=== PATIENT | female | born 1960 | race Caucasian/White ===

== ENCOUNTER 2024-05-22 11:54 | Inpatient (IN) ==
[2024-05-22] MEDS ORDERED: STAT IV Infusion **Titration per Protocol STA ×2 (12:31→14:34)
[2024-05-22] MEDS: NOREPINEPHRINE/D5W 4 MG/250 ML IV ONE (12:32)
[2024-05-22] MEDS: NOREPINEPHRINE/D5W 4 MG/250 ML PLCT IV SCH (12:33)
[2024-05-22] MEDS ORDERED: VANCOMYCIN CONSULT ACTIVE PRN (12:44)
[2024-05-22 12:52] LABS: iSTAT Creatinine 5.6 mg/dl (0.6-1.3); iSTAT Hemoglobin 13.3 g/dl (12.0-16.0); iSTAT Ionized Calcium 1.04 mmol/l (1.12-1.32); iSTAT Potassium 5.5 mmol/L (3.3-5.0)
[2024-05-22] MEDS: CEFEPIME 2000MG 2,000 MG/20 ML SYR IV STA (12:56)
[2024-05-22 13:05] LABS: Basophils # (auto) 0.06 K/uL (0.00-0.20); Basophils % (auto) 0.8 %; Eosinophils # (auto) 0.05 K/uL (0.00-0.50); Eosinophils % (auto) 0.7 %; Hematocrit (blood only) 36.3 % (37.0-47.0); Hemoglobin 12.5 g/dl (12.0-16.0); Immature Granulocytes # (auto) 0.04 K/uL (0.01-0.20); Immature Granulocytes % (auto) 0.5 %; Lymphocytes # (auto) 1.77 K/uL (1.20-3.40); Lymphocytes % (auto) 24.1 %; Mean Corpuscular Hemoglobin 31.9 pg (25.0-34.0); Mean Corpuscular Hgb Conc 34.4 g/dL (32.0-36.0); Mean Corpuscular Volume 92.6 fL (80.0-100.0); Mean Platelet Volume 9.1 fL (9.4-12.4); Monocytes # (auto) 0.48 K/uL (0.11-0.59); Monocytes % (auto) 6.5 %; Neutrophils # (auto) 4.94 K/uL (1.40-6.50); Neutrophils % (auto) 67.4 %; Platelet Count 472 K/uL (130-400); RDW Coefficient of Variation 14.5 % (11.5-14.5); RDW Standard Deviation 49.2 fL (36.4-46.3); Red Blood Count 3.92 M/uL (4.20-5.40); White Blood Count 7.34 K/ul (4.8-10.8)
[2024-05-22 13:28] LABS: Albumin Globulin Ratio 1.5 (0.9-2); Albumin Level 4.8 gm/dl (3.4-5.0); BUN Creatinine Ratio 15.6 (10-20); Bilirubin,Total 0.4 mg/dl (0.2-1.0); Calcium 9.5 mg/dl (8.6-10.3); Creatinine Clr Calc Pharmacy 10.1 ml/min; Globulin 3.2 gm/dl (2.5-4.0); Potassium 5.3 mmol/L (3.5-5.1)
[2024-05-22] MEDS: SODIUM CHLORIDE 0.9% 1,000 ML IV SCH (13:28)
[2024-05-22 13:32] LABS: Troponin I High Sensitivity 12.8 pg/ml (0-14)
[2024-05-22 13:42] LABS: Thyroid Stimulating Hormone 1.945 uIu/ml (0.300-4.500)
--- NOTE | 2024-05-22 13:59 | Emergency Department Note ---
Impression & Plan Hypotension, Acute renal failure, Lactic acidosis, Hyperkalemia, Alcohol intoxication, Shock, Ethyl alcohol poisoning, Altered mental status ED Provider Note NAME: WILLIAN VALADEZ AGE: 63 SEX: F : 1960 ARRIVES VIA: Walk-In INFORMANT: Patient, ED PROVIDER(S): Penny Arriaga MD CHIEF COMPLAINT: Confusion HPI: This is 63-year-old female presenting for confusion. Patient is with her daughter who states over the past 1.5 weeks patient has been sick at home from work. She initially had fever, neck pain, body aches. Since then daughter does mention that the neck pain has improved. Patient has been continue to drink alcohol, reportedly patient is barely eating and drinking and only drink alcohol. Patient has fallen multiple times as per daughter. ROS: See above HPI for pertinent positives & negatives. A total of 10 systems reviewed and were otherwise negative. PAST MEDICAL HISTORY: See Below PAST SURGICAL HISTORY: See Below FAMILY HISTORY: See Below SOCIAL HISTORY: See Below HOME MEDICATIONS: See Below ALLERGIES: See Below VITALS: See Below PHYSICAL EXAMINATION: General: resting comfortably in no acute distress Head: Normocephalic and atraumatic Eyes: Normal inspection, extraocular muscles intact Ear, nose, throat: Normal external exam Neck: Normal range of motion, no meningismus Respiratory: lungs clear to auscultation bilaterally Cardiovascular: Regular rate/rhythm, no murmur GI: soft, nontender, no guarding or rebound Extremities: nontender, moves all extremities Neuro: The patient awake and alert, no focal deficits, symmetric face, not oriented Skin: Warm, dry, and intact MEDICAL DECISION MAKING: This is a 63-year-old female with history of alcohol use disorder presenting for confusion. Patient is found to be hypotensive on arrival, placed in trauma resuscitation bay. Patient blood pressure initially 60/40. She has not presenting tachycardic only a rate of 102. Not febrile, tachypneic. She appears well clinically without any abdominal pain. Blood pressure is significantly low, fluids are started without much relief. Will start nor epi emergently. -Even after norepinephrine, patient is still hypotensive in addition to fluid resuscitation. A-line placed at this time, see below for procedure note. -[id number] BMP does reveal significant PRO, creatinine over 5 on BMP. -Patient given empiric vancomycin and cefepime for sepsis -CT head, chest, abdomen ordered for rule out of intracranial process or other infectious source in the chest or abdomen -CT head reviewed showing no acute cranial process. CT chest reveals no pneumonia. CT abdomen/pelvis reveals no acute process -Labs BMP shows creatinine of 4.81, otherwise hyponatremia, potassium of 5.3, CO2 of 18, anion gap of 17. Lactic acid 3.2. -Ethanol level is 340. -Despite 3 L of normal saline and uptitrating norepinephrine, patient still hypotensive. Will start epinephrine drip at this time. Discussed care with ED pharmacist for this. -Discussed care with Dr. Case, ICU physician, who requests conversation with nephrology for possible dialysis. -Discussed care with Dr. Mcconnell, nephrology, who states patient can get dialysis today and catheter should be placed -Dr. Case at bedside performing procedure -Discussed with Dr. Calloway, hospitalist, for admission PROCEDURE: Time-out was completed verifying correct patient, procedure, site, positioning, and special equipment if applicable. Allens test was performed to ensure adequate perfusion. The patients left wrist was prepped and draped in sterile fashion. A 20 Arrow arterial line was introduced into the radial artery. The catheter was threaded over the guide wire and the needle was removed with appropriate pulsatile blood return. The catheter was then sutured in place to the skin and a sterile dressing applied. Perfusion to the extremity distal to the point of catheter insertion was checked and found to be adequate. Differential diagnosis: Sepsis, intracranial hemorrhage, meningitis, dehydration, alcohol intoxication, stroke Independent History obtained from: Daughter Diagnostics interpreted by me: ECG: ECG independently interpreted by me with normal sinus rhythm, rate of 95, normal axis, normal [place], normal QRS, normal QTc, no ST segment elevations consistent with STEMI criteria Cardiac Monitoring: An order was placed for continuous cardiac monitoring. The monitor shows a rate of 98 with sinus rhythm. Critical Care Note: I have personally spent 80 minutes of critical care time in the direct management of this patient. This includes bedside care, interpretation of diagnostic studies, and testing, discussion with consultants, patient, and family members, and other required patient management activities. This 80 minutes is in excess of all separately billable procedures. 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: No Beliefs That Will Affect Care: None Current Living Situation: Alone Current Living Situation Comment: alone with daughter Feels Safe at Home: Yes Assistive Devices: None Allergies Allergies Allergy/AdvReac Type Severity Reaction Status Date / Time No Known Allergies Allergy Unverified 05/22/24 14:19 Home Meds Home Medications Medication Instructions Recorded Confirmed fluoxetine 40 mg capsule 40 mg PO DAILY 05/22/24 05/22/24 olanzapine 5 mg tablet 5 mg PO DAILY 05/22/24 05/22/24 Results & Data (ED) Vital Signs Vital Signs - 24 hr 05/22/24 12:11 05/22/24 12:19 05/22/24 12:21 Temperature 36.4 C L Temperature Source Oral Pulse Rate 102 H 96 H Pulse Rate [Apical] Pulse Rate from SpO2 Sensor Pulse Rhythm Regular Pulse Rhythm [Apical] Pulse Strength Normal Pulse Strength [Apical] Respiratory Rate 18 Respiratory Effort / Characteristics Non-Labored Spontaneous Respiratory Depth Normal Respiratory Pattern Regular Blood Pressure 64/40 L 81/56 L Blood Pressure [Left Radial Artery] Blood Pressure [Right Arm] Blood Pressure Mean 48 65 Blood Pressure Mean [Left Radial Artery] Blood Pressure Mean [Right Arm] Blood Pressure Position [Left Radial Artery] Blood Pressure Position [Right Arm] Pulse Oximetry 96 Oxygen Delivery Method Room Air Oxygen Flow Rate Sepsis Recent Fever Within 48 Hours No Sepsis New/Unexplained Change in Mental Status N/A Sepsis Action Taken by Nursing No Action Required Arterial BP Systolic Arterial BP Diastolic Arterial BP Mean Arterial Pulse Rate 05/22/24 12:22 05/22/24 12:24 05/22/24 12:27 Temperature Temperature Source Pulse Rate 96 H 94 H Pulse Rate [Apical] 92 H Pulse Rate from SpO2 Sensor Pulse Rhythm Pulse Rhythm [Apical] Regular Pulse Strength Pulse Strength [Apical] Normal Respiratory Rate 26 H Respiratory Effort / Characteristics Respiratory Depth Normal Respiratory Pattern Regular Blood Pressure Blood Pressure [Left Radial Artery] Blood Pressure [Right Arm] 65/43 L Blood Pressure Mean Blood Pressure Mean [Left Radial Artery] Blood Pressure Mean [Right Arm] 50 Blood Pressure Position [Left Radial Artery] Blood Pressure Position [Right Arm] Lying Pulse Oximetry 96 Oxygen Delivery Method Nasal Cannula Oxygen Flow Rate 2 Sepsis Recent Fever Within 48 Hours Sepsis New/Unexplained Change in Mental Status Sepsis Action Taken by Nursing Arterial BP Systolic Arterial BP Diastolic Arterial BP Mean Arterial Pulse Rate 05/22/24 12:28 05/22/24 12:31 05/22/24 12:31 Temperature Temperature Source Pulse Rate Pulse Rate [Apical] Pulse Rate from SpO2 Sensor Pulse Rhythm Pulse Rhythm [Apical] Pulse Strength Pulse Strength [Apical] Respiratory Rate Respiratory Effort / Characteristics Respiratory Depth Respiratory Pattern Blood Pressure 60/47 L 76/47 L 76/47 L Blood Pressure [Left Radial Artery] Blood Pressure [Right Arm] Blood Pressure Mean 51 58 58 Blood Pressure Mean [Left Radial Artery] Blood Pressure Mean [Right Arm] Blood Pressure Position [Left Radial Artery] Blood Pressure Position [Right Arm] Pulse Oximetry Oxygen Delivery Method Oxygen Flow Rate Sepsis Recent Fever Within 48 Hours Sepsis New/Unexplained Change in Mental Status Sepsis Action Taken by Nursing Arterial BP Systolic Arterial BP Diastolic Arterial BP Mean Arterial Pulse Rate 05/22/24 12:35 05/22/24 12:37 05/22/24 12:37 Temperature Temperature Source Pulse Rate Pulse Rate [Apical] 87 Pulse Rate from SpO2 Sensor Pulse Rhythm Pulse Rhythm [Apical] Regular Pulse Strength Pulse Strength [Apical] Normal Respiratory Rate 18 Respiratory Effort / Characteristics Non-Labored Spontaneous Respiratory Depth Normal Respiratory Pattern Regular Blood Pressure 102/68 Blood Pressure [Left Radial Artery] Blood Pressure [Right Arm] 102/68 Blood Pressure Mean 78 Blood Pressure Mean [Left Radial Artery] Blood Pressure Mean [Right Arm] 79 Blood Pressure Position [Left Radial Artery] Blood Pressure Position [Right Arm] Lying Pulse Oximetry 88 L 90 Oxygen Delivery Method Room Air Nasal Cannula Oxygen Flow Rate 2 Sepsis Recent Fever Within 48 Hours Sepsis New/Unexplained Change in Mental Status Sepsis Action Taken by Nursing Arterial BP Systolic Arterial BP Diastolic Arterial BP Mean Arterial Pulse Rate 05/22/24 12:41 05/22/24 12:41 05/22/24 12:42 Temperature Temperature Source Pulse Rate 86 Pulse Rate [Apical] 98 H Pulse Rate from SpO2 Sensor Pulse Rhythm Pulse Rhythm [Apical] Regular Pulse Strength Pulse Strength [Apical] Normal Respiratory Rate 26 H Respiratory Effort / Characteristics Respiratory Depth Respiratory Pattern Blood Pressure 57/42 L Blood Pressure [Left Radial Artery] Blood Pressure [Right Arm] 57/42 L Blood Pressure Mean 46 Blood Pressure Mean [Left Radial Artery] Blood Pressure Mean [Right Arm] 47 Blood Pressure Position [Left Radial Artery] Blood Pressure Position [Right Arm] Lying Pulse Oximetry 98 Oxygen Delivery Method Nasal Cannula Oxygen Flow Rate 2 Sepsis Recent Fever Within 48 Hours Sepsis New/Unexplained Change in Mental Status Sepsis Action Taken by Nursing Arterial BP Systolic Arterial BP Diastolic Arterial BP Mean Arterial Pulse Rate 05/22/24 12:44 05/22/24 12:45 05/22/24 12:45 Temperature Temperature Source Pulse Rate 86 Pulse Rate [Apical] Pulse Rate from SpO2 Sensor 87 Pulse Rhythm Pulse Rhythm [Apical] Pulse Strength Pulse Strength [Apical] Respiratory Rate Respiratory Effort / Characteristics Respiratory Depth Respiratory Pattern Blood Pressure 56/37 L 56/38 L Blood Pressure [Left Radial Artery] Blood Pressure [Right Arm] Blood Pressure Mean 43 46 Blood Pressure Mean [Left Radial Artery] Blood Pressure Mean [Right Arm] Blood Pressure Position [Left Radial Artery] Blood Pressure Position [Right Arm] Pulse Oximetry 96 Oxygen Delivery Method Oxygen Flow Rate Sepsis Recent Fever Within 48 Hours Sepsis New/Unexplained Change in Mental Status Sepsis Action Taken by Nursing Arterial BP Systolic Arterial BP Diastolic Arterial BP Mean Arterial Pulse Rate 05/22/24 12:45 05/22/24 12:48 05/22/24 12:48 Temperature Temperature Source Pulse Rate 84 Pulse Rate [Apical] Pulse Rate from SpO2 Sensor Pulse Rhythm Pulse Rhythm [Apical] Pulse Strength Pulse Strength [Apical] Respiratory Rate Respiratory Effort / Characteristics Respiratory Depth Respiratory Pattern Blood Pressure 56/38 L 69/50 L Blood Pressure [Left Radial Artery] Blood Pressure [Right Arm] Blood Pressure Mean 46 53 Blood Pressure Mean [Left Radial Artery] Blood Pressure Mean [Right Arm] Blood Pressure Position [Left Radial Artery] Blood Pressure Position [Right Arm] Pulse Oximetry Oxygen Delivery Method Oxygen Flow Rate Sepsis Recent Fever Within 48 Hours Sepsis New/Unexplained Change in Mental Status Sepsis Action Taken by Nursing Arterial BP Systolic Arterial BP Diastolic Arterial BP Mean Arterial Pulse Rate 05/22/24 12:50 05/22/24 12:54 05/22/24 12:55 Temperature Temperature Source Pulse Rate 90 Pulse Rate [Apical] 91 H Pulse Rate from SpO2 Sensor Pulse Rhythm Regular Pulse Rhythm [Apical] Regular Pulse Strength Pulse Strength [Apical] Respiratory Rate 17 25 H Respiratory Effort / Characteristics Respiratory Depth Respiratory Pattern Blood Pressure 80/55 L Blood Pressure [Left Radial Artery] Blood Pressure [Right Arm] 95/62 L Blood Pressure Mean 60 Blood Pressure Mean [Left Radial Artery] Blood Pressure Mean [Right Arm] 73 Blood Pressure Position [Left Radial Artery] Blood Pressure Position [Right Arm] Lying Pulse Oximetry 98 98 Oxygen Delivery Method Nasal Cannula Oxygen Flow Rate 2 Sepsis Recent Fever Within 48 Hours Sepsis New/Unexplained Change in Mental Status Sepsis Action Taken by Nursing Arterial BP Systolic Arterial BP Diastolic Arterial BP Mean Arterial Pulse Rate 05/22/24 13:05 05/22/24 13:05 05/22/24 13:09 Temperature Temperature Source Pulse Rate 96 H Pulse Rate [Apical] Pulse Rate from SpO2 Sensor Pulse Rhythm Pulse Rhythm [Apical] Pulse Strength Pulse Strength [Apical] Respiratory Rate Respiratory Effort / Characteristics Respiratory Depth Respiratory Pattern Blood Pressure 98/66 L 98/66 L Blood Pressure [Left Radial Artery] Blood Pressure [Right Arm] Blood Pressure Mean 71 71 Blood Pressure Mean [Left Radial Artery] Blood Pressure Mean [Right Arm] Blood Pressure Position [Left Radial Artery] Blood Pressure Position [Right Arm] Pulse Oximetry 93 Oxygen Delivery Method Nasal Cannula Oxygen Flow Rate 2 Sepsis Recent Fever Within 48 Hours Sepsis New/Unexplained Change in Mental Status Sepsis Action Taken by Nursing Arterial BP Systolic Arterial BP Diastolic Arterial BP Mean Arterial Pulse Rate 05/22/24 13:10 05/22/24 13:15 05/22/24 13:15 Temperature Temperature Source Pulse Rate 96 H Pulse Rate [Apical] Pulse Rate from SpO2 Sensor 94 H Pulse Rhythm Pulse Rhythm [Apical] Pulse Strength Pulse Strength [Apical] Respiratory Rate Respiratory Effort / Characteristics Respiratory Depth Respiratory Pattern Blood Pressure 97/67 L 87/56 L Blood Pressure [Left Radial Artery] Blood Pressure [Right Arm] Blood Pressure Mean 74 67 Blood Pressure Mean [Left Radial Artery] Blood Pressure Mean [Right Arm] Blood Pressure Position [Left Radial Artery] Blood Pressure Position [Right Arm] Pulse Oximetry 98 Oxygen Delivery Method Oxygen Flow Rate Sepsis Recent Fever Within 48 Hours Sepsis New/Unexplained Change in Mental Status Sepsis Action Taken by Nursing Arterial BP Systolic Arterial BP Diastolic Arterial BP Mean Arterial Pulse Rate 95 H 05/22/24 13:15 05/22/24 13:18 05/22/24 13:20 Temperature Temperature Source Pulse Rate 95 H Pulse Rate [Apical] Pulse Rate from SpO2 Sensor 95 H Pulse Rhythm Pulse Rhythm [Apical] Pulse Strength Pulse Strength [Apical] Respiratory Rate Respiratory Effort / Characteristics Respiratory Depth Respiratory Pattern Blood Pressure 87/56 L 85/59 L Blood Pressure [Left Radial Artery] Blood Pressure [Right Arm] Blood Pressure Mean 67 65 Blood Pressure Mean [Left Radial Artery] Blood Pressure Mean [Right Arm] Blood Pressure Position [Left Radial Artery] Blood Pressure Position [Right Arm] Pulse Oximetry 98 Oxygen Delivery Method Oxygen Flow Rate Sepsis Recent Fever Within 48 Hours Sepsis New/Unexplained Change in Mental Status Sepsis Action Taken by Nursing Arterial BP Systolic Arterial BP Diastolic Arterial BP Mean Arterial Pulse Rate 63 05/22/24 13:20 05/22/24 13:24 05/22/24 13:25 Temperature Temperature Source Pulse Rate 97 H Pulse Rate [Apical] 96 H Pulse Rate from SpO2 Sensor 96 H Pulse Rhythm Pulse Rhythm [Apical] Regular Pulse Strength Pulse Strength [Apical] Respiratory Rate 24 Respiratory Effort / Characteristics Respiratory Depth Normal Respiratory Pattern Blood Pressure 85/59 L Blood Pressure [Left Radial Artery] Blood Pressure [Right Arm] 94/56 L Blood Pressure Mean 65 Blood Pressure Mean [Left Radial Artery] Blood Pressure Mean [Right Arm] 68 Blood Pressure Position [Left Radial Artery] Blood Pressure Position [Right Arm] Pulse Oximetry 98 97 Oxygen Delivery Method Nasal Cannula Oxygen Flow Rate 2 Sepsis Recent Fever Within 48 Hours Sepsis New/Unexplained Change in Mental Status Sepsis Action Taken by Nursing Arterial BP Systolic 44 Arterial BP Diastolic Arterial BP Mean 1 Arterial Pulse Rate 96 H 05/22/24 13:33 05/22/24 14:00 05/22/24 14:01 Temperature Temperature Source Pulse Rate 95 H Pulse Rate [Apical] 94 H Pulse Rate from SpO2 Sensor Pulse Rhythm Pulse Rhythm [Apical] Regular Pulse Strength Pulse Strength [Apical] Normal Respiratory Rate 24 Respiratory Effort / Characteristics Respiratory Depth Shallow Respiratory Pattern Blood Pressure 86/59 L Blood Pressure [Left Radial Artery] 113/45 L Blood Pressure [Right Arm] 103/64 Blood Pressure Mean 64 Blood Pressure Mean [Left Radial Artery] 67 Blood Pressure Mean [Right Arm] 77 Blood Pressure Position [Left Radial Artery] Lying Blood Pressure Position [Right Arm] Lying Pulse Oximetry 100 98 Oxygen Delivery Method Nasal Cannula Oxygen Flow Rate 2 Sepsis Recent Fever Within 48 Hours Sepsis New/Unexplained Change in Mental Status Sepsis Action Taken by Nursing Arterial BP Systolic 110 Arterial BP Diastolic 39 Arterial BP Mean 57 Arterial Pulse Rate 05/22/24 14:01 05/22/24 14:05 05/22/24 14:05 Temperature Temperature Source Pulse Rate Pulse Rate [Apical] 94 H Pulse Rate from SpO2 Sensor Pulse Rhythm Pulse Rhythm [Apical] Pulse Strength Pulse Strength [Apical] Normal Respiratory Rate 25 H Respiratory Effort / Characteristics Respiratory Depth Normal Respiratory Pattern Regular Blood Pressure 86/59 L 103/64 Blood Pressure [Left Radial Artery] Blood Pressure [Right Arm] 103/64 Blood Pressure Mean 64 83 Blood Pressure Mean [Left Radial Artery] Blood Pressure Mean [Right Arm] 77 Blood Pressure Position [Left Radial Artery] Blood Pressure Position [Right Arm] Pulse Oximetry 99 Oxygen Delivery Method Nasal Cannula Oxygen Flow Rate 2 Sepsis Recent Fever Within 48 Hours Sepsis New/Unexplained Change in Mental Status Sepsis Action Taken by Nursing Arterial BP Systolic Arterial BP Diastolic Arterial BP Mean Arterial Pulse Rate 05/22/24 14:07 05/22/24 14:07 05/22/24 14:09 Temperature Temperature Source Pulse Rate 93 H Pulse Rate [Apical] Pulse Rate from SpO2 Sensor 93 H Pulse Rhythm Pulse Rhythm [Apical] Pulse Strength Pulse Strength [Apical] Respiratory Rate 25 H Respiratory Effort / Characteristics Respiratory Depth Respiratory Pattern Blood Pressure 106/68 106/68 Blood Pressure [Left Radial Artery] Blood Pressure [Right Arm] Blood Pressure Mean 73 73 Blood Pressure Mean [Left Radial Artery] Blood Pressure Mean [Right Arm] Blood Pressure Position [Left Radial Artery] Blood Pressure Position [Right Arm] Pulse Oximetry 99 Oxygen Delivery Method Oxygen Flow Rate Sepsis Recent Fever Within 48 Hours Sepsis New/Unexplained Change in Mental Status Sepsis Action Taken by Nursing Arterial BP Systolic 117 Arterial BP Diastolic 38 Arterial BP Mean 61 Arterial Pulse Rate 93 H 05/22/24 14:10 05/22/24 14:10 05/22/24 14:10 Temperature Temperature Source Pulse Rate Pulse Rate [Apical] Pulse Rate from SpO2 Sensor Pulse Rhythm Pulse Rhythm [Apical] Pulse Strength Pulse Strength [Apical] Respiratory Rate Respiratory Effort / Characteristics Respiratory Depth Respiratory Pattern Blood Pressure 97/62 L 97/62 L 97/62 L Blood Pressure [Left Radial Artery] Blood Pressure [Right Arm] Blood Pressure Mean 72 72 72 Blood Pressure Mean [Left Radial Artery] Blood Pressure Mean [Right Arm] Blood Pressure Position [Left Radial Artery] Blood Pressure Position [Right Arm] Pulse Oximetry Oxygen Delivery Method Oxygen Flow Rate Sepsis Recent Fever Within 48 Hours Sepsis New/Unexplained Change in Mental Status Sepsis Action Taken by Nursing Arterial BP Systolic Arterial BP Diastolic Arterial BP Mean Arterial Pulse Rate 05/22/24 14:12 05/22/24 14:20 05/22/24 14:20 Temperature Temperature Source Pulse Rate 94 H Pulse Rate [Apical] Pulse Rate from SpO2 Sensor 93 H Pulse Rhythm Pulse Rhythm [Apical] Pulse Strength Pulse Strength [Apical] Respiratory Rate 24 Respiratory Effort / Characteristics Respiratory Depth Respiratory Pattern Blood Pressure 95/65 L 95/65 L Blood Pressure [Left Radial Artery] Blood Pressure [Right Arm] Blood Pressure Mean 74 74 Blood Pressure Mean [Left Radial Artery] Blood Pressure Mean [Right Arm] Blood Pressure Position [Left Radial Artery] Blood Pressure Position [Right Arm] Pulse Oximetry 99 Oxygen Delivery Method Oxygen Flow Rate Sepsis Recent Fever Within 48 Hours Sepsis New/Unexplained Change in Mental Status Sepsis Action Taken by Nursing Arterial BP Systolic 96 Arterial BP Diastolic 37 Arterial BP Mean 53 Arterial Pulse Rate 93 H 05/22/24 14:25 05/22/24 14:25 05/22/24 14:25 Temperature Temperature Source Pulse Rate Pulse Rate [Apical] Pulse Rate from SpO2 Sensor Pulse Rhythm Pulse Rhythm [Apical] Pulse Strength Pulse Strength [Apical] Respiratory Rate Respiratory Effort / Characteristics Respiratory Depth Respiratory Pattern Blood Pressure 91/63 L 91/63 L 91/63 L Blood Pressure [Left Radial Artery] Blood Pressure [Right Arm] Blood Pressure Mean 68 68 68 Blood Pressure Mean [Left Radial Artery] Blood Pressure Mean [Right Arm] Blood Pressure Position [Left Radial Artery] Blood Pressure Position [Right Arm] Pulse Oximetry Oxygen Delivery Method Oxygen Flow Rate Sepsis Recent Fever Within 48 Hours Sepsis New/Unexplained Change in Mental Status Sepsis Action Taken by Nursing Arterial BP Systolic Arterial BP Diastolic Arterial BP Mean Arterial Pulse Rate 05/22/24 14:30 05/22/24 14:30 05/22/24 14:30 Temperature Temperature Source Pulse Rate Pulse Rate [Apical] Pulse Rate from SpO2 Sensor Pulse Rhythm Pulse Rhythm [Apical] Pulse Strength Pulse Strength [Apical] Respiratory Rate Respiratory Effort / Characteristics Respiratory Depth Respiratory Pattern Blood Pressure 83/52 L 83/52 L 83/52 L Blood Pressure [Left Radial Artery] Blood Pressure [Right Arm] Blood Pressure Mean 60 60 60 Blood Pressure Mean [Left Radial Artery] Blood Pressure Mean [Right Arm] Blood Pressure Position [Left Radial Artery] Blood Pressure Position [Right Arm] Pulse Oximetry Oxygen Delivery Method Oxygen Flow Rate Sepsis Recent Fever Within 48 Hours Sepsis New/Unexplained Change in Mental Status Sepsis Action Taken by Nursing Arterial BP Systolic Arterial BP Diastolic Arterial BP Mean Arterial Pulse Rate 05/22/24 14:30 Temperature Temperature Source Pulse Rate 96 H Pulse Rate [Apical] Pulse Rate from SpO2 Sensor 96 H Pulse Rhythm Pulse Rhythm [Apical] Pulse Strength Pulse Strength [Apical] Respiratory Rate 24 Respiratory Effort / Characteristics Respiratory Depth Respiratory Pattern Blood Pressure Blood Pressure [Left Radial Artery] Blood Pressure [Right Arm] Blood Pressure Mean Blood Pressure Mean [Left Radial Artery] Blood Pressure Mean [Right Arm] Blood Pressure Position [Left Radial Artery] Blood Pressure Position [Right Arm] Pulse Oximetry 99 Oxygen Delivery Method Oxygen Flow Rate Sepsis Recent Fever Within 48 Hours Sepsis New/Unexplained Change in Mental Status Sepsis Action Taken by Nursing Arterial BP Systolic 81 Arterial BP Diastolic 33 Arterial BP Mean 46 Arterial Pulse Rate 96 H Laboratory Data 05/22/24 12:29 05/22/24 12:29 Lab Results 05/22/24 05/22/24 05/22/24 Range/Units 12:29 12:38 12:39 WBC 7.34 (4.8-10.8) K/ul RBC 3.92 L (4.20-5.40) M/uL Hgb 12.5 (12.0-16.0) g/dl POC Hgb 13.3 (12.0-16.0) g/dl Hct 36.3 L (37.0-47.0) % POC Hct 39 (37-47) % MCV 92.6 (80.0-100.0) fL MCH 31.9 (25.0-34.0) pg MCHC 34.4 (32.0-36.0) g/dL RDW Std Deviation 49.2 H (36.4-46.3) fL RDW Coeff of [place] 14.5 (11.5-14.5) % Plt Count 472 H (130-400) K/uL MPV 9.1 L (9.4-12.4) fL Immature Gran % (Auto) 0.5 % Neut % (Auto) 67.4 % Lymph % (Auto) 24.1 % [place] % (Auto) 6.5 % Eos % (Auto) 0.7 % Baso % (Auto) 0.8 % Neut # (Auto) 4.94 (1.40-6.50) K/uL Lymph # (Auto) 1.77 (1.20-3.40) K/uL [place] # (Auto) 0.48 (0.11-0.59) K/uL Eos # (Auto) 0.05 (0.00-0.50) K/uL Baso # (Auto) 0.06 (0.00-0.20) K/uL Immature Gran # (Auto) 0.04 (0.01-0.20) K/uL POC pH (7.35-7.45) POC pCO2 (35-46) mmHg POC pO2 (80-95) mmHg POC HCO3 (19-24) pao/L POC Base Excess (-9-1.8) poa/L POC ABG O2 Sat (90-95) % VBG pH (7.36-7.41) VBG pCO2 (38-50) mmHg VBG pO2 mmHg VBG HCO3 mmol/L VBG O2 Saturation % VBG Base Excess mEq/L POC Sodium 130 L (135-144) mmol/L Sodium 130 L (136-145) mmol/L POC Potassium 5.5 H (3.3-5.0) mmol/L Potassium 5.3 H (3.5-5.1) mmol/L POC Chloride 103 (101-112) mmol/L Chloride 95 L (98-107) mmol/L Carbon Dioxide 18 L (21-32) mmol/L POC Total CO2 18 L (24-31) mmol/L Anion Gap 17 H (3-11) POC Anion Gap 16.0 (16-25) mmol/L POC BUN 65 H (7-18) mg/dl BUN 75 H (6-23) mg/dl Creatinine 4.81 H* (0.6-1.2) mg/dl POC Creatinine 5.6 H* (0.6-1.3) mg/dl Est Cr Clr Drug Dosing 10.1 ml/min eGFR 9.61 BUN/Creatinine Ratio 15.6 (10-20) Glucose 87 (70-99(Fasting)) mg/dl POC Glucose (other) 89 (70-99) mg/dl Osmolality (280-300) mOsm/kg Lactate (0.4-2.0) mmol/L Calcium 9.5 (8.6-10.3) mg/dl POC Ioniz Calcium Demetrio 1.04 L (1.12-1.32) mmol/l Phosphorus (2.5-4.9) mg/dl Magnesium (1.7-2.4) mg/dl Total Bilirubin 0.4 (0.2-1.0) mg/dl AST 29 (13-39) U/L ALT 17 (7-52) U/L Alkaline Phosphatase 65 (34-104) U/L Ammonia (18-72) umol/L Total Creatine Kinase (26-192) U/L Troponin I High Sens 12.8 (0-14) pg/ml Total Protein 8.0 (6.0-8.3) gm/dl Albumin 4.8 (3.4-5.0) gm/dl Globulin 3.2 (2.5-4.0) gm/dl Albumin/Globulin Ratio 1.5 (0.9-2) Lipase 38 (11-82) U/L Procalcitonin (0-0.5) ng/ml TSH 1.945 (0.300-4.500) uIu/ml Random Cortisol 21.03 mcg/dl Urine Color Urine Appearance (Clear) Urine pH (4.5-7.5) Ur Specific [place] (1.000-1.030) Urine Protein (Negative) Urine Glucose (UA) (Negative) Urine Ketones (Negative) Urine Blood (Negative) Urine Nitrite (Negative) Urine Bilirubin (Negative) Urine Urobilinogen (Negative) Ur Leukocyte Esterase (Negative) Urine WBC (Auto) (0-5) /hpf Urine RBC (Auto) (0-2) /hpf U Hyaline Cast (Auto) (0-2) /lpf U Epithel Cells (Auto) (0-2) /hpf Urine Bacteria (Auto) (None Seen) Salicylates (3.0-30) mg/dl Urine Opiates Screen (Neg) Ur Methadone, Qual (Neg) Urine Fentanyl Screen (Neg) Acetaminophen (10-30) ug/ml Urine Barbiturates (Neg) Ur Phencyclidine (PCP) (Neg) U Amphetamin/Meth Scrn (Neg) MDMA (Ecstasy) Screen (Neg) U Benzodiazepines Scrn (Neg) Ur Cocaine Metabolite (Neg) U Marijuana (THC) Screen (Neg) Ethyl Alcohol mg/dL (<10.0) mg/dl Adenovirus (PCR) Not Detected (NotDetected) B. pertussis DNA (PCR) Not Detected (NotDetected) B.parapertussis DNA PCR Not Detected (NotDetected) C. pneumoniae DNA (PCR) Not Detected (NotDetected) Coronavirus OC43 (PCR) Not Detected (NotDetected) Coronavirus HKU1 (PCR) Not Detected (NotDetected) Coronavirus 229E (PCR) Not Detected (NotDetected) SARS-CoV-2 (PCR) Not Detected (NotDetected) Coronavirus NL63 (PCR) Not Detected (NotDetected) Human Metapneumovir PCR Not Detected (NotDetected) Influenza Type A (PCR) Not Detected (NotDetected) Influenza Type B (PCR) Not Detected (NotDetected) M. pneumoniae (PCR) Not Detected (NotDetected) Parainfluenza 1 (PCR) Not Detected (NotDetected) Parainfluenza 2 (PCR) Not Detected (NotDetected) Parainfluenza 3 (PCR) Not Detected (NotDetected) Parainfluenza 4 (PCR) Not Detected (NotDetected) RSV (PCR) Not Detected (NotDetected) Entero/Rhino (PCR) Not Detected (NotDetected) 05/22/24 05/22/24 05/22/24 Range/Units 13:10 14:10 14:51 WBC (4.8-10.8) K/ul RBC (4.20-5.40) M/uL Hgb (12.0-16.0) g/dl POC Hgb 11.9 L (12.0-16.0) g/dl Hct (37.0-47.0) % POC Hct 35 L (37-47) % MCV (80.0-100.0) fL MCH (25.0-34.0) pg MCHC (32.0-36.0) g/dL RDW Std Deviation (36.4-46.3) fL RDW Coeff of Logan (11.5-14.5) % Plt Count (130-400) K/uL MPV (9.4-12.4) fL Immature Gran % (Auto) % Neut % (Auto) % Lymph % (Auto) % [place] % (Auto) % Eos % (Auto) % Baso % (Auto) % Neut # (Auto) (1.40-6.50) K/uL Lymph # (Auto) (1.20-3.40) K/uL [place] # (Auto) (0.11-0.59) K/uL Eos # (Auto) (0.00-0.50) K/uL Baso # (Auto) (0.00-0.20) K/uL Immature Gran # (Auto) (0.01-0.20) K/uL POC pH 7.18 L* (7.35-7.45) POC pCO2 31 L (35-46) mmHg POC pO2 113 H (80-95) mmHg POC HCO3 12 L (19-24) pao/L POC Base Excess -17.0 L (-9-1.8) pao/L POC ABG O2 Sat 97.0 H (90-95) % VBG pH (7.36-7.41) VBG pCO2 (38-50) mmHg VBG pO2 mmHg VBG HCO3 mmol/L VBG O2 Saturation % VBG Base Excess mEq/L POC Sodium 133 L (135-144) mmol/L Sodium (136-145) mmol/L POC Potassium 5.4 H (3.3-5.0) mmol/L Potassium (3.5-5.1) mmol/L POC Chloride (101-112) mmol/L Chloride (98-107) mmol/L Carbon Dioxide (21-32) mmol/L POC Total CO2 12 L (24-31) mmol/L Anion Gap (3-11) POC Anion Gap (16-25) mmol/L POC BUN (7-18) mg/dl BUN (6-23) mg/dl Creatinine (0.6-1.2) mg/dl POC Creatinine (0.6-1.3) mg/dl Est Cr Clr Drug Dosing ml/min eGFR BUN/Creatinine Ratio (10-20) Glucose (70-99(Fasting)) mg/dl POC Glucose (other) (70-99) mg/dl Osmolality (280-300) mOsm/kg Lactate 3.2 H* (0.4-2.0) mmol/L Calcium (8.6-10.3) mg/dl POC Ioniz Calcium Demetrio (1.12-1.32) mmol/l Phosphorus (2.5-4.9) mg/dl Magnesium (1.7-2.4) mg/dl Total Bilirubin (0.2-1.0) mg/dl AST (13-39) U/L ALT (7-52) U/L Alkaline Phosphatase (34-104) U/L Ammonia 23.0 (18-72) umol/L Total Creatine Kinase (26-192) U/L Troponin I High Sens (0-14) pg/ml Total Protein (6.0-8.3) gm/dl Albumin (3.4-5.0) gm/dl Globulin (2.5-4.0) gm/dl Albumin/Globulin Ratio (0.9-2) Lipase (11-82) U/L Procalcitonin (0-0.5) ng/ml TSH (0.300-4.500) uIu/ml Random Cortisol mcg/dl Urine Color Yellow Urine Appearance Clear (Clear) Urine pH 5.5 (4.5-7.5) Ur Specific [place] 1.007 (1.000-1.030) Urine Protein Trace H (Negative) Urine Glucose (UA) Negative (Negative) Urine Ketones Negative (Negative) Urine Blood Trace H (Negative) Urine Nitrite Negative (Negative) Urine Bilirubin Negative (Negative) Urine Urobilinogen Negative (Negative) Ur Leukocyte Esterase Negative (Negative) Urine WBC (Auto) 0-5 (0-5) /hpf Urine RBC (Auto) 0-2 (0-2) /hpf U Hyaline Cast (Auto) 3-5 H (0-2) /lpf U Epithel Cells (Auto) 0-2 (0-2) /hpf Urine Bacteria (Auto) None Seen (None Seen) Salicylates (3.0-30) mg/dl Urine Opiates Screen Neg (Neg) Ur Methadone, Qual Neg (Neg) Urine Fentanyl Screen Neg (Neg) Acetaminophen (10-30) ug/ml Urine Barbiturates Neg (Neg) Ur Phencyclidine (PCP) Neg (Neg) U Amphetamin/Meth Scrn Neg (Neg) MDMA (Ecstasy) Screen Neg (Neg) U Benzodiazepines Scrn Neg (Neg) Ur Cocaine Metabolite Neg (Neg) U Marijuana (THC) Screen Neg (Neg) Ethyl Alcohol mg/dL 340.1 H (<10.0) mg/dl Adenovirus (PCR) (NotDetected) B. pertussis DNA (PCR) (NotDetected) B.parapertussis DNA PCR (NotDetected) C. pneumoniae DNA (PCR) (NotDetected) Coronavirus OC43 (PCR) (NotDetected) Coronavirus HKU1 (PCR) (NotDetected) Coronavirus 229E (PCR) (NotDetected) SARS-CoV-2 (PCR) (NotDetected) Coronavirus NL63 (PCR) (NotDetected) Human Metapneumovir PCR (NotDetected) Influenza Type A (PCR) (NotDetected) Influenza Type B (PCR) (NotDetected) M. pneumoniae (PCR) (NotDetected) Parainfluenza 1 (PCR) (NotDetected) Parainfluenza 2 (PCR) (NotDetected) Parainfluenza 3 (PCR) (NotDetected) Parainfluenza 4 (PCR) (NotDetected) RSV (PCR) (NotDetected) Entero/Rhino (PCR) (NotDetected) 05/22/24 05/22/24 05/22/24 Range/Units 15:22 15:31 15:32 WBC (4.8-10.8) K/ul RBC (4.20-5.40) M/uL Hgb (12.0-16.0) g/dl POC Hgb (12.0-16.0) g/dl Hct (37.0-47.0) % POC Hct (37-47) % MCV (80.0-100.0) fL MCH (25.0-34.0) pg MCHC (32.0-36.0) g/dL RDW Std Deviation (36.4-46.3) fL RDW Coeff of Logan (11.5-14.5) % Plt Count (130-400) K/uL MPV (9.4-12.4) fL Immature Gran % (Auto) % Neut % (Auto) % Lymph % (Auto) % [place] % (Auto) % Eos % (Auto) % Baso % (Auto) % Neut # (Auto) (1.40-6.50) K/uL Lymph # (Auto) (1.20-3.40) K/uL [place] # (Auto) (0.11-0.59) K/uL Eos # (Auto) (0.00-0.50) K/uL Baso # (Auto) (0.00-0.20) K/uL Immature Gran # (Auto) (0.01-0.20) K/uL POC pH (7.35-7.45) POC pCO2 (35-46) mmHg POC pO2 (80-95) mmHg POC HCO3 (19-24) pao/L POC Base Excess (-9-1.8) pao/L POC ABG O2 Sat (90-95) % VBG pH 7.14 L (7.36-7.41) VBG pCO2 41 (38-50) mmHg VBG pO2 25 mmHg VBG HCO3 14 mmol/L VBG O2 Saturation < 60.0 % VBG Base Excess -14.5 mEq/L POC Sodium (135-144) mmol/L Sodium (136-145) mmol/L POC Potassium (3.3-5.0) mmol/L Potassium (3.5-5.1) mmol/L POC Chloride (101-112) mmol/L Chloride (98-107) mmol/L Carbon Dioxide (21-32) mmol/L POC Total CO2 (24-31) mmol/L Anion Gap (3-11) POC Anion Gap (16-25) mmol/L POC BUN (7-18) mg/dl BUN (6-23) mg/dl Creatinine (0.6-1.2) mg/dl POC Creatinine (0.6-1.3) mg/dl Est Cr Clr Drug Dosing ml/min eGFR BUN/Creatinine Ratio (10-20) Glucose (70-99(Fasting)) mg/dl POC Glucose (other) (70-99) mg/dl Osmolality 369 H* (280-300) mOsm/kg Lactate 3.8 H* (0.4-2.0) mmol/L Calcium (8.6-10.3) mg/dl POC Ioniz Calcium Demetrio (1.12-1.32) mmol/l Phosphorus 4.3 (2.5-4.9) mg/dl Magnesium 2.2 (1.7-2.4) mg/dl Total Bilirubin (0.2-1.0) mg/dl AST (13-39) U/L ALT (7-52) U/L Alkaline Phosphatase (34-104) U/L Ammonia (18-72) umol/L Total Creatine Kinase 109 (26-192) U/L Troponin I High Sens (0-14) pg/ml Total Protein (6.0-8.3) gm/dl Albumin (3.4-5.0) gm/dl Globulin (2.5-4.0) gm/dl Albumin/Globulin Ratio (0.9-2) Lipase (11-82) U/L Procalcitonin 0.10 (0-0.5) ng/ml TSH (0.300-4.500) uIu/ml Random Cortisol mcg/dl Urine Color Urine Appearance (Clear) Urine pH (4.5-7.5) Ur Specific [place] (1.000-1.030) Urine Protein (Negative) Urine Glucose (UA) (Negative) Urine Ketones (Negative) Urine Blood (Negative) Urine Nitrite (Negative) Urine Bilirubin (Negative) Urine Urobilinogen (Negative) Ur Leukocyte Esterase (Negative) Urine WBC (Auto) (0-5) /hpf Urine RBC (Auto) (0-2) /hpf U Hyaline Cast (Auto) (0-2) /lpf U Epithel Cells (Auto) (0-2) /hpf Urine Bacteria (Auto) (None Seen) Salicylates < 3.0 L (3.0-30) mg/dl Urine Opiates Screen (Neg) Ur Methadone, Qual (Neg) Urine Fentanyl Screen (Neg) Acetaminophen < 3 L (10-30) ug/ml Urine Barbiturates (Neg) Ur Phencyclidine (PCP) (Neg) U Amphetamin/Meth Scrn (Neg) MDMA (Ecstasy) Screen (Neg) U Benzodiazepines Scrn (Neg) Ur Cocaine Metabolite (Neg) U Marijuana (THC) Screen (Neg) Ethyl Alcohol mg/dL (<10.0) mg/dl Adenovirus (PCR) (NotDetected) B. pertussis DNA (PCR) (NotDetected) B.parapertussis DNA PCR (NotDetected) C. pneumoniae DNA (PCR) (NotDetected) Coronavirus OC43 (PCR) (NotDetected) Coronavirus HKU1 (PCR) (NotDetected) Coronavirus 229E (PCR) (NotDetected) SARS-CoV-2 (PCR) (NotDetected) Coronavirus NL63 (PCR) (NotDetected) Human Metapneumovir PCR (NotDetected) Influenza Type A (PCR) (NotDetected) Influenza Type B (PCR) (NotDetected) M. pneumoniae (PCR) (NotDetected) Parainfluenza 1 (PCR) (NotDetected) Parainfluenza 2 (PCR) (NotDetected) Parainfluenza 3 (PCR) (NotDetected) Parainfluenza 4 (PCR) (NotDetected) RSV (PCR) (NotDetected) Entero/Rhino (PCR) (NotDetected) Administered Medications Fludrocortisone Acetate (Fludrocortisone Acetate 0.1 Mg Tab) 0.1 mg PO QAM [facility] Stop: 06/21/24 16:44 Last Admin: 05/22/24 18:14 Dose: 0.1 mg Documented By: ES Norepinephrine Bitartrate (Levophed/D5w) 4 mg in 250 mls @ 12.038 mls/hr IV .[id number] [facility]; Protocol Stop: 06/21/24 12:44 Last Titration: 05/22/24 19:07 Dose: 0.06 mcg/kg/min, 12 mls/hr Documented By: ES Co-signed By: LAG Titration: 05/22/24 18:23 Dose: 0.06 mcg/kg/min, 12 mls/hr Documented By: ES Co-signed By: TJL Titration: 05/22/24 18:07 Dose: 0.1 mcg/kg/min, 20.1 mls/hr Documented By: ES Co-signed By: LAF Titration: 05/22/24 16:59 Dose: 0.15 mcg/kg/min, 30.1 mls/hr Documented By: ES Co-signed By: DAA Titration: 05/22/24 14:29 Dose: 0.19 mcg/kg/min, 38.1 mls/hr Documented By: SNS Co-signed By: AMS Titration: 05/22/24 14:20 Dose: 0.17 mcg/kg/min, 34.1 mls/hr Documented By: SNS Co-signed By: AMS(2) Titration: 05/22/24 14:11 Dose: 0.15 mcg/kg/min, 30.1 mls/hr Documented By: SNS Co-signed By: AMS(2) Titration: 05/22/24 14:04 Dose: 0.13 mcg/kg/min, 26.1 mls/hr Documented By: SNS Co-signed By: RINKU Titration: 05/22/24 13:37 Dose: 0.11 mcg/kg/min, 22.1 mls/hr Documented By: JOSH Co-signed By: MNE Titration: 05/22/24 12:46 Dose: 0.09 mcg/kg/min, 18.1 mls/hr Documented By: SNS Co-signed By: SHB Titration: 05/22/24 12:41 Dose: 0.07 mcg/kg/min, 14 mls/hr Documented By: SNS Co-signed By: SHB Admin: 05/22/24 12:33 Dose: 0.05 mcg/kg/min, 10 mls/hr Documented By: JOSH Co-signed By: ELENI Vasopressin 20 units/ Sodium (Chloride) 101 mls @ 12.12 mls/hr IV .Q8H20M GERTRUDIS Stop: 06/21/24 15:59 Last Infusion: 05/22/24 19:20 Dose: 0 unit/min, 0 mls/hr Documented By: MALATHI Co-signed By: BELGICAG Infusion: 05/22/24 19:07 Dose: 0.04 unit/min, 12.1 mls/hr Documented By: BELGICA Co-signed By: MALATHI Admin: 05/22/24 16:59 Dose: 0.04 unit/min, 12.1 mls/hr Documented By: BELGICA Co-signed By: RODRIGUEZ Bowen (Icu Protocol For Hyperglycemia) 1 each N/A ACHS [facility] Stop: 05/24/24 16:55 Last Admin: 05/22/24 16:59 Dose: Not Given Documented By: BELGICA Discontinued Medications Hydrocortisone Sodium Succinate (Hydrocortisone Sod Succinate 100 Mg/2 Ml Vial) Confirm Administered Dose 100 mg .ROUTE .STK-MED ONE Stop: 05/22/24 15:42 Last Admin: 05/22/24 15:46 Dose: 100 mg Documented By: JONATHAN Vancomycin HCl 1,250 mg/ (Sodium Chloride) 525 mls @ 200 mls/hr IV NOW ONE Stop: 05/22/24 15:21 Last Infusion: 05/22/24 17:09 Dose: Infused Documented By: Admin: 05/22/24 14:03 Dose: 200 mls/hr Documented By: JOSH Cefepime HCl (Maxipime 2000mg) 2,000 mg in 20 mls @ 5 mls/min IV NOW STA; Protocol Stop: 05/22/24 12:47 Last Admin: 05/22/24 12:56 Dose: 5 mls/min Documented By: JOSH Sodium Chloride (Nss) 1,000 mls @ 999 mls/hr IV .Q1H1M GERTRUDIS Stop: 05/22/24 15:30 Last Infusion: 05/22/24 17:09 Dose: Infused Documented By: Admin: 05/22/24 14:08 Dose: 999 mls/hr Documented By: Infusion: 05/22/24 14:08 Dose: Infused Documented By: Admin: 05/22/24 13:28 Dose: 999 mls/hr Documented By: SNS Epinephrine HCl () 4 mg in 254 mls @ 4.077 mls/hr IV .Q24H GERTRUDIS; Protocol Stop: 06/21/24 14:44 Last Titration: 05/22/24 19:07 Dose: Infused Documented By: BELGICA Co-signed By: LAG Titration: 05/22/24 16:59 Dose: 0 mcg/kg/min, 0 mls/hr Documented By: ES Co-signed By: DAA Titration: 05/22/24 15:09 Dose: 0.03 mcg/kg/min, 6.1 mls/hr Documented By: SNS Co-signed By: GGG Admin: 05/22/24 14:41 Dose: 0.02 mcg/kg/min, 4.1 mls/hr Documented By: SNS Co-signed By: AMS Sodium Bicarbonate 150 meq/ (Sterile Water) 1,150 mls @ 999 mls/hr IV .Q1H10M GERTRUDIS Stop: 05/22/24 16:24 Last Infusion: 05/22/24 17:29 Dose: Infused Documented By: Admin: 05/22/24 16:14 Dose: 999 mls/hr Documented By: JONATHAN Thiamine HCl 500 mg/ Sodium (Chloride) 55 mls @ 210 mls/hr IV NOW STA Stop: 05/22/24 15:55 Last Infusion: 05/22/24 17:29 Dose: Infused Documented By: Admin: 05/22/24 16:59 Dose: 210 mls/hr Documented By: BELGICA Miscellaneous (No Heparin In Dialysis) 1 each N/A ONE ONE Stop: 05/22/24 15:57 Last Admin: 05/22/24 18:13 Dose: Not Given Documented By: ES Norepinephrine Bitartrate (Norepinephrine/D5w 4 Mg/250 Ml) Confirm Administered Dose 4 mg IV .STK-MED ONE Stop: 05/22/24 12:29 Last Admin: 05/22/24 12:32 Dose: Not Given Documented By: SNS Sodium Bicarbonate (Sodium Bicarb 8.4% Inj 50 Meq/50 Ml Syr) Confirm Administered Dose 100 meq IV .STK-MED ONE Stop: 05/22/24 15:51 Last Admin: 05/22/24 15:56 Dose: 100 meq Documented By: GGG Imaging Data Radiologist's Impression: Abdomen/Pelvis CT 05/22/24 12:43 CT OF THE ABDOMEN AND PELVIS WITHOUT CONTRAST CLINICAL HISTORY: Sepsis. Nausea, vomiting and diarrhea COMPARISON STUDY: No previous studies for comparison. TECHNIQUE: Axial images of the abdomen and pelvis were obtained without IV contrast. Images were reviewed in the axial, sagittal, and coronal planes. Automated exposure control was utilized for the study. A dose lowering technique was utilized adhering to the principles of ALARA. FINDINGS: No renal, ureteral or bladder calculi are identified although images of the pelvis are degraded by streak artifact from a left hip arthroplasty. Evaluation of the remainder of the abdomen and pelvis is suboptimal on this unenhanced exam. Possible hepatic steatosis. Spleen, adrenal glands and pancreas are unremarkable. No biliary or pancreatic ductal dilatation is present. There is no peripancreatic or pericholecystic infiltration. There is no evidence for a bowel obstruction. The appendix is normal. Sigmoid diverticulosis without evidence for acute diverticulitis. There is no lymphadenopathy. There are no fluid collections. No acute fractures within the lumbar spine, pelvis or hips are identified. IMPRESSION: 1. No urinary calculi or hydronephrosis. 2. No bowel obstruction. 3. No acute process within the abdomen or pelvis on unenhanced exam. 4. Exam mildly compromised by motion artifact. ACT 112: Negative or not required by law. Electronically signed by: Karl Hagen M.D. 05/22/2024 2:[address] 05/22/24 12:43 CT head/brain wo con CLINICAL HISTORY: 63 years-old Female with confusion,. Acutely altered mental status TECHNIQUE: Multiple axial CT images of the head were obtained without contrast. A dose lowering technique was utilized adhering to the principles of ALARA. COMPARISON: None. FINDINGS: No acute intracranial hemorrhage, midline shift, intracranial mass, hydrocephalus, territorial ischemia or abnormal extra-axial collection. Mild involutional changes. The calvarium is intact. The paranasal sinuses, mastoid air cells, and middle ear cavities are clear. IMPRESSION: No acute intracranial abnormality. ACT 112: Negative or not required by law. The above report was generated using voice recognition software. It may contain grammatical, syntax or spelling errors. Electronically signed by: Carlos Cope M.D. 05/22/2024 2:[address] 05/22/24 12:46 CT OF THE CHEST WITHOUT IV CONTRAST CLINICAL HISTORY: Sepsis. Evaluate for pneumonia COMPARISON STUDY: No previous studies for comparison. TECHNIQUE: Axial images of the chest were obtained without IV contrast. Images were reviewed in the axial, sagittal, and coronal planes. IV contrast was not administered for this examination. Automated exposure control was utilized for the study. A dose lowering technique was utilized adhering to the principles of ALARA. FINDINGS: No enlarged axillary, mediastinal or hilar lymph nodes are present. Size of the heart is at the upper limits of normal. There is no pericardial effusion. No pneumothorax or pleural effusion is present. There is no consolidation to suggest pneumonia. Subpleural densities favor atelectasis. There are no fractures within the bony thorax. No suspicious osseous lesions are present. A few small nodular densities along the minor fissure are likely benign. No suspicious pulmonary nodules are present. Abdomen and pelvis CT will be reported separately. IMPRESSION: 1. No consolidation to suggest pneumonia. 2. Subpleural groundglass opacities and linear densities suggestive of atelectasis. 3. No acute intrathoracic findings. ACT 112: Negative or not required by law. Electronically signed by: Karl Hagen M.D. 05/22/2024 2:16 PM Discharge Plan Visit Data Chief Complaint: Confusion Stated Complaint: VOMITING, NAUSEA, DISORIENTED, DIZZY ED Provider: Penny Arriaga Discharge Problem: Hypotension, Acute renal failure, Lactic acidosis, Hyperkalemia, Alcohol intoxication, Shock, Ethyl alcohol poisoning, Altered mental status Patient Disposition: Admitted As Inpatient
[2024-05-22] MEDS: VANCOMYCIN HCL 1,250 MG in SODIUM CHLORIDE 0.9% 500 ML IV ONE (14:03)
[2024-05-22 14:07] LABS: Adenovirus PCR Not Detected (NotDetected); Bordetella parapertussis PCR Not Detected (NotDetected); Bordetella pertussis PCR Not Detected (NotDetected); Chlamydia pneumoniae PCR Not Detected (NotDetected); Coronavirus 229E PCR Not Detected (NotDetected); Coronavirus CoV-2 (COVID19)PCR Not Detected (NotDetected); Coronavirus HKU1 PCR Not Detected (NotDetected); Coronavirus NL63 PCR Not Detected (NotDetected); Coronavirus OC43PCR Not Detected (NotDetected); Human Metapneumovirus PCR Not Detected (NotDetected); Influenza A PCR Not Detected (NotDetected); Influenza B PCR Not Detected (NotDetected); Mycoplasma pneumoniae PCR Not Detected (NotDetected); Parainfluenza Virus 1 PCR Not Detected (NotDetected); Parainfluenza Virus 2 PCR Not Detected (NotDetected); Parainfluenza Virus 3 PCR Not Detected (NotDetected); Parainfluenza Virus 4 PCR Not Detected (NotDetected); Respiratory Syncytial VirusPCR Not Detected (NotDetected); Rhinovirus/Enterovirus PCR Not Detected (NotDetected)
--- NOTE | 2024-05-22 14:19 | CT Scan Report ---
CT OF THE CHEST WITHOUT IV CONTRAST CLINICAL HISTORY: Sepsis. Evaluate for pneumonia COMPARISON STUDY: No previous studies for comparison. TECHNIQUE: Axial images of the chest were obtained without IV contrast. Images were reviewed in the axial, sagittal, and coronal planes. IV contrast was not administered for this examination. Automat ed exposure control was utilized for the study. A dose lowering technique was utilized adhering to t he principles of ALARA. FINDINGS: No enlarged axillary, mediastinal or hilar lymph nodes are present. Size of the heart is a t the upper limits of normal. There is no pericardial effusion. No pneumothorax or pleural effusion i s present. There is no consolidation to suggest pneumonia. Subpleural densities favor atelectasis. Th ere are no fractures within the bony thorax. No suspicious osseous lesions are present. A few small n odular densities along the minor fissure are likely benign. No suspicious pulmonary nodules are prese nt. Abdomen and pelvis CT will be reported separately. IMPRESSION: 1. No consolidation to suggest pneumonia. 2. Subpleural groundglass opacities and linear densities suggestive of atelectasis. 3. No acute intrathoracic findings. ACT 112: Negative or not required by law. Electronically signed by: Karl Hagen M.D. 05/22/2024 2:16 PM
--- NOTE | 2024-05-22 14:22 | CT Scan Report ---
CT OF THE ABDOMEN AND PELVIS WITHOUT CONTRAST CLINICAL HISTORY: Sepsis. Nausea, vomiting and diarrhea COMPARISON STUDY: No previous studies for comparison. TECHNIQUE: Axial images of the abdomen and pelvis were obtained without IV contrast. Images were revi ewed in the axial, sagittal, and coronal planes. Automated exposure control was utilized for the dayanara dy. A dose lowering technique was utilized adhering to the principles of ALARA. FINDINGS: No renal, ureteral or bladder calculi are identified although images of the pelvis are degr aded by streak artifact from a left hip arthroplasty. Evaluation of the remainder of the abdomen and pelvis is suboptimal on this unenhanced exam. Possible hepatic steatosis. Spleen, adrenal glands and pancreas are unremarkable. No biliary or pancreatic ductal dilatation is present. There is no peripan creatic or pericholecystic infiltration. There is no evidence for a bowel obstruction. The appendix i s normal. Sigmoid diverticulosis without evidence for acute diverticulitis. There is no lymphadenopat hy. There are no fluid collections. No acute fractures within the lumbar spine, pelvis or hips are id entified. IMPRESSION: 1. No urinary calculi or hydronephrosis. 2. No bowel obstruction. 3. No acute process within the abdomen or pelvis on unenhanced exam. 4. Exam mildly compromised by motion artifact. ACT 112: Negative or not required by law. Electronically signed by: Karl Hagen M.D. 05/22/2024 2:21 PM
--- NOTE | 2024-05-22 14:22 | CT Scan Report ---
CT head/brain wo con CLINICAL HISTORY: 63 years-old Female with confusion,. Acutely altered mental status TECHNIQUE: Multiple axial CT images of the head were obtained without contrast. A dose lowering tech nique was utilized adhering to the principles of ALARA. COMPARISON: None. FINDINGS: No acute intracranial hemorrhage, midline shift, intracranial mass, hydrocephalus, territorial ischem ia or abnormal extra-axial collection. Mild involutional changes. The calvarium is intact. The paranasal sinuses, mastoid air cells, and middle ear cavities are clear . IMPRESSION: No acute intracranial abnormality. ACT 112: Negative or not required by law. The above report was generated using voice recognition software. It may contain grammatical, syntax o r spelling errors. Electronically signed by: Carlos Cope M.D. 05/22/2024 2:20 PM
[2024-05-22 14:24] LABS: iSTAT Arterial Blood Gas HCO3 12 meg/L (19-24); iSTAT Arterial Blood Gas pCO2 31 mmHg (35-46); iSTAT Arterial Blood Gas pH 7.18 (7.35-7.45); iSTAT Arterial Blood Gas pO2 113 mmHg (80-95); iSTAT Carbon Dioxide 12 mmol/L (24-31); iSTAT Hematocrit 35 % (37-47); iSTAT Hemoglobin 11.9 g/dl (12.0-16.0); iSTAT Potassium 5.4 mmol/L (3.3-5.0); iSTAT Sodium 133 mmol/L (135-144)
[2024-05-22] MEDS: EPINEPHrine/NSS 4 MG/254 ML BAG IV SCH (14:41)
[2024-05-22 15:12] LABS: Appearance Urine Clear (Clear); Bacteria Urine Automated None Seen (None Seen); Bilirubin Urine Negative (Negative); Blood Urine Trace (Negative); Color Urine Yellow; Epithelial Cell Urine Auto 0-2 /hpf (0-2); Glucose Urine UA Negative (Negative); Ketones Urine Negative (Negative); Leukocyte Esterase Urine Negative (Negative); Nitrite Urine Negative (Negative); Protein Urine Trace (Negative); RBC Urine Automated 0-2 /hpf (0-2); Specific Gravity Urine 1.007 (1.000-1.030); Urobilinogen Urine Negative (Negative); WBC Urine Automated 0-5 /hpf (0-5); pH Urine 5.5 (4.5-7.5)
[2024-05-22 15:32] LABS: Base Excess VBG -14.5 mEq/L; HCO3 VBG 14 mmol/L; Oxygen Saturation VBG < 60.0 %; PCO2 VBG 41 mmHg (38-50); PO2 VBG 25 mmHg; pH VBG 7.14 (7.36-7.41)
[2024-05-22] MEDS: HYDROCORTISONE SOD SUCCINATE 100 MG/2 ML VIAL ONE (15:46)
--- NOTE | 2024-05-22 15:46 | History & Physical Report ---
Date of Service May 22, 2024 Assessment & Plan (1) Acute renal failure: (2) Lactic acidosis: (3) Hypotension: (4) Alcohol intoxication: (5) Hyperkalemia: (6) Ethyl alcohol poisoning: Plan Samia is a 63 y/o female with PMH of alcohol abuse and HTN admitted due to acute metabolic acidosis, acute renal failure and hypovolemic shock Anion Guero metabolic Acidosis Acute renal failure Acute metabolic encephalopathy ABG on arrival: PH 7.13, CO2: 31 HCO3 12 Anion gap: 17. Lactate 3.2 Creatinine: 4.81, Potassium 5.3 Alcohol level: 340 Toxicology, acetaminophen and salicylate pending CK pending TSH 1.94 Ammonia: 23 -Admit to ICU - s/p 3L NSS in the ED - Brain CT: No acute intracranial abnormalities - Abdomen CT: No acute process on abdomen or pelvis, no kidney stones, no hydronephrosis - Chest CT: No pneumonia, no pulmonary edema or effusion. - Vanco and Cefepime started by ED provider started empirically - Blood and urine culture ordered - Procal pending - Dickinson placed for I/Os. Patient voided spontaneously on ED - Bicarb started in ED - Hydrocortisone added - ICU consulted, aprec recommendation - Nephrology consulted, patient for emergent dialysis today Hypovolemic shock - On arrival patient with hypotension MAP <60 - Patient with diarrhea as per family - Arterial line placed by Ed provider - currently on pressors: Epinephrine and Levophed started by ED - Random cortisol pending - Echocardiogram ordered rule out cardiogenic shock Alcohol abuse - Heavy drinker, 1 paint daily -Thiamine daily HTN: Possible lisinopril use - Will discontinue on admission FEN:NPO Code status: Full code DVT ppx: Heparin sq Held home meds: lisinopril Dispo: ICU History of Present Illness Primary Care Provider: NO PCP Samia is a 63 y/o female with PMH of alcohol abuse and HTN here due to acute confusion. She refers being brought here by a friend, she does not remember what happened. Family refers patient being sick for for 1 week and half. On evaluation patient was awake on oriented x3, in NAD on 2 L nasal cannula. Refers she is a heavy drinker, Last drink was yesterday 1 pain of liquor. Denied smoking. Denied any chest pain abdominal pain, vomiting, palpitations, SOB, headaches, lightheadedness or dizziness. No neuro deficit appreciated. On arrival in the ED patient found with acute anion guero metabolic acidosis, and hypotension. Alcohol level 340, lactate 3.8. As well as with acute renal failure with creatinine 4.81, potassium 5.4. patient voided spontaneously, Dickinson catheter was placed. Arterial line was placed by Ed provider. Epinephrine and Levophed was started as well. Urology was consulted for Hemodialysis and patient will be admitted to the ICU for further monitoring. Allergies Allergy/AdvReac Type Severity Reaction Status Date / Time No Known Allergies Allergy Unverified 05/22/24 14:19 Home Medications Medication Instructions Recorded Confirmed Type fluoxetine 40 mg capsule 40 mg PO DAILY 05/22/24 05/22/24 History olanzapine 5 mg tablet 5 mg PO HS 05/22/24 05/23/24 History folic acid 1 mg tablet 1 mg PO QAM #30 tabs 05/24/24 Rx lisinopril 10 mg tablet 10 mg PO DAILY 05/24/24 05/24/24 History multivitamin with folic acid 400 1 tab PO QAM #30 tabs 05/24/24 Rx mcg tablet (Daily-Nicolasa (with folic acid)) thiamine HCl (vitamin B1) 100 mg 100 mg PO QAM #30 tabs 05/24/24 Rx tablet Past Med/Surg History Problem List (Updated 05/22/24 @ 20:26 by Penny Arriaga MD) Altered mental status (Acute) Ethyl alcohol poisoning (Acute) Shock (Acute) Hypotension (Acute) Alcohol intoxication (Acute) Hyperkalemia (Acute) Acute renal failure (Acute) Lactic acidosis (Acute) Social History Smoking Status: Never smoker Hx Alcohol Use: Yes Alcohol type: hard liquor Hx Substance Use: No Preferred Language: Telugu Communication Ability: Effective Communication Ability Comment: normal Family Living Educator Required: No Beliefs That Will Affect Care: Cultural Current Living Situation: Alone Current Living Situation Comment: alone with daughter Feels Safe at Home: Yes Assistive Devices: None Review of Systems Review of Systems: as per HPI Physical Exam Constitutional: + ill appearing; no acute distress and n ot lethargic ENMT: external ear and nose normal, oropharynx normal Respiratory: normal respiratory effort, lungs clear to auscultation Cardiovascular: RRR, no murmur, no edema Gastrointestinal (Abdomen): normal bowel sounds, soft, nontender, no hepatosplenomegaly Skin: no rashes, warm and dry Neurologic: PERRL, EOMI, accommodation nl, no face palsy, no dysarthria normal touch/pain/proprioception, CN's II-XI intact bilaterally and moves all extremities Results & Data Results & Data Vital Signs (Past 12 Hours) Vital Signs Temp Pulse Pulse Resp BP BP BP 05/22/24 14:30 96 H 24 05/22/24 14:30 83/52 L 05/22/24 14:30 83/52 L 05/22/24 14:30 83/52 L 05/22/24 14:25 91/63 L 05/22/24 14:25 91/63 L 05/22/24 14:25 91/63 L 05/22/24 14:20 95/65 L 05/22/24 14:20 95/65 L 05/22/24 14:12 94 H 24 05/22/24 14:10 97/62 L 05/22/24 14:10 97/62 L 05/22/24 14:10 97/62 L 05/22/24 14:09 93 H 25 H 05/22/24 14:07 106/68 05/22/24 14:07 106/68 05/22/24 14:05 94 H 25 H 103/64 05/22/24 14:05 103/64 05/22/24 14:01 86/59 L 05/22/24 14:01 86/59 L 05/22/24 14:00 94 H 24 113/45 L 103/64 05/22/24 13:33 95 H 05/22/24 13:25 96 H 24 94/56 L 05/22/24 13:24 97 H 05/22/24 13:20 85/59 L 05/22/24 13:20 85/59 L 05/22/24 13:18 95 H 05/22/24 13:15 87/56 L 05/22/24 13:15 87/56 L 05/22/24 13:15 96 H 05/22/24 13:10 97/67 L 05/22/24 13:09 96 H 05/22/24 13:05 98/66 L 05/22/24 13:05 98/66 L 05/22/24 12:55 91 H 25 H 95/62 L 05/22/24 12:54 90 17 05/22/24 12:50 80/55 L 05/22/24 12:48 69/50 L 05/22/24 12:48 84 05/22/24 12:45 56/38 L 05/22/24 12:45 56/38 L 05/22/24 12:45 86 05/22/24 12:44 56/37 L 05/22/24 12:42 86 05/22/24 12:41 98 H 26 H 57/42 L 05/22/24 12:41 57/42 L 05/22/24 12:37 87 18 102/68 05/22/24 12:37 05/22/24 12:35 102/68 05/22/24 12:31 76/47 L 05/22/24 12:31 76/47 L 05/22/24 12:28 60/47 L 05/22/24 12:27 92 H 26 H 65/43 L 05/22/24 12:24 94 H 05/22/24 12:22 96 H 05/22/24 12:21 96 H 05/22/24 12:19 81/56 L 05/22/24 12:11 36.4 C L 102 H 18 64/40 L Pulse Ox O2 Del Method O2 Flow Rate 05/22/24 14:30 99 05/22/24 14:30 05/22/24 14:30 05/22/24 14:30 05/22/24 14:25 05/22/24 14:25 05/22/24 14:25 05/22/24 14:20 05/22/24 14:20 05/22/24 14:12 99 05/22/24 14:10 05/22/24 14:10 05/22/24 14:10 05/22/24 14:09 99 05/22/24 14:07 05/22/24 14:07 05/22/24 14:05 99 Nasal Cannula 2 05/22/24 14:05 05/22/24 14:01 05/22/24 14:01 05/22/24 14:00 98 Nasal Cannula 2 05/22/24 13:33 100 05/22/24 13:25 97 Nasal Cannula 2 05/22/24 13:24 98 05/22/24 13:20 05/22/24 13:20 05/22/24 13:18 98 05/22/24 13:15 05/22/24 13:15 05/22/24 13:15 98 05/22/24 13:10 05/22/24 13:09 93 Nasal Cannula 2 05/22/24 13:05 05/22/24 13:05 05/22/24 12:55 98 Nasal Cannula 2 05/22/24 12:54 98 05/22/24 12:50 05/22/24 12:48 05/22/24 12:48 05/22/24 12:45 05/22/24 12:45 05/22/24 12:45 96 05/22/24 12:44 05/22/24 12:42 05/22/24 12:41 98 Nasal Cannula 2 05/22/24 12:41 05/22/24 12:37 90 Nasal Cannula 2 05/22/24 12:37 88 L Room Air 05/22/24 12:35 05/22/24 12:31 05/22/24 12:31 05/22/24 12:28 05/22/24 12:27 96 Nasal Cannula 2 05/22/24 12:24 05/22/24 12:22 05/22/24 12:21 05/22/24 12:19 05/22/24 12:11 96 Room Air Supervising Physician Co-Signing Physician Notes I personally saw and examined the patient. I independently reviewed the labs, EKG, imaging, problem list, medication list, past medical history and family history. I verified all brown points and agree with Dr Sunita Tamez MD with the following exceptions and/or additions: 63 year old female presents to the ER with fever, vomiting and acute confusion. Patient is unclear why she is here. Currently requiring both Norepinephrine and Epinephrine in the ER after adequate fluid bolus to maintain BP. O/E Alert and orientated to person and place, Dishevelled, HS RRR, no murmurs, no pedal edema, decreased peripheral refill 5 seconds, Chest CTAB, Abdo SNT, no CVA tenderness A/P SIRS - without source of infection, will defer ongoing antibiotics, blood cultures notable taken after antibiotics given. Hypovolemic/distributive shock - cortisol level pending, consider hydrocortisone, adequately fluid resuscitated with NSS however likely to have made her more acidotic therefore repeat VBG ordered and will give 150 meq sodium bicarb 1L bolus, TTE to assess for cardiogenic competent, continue norepinephrine and ICU adding vasopressin aiming for MAP > 65 Alcohol use disorder - thiamine 500mg IV TID, monitor for withdrawal Anion gap metabolic acidosis - suspect related to alcohol intoxication, Sodium bicarb 150 meq IV bolus ordered, nephrology planning on dialysis PRO - Hold lisinopril. UA reassuringly with just hyaline casts. Suspect mostly pre-renal related to diarrhea. Dickinson catheter currently being placed but bladder reassuringly full on CT. Monitor UO closely. Nephrology consulted and planning for urgent dialysis due to ethanol poisoning. Resident Activity Tracking Resident Involvement: Resident Care Provided Care Provided: Adult Hospital Medicine
[2024-05-22 15:49] LABS: Amphetamines+Metham, Urine Neg (Neg); Barbiturates, Urine Neg (Neg); Benzodiazepine, Urine Neg (Neg); Cocaine, Urine Neg (Neg); Fentanyl, Urine Neg (Neg); MDMA (Ecstacy), Urine Neg (Neg); Marijuana, Urine Neg (Neg); Methadone, Urine Neg (Neg); Opiate, Urine Neg (Neg); Phencyclidine, Urine Neg (Neg)
[2024-05-22 15:56] LABS: Acetaminophen < 3 ug/ml (10-30); Salicylate < 3.0 mg/dl (3.0-30)
[2024-05-22] MEDS: SODIUM BICARB 8.4% INJ 50 MEQ/50 ML SYR IV ONE (15:56)
[2024-05-22 16:02] LABS: Magnesium 2.2 mg/dl (1.7-2.4); Phosphorus 4.3 mg/dl (2.5-4.9)
[2024-05-22] MEDS: SODIUM BICARBONATE 8.4% 150 MEQ in WATER, STERILE 1,000 ML IV SCH (16:14)
--- NOTE | 2024-05-22 16:22 | Nephrology Consultation ---
Date of Consultation May 22, 2024 Assessment & Plan (1) Ethyl alcohol poisoning: (2) Acute renal failure: (3) Shock: (4) Lactic acidosis: Plan Critically ill 63-year-old white female who presents with acute alcohol poisoning, shock requiring pressor support, life-threatening metabolic acidosis, and severe PRO. Patient is unable to provide any details of her history other than she has alcohol abuse disorder. She reports that she has continued to drink vodka up until admission. She denies any toxic alcohol ingestion or attempt to harm herself. Patient has a high anion gap metabolic acidosis. Serum ethanol 340 (<10). Calculated serum osmolality is 288. Measured serum osmolality 369. Osmolar gap is 81. When ethanol is taken into account calculated serum osmolality is 362 and osmolar gap is < 10. I have spoken with the critical care team. Patient has been admitted to the ICU and placed on pressor support. ICU team has placed a femoral dialysis catheter. Patient has received volume resuscitation with 5 L crystalloid. 2 amp sodium bicarbonate has been pushed while patient was in the EMD and critical care team is arranging for bicarbonate drip. I have spoken to the HD RN mining detail draftsperson. She will provide emergency HD this evening. No UF given patient's tenuous hemodynamic status. CMP, CBC and urinalysis have been ordered for a.m. History of Present Illness Reason for Consultation: PRO-D History of Present Illness Mrs. Gonzalez is a 63-year-old white female seen at the request of the [facility] ICU team for evaluation of PRO-D. Information for the HPI was obtained from direct patient interview in the EMD and discussion w/ EM physician and ICU team. HPI is summarized as follows: This is Mrs. Gonzalez's 1st [facility] hospitalization. She is unable to provide details of her medical history other than alcohol use disorder. EMD physician reports that patient has been ill for 2 weeks with N/V/D. She had poor oral intake but continued to drink vodka. Family reported that Mrs. Gonzalez had fallen several times and then brought her to the [facility] for evaluation. EMD evaluation revealed SBP 60's, WBC 7.34, Cr 4.81, K 5.3, HCO3 12, alcohol level 340 (<10), lactate 3.2, ABG pH 7.13. Respiratory biofire was negative. Toxicology, acetaminophen, salicylate levels are pending. Calculated serum osmolality is 288. Measured serum osmolality is 369. Osmotic gap 81. 5L crystalloid infused in EMD and levophed, vasopressin infusions started. Empiric vancomycin and cefepime administered. Patient is being admitted to ICU for ongoing medical management and emergency dialysis. Mrs. Gonzalez denies toxic alcohol ingestion. Allergies Allergy/AdvReac Type Severity Reaction Status Date / Time No Known Allergies Allergy Unverified 05/22/24 14:19 Home Medications Medication Instructions Recorded Confirmed Type fluoxetine 40 mg capsule 40 mg PO DAILY 05/22/24 05/22/24 History olanzapine 5 mg tablet 5 mg PO DAILY 05/22/24 05/22/24 History Patient History Social History Smoking Status: Never smoker Preferred Language: Austrian Beliefs That Will Affect Care: Faith Faith Beliefs: Declined visit from [facility] at this time. Will assess further. Feels Safe at Home: Yes Review of Systems Review of Systems: Unobtainable due to reduced consciousness Physical Exam Constitutional: + ill appearing (rigors) Eyes: PERRL, conjunctivae normal, anicteric sclerae ENMT: external ear and nose normal, oropharynx normal Neck: trachea midline, no thyromegaly Respiratory: normal respiratory effort, lungs clear to auscultation Cardiovascular: Rate/Rhythm: + tachycardic Heart Sounds: no murmur Gastrointestinal (Abdomen): normal bowel sounds, soft, nontender, no hepatosplenomegaly Skin: + turgor decreased Neurologic: awake Speech / Cognition: normal speech Results & Data Vital Signs (Past 12 Hours) Vital Signs Temp Pulse Pulse Resp BP BP BP 05/22/24 14:30 96 H 24 05/22/24 14:30 83/52 L 05/22/24 14:30 83/52 L 05/22/24 14:30 83/52 L 05/22/24 14:25 91/63 L 05/22/24 14:25 91/63 L 05/22/24 14:25 91/63 L 05/22/24 14:20 95/65 L 05/22/24 14:20 95/65 L 05/22/24 14:12 94 H 24 05/22/24 14:10 97/62 L 05/22/24 14:10 97/62 L 05/22/24 14:10 97/62 L 05/22/24 14:09 93 H 25 H 05/22/24 14:07 106/68 05/22/24 14:07 106/68 05/22/24 14:05 94 H 25 H 103/64 05/22/24 14:05 103/64 05/22/24 14:01 86/59 L 05/22/24 14:01 86/59 L 05/22/24 14:00 94 H 24 113/45 L 103/64 05/22/24 13:33 95 H 05/22/24 13:25 96 H 24 94/56 L 05/22/24 13:24 97 H 05/22/24 13:20 85/59 L 05/22/24 13:20 85/59 L 05/22/24 13:18 95 H 05/22/24 13:15 87/56 L 05/22/24 13:15 87/56 L 05/22/24 13:15 96 H 05/22/24 13:10 97/67 L 05/22/24 13:09 96 H 05/22/24 13:05 98/66 L 05/22/24 13:05 98/66 L 05/22/24 12:55 91 H 25 H 95/62 L 05/22/24 12:54 90 17 05/22/24 12:50 80/55 L 05/22/24 12:48 69/50 L 05/22/24 12:48 84 05/22/24 12:45 56/38 L 05/22/24 12:45 56/38 L 05/22/24 12:45 86 05/22/24 12:44 56/37 L 05/22/24 12:42 86 05/22/24 12:41 98 H 26 H 57/42 L 05/22/24 12:41 57/42 L 05/22/24 12:37 87 18 102/68 05/22/24 12:37 05/22/24 12:35 102/68 05/22/24 12:31 76/47 L 05/22/24 12:31 76/47 L 05/22/24 12:28 60/47 L 05/22/24 12:27 92 H 26 H 65/43 L 05/22/24 12:24 94 H 05/22/24 12:22 96 H 05/22/24 12:21 96 H 05/22/24 12:19 81/56 L 05/22/24 12:11 36.4 C L 102 H 18 64/40 L Pulse Ox O2 Del Method O2 Flow Rate 05/22/24 14:30 99 05/22/24 14:30 05/22/24 14:30 05/22/24 14:30 05/22/24 14:25 05/22/24 14:25 05/22/24 14:25 05/22/24 14:20 05/22/24 14:20 05/22/24 14:12 99 05/22/24 14:10 05/22/24 14:10 05/22/24 14:10 05/22/24 14:09 99 05/22/24 14:07 05/22/24 14:07 05/22/24 14:05 99 Nasal Cannula 2 05/22/24 14:05 05/22/24 14:01 05/22/24 14:01 05/22/24 14:00 98 Nasal Cannula 2 05/22/24 13:33 100 05/22/24 13:25 97 Nasal Cannula 2 05/22/24 13:24 98 05/22/24 13:20 05/22/24 13:20 05/22/24 13:18 98 05/22/24 13:15 05/22/24 13:15 05/22/24 13:15 98 05/22/24 13:10 05/22/24 13:09 93 Nasal Cannula 2 05/22/24 13:05 05/22/24 13:05 05/22/24 12:55 98 Nasal Cannula 2 05/22/24 12:54 98 05/22/24 12:50 05/22/24 12:48 05/22/24 12:48 05/22/24 12:45 05/22/24 12:45 05/22/24 12:45 96 05/22/24 12:44 05/22/24 12:42 05/22/24 12:41 98 Nasal Cannula 2 05/22/24 12:41 05/22/24 12:37 90 Nasal Cannula 2 05/22/24 12:37 88 L Room Air 05/22/24 12:35 05/22/24 12:31 05/22/24 12:31 05/22/24 12:28 05/22/24 12:27 96 Nasal Cannula 2 05/22/24 12:24 05/22/24 12:22 05/22/24 12:21 05/22/24 12:19 05/22/24 12:11 96 Room Air PG Care Time/CCT Total # of Minutes Spent Total Time Spent with Patient: Total time spent is greater than 50% in coordination of care (as documented) at patient's floor/unit and/or counseling patient: Coding Level of Care Code 50631 IN/OBS CONSULT LVL 5,80M Diagnoses Ethyl alcohol poisoning T51.0X1A Acute renal failure N17.9 Shock R57.9 Lactic acidosis E87.20
--- NOTE | 2024-05-22 16:24 | Procedure Note ---
Procedure Note Date of Service May 22, 2024 CENTRAL LINE/TEMPORARY HEMODIALYSIS LINE PROCEDURE NOTE: Procedure: Central Line Placement Provider: Jonas Case MD Indication: Administration of pressors, access for hemodialysis Anesthesia: 5 cc 1% lidocaine locally Site: Right femoral Procedure was emergent. Patient is critically ill. Verbal consent was obtained and the patient agreed to proceed. A time-out was completed verifying correct patient, procedure, site, positioning, and implants(s) or special equipment if applicable. Patient's right groin was cleaned and draped in normal sterile fashion. Sterile field was established. Ultrasound was performed revealing a compressible vein as well as a pulsatile artery and normal anatomic position. The superficial tissue was anesthetized using 5 mL of 1% lidocaine without epinephrine under direct visualization with the ultrasound. After adequate anesthetization was achieved, the right femoral vein was cannulated under direct ultrasound guidance using an introducer needle on a syringe. Good venous blood return was maintained prior to removal of syringe from introducer needle. Using Seldinger Technique, a guide wire was advanced through the introducer needle without resistance. The introducer needle was removed and ultrasound images were obtained of the guide wire within the femoral vein. A small incision was made in penetrating fashion at the guide wire insertion site utilizing an 11 blade scalpel. Serial dilators were then advanced to the vessel without resistance. The final dilator was exchanged for the 24 cm temporary HD catheter which was advanced into the vessel without resistance. The guide wire was removed intact from the catheter without issue. Claves were placed on the pigtail with confirmation of good blood flow from each lumen. Each port was easily flushed with sterile saline. The catheter was placed at the hub and sutured in place. BioPatch was applied to the catheter and a sterile Tegaderm dressing was applied over the catheter with careful attention to sterility. Patient tolerated procedure well. No immediate complications were met. Estimated blood loss: 5 mL [facility] Procedure Codes (Charges) Tubes, Drains, and Vasc Access Procedure 1: Tubes, Drains, and Vasc Access: [id number] Insertion of cannula for hemodialysis Coding CPT Codes Tubes, Drains, and Vasc Access - Tubes, Drains, and Vasc Access: [id number] Insertion of cannula for hemodialysis ([id number]) Additional Codes Date of Service (PG.[email or web address])
--- NOTE | 2024-05-22 16:38 | Critical Care Consultation ---
Date of Consultation May 22, 2024 Assessment & Plan (1) Lactic acidosis: (2) Acute renal failure: (3) Hyperkalemia: (4) Alcohol intoxication: (5) Shock: Plan Impression: 63-year-old female alcoholic without significant prior medical history other than depression presents with poor p.o. intake, hypotension, acute renal failure, metabolic acidosis, and hyperkalemia. Recommendations: 1. Neurologic: Despite the patient's significant imbalances, she appears to be mentating reasonably well. Will place on high-dose thiamine and folate to prevent Warnicke Korsakoff. She has received glucose. No indication for additional [employer] imaging at this point time. Observe for alcohol withdrawal syndrome 2. Cardiovascular: Profound shock of unclear etiology. Likely significant volume depletion. An additional 2 L of crystalloid as a bolus were administered through pressure bags in the emergency room during my resuscitation in addition to what she received with the ER. Focused ultrasound in the emergency room did demonstrate a mild depressed ejection fraction. The RV appeared to be adequately filled and adequately volume resuscitated at this point in time. IVC was poorly visualized. Will request formal echocardiogram. Alcoholic cardiomyopathy remains in the differential. She was treated empirically for relative adrenal insufficiency with the 100 mg of hydrocortisone in the emergency room. See comments below. Continue norepinephrine. Will start vasopressin and try and wean epinephrine to off. May consider albumin support. 3. Pulmonary: No current issues. Continue oxygen as needed. 4. Renal: Acute renal failure with severe electrolyte abnormalities. She received 100 meq of bicarb during my resuscitation in the ER and was started on a bicarb drip, bicarb drip will be discontinued given dialysis. Temporary hemodialysis line was placed in the emergency room. Renal replacement per nephrology. If the patient cannot tolerate due to blood pressure issues, she may require transfer to a higher level of care. Unclear if this represents a pr erenal state. The patient does not endorse a history of ingestions. Will check osmolar gap although given the fact that she is receiving dialysis, volatile alcohols may be a moot point. Will recheck blood gas as well as chemistry panel 1 to 2 hours postdialysis. Cannot rule out starvation ketosis or alcohol induced ketosis contributing to her profound acidosis 5. ID: Patient was initiated on broad-spectrum antibiotics in the emergency room but I see no source of infection so these will be discontinued. 6. GI: NPO. Check [facility] GI panel. GI prophylaxis with Protonix 7. Heme-onc: No current issues. DVT prophylaxis with heparin 8. Endocrine: Relative adrenal insufficiency. On stress dose steroids and hydrocortisone. Patient is critically ill at this point time with multiple organ system dysfunction. Significant possibility exists for clinical decline and/or . A total of 76 minutes of critical care time was spent in evaluation management coordination of care for this patient excluding procedures. Family was updated by the ER staff History of Present Illness History of Present Illness Asked by hospitalist to assist in evaluation management this patient with acute renal failure, hyperkalemia, and severe metabolic acidosis as well as acute alcohol intoxication. History is obtained from review the electronic medical record and discussion with ER staff. The patient is a 63-year-old female with a history of alcohol abuse. She was brought to the emergency room by family due to confusion today. According to the patient's daughter, the patient has been ill at home for the last 1 to 2 weeks. She initially had arthralgias and neck pain. She has had poor p.o. intake but has continued to drink alcohol in the form of vodka. She has had multiple falls. In the emergency room she is found to be hypotensive and poorly responsive to 3 L of IV crystalloid. An arterial line was placed and she was initiated on norepinephrine and then epinephrine was added. I was initially contacted to accept the patient in the ICU but recommended we discussed with nephrology. I discussed the case with Dr. Mcconnell. Given the fact the patient is on 2 pressors, it is unclear whether she will tolerate hemodialysis at our institution or not or whether she would be best served by [facility] given her hemodynamic instability. Dr. Mcconnell believes that it is reasonable to attempt dialysis here and see how she responds. The patient denies chest pain or palpitations. She is not coughing or wheezing. No significant sputum production. No abdominal pain. No skin rashes or lesions. Allergies Allergy/AdvReac Type Severity Reaction Status Date / Time No Known Allergies Allergy Unverified 05/22/24 14:19 Home Medications Medication Instructions Recorded Confirmed Type fluoxetine 40 mg capsule 40 mg PO DAILY 05/22/24 05/22/24 History olanzapine 5 mg tablet 5 mg PO DAILY 05/22/24 05/22/24 History Patient History Social History Smoking Status: Never smoker Preferred Language: Slovak Beliefs That Will Affect Care: Sikh Sikh Beliefs: Declined visit from at this time. Will assess further. Feels Safe at Home: Yes Review of Systems Review of Systems: Please refer to admission H&P. No additions or deletions Physical Exam Constitutional: + ill appearing and cooperative Neck: trachea midline, no thyromegaly Respiratory: normal respiratory effort, lungs clear to auscultation Cardiovascular: RRR, no murmur, no edema Gastrointestinal (Abdomen): normal bowel sounds, soft, nontender, no hepatosplenomegaly Musculoskeletal: Extremities: extremities normal to inspection Skin: no rashes, warm and dry Neurologic: Nonfocal exam Lymphatic: no cervical lymphadenopathy Results & Data Results & Data Vital Signs (Past 12 Hours) Vital Signs Temp Pulse Pulse Resp BP BP BP 05/22/24 14:30 96 H 24 05/22/24 14:30 83/52 L 05/22/24 14:30 83/52 L 05/22/24 14:30 83/52 L 05/22/24 14:25 91/63 L 05/22/24 14:25 91/63 L 05/22/24 14:25 91/63 L 05/22/24 14:20 95/65 L 05/22/24 14:20 95/65 L 05/22/24 14:12 94 H 24 05/22/24 14:10 97/62 L 05/22/24 14:10 97/62 L 05/22/24 14:10 97/62 L 05/22/24 14:09 93 H 25 H 05/22/24 14:07 106/68 05/22/24 14:07 106/68 05/22/24 14:05 94 H 25 H 103/64 05/22/24 14:05 103/64 05/22/24 14:01 86/59 L 05/22/24 14:01 86/59 L 05/22/24 14:00 94 H 24 113/45 L 103/64 05/22/24 13:33 95 H 05/22/24 13:25 96 H 24 94/56 L 05/22/24 13:24 97 H 05/22/24 13:20 85/59 L 05/22/24 13:20 85/59 L 05/22/24 13:18 95 H 05/22/24 13:15 87/56 L 05/22/24 13:15 87/56 L 05/22/24 13:15 96 H 05/22/24 13:10 97/67 L 05/22/24 13:09 96 H 05/22/24 13:05 98/66 L 05/22/24 13:05 98/66 L 05/22/24 12:55 91 H 25 H 95/62 L 05/22/24 12:54 90 17 05/22/24 12:50 80/55 L 05/22/24 12:48 69/50 L 05/22/24 12:48 84 05/22/24 12:45 56/38 L 05/22/24 12:45 56/38 L 05/22/24 12:45 86 05/22/24 12:44 56/37 L 05/22/24 12:42 86 05/22/24 12:41 98 H 26 H 57/42 L 05/22/24 12:41 57/42 L 05/22/24 12:37 87 18 102/68 05/22/24 12:37 05/22/24 12:35 102/68 05/22/24 12:31 76/47 L 05/22/24 12:31 76/47 L 05/22/24 12:28 60/47 L 05/22/24 12:27 92 H 26 H 65/43 L 05/22/24 12:24 94 H 05/22/24 12:22 96 H 05/22/24 12:21 96 H 05/22/24 12:19 81/56 L 05/22/24 12:11 36.4 C L 102 H 18 64/40 L Pulse Ox O2 Del Method O2 Flow Rate 05/22/24 14:30 99 05/22/24 14:30 05/22/24 14:30 05/22/24 14:30 05/22/24 14:25 05/22/24 14:25 05/22/24 14:25 05/22/24 14:20 05/22/24 14:20 05/22/24 14:12 99 05/22/24 14:10 05/22/24 14:10 05/22/24 14:10 05/22/24 14:09 99 05/22/24 14:07 05/22/24 14:07 05/22/24 14:05 99 Nasal Cannula 2 05/22/24 14:05 05/22/24 14:01 05/22/24 14:01 05/22/24 14:00 98 Nasal Cannula 2 05/22/24 13:33 100 05/22/24 13:25 97 Nasal Cannula 2 05/22/24 13:24 98 05/22/24 13:20 05/22/24 13:20 05/22/24 13:18 98 05/22/24 13:15 05/22/24 13:15 05/22/24 13:15 98 05/22/24 13:10 05/22/24 13:09 93 Nasal Cannula 2 05/22/24 13:05 05/22/24 13:05 05/22/24 12:55 98 Nasal Cannula 2 05/22/24 12:54 98 05/22/24 12:50 05/22/24 12:48 05/22/24 12:48 05/22/24 12:45 05/22/24 12:45 05/22/24 12:45 96 05/22/24 12:44 05/22/24 12:42 05/22/24 12:41 98 Nasal Cannula 2 05/22/24 12:41 05/22/24 12:37 90 Nasal Cannula 2 05/22/24 12:37 88 L Room Air 05/22/24 12:35 05/22/24 12:31 05/22/24 12:31 05/22/24 12:28 05/22/24 12:27 96 Nasal Cannula 2 05/22/24 12:24 05/22/24 12:22 05/22/24 12:21 05/22/24 12:19 05/22/24 12:11 96 Room Air Critical Care Results & Data Vital Signs (Past 12 Hours) Vital Signs Temp Pulse Pulse Resp BP BP BP 05/22/24 14:30 96 H 24 05/22/24 14:30 83/52 L 05/22/24 14:30 83/52 L 05/22/24 14:30 83/52 L 05/22/24 14:25 91/63 L 05/22/24 14:25 91/63 L 05/22/24 14:25 91/63 L 05/22/24 14:20 95/65 L 05/22/24 14:20 95/65 L 05/22/24 14:12 94 H 24 05/22/24 14:10 97/62 L 05/22/24 14:10 97/62 L 05/22/24 14:10 97/62 L 05/22/24 14:09 93 H 25 H 05/22/24 14:07 106/68 05/22/24 14:07 106/68 05/22/24 14:05 94 H 25 H 103/64 05/22/24 14:05 103/64 05/22/24 14:01 86/59 L 05/22/24 14:01 86/59 L 05/22/24 14:00 94 H 24 113/45 L 103/64 05/22/24 13:33 95 H 05/22/24 13:25 96 H 24 94/56 L 05/22/24 13:24 97 H 05/22/24 13:20 85/59 L 05/22/24 13:20 85/59 L 05/22/24 13:18 95 H 05/22/24 13:15 87/56 L 05/22/24 13:15 87/56 L 05/22/24 13:15 96 H 05/22/24 13:10 97/67 L 05/22/24 13:09 96 H 05/22/24 13:05 98/66 L 05/22/24 13:05 98/66 L 05/22/24 12:55 91 H 25 H 95/62 L 05/22/24 12:54 90 17 05/22/24 12:50 80/55 L 05/22/24 12:48 69/50 L 05/22/24 12:48 84 05/22/24 12:45 56/38 L 05/22/24 12:45 56/38 L 05/22/24 12:45 86 05/22/24 12:44 56/37 L 05/22/24 12:42 86 05/22/24 12:41 98 H 26 H 57/42 L 05/22/24 12:41 57/42 L 05/22/24 12:37 87 18 102/68 05/22/24 12:37 05/22/24 12:35 102/68 05/22/24 12:31 76/47 L 05/22/24 12:31 76/47 L 05/22/24 12:28 60/47 L 05/22/24 12:27 92 H 26 H 65/43 L 05/22/24 12:24 94 H 05/22/24 12:22 96 H 05/22/24 12:21 96 H 05/22/24 12:19 81/56 L 05/22/24 12:11 36.4 C L 102 H 18 64/40 L Pulse Ox O2 Del Method O2 Flow Rate 05/22/24 14:30 99 05/22/24 14:30 05/22/24 14:30 05/22/24 14:30 05/22/24 14:25 05/22/24 14:25 05/22/24 14:25 05/22/24 14:20 05/22/24 14:20 05/22/24 14:12 99 05/22/24 14:10 05/22/24 14:10 05/22/24 14:10 05/22/24 14:09 99 05/22/24 14:07 05/22/24 14:07 05/22/24 14:05 99 Nasal Cannula 2 05/22/24 14:05 05/22/24 14:01 05/22/24 14:01 05/22/24 14:00 98 Nasal Cannula 2 05/22/24 13:33 100 05/22/24 13:25 97 Nasal Cannula 2 05/22/24 13:24 98 05/22/24 13:20 05/22/24 13:20 05/22/24 13:18 98 05/22/24 13:15 05/22/24 13:15 05/22/24 13:15 98 05/22/24 13:10 05/22/24 13:09 93 Nasal Cannula 2 05/22/24 13:05 05/22/24 13:05 05/22/24 12:55 98 Nasal Cannula 2 05/22/24 12:54 98 05/22/24 12:50 05/22/24 12:48 05/22/24 12:48 05/22/24 12:45 05/22/24 12:45 05/22/24 12:45 96 05/22/24 12:44 05/22/24 12:42 05/22/24 12:41 98 Nasal Cannula 2 05/22/24 12:41 05/22/24 12:37 90 Nasal Cannula 2 05/22/24 12:37 88 L Room Air 05/22/24 12:35 05/22/24 12:31 05/22/24 12:31 05/22/24 12:28 05/22/24 12:27 96 Nasal Cannula 2 05/22/24 12:24 05/22/24 12:22 05/22/24 12:21 05/22/24 12:19 05/22/24 12:11 96 Room Air Lab & Micro Results (Past 24 Hours) RBC 3.92 M/uL (4.20-5.40) L 05/22/24 WBC 7.34 K/ul (4.8-10.8) 05/22/24 Hgb 12.5 g/dl (12.0-16.0) 05/22/24 Hct 36.3 % (37.0-47.0) L 05/22/24 MCV 92.6 fL (80.0-100.0) 05/22/24 MCH 31.9 pg (25.0-34.0) 05/22/24 MCHC 34.4 g/dL (32.0-36.0) 05/22/24 RDW Standard Deviation 49.2 fL (36.4-46.3) H 05/22/24 RDW Coefficient of Variation 14.5 % (11.5-14.5) 05/22/24 Plt Count 472 K/uL (130-400) H 05/22/24 MPV 9.1 fL (9.4-12.4) L 05/22/24 Neutrophils (%) (Auto) 67.4 % 05/22/24 Lymphocytes (%) (Auto) 24.1 % 05/22/24 Monocytes # (Auto) 0.48 K/uL (0.11-0.59) 05/22/24 Eosinophils # (Auto) 0.05 K/uL (0.00-0.50) 05/22/24 Immature Granulocyte % (Auto) 0.5 % 05/22/24 Neutrophils # (Auto) 4.94 K/uL (1.40-6.50) 05/22/24 Lymphocytes # (Auto) 1.77 K/uL (1.20-3.40) 05/22/24 Monocytes # (Auto) 0.48 K/uL (0.11-0.59) 05/22/24 Eosinophils # (Auto) 0.05 K/uL (0.00-0.50) 05/22/24 Basophils # (Auto) 0.06 K/uL (0.00-0.20) 05/22/24 Immature Granulocyte # (Auto) 0.04 K/uL (0.01-0.20) 5 Na 130 mmol/L (136-145) L 05/22/24 K 5.3 mmol/L (3.5-5.1) H 05/22/24 Cl 95 mmol/L (98-107) L 05/22/24 CO2 18 mmol/L (21-32) L 05/22/24 Anion Gap 17 (3-11) H 05/22/24 BUN 75 mg/dl (6-23) H 05/22/24 Creatinine 4.81 mg/dl (0.6-1.2) H* 05/22/24 BUN/Creatinine Ratio 15.6 (10-20) 05/22/24 Glu 87 mg/dl (70-99(Fasting)) 05/22/24 Ca 9.5 mg/dl (8.6-10.3) 05/22/24 Phosphorus Level 4.3 mg/dl (2.5-4.9) 05/22/24 Total Bilirubin 0.4 mg/dl (0.2-1.0) 05/22/24 AST 29 U/L (13-39) 05/22/24 ALT 17 U/L (7-52) 05/22/24 Alkaline Phosphatase 65 U/L (34-104) 05/22/24 TP 8.0 gm/dl (6.0-8.3) 05/22/24 Albumin 4.8 gm/dl (3.4-5.0) 05/22/24 Globulin 3.2 gm/dl (2.5-4.0) 05/22/24 Albumin/Globulin Ratio 1.5 (0.9-2) 05/22/24 Mg 2.2 mg/dl (1.7-2.4) 05/22/24 15:31 Calcium Level 9.5 mg/dl (8.6-10.3) 05/22/24 12:29 Venous Blood pH 7.14 (7.36-7.41) L 05/22/24 15:22 Venous Blood Partial Pressure CO2 41 mmHg (38-50) 05/22/24 15:2 2 Venous Blood Partial Pressure O2 25 mmHg 05/22/24 15:22 Venous Blood HCO3 14 mmol/L 05/22/24 15:22 Venous Blood Base Excess -14.5 mEq/L 05/22/24 15:22 Venous Blood Oxygen Saturation < 60.0 % 05/22/24 15:22 Diagnostic Findings (Past 24 Hours) Abdomen/Pelvis CT 05/22/24 12:43 CT OF THE ABDOMEN AND PELVIS WITHOUT CONTRAST CLINICAL HISTORY: Sepsis. Nausea, vomiting and diarrhea COMPARISON STUDY: No previous studies for comparison. TECHNIQUE: Axial images of the abdomen and pelvis were obtained without IV contrast. Images were reviewed in the axial, sagittal, and coronal planes. Automated exposure control was utilized for the study. A dose lowering technique was utilized adhering to the principles of ALARA. FINDINGS: No renal, ureteral or bladder calculi are identified although images of the pelvis are degraded by streak artifact from a left hip arthroplasty. Evaluation of the remainder of the abdomen and pelvis is suboptimal on this unenhanced exam. Possible hepatic steatosis. Spleen, adrenal glands and pancreas are unremarkable. No biliary or pancreatic ductal dilatation is present. There is no peripancreatic or pericholecystic infiltration. There is no evidence for a bowel obstruction. The appendix is normal. Sigmoid diverticulosis without evidence for acute diverticulitis. There is no lymphadenopathy. There are no fluid collections. No acute fractures within the lumbar spine, pelvis or hips are identified. IMPRESSION: 1. No urinary calculi or hydronephrosis. 2. No bowel obstruction. 3. No acute process within the abdomen or pelvis on unenhanced exam. 4. Exam mildly compromised by motion artifact. ACT 112: Negative or not required by law. Electronically signed by: Karl Hagen M.D. 05/22/2024 2:[address] 05/22/24 12:43 CT head/brain wo con CLINICAL HISTORY: 63 years-old Female with confusion,. Acutely altered mental status TECHNIQUE: Multiple axial CT images of the head were obtained without contrast. A dose lowering technique was utilized adhering to the principles of ALARA. COMPARISON: None. FINDINGS: No acute intracranial hemorrhage, midline shift, intracranial mass, hydrocephalus, territorial ischemia or abnormal extra-axial collection. Mild involutional changes. The calvarium is intact. The paranasal sinuses, mastoid air cells, and middle ear cavities are clear. IMPRESSION: No acute intracranial abnormality. ACT 112: Negative or not required by law. The above report was generated using voice recognition software. It may contain grammatical, syntax or spelling errors. Electronically signed by: Carlos Cope M.D. 05/22/2024 2:[address] 05/22/24 12:46 CT OF THE CHEST WITHOUT IV CONTRAST CLINICAL HISTORY: Sepsis. Evaluate for pneumonia COMPARISON STUDY: No previous studies for comparison. TECHNIQUE: Axial images of the chest were obtained without IV contrast. Images were reviewed in the axial, sagittal, and coronal planes. IV contrast was not administered for this examination. Automated exposure control was utilized for the study. A dose lowering technique was utilized adhering to the principles of ALARA. FINDINGS: No enlarged axillary, mediastinal or hilar lymph nodes are present. Size of the heart is at the upper limits of normal. There is no pericardial effusion. No pneumothorax or pleural effusion is present. There is no consolidation to suggest pneumonia. Subpleural densities favor atelectasis. There are no fractures within the bony thorax. No suspicious osseous lesions are present. A few small nodular densities along the minor fissure are likely benign. No suspicious pulmonary nodules are present. Abdomen and pelvis CT will be reported separately. IMPRESSION: 1. No consolidation to suggest pneumonia. 2. Subpleural groundglass opacities and linear densities suggestive of atelectasis. 3. No acute intrathoracic findings. ACT 112: Negative or not required by law. Electronically signed by: Karl Hagen M.D. 05/22/2024 2:16 PM I & O Totals 24 Hours 05/21/24 05/22/24 05/23/24 06:59 06:59 06:59 Intake Total 708.418 / 708.418 Balance 708.418 / 708.418 Cumulative 05/22/24 11:54 thru 05/22/24 15:09 Intake Total 708.418 Balance 708.418 RT Ventilator Mngmt (Last Documented) Ventilator Ordered Settings Respiratory Rate 24 05/22/24 14:30 Ventilator - PT Measurements Respiratory Rate 24 Coding Level of Care Code 20349 CRITICAL CARE EA ADD 30M Diagnoses Lactic acidosis E87.20 Acute renal failure N17.9 Hyperkalemia E87.5 Alcohol intoxication F10.929 Shock R57.9
[2024-05-22] MEDS ORDERED: HYDROCORTISONE SOD SUCCINATE 100 MG/2 ML VIAL IV SCH (16:45)
[2024-05-22] MEDS: THIAMINE HCL 500 MG in SODIUM CHLORIDE 0.9% 50 ML IV STA (16:59)
[2024-05-22] MEDS: ICU Protocol for HYPERglycemia SCH ×2 (16:59→23:34)
[2024-05-22] MEDS: VASOPRESSION #-# Do NOT Titrate #-# Option IV SCH (16:59)
--- NOTE | 2024-05-22 17:53 | Dialysis Progress Note ---
Date of Service May 22, 2024 Assessment & Plan (1) Ethyl alcohol poisoning: (2) Acute renal failure: (3) Shock: (4) Lactic acidosis: Plan Dialysis has been initiated via temporary femoral dialysis catheter. Catheter is being run A-->A at QB 200 cc/minute. Bicarbonate drip will be continued through the first hour of HD and then stopped. I have spoken with the critical care team. He will obtain follow-up laboratory studies 1-2 hours following completion of dialysis and restart bicarbonate drip if needed. Admission and Anticipated Discharge Date Admission Date: May 22, 2024 Subjective Patient evaluated at the initiation of hemodialysis this evening. She remains on Levophed and vasopressin drips. SBP 124 mmHg. Patient is more alert. She informs me that she moved to [place] November 2023 when her twin daughters started college at [employer]. She is originally from [place]. She acknowledges alcohol abuse disorder. She states that she was drinking up to 1 pint of vodka per day. She denied toxic alcohol ingestion or intent to harm herself. Physical Exam Constitutional: + ill appearing (rigors) Eyes: PERRL, conjunctivae normal, anicteric sclerae ENMT: external ear and nose normal, oropharynx normal Neck: trachea midline, no thyromegaly Respiratory: normal respiratory effort, lungs clear to auscultation Cardiovascular: Rate/Rhythm: + tachycardic Heart Sounds: no murmur Gastrointestinal (Abdomen): normal bowel sounds, soft, nontender, no hepatosplenomegaly Skin: + turgor decreased Neurologic: awake Speech / Cognition: normal speech Results & Data Vital Signs (Past 12 Hours) Vital Signs Temp Pulse Pulse Resp BP BP BP 05/22/24 17:14 05/22/24 17:07 36.9 C 96 H 05/22/24 17:03 36.9 C 96 H 28 H 05/22/24 17:00 124/83 05/22/24 16:48 116/72 05/22/24 16:42 115 H 23 05/22/24 16:41 159/92 H 05/22/24 14:30 96 H 24 05/22/24 14:30 83/52 L 05/22/24 14:30 83/52 L 05/22/24 14:30 83/52 L 05/22/24 14:25 91/63 L 05/22/24 14:25 91/63 L 05/22/24 14:25 91/63 L 05/22/24 14:20 95/65 L 05/22/24 14:20 95/65 L 05/22/24 14:12 94 H 24 05/22/24 14:10 97/62 L 05/22/24 14:10 97/62 L 05/22/24 14:10 97/62 L 05/22/24 14:09 93 H 25 H 05/22/24 14:07 106/68 05/22/24 14:07 106/68 05/22/24 14:05 94 H 25 H 103/64 05/22/24 14:05 103/64 05/22/24 14:01 86/59 L 05/22/24 14:01 86/59 L 05/22/24 14:00 94 H 24 113/45 L 103/64 05/22/24 13:33 95 H 05/22/24 13:25 96 H 24 94/56 L 05/22/24 13:24 97 H 05/22/24 13:20 85/59 L 05/22/24 13:20 85/59 L 05/22/24 13:18 95 H 05/22/24 13:15 87/56 L 05/22/24 13:15 87/56 L 05/22/24 13:15 96 H 05/22/24 13:10 97/67 L 05/22/24 13:09 96 H 05/22/24 13:05 98/66 L 05/22/24 13:05 98/66 L 05/22/24 12:55 91 H 25 H 95/62 L 05/22/24 12:54 90 17 05/22/24 12:50 80/55 L 05/22/24 12:48 69/50 L 05/22/24 12:48 84 05/22/24 12:45 56/38 L 05/22/24 12:45 56/38 L 05/22/24 12:45 86 05/22/24 12:44 56/37 L 05/22/24 12:42 86 05/22/24 12:41 98 H 26 H 57/42 L 05/22/24 12:41 57/42 L 05/22/24 12:37 87 18 102/68 05/22/24 12:37 02/11/25 12:35 102/68 05/22/24 12:31 76/47 L 05/22/24 12:31 76/47 L 05/22/24 12:28 60/47 L 05/22/24 12:27 92 H 26 H 65/43 L 05/22/24 12:24 94 H 05/22/24 12:22 96 H 05/22/24 12:21 96 H 05/22/24 12:19 81/56 L 05/22/24 12:11 36.4 C L 102 H 18 64/40 L Pulse Ox O2 Del Method O2 Flow Rate 05/22/24 17:14 Nasal Cannula 2 05/22/24 17:07 Nasal Cannula 05/22/24 17:03 97 05/22/24 17:00 05/22/24 16:48 05/22/24 16:42 92 05/22/24 16:41 05/22/24 14:30 99 05/22/24 14:30 05/22/24 14:30 05/22/24 14:30 05/22/24 14:25 05/22/24 14:25 05/22/24 14:25 05/22/24 14:20 05/22/24 14:20 05/22/24 14:12 99 05/22/24 14:10 05/22/24 14:10 05/22/24 14:10 05/22/24 14:09 99 05/22/24 14:07 05/22/24 14:07 05/22/24 14:05 99 Nasal Cannula 2 05/22/24 14:05 05/22/24 14:01 05/22/24 14:01 05/22/24 14:00 98 Nasal Cannula 2 05/22/24 13:33 100 05/22/24 13:25 97 Nasal Cannula 2 05/22/24 13:24 98 05/22/24 13:20 05/22/24 13:20 05/22/24 13:18 98 05/22/24 13:15 05/22/24 13:15 05/22/24 13:15 98 05/22/24 13:10 05/22/24 13:09 93 Nasal Cannula 2 05/22/24 13:05 05/22/24 13:05 05/22/24 12:55 98 Nasal Cannula 2 05/22/24 12:54 98 05/22/24 12:50 05/22/24 12:48 05/22/24 12:48 05/22/24 12:45 05/22/24 12:45 05/22/24 12:45 96 05/22/24 12:44 05/22/24 12:42 05/22/24 12:41 98 Nasal Cannula 2 05/22/24 12:41 05/22/24 12:37 90 Nasal Cannula 2 05/22/24 12:37 88 L Room Air 05/22/24 12:35 05/22/24 12:31 05/22/24 12:31 05/22/24 12:28 05/22/24 12:27 96 Nasal Cannula 2 05/22/24 12:24 05/22/24 12:22 05/22/24 12:21 05/22/24 12:19 05/22/24 12:11 96 Room Air [facility] Procedure Codes (Charges) Renal/Urologic Renal/Urologic: 59146 Hemodialysis, One Evaluation Coding Level of Care Code None Diagnoses Ethyl alcohol poisoning T51.0X1A Acute renal failure N17.9 Shock R57.9 Lactic acidosis E87.20 CPT Codes Renal/Urologic - Renal/Urologic: 60078 Hemodialysis, One Evaluation ([id number])
[2024-05-22] MEDS: FLUDROCORTISONE ACETATE 0.1 MG TAB PO SCH (18:14)
--- NOTE | 2024-05-22 21:20 | Electrocardiogram Report ---
Test Reason : Blood Pressure : */* mmHG Vent. Rate : 95 BPM Atrial Rate : 95 BPM P-R Int : 166 ms QRS Dur : 78 ms QT Int : 354 ms P-R-T Axes : 53 41 47 degrees QTcB Int : 444 ms Normal sinus rhythm Low voltage QRS Borderline ECG No previous ECGs available Confirmed by Hieu Quick ([id number]) on 05/22/2024 9:20:07 PM Referred By: Confirmed By: Hieu Quick
[2024-05-22 21:35] LABS: Hep B Surface Ag with confirm Prelim Positive (Negative)
[2024-05-22 21:54] LABS: Hepatitis B Surface Ab Quant 4.94 mIU/mL (>or=10mIU/mL Immune); Hepatitis B Surface Antibody Non-Immune
[2024-05-22] MEDS: HEPARIN SOD 5,000 UNIT/0.5 ML VIAL SQ SCH (22:00)
[2024-05-22] MEDS: THIAMINE HCL 500 MG in SODIUM CHLORIDE 0.9% 50 ML IV SCH (22:00)
[2024-05-22] MEDS: HYDROCORTISONE SOD 50 MG in SYRINGE 0 ML IV SCH (22:01)
[2024-05-22] MEDS: PANTOprazole 40 MG/10 ML SYR IV SCH (22:01)
[2024-05-22] MEDS: HEPARIN SOD (PORCINE) 1000 UNIT/ML IV ONE (22:50)
[2024-05-22] MEDS: MELATONIN 3 MG TAB PO PRN (23:11)
[2024-05-22 23:46] LABS: Albumin Globulin Ratio 1.6 (0.9-2); Albumin Level 2.8 gm/dl (3.4-5.0); BUN Creatinine Ratio 15.5 (10-20); Bilirubin,Total 0.5 mg/dl (0.2-1.0); Calcium 6.5 mg/dl (8.6-10.3); Creatinine Clr Calc Pharmacy 59.2 ml/min; Globulin 1.8 gm/dl (2.5-4.0); Magnesium 1.4 mg/dl (1.7-2.4); Phosphorus 2.5 mg/dl (2.5-4.9); Potassium 3.5 mmol/L (3.5-5.1); Total Protein 4.6 gm/dl (6.0-8.3)
[2024-05-23] MEDS: CALCIUM GLUCONATE 1,000 MG/60 ML BAG IV STA (00:29)
[2024-05-23] MEDS: POTASSIUM CHLORIDE CRTAB 20 MEQ TABCR PO STA (00:29)
[2024-05-23] MEDS: MAGNESIUM SULFATE / D5W 1 GM/100 ML BAG IV SCH (00:29)
[2024-05-23 05:09] LABS: Albumin Globulin Ratio 1.8 (0.9-2); Albumin Level 2.5 gm/dl (3.4-5.0); BUN Creatinine Ratio 15.9 (10-20); Bilirubin,Total 0.4 mg/dl (0.2-1.0); Calcium 5.8 mg/dl (8.6-10.3); Creatinine Clr Calc Pharmacy 60.6 ml/min; Globulin 1.4 gm/dl (2.5-4.0); Magnesium 1.9 mg/dl (1.7-2.4); Phosphorus 2.5 mg/dl (2.5-4.9); Potassium 3.4 mmol/L (3.5-5.1); Total Protein 3.9 gm/dl (6.0-8.3)
[2024-05-23] MEDS ORDERED: POTASSIUM PHOS 3 MMOL/1 ML INFUSION IV STA (05:30)
[2024-05-23 05:34] LABS: Hemoglobin 8.5 g/dl (12.0-16.0); Mean Corpuscular Hgb Conc 35.4 g/dL (32.0-36.0); Mean Corpuscular Volume 90.2 fL (80.0-100.0); Mean Platelet Volume 9.1 fL (9.4-12.4); Platelet Count 254 K/uL (130-400); RDW Coefficient of Variation 13.8 % (11.5-14.5); RDW Standard Deviation 45.7 fL (36.4-46.3); Red Blood Count 2.66 M/uL (4.20-5.40); White Blood Count 5.58 K/ul (4.8-10.8)
[2024-05-23] MEDS: CALCIUM GLUCONATE 1,000 MG/60 ML BAG IV SCH (06:26)
[2024-05-23] MEDS: POT PHOSPHATE MONOBASIC W/ SOD TAB PO SCH (06:43)
--- NOTE | 2024-05-23 08:32 | Nephrology Progress Note ---
Date of Service May 23, 2024 Assessment & Plan (1) Ethyl alcohol poisoning: (2) Acute renal failure: (3) Shock: (4) Lactic acidosis: Plan BP has stabilized following HD and correction of pH. Patient is now off pressor support. Kidney function appears to have recovered and patient is non-oliguric. Volume status and electrolyte balance are acceptable this am. No acute indication for HD today. Clinical course discussed w/ ICU team this am. Advised remove femoral dialysis catheter. OK from nephrology perspective to transfer to medical floor. Will need ongoing monitoring for alcohol withdrawal. Will need to be established w/ alcohol counseling prior to discharge from hospital. Admission and Anticipated Discharge Date Admission Date: May 22, 2024 Subjective Mrs. Gonzalez was evaluated in the ICU this morning. She was A&O x3 and asking to go home. She denied angina or dyspnea. Dickinson bag contained 3 L clear yellow urine Review of Systems Constitutional: no fever Eyes: no problem reported Ear, Nose, Mouth, Throat: no problem reported Respiratory: no cough and no dyspnea Cardiovascular: no chest pain Gastrointestinal: no abdominal pain, no nausea, no vomiting and no diarrhea/loose stools Physical Exam Constitutional: not in distress Eyes: PERRL, conjunctivae normal, anicteric sclerae ENMT: external ear and nose normal, oropharynx normal Neck: trachea midline, no thyromegaly Respiratory: normal respiratory effort, lungs clear to auscultation Cardiovascular: Rate/Rhythm: regular rate and regular rhythm Heart Sounds: no murmur Gastrointestinal (Abdomen): normal bowel sounds, soft, nontender, no hepatosplenomegaly Skin: + turgor decreased Neurologic: awake Speech / Cognition: normal speech Results & Data Vital Signs (Past 12 Hours) Vital Signs Temp Pulse Pulse Resp BP BP Pulse Ox 05/23/24 07:30 05/23/24 07:00 36.8 C 90 20 120/77 94 05/23/24 06:00 36.9 C 75 16 94 05/23/24 06:00 119/71 05/23/24 05:15 36.9 C 80 15 95 05/23/24 05:00 114/73 05/23/24 04:00 37.2 C 78 16 94 05/23/24 04:00 101/64 05/23/24 03:09 37.3 C 83 15 95 05/23/24 02:00 124/70 05/23/24 02:00 124/70 05/23/24 02:00 124/70 05/23/24 02:00 37.5 C 98 H 18 124/70 93 05/23/24 01:03 37.5 C 91 H 19 94 05/23/24 01:00 114/67 05/23/24 00:03 37.6 C H 91 H 18 95 05/23/24 00:00 108/71 05/23/24 00:00 108/71 05/23/24 00:00 91 H 05/22/24 23:48 37.6 C H 92 H 19 94 05/22/24 23:03 37.6 C H 103 H 19 93 05/22/24 23:00 119/76 05/22/24 23:00 119/76 05/22/24 23:00 119/76 05/22/24 22:57 37.6 C H 106 H 18 93 05/22/24 22:10 37.4 C 108 H 140/72 05/22/24 22:03 37.4 C 108 H 20 94 05/22/24 22:00 140/72 05/22/24 21:45 37.4 C 106 H 19 93 05/22/24 21:30 37.4 C 112 H 21 93 05/22/24 21:30 111 H 124/59 L 05/22/24 21:06 37.4 C 106 H 19 95 05/22/24 21:00 105 H 141/75 H 05/22/24 20:48 37.4 C 105 H 22 95 O2 Del Method O2 Flow Rate 05/23/24 07:30 Nasal Cannula 05/23/24 07:00 Nasal Cannula 2 05/23/24 06:00 Nasal Cannula 2 05/23/24 06:00 05/23/24 05:15 Nasal Cannula 2 05/23/24 05:00 05/23/24 04:00 Nasal Cannula 2 05/23/24 04:00 05/23/24 03:09 Nasal Cannula 2 05/23/24 02:00 05/23/24 02:00 05/23/24 02:00 05/23/24 02:00 Nasal Cannula 2 05/23/24 01:03 Nasal Cannula 2 05/23/24 01:00 05/23/24 00:03 05/23/24 00:00 05/23/24 00:00 05/23/24 00:00 05/22/24 23:48 05/22/24 23:03 05/22/24 23:00 05/22/24 23:00 05/22/24 23:00 05/22/24 22:57 Nasal Cannula 2 05/22/24 22:10 05/22/24 22:03 Nasal Cannula 2 05/22/24 22:00 05/22/24 21:45 05/22/24 21:30 05/22/24 21:30 05/22/24 21:06 05/22/24 21:00 05/22/24 20:48 Laboratory Results Laboratory Results - last 24 hr 05/22/24 05/22/24 05/22/24 12:29 12:29 12:38 WBC 7.34 RBC 3.92 L Hgb 12.5 POC Hgb Hct 36.3 L POC Hct MCV 92.6 MCH 31.9 MCHC 34.4 RDW Std Deviation 49.2 H RDW Coeff of [place] 14.5 Plt Count 472 H MPV 9.1 L Immature Gran % (Auto) 0.5 Neut % (Auto) 67.4 Lymph % (Auto) 24.1 [place] % (Auto) 6.5 Eos % (Auto) 0.7 Baso % (Auto) 0.8 Neut # (Auto) 4.94 Lymph # (Auto) 1.77 [place] # (Auto) 0.48 Eos # (Auto) 0.05 Baso # (Auto) 0.06 Immature Gran # (Auto) 0.04 POC pH POC pCO2 POC pO2 POC HCO3 POC Base Excess POC ABG O2 Sat VBG pH VBG pCO2 VBG pO2 VBG HCO3 VBG O2 Saturation VBG Base Excess POC Sodium Sodium 130 L POC Potassium Potassium 5.3 H POC Chloride Chloride 95 L Carbon Dioxide 18 L POC Total CO2 Anion Gap 17 H POC Anion Gap POC BUN BUN 75 H Creatinine 4.81 H* POC Creatinine Est Cr Clr Drug Dosing 10.1 eGFR 9.61 BUN/Creatinine Ratio 15.6 Glucose 87 POC Glucose POC Glucose (other) Osmolality Lactate Calcium 9.5 POC Ioniz Calcium Demetrio Phosphorus Magnesium Total Bilirubin 0.4 AST 29 ALT 17 Alkaline Phosphatase 65 Ammonia Total Creatine Kinase Troponin I High Sens 12.8 Total Protein 8.0 Albumin 4.8 Globulin 3.2 Albumin/Globulin Ratio 1.5 Lipase 38 Procalcitonin TSH 1.945 Random Cortisol 21.03 Urine Color Urine Appearance Urine pH Ur Specific [place] Urine Protein Urine Glucose (UA) Urine Ketones Urine Blood Urine Nitrite Urine Bilirubin Urine Urobilinogen Ur Leukocyte Esterase Urine WBC (Auto) Urine RBC (Auto) U Hyaline Cast (Auto) U Epithel Cells (Auto) Urine Bacteria (Auto) Nasal Screen MRSA (PCR) Salicylates Urine Opiates Screen Ur Methadone, Qual Urine Fentanyl Screen Acetaminophen Urine Barbiturates Ur Phencyclidine (PCP) U Amphetamin/Meth Scrn MDMA (Ecstasy) Screen U Benzodiazepines Scrn Ur Cocaine Metabolite U Marijuana (THC) Screen Ethyl Alcohol mg/dL Adenovirus (PCR) Not Detected B. pertussis DNA (PCR) Not Detected B.parapertussis DNA PCR Not Detected C. pneumoniae DNA (PCR) Not Detected Coronavirus OC43 (PCR) Not Detected Coronavirus HKU1 (PCR) Not Detected Coronavirus 229E (PCR) Not Detected SARS-CoV-2 (PCR) Not Detected Coronavirus NL63 (PCR) Not Detected Hep Bs Antigen Prelim Positive A Pending Hep Bs Antibody Non-Immune Hep Bs Antibody, Quant 4.94 Hep B Core IgM Ab Pending Human Metapneumovir PCR Not Detected Influenza Type A (PCR) Not Detected Influenza Type B (PCR) Not Detected M. pneumoniae (PCR) Not Detected Parainfluenza 1 (PCR) Not Detected Parainfluenza 2 (PCR) Not Detected Parainfluenza 3 (PCR) Not Detected Parainfluenza 4 (PCR) Not Detected RSV (PCR) Not Detected Entero/Rhino (PCR) Not Detected 05/22/24 05/22/24 05/22/24 12:39 13:10 14:10 WBC RBC Hgb POC Hgb 13.3 11.9 L Hct POC Hct 39 35 L MCV MCH MCHC RDW Std Deviation RDW Coeff of [place] Plt Count MPV Immature Gran % (Auto) Neut % (Auto) Lymph % (Auto) [place] % (Auto) Eos % (Auto) Baso % (Auto) Neut # (Auto) Lymph # (Auto) [place] # (Auto) Eos # (Auto) Baso # (Auto) Immature Gran # (Auto) POC pH 7.18 L* POC pCO2 31 L POC pO2 113 H POC HCO3 12 L POC Base Excess -17.0 L POC ABG O2 Sat 97.0 H VBG pH VBG pCO2 VBG pO2 VBG HCO3 VBG O2 Saturation VBG Base Excess POC Sodium 130 L 133 L Sodium POC Potassium 5.5 H 5.4 H Potassium POC Chloride 103 Chloride Carbon Dioxide POC Total CO2 18 L 12 L Anion Gap POC Anion Gap 16.0 POC BUN 65 H BUN Creatinine POC Creatinine 5.6 H* Est Cr Clr Drug Dosing eGFR BUN/Creatinine Ratio Glucose POC Glucose POC Glucose (other) 89 Osmolality Lactate 3.2 H* Calcium POC Ioniz Calcium Demetrio 1.04 L Phosphorus Magnesium Total Bilirubin AST ALT Alkaline Phosphatase Ammonia 23.0 Total Creatine Kinase Troponin I High Sens Total Protein Albumin Globulin Albumin/Globulin Ratio Lipase Procalcitonin TSH Random Cortisol Urine Color Urine Appearance Urine pH Ur Specific [place] Urine Protein Urine Glucose (UA) Urine Ketones Urine Blood Urine Nitrite Urine Bilirubin Urine Urobilinogen Ur Leukocyte Esterase Urine WBC (Auto) Urine RBC (Auto) U Hyaline Cast (Auto) U Epithel Cells (Auto) Urine Bacteria (Auto) Nasal Screen MRSA (PCR) Salicylates Urine Opiates Screen Ur Methadone, Qual Urine Fentanyl Screen Acetaminophen Urine Barbiturates Ur Phencyclidine (PCP) U Amphetamin/Meth Scrn MDMA (Ecstasy) Screen U Benzodiazepines Scrn Ur Cocaine Metabolite U Marijuana (THC) Screen Ethyl Alcohol mg/dL 340.1 H Adenovirus (PCR) B. pertussis DNA (PCR) B.parapertussis DNA PCR C. pneumoniae DNA (PCR) Coronavirus OC43 (PCR) Coronavirus HKU1 (PCR) Coronavirus 229E (PCR) SARS-CoV-2 (PCR) Coronavirus NL63 (PCR) Hep Bs Antigen Hep Bs Antibody Hep Bs Antibody, Quant Hep B Core IgM Ab Human Metapneumovir PCR Influenza Type A (PCR) Influenza Type B (PCR) M. pneumoniae (PCR) Parainfluenza 1 (PCR) Parainfluenza 2 (PCR) Parainfluenza 3 (PCR) Parainfluenza 4 (PCR) RSV (PCR) Entero/Rhino (PCR) 05/22/24 05/22/24 05/22/24 14:51 15:22 15:31 WBC RBC Hgb POC Hgb Hct POC Hct MCV MCH MCHC RDW Std Deviation RDW Coeff of [place] Plt Count MPV Immature Gran % (Auto) Neut % (Auto) Lymph % (Auto) [place] % (Auto) Eos % (Auto) Baso % (Auto) Neut # (Auto) Lymph # (Auto) [place] # (Auto) Eos # (Auto) Baso # (Auto) Immature Gran # (Auto) POC pH POC pCO2 POC pO2 POC HCO3 POC Base Excess POC ABG O2 Sat VBG pH 7.14 L VBG pCO2 41 VBG pO2 25 VBG HCO3 14 VBG O2 Saturation < 60.0 VBG Base Excess -14.5 POC Sodium Sodium POC Potassium Potassium POC Chloride Chloride Carbon Dioxide POC Total CO2 Anion Gap POC Anion Gap POC BUN BUN Creatinine POC Creatinine Est Cr Clr Drug Dosing eGFR BUN/Creatinine Ratio Glucose POC Glucose POC Glucose (other) Osmolality Lactate 3.8 H* Calcium POC Ioniz Calcium Demetrio Phosphorus 4.3 Magnesium 2.2 Total Bilirubin AST ALT Alkaline Phosphatase Ammonia Total Creatine Kinase 109 Troponin I High Sens Total Protein Albumin Globulin Albumin/Globulin Ratio Lipase Procalcitonin TSH Random Cortisol Urine Color Yellow Urine Appearance Clear Urine pH 5.5 Ur Specific [place] 1.007 Urine Protein Trace H Urine Glucose (UA) Negative Urine Ketones Negative Urine Blood Trace H Urine Nitrite Negative Urine Bilirubin Negative Urine Urobilinogen Negative Ur Leukocyte Esterase Negative Urine WBC (Auto) 0-5 Urine RBC (Auto) 0-2 U Hyaline Cast (Auto) 3-5 H U Epithel Cells (Auto) 0-2 Urine Bacteria (Auto) None Seen Nasal Screen MRSA (PCR) Salicylates < 3.0 L Urine Opiates Screen Neg Ur Methadone, Qual Neg Urine Fentanyl Screen Neg Acetaminophen < 3 L Urine Barbiturates Neg Ur Phencyclidine (PCP) Neg U Amphetamin/Meth Scrn Neg MDMA (Ecstasy) Screen Neg U Benzodiazepines Scrn Neg Ur Cocaine Metabolite Neg U Marijuana (THC) Screen Neg Ethyl Alcohol mg/dL Adenovirus (PCR) B. pertussis DNA (PCR) B.parapertussis DNA PCR C. pneumoniae DNA (PCR) Coronavirus OC43 (PCR) Coronavirus HKU1 (PCR) Coronavirus 229E (PCR) SARS-CoV-2 (PCR) Coronavirus NL63 (PCR) Hep Bs Antigen Hep Bs Antibody Hep Bs Antibody, Quant Hep B Core IgM Ab Human Metapneumovir PCR Influenza Type A (PCR) Influenza Type B (PCR) M. pneumoniae (PCR) Parainfluenza 1 (PCR) Parainfluenza 2 (PCR) Parainfluenza 3 (PCR) Parainfluenza 4 (PCR) RSV (PCR) Entero/Rhino (PCR) 05/22/24 05/22/24 05/22/24 15:32 22:57 23:07 WBC RBC Hgb POC Hgb Hct POC Hct MCV MCH MCHC RDW Std Deviation RDW Coeff of [place] Plt Count MPV Immature Gran % (Auto) Neut % (Auto) Lymph % (Auto) [place] % (Auto) Eos % (Auto) Baso % (Auto) Neut # (Auto) Lymph # (Auto) [place] # (Auto) Eos # (Auto) Baso # (Auto) Immature Gran # (Auto) POC pH POC pCO2 POC pO2 POC HCO3 POC Base Excess POC ABG O2 Sat VBG pH VBG pCO2 VBG pO2 VBG HCO3 VBG O2 Saturation VBG Base Excess POC Sodium Sodium 139 D POC Potassium Potassium 3.5 D POC Chloride Chloride 104 Carbon Dioxide 22 POC Total CO2 Anion Gap 13 H POC Anion Gap POC BUN BUN 13 D Creatinine 0.84 D POC Creatinine Est Cr Clr Drug Dosing 59.2 eGFR 78.03 BUN/Creatinine Ratio 15.5 Glucose 77 POC Glucose 79 POC Glucose (other) Osmolality 369 H* Lactate 0.7 Calcium 6.5 L D POC Ioniz Calcium Demetrio Phosphorus 2.5 D Magnesium 1.4 L Total Bilirubin 0.5 AST 26 ALT 17 Alkaline Phosphatase 37 Ammonia Total Creatine Kinase Troponin I High Sens Total Protein 4.6 L D Albumin 2.8 L Globulin 1.8 L Albumin/Globulin Ratio 1.6 Lipase Procalcitonin 0.10 TSH Random Cortisol Urine Color Urine Appearance Urine pH Ur Specific [place] Urine Protein Urine Glucose (UA) Urine Ketones Urine Blood Urine Nitrite Urine Bilirubin Urine Urobilinogen Ur Leukocyte Esterase Urine WBC (Auto) Urine RBC (Auto) U Hyaline Cast (Auto) U Epithel Cells (Auto) Urine Bacteria (Auto) Nasal Screen MRSA (PCR) Salicylates Urine Opiates Screen Ur Methadone, Qual Urine Fentanyl Screen Acetaminophen Urine Barbiturates Ur Phencyclidine (PCP) U Amphetamin/Meth Scrn MDMA (Ecstasy) Screen U Benzodiazepines Scrn Ur Cocaine Metabolite U Marijuana (THC) Screen Ethyl Alcohol mg/dL Adenovirus (PCR) B. pertussis DNA (PCR) B.parapertussis DNA PCR C. pneumoniae DNA (PCR) Coronavirus OC43 (PCR) Coronavirus HKU1 (PCR) Coronavirus 229E (PCR) SARS-CoV-2 (PCR) Coronavirus NL63 (PCR) Hep Bs Antigen Hep Bs Antibody Hep Bs Antibody, Quant Hep B Core IgM Ab Human Metapneumovir PCR Influenza Type A (PCR) Influenza Type B (PCR) M. pneumoniae (PCR) Parainfluenza 1 (PCR) Parainfluenza 2 (PCR) Parainfluenza 3 (PCR) Parainfluenza 4 (PCR) RSV (PCR) Entero/Rhino (PCR) 05/22/24 05/23/24 Unknown 04:20 WBC 5.58 RBC 2.66 L Hgb 8.5 L D POC Hgb Hct 24.0 L POC Hct MCV 90.2 MCH 32.0 MCHC 35.4 RDW Std Deviation 45.7 RDW Coeff of [place] 13.8 Plt Count 254 MPV 9.1 L Immature Gran % (Auto) Neut % (Auto) Lymph % (Auto) [place] % (Auto) Eos % (Auto) Baso % (Auto) Neut # (Auto) Lymph # (Auto) [place] # (Auto) Eos # (Auto) Baso # (Auto) Immature Gran # (Auto) POC pH POC pCO2 POC pO2 POC HCO3 POC Base Excess POC ABG O2 Sat VBG pH VBG pCO2 VBG pO2 VBG HCO3 VBG O2 Saturation VBG Base Excess POC Sodium Sodium 140 POC Potassium Potassium 3.4 L POC Chloride Chloride 110 H Carbon Dioxide 20 L POC Total CO2 Anion Gap 10 POC Anion Gap POC BUN BUN 13 Creatinine 0.82 POC Creatinine Est Cr Clr Drug Dosing 60.6 eGFR 80.32 BUN/Creatinine Ratio 15.9 Glucose 101 H POC Glucose POC Glucose (other) Osmolality Lactate Calcium 5.8 L* POC Ioniz Calcium Demetrio Phosphorus 2.5 Magnesium 1.9 Total Bilirubin 0.4 AST 20 ALT 13 Alkaline Phosphatase 33 L Ammonia Total Creatine Kinase Troponin I High Sens Total Protein 3.9 L Albumin 2.5 L Globulin 1.4 L Albumin/Globulin Ratio 1.8 Lipase Procalcitonin TSH Random Cortisol Urine Color Urine Appearance Urine pH Ur Specific [place] Urine Protein Urine Glucose (UA) Urine Ketones Urine Blood Urine Nitrite Urine Bilirubin Urine Urobilinogen Ur Leukocyte Esterase Urine WBC (Auto) Urine RBC (Auto) U Hyaline Cast (Auto) U Epithel Cells (Auto) Urine Bacteria (Auto) Nasal Screen MRSA (PCR) Negative Salicylates Urine Opiates Screen Ur Methadone, Qual Urine Fentanyl Screen Acetaminophen Urine Barbiturates Ur Phencyclidine (PCP) U Amphetamin/Meth Scrn MDMA (Ecstasy) Screen U Benzodiazepines Scrn Ur Cocaine Metabolite U Marijuana (THC) Screen Ethyl Alcohol mg/dL Adenovirus (PCR) B. pertussis DNA (PCR) B.parapertussis DNA PCR C. pneumoniae DNA (PCR) Coronavirus OC43 (PCR) Coronavirus HKU1 (PCR) Coronavirus 229E (PCR) SARS-CoV-2 (PCR) Coronavirus NL63 (PCR) Hep Bs Antigen Hep Bs Antibody Hep Bs Antibody, Quant Hep B Core IgM Ab Human Metapneumovir PCR Influenza Type A (PCR) Influenza Type B (PCR) M. pneumoniae (PCR) Parainfluenza 1 (PCR) Parainfluenza 2 (PCR) Parainfluenza 3 (PCR) Parainfluenza 4 (PCR) RSV (PCR) Entero/Rhino (PCR) PG Care Time/CCT Total # of Minutes Spent Total Time Spent with Patient: Total time spent is greater than 50% in coordination of care (as documented) at patient's floor/unit and/or counseling patient: Coding Level of Care Code 92925 SUB INP/OBS CARE 3/50MIN Diagnoses Ethyl alcohol poisoning T51.0X1A Acute renal failure N17.9 Shock R57.9 Lactic acidosis E87.20
--- NOTE | 2024-05-23 09:59 | Critical Care Progress Note ---
Date of Service May 23, 2024 Assessment & Plan (1) Lactic acidosis: (2) Acute renal failure: (3) Hyperkalemia: (4) Alcohol intoxication: (5) Shock: Plan Impression: 63-year-old female alcoholic without significant prior medical history other than depression presents with poor p.o. intake, hypotension, acute renal failure, metabolic acidosis, and hyperkalemia. 24-hour events: Patient was admitted through the emergency room. Urgent dialysis was obtained. Once dialysis was completed and her acidosis corrected, she was rapidly weaned off of vasopressor agents. She is been hemodynamically stable. She did have a decrease in her hemoglobin and hematocrit this morning. No obvious signs of bleeding. Her dialysis line was discontinued as well as her arterial line. Recommendations: 1. Neurologic: No current issues. Continue thiamine and folate to prevent Warn icke Korsakoff. She has received glucose. No obvious signs of alcohol withdrawal. 2. Cardiovascular: Hemodynamics resolved with correction of patient's acid-base abnormalities and electrolyte abnormalities. 3. Pulmonary: No current issues. Continue oxygen as needed. Out of bed to chair and ambulatory as tolerated 4. Renal: Acute renal failure with severe electrolyte abnormalities. Suspect related to acute alcohol intoxication. Her numbers are much better this morning and no need for additional renal replacement therapy. After discussion with nephrology, dialysis catheter was removed. She is making urine. Will orally replete calcium. 5. ID: No source of infection 6. GI: Advance diet 7. Heme-onc: Anemia of unclear etiology. No signs of bleeding. Continue to follow DVT prophylaxis with heparin 8. Endocrine: Relative adrenal insufficiency. On stress dose steroids and hydrocortisone. Wean over the next 3 days Patient's ICU issues have resolved. She stable to transfer to the floor. Critical care services will sign off. Disposition per primary admitting team. Admission and Anticipated Discharge Date Admission Date: May 22, 2024 Subjective Patient seen and examined. EMR reviewed. Discussed with bedside critical care nurse as well as with overnight critical care MY and nephrology. The patient is doing well this morning. She is awake alert conversant and tolerating a diet. She is off vasopressor medications and is making adequate urine. She is anxious to potentially go home. She reports that she has gone as long as a month in the past without drinking. She has never had alcohol withdrawal seizures or tremors that she is aware of. Her last prolonged period of alcohol abstinence was about 20 years ago Review of Systems Review of Systems: All systems reviewed & are unremarkable except as noted in Subjective Physical Exam Constitutional: cooperative Neck: trachea midline, no thyromegaly Respiratory: normal respiratory effort, lungs clear to auscultation Cardiovascular: RRR, no murmur, no edema Gastrointestinal (Abdomen): normal bowel sounds, soft, nontender, no hepatosplenomegaly Musculoskeletal: Extremities: extremities normal to inspection Skin: no rashes, warm and dry Lymphatic: no cervical lymphadenopathy Results & Data Results & Data Vital Signs (Past 12 Hours) Vital Signs Temp Pulse Pulse Resp BP BP Pulse Ox 05/23/24 07:30 05/23/24 07:00 36.8 C 90 20 120/77 94 05/23/24 06:00 36.9 C 75 16 94 05/23/24 06:00 119/71 05/23/24 05:15 36.9 C 80 15 95 05/23/24 05:00 114/73 05/23/24 04:00 37.2 C 78 16 94 05/23/24 04:00 101/64 05/23/24 03:09 37.3 C 83 15 95 05/23/24 02:00 124/70 05/23/24 02:00 124/70 05/23/24 02:00 124/70 05/23/24 02:00 37.5 C 98 H 18 124/70 93 05/23/24 01:03 37.5 C 91 H 19 94 05/23/24 01:00 114/67 05/23/24 00:03 37.6 C H 91 H 18 95 05/23/24 00:00 108/71 05/23/24 00:00 108/71 05/23/24 00:00 91 H 05/22/24 23:48 37.6 C H 92 H 19 94 05/22/24 23:03 37.6 C H 103 H 19 93 05/22/24 23:00 119/76 05/22/24 23:00 119/76 05/22/24 23:00 119/76 05/22/24 22:57 37.6 C H 106 H 18 93 05/22/24 22:10 37.4 C 108 H 140/72 05/22/24 22:03 37.4 C 108 H 20 94 05/22/24 22:00 140/72 O2 Del Method O2 Flow Rate 05/23/24 07:30 Nasal Cannula 05/23/24 07:00 Nasal Cannula 2 05/23/24 06:00 Nasal Cannula 2 05/23/24 06:00 05/23/24 05:15 Nasal Cannula 2 05/23/24 05:00 05/23/24 04:00 Nasal Cannula 2 05/23/24 04:00 05/23/24 03:09 Nasal Cannula 2 05/23/24 02:00 05/23/24 02:00 05/23/24 02:00 05/23/24 02:00 Nasal Cannula 2 05/23/24 01:03 Nasal Cannula 2 05/23/24 01:00 05/23/24 00:03 05/23/24 00:00 05/23/24 00:00 05/23/24 00:00 05/22/24 23:48 05/22/24 23:03 05/22/24 23:00 05/22/24 23:00 05/22/24 23:00 05/22/24 22:57 Nasal Cannula 2 05/22/24 22:10 05/22/24 22:03 Nasal Cannula 2 05/22/24 22:00 Critical Care Results & Data Vital Signs (Past 12 Hours) Vital Signs Temp Pulse Pulse Resp BP BP Pulse Ox 05/23/24 07:30 05/23/24 07:00 36.8 C 90 20 120/77 94 05/23/24 06:00 36.9 C 75 16 94 05/23/24 06:00 119/71 05/23/24 05:15 36.9 C 80 15 95 05/23/24 05:00 114/73 05/23/24 04:00 37.2 C 78 16 94 05/23/24 04:00 101/64 05/23/24 03:09 37.3 C 83 15 95 05/23/24 02:00 124/70 05/23/24 02:00 124/70 05/23/24 02:00 124/70 05/23/24 02:00 37.5 C 98 H 18 124/70 93 05/23/24 01:03 37.5 C 91 H 19 94 05/23/24 01:00 114/67 05/23/24 00:03 37.6 C H 91 H 18 95 05/23/24 00:00 108/71 05/23/24 00:00 108/71 05/23/24 00:00 91 H 05/22/24 23:48 37.6 C H 92 H 19 94 05/22/24 23:03 37.6 C H 103 H 19 93 05/22/24 23:00 119/76 05/22/24 23:00 119/76 05/22/24 23:00 119/76 05/22/24 22:57 37.6 C H 106 H 18 93 05/22/24 22:10 37.4 C 108 H 140/72 05/22/24 22:03 37.4 C 108 H 20 94 05/22/24 22:00 140/72 O2 Del Method O2 Flow Rate 05/23/24 07:30 Nasal Cannula 05/23/24 07:00 Nasal Cannula 2 05/23/24 06:00 Nasal Cannula 2 05/23/24 06:00 05/23/24 05:15 Nasal Cannula 2 05/23/24 05:00 05/23/24 04:00 Nasal Cannula 2 05/23/24 04:00 05/23/24 03:09 Nasal Cannula 2 05/23/24 02:00 05/23/24 02:00 05/23/24 02:00 05/23/24 02:00 Nasal Cannula 2 05/23/24 01:03 Nasal Cannula 2 05/23/24 01:00 05/23/24 00:03 05/23/24 00:00 05/23/24 00:00 05/23/24 00:00 05/22/24 23:48 05/22/24 23:03 05/22/24 23:00 05/22/24 23:00 05/22/24 23:00 05/22/24 22:57 Nasal Cannula 2 05/22/24 22:10 05/22/24 22:03 Nasal Cannula 2 05/22/24 22:00 Lab & Micro Results (Past 24 Hours) RBC 2.66 M/uL (4.20-5.40) L 05/23/24 WBC 5.58 K/ul (4.8-10.8) 05/23/24 Hgb 8.5 g/dl (12.0-16.0) L 05/23/24 Hct 24.0 % (37.0-47.0) L 05/23/24 MCV 90.2 fL (80.0-100.0) 05/23/24 MCH 32.0 pg (25.0-34.0) 05/23/24 MCHC 35.4 g/dL (32.0-36.0) 05/23/24 RDW Standard Deviation 45.7 fL (36.4-46.3) 05/23/24 RDW Coefficient of Variation 13.8 % (11.5-14.5) 05/23/24 Plt Count 254 K/uL (130-400) 05/23/24 MPV 9.1 fL (9.4-12.4) L 05/23/24 Neutrophils (%) (Auto) 67.4 % 05/22/24 Lymphocytes (%) (Auto) 24.1 % 05/22/24 Monocytes # (Auto) 0.48 K/uL (0.11-0.59) 05/22/24 Eosinophils # (Auto) 0.05 K/uL (0.00-0.50) 05/22/24 Immature Granulocyte % (Auto) 0.5 % 05/22/24 Neutrophils # (Auto) 4.94 K/uL (1.40-6.50) 05/22/24 Lymphocytes # (Auto) 1.77 K/uL (1.20-3.40) 05/22/24 Monocytes # (Auto) 0.48 K/uL (0.11-0.59) 05/22/24 Eosinophils # (Auto) 0.05 K/uL (0.00-0.50) 05/22/24 Basophils # (Auto) 0.06 K/uL (0.00-0.20) 05/22/24 Immature Granulocyte # (Auto) 0.04 K/uL (0.01-0.20) 5 Na 140 mmol/L (136-145) 05/23/24 K 3.4 mmol/L (3.5-5.1) L 05/23/24 Cl 110 mmol/L (98-107) H 05/23/24 CO2 20 mmol/L (21-32) L 05/23/24 Anion Gap 10 (3-11) 05/23/24 BUN 13 mg/dl (6-23) 05/23/24 Creatinine 0.82 mg/dl (0.6-1.2) 05/23/24 BUN/Creatinine Ratio 15.9 (10-20) 05/23/24 Glu 101 mg/dl (70-99(Fasting)) H 05/23/24 Ca 5.8 mg/dl (8.6-10.3) L* 05/23/24 Phosphorus Level 2.5 mg/dl (2.5-4.9) 05/23/24 Total Bilirubin 0.4 mg/dl (0.2-1.0) 05/23/24 AST 20 U/L (13-39) 05/23/24 ALT 13 U/L (7-52) 05/23/24 Alkaline Phosphatase 33 U/L (34-104) L 05/23/24 TP 3.9 gm/dl (6.0-8.3) L 05/23/24 Albumin 2.5 gm/dl (3.4-5.0) L 05/23/24 Globulin 1.4 gm/dl (2.5-4.0) L 05/23/24 Albumin/Globulin Ratio 1.8 (0.9-2) 05/23/24 Mg 1.9 mg/dl (1.7-2.4) 05/23/24 04:20 Calcium Level 5.8 mg/dl (8.6-10.3) L* 05/23/24 04:20 Venous Blood pH 7.14 (7.36-7.41) L 05/22/24 15:22 Venous Blood Partial Pressure CO2 41 mmHg (38-50) 05/22/24 15:2 2 Venous Blood Partial Pressure O2 25 mmHg 05/22/24 15:22 Venous Blood HCO3 14 mmol/L 05/22/24 15:22 Venous Blood Base Excess -14.5 mEq/L 05/22/24 15:22 Venous Blood Oxygen Saturation < 60.0 % 05/22/24 15:22 Diagnostic Findings (Past 24 Hours) Abdomen/Pelvis CT 05/22/24 12:43 CT OF THE ABDOMEN AND PELVIS WITHOUT CONTRAST CLINICAL HISTORY: Sepsis. Nausea, vomiting and diarrhea COMPARISON STUDY: No previous studies for comparison. TECHNIQUE: Axial images of the abdomen and pelvis were obtained without IV contrast. Images were reviewed in the axial, sagittal, and coronal planes. Automated exposure control was utilized for the study. A dose lowering technique was utilized adhering to the principles of ALARA. FINDINGS: No renal, ureteral or bladder calculi are identified although images of the pelvis are degraded by streak artifact from a left hip arthroplasty. Evaluation of the remainder of the abdomen and pelvis is suboptimal on this unenhanced exam. Possible hepatic steatosis. Spleen, adrenal glands and pancreas are unremarkable. No biliary or pancreatic ductal dilatation is present. There is no peripancreatic or pericholecystic infiltration. There is no evidence for a bowel obstruction. The appendix is normal. Sigmoid diverticulosis without evidence for acute diverticulitis. There is no lymphadenopathy. There are no fluid collections. No acute fractures within the lumbar spine, pelvis or hips are identified. IMPRESSION: 1. No urinary calculi or hydronephrosis. 2. No bowel obstruction. 3. No acute process within the abdomen or pelvis on unenhanced exam. 4. Exam mildly compromised by motion artifact. ACT 112: Negative or not required by law. Electronically signed by: Karl Hagne M.D. 05/22/2024 2:[address] 05/22/24 12:43 CT head/brain wo con CLINICAL HISTORY: 63 years-old Female with confusion,. Acutely altered mental status TECHNIQUE: Multiple axial CT images of the head were obtained without contrast. A dose lowering technique was utilized adhering to the principles of ALARA. COMPARISON: None. FINDINGS: No acute intracranial hemorrhage, midline shift, intracranial mass, hydrocephalus, territorial ischemia or abnormal extra-axial collection. Mild involutional changes. The calvarium is intact. The paranasal sinuses, mastoid air cells, and middle ear cavities are clear. IMPRESSION: No acute intracranial abnormality. ACT 112: Negative or not required by law. The above report was generated using voice recognition software. It may contain grammatical, syntax or spelling errors. Electronically signed by: Carlos Cope M.D. 05/22/2024 2:[address] 05/22/24 12:46 CT OF THE CHEST WITHOUT IV CONTRAST CLINICAL HISTORY: Sepsis. Evaluate for pneumonia COMPARISON STUDY: No previous studies for comparison. TECHNIQUE: Axial images of the chest were obtained without IV contrast. Images were reviewed in the axial, sagittal, and coronal planes. IV contrast was not administered for this examination. Automated exposure control was utilized for the study. A dose lowering technique was utilized adhering to the principles of ALARA. FINDINGS: No enlarged axillary, mediastinal or hilar lymph nodes are present. Size of the heart is at the upper limits of normal. There is no pericardial effusion. No pneumothorax or pleural effusion is present. There is no consolidation to suggest pneumonia. Subpleural densities favor atelectasis. There are no fractures within the bony thorax. No suspicious osseous lesions are present. A few small nodular densities along the minor fissure are likely benign. No suspicious pulmonary nodules are present. Abdomen and pelvis CT will be reported separately. IMPRESSION: 1. No consolidation to suggest pneumonia. 2. Subpleural groundglass opacities and linear densities suggestive of atelectasis. 3. No acute intrathoracic findings. ACT 112: Negative or not required by law. Electronically signed by: Karl Hagen M.D. 05/22/2024 2:16 PM I & O Totals 24 Hours 05/22/24 05/23/24 05/24/24 06:59 06:59 06:59 Intake Total 4601.396 / 4601.396 155 / 155 Output Total 3030 / 3030 Balance 1571.396 / 1571.396 155 / 155 Cumulative 05/22/24 11:54 thru 05/23/24 09:24 Intake Total 4756.396 Output Total 3030 Balance 1726.396 RT Ventilator Mngmt (Last Documented) Ventilator Ordered Settings Respiratory Rate 20 05/23/24 07:00 Ventilator - PT Measurements Respiratory Rate 20 Coding Level of Care Code 03174 SUB INP/OBS CARE 3/50MIN Diagnoses Lactic acidosis E87.20 Acute renal failure N17.9 Hyperkalemia E87.5 Alcohol intoxication F10.929 Shock R57.9
[2024-05-23] MEDS ORDERED: LORazepam 2 MG/1 ML VIAL IV PRN (10:20)
[2024-05-23 11:22] LABS: iSTAT Art Bld Gas pCO2 Correct 32 mmHg (35-46); iSTAT Arterial Blood Gas HCO3 24 meg/L (19-24); iSTAT Arterial Blood Gas pCO2 31 mmHg (35-46); iSTAT Arterial Blood Gas pO2 77 mmHg (80-95); iSTAT Arterial Blood Gas pO2 C 79; iSTAT Carbon Dioxide 25 mmol/L (24-31); iSTAT Hematocrit 26 % (37-47); iSTAT Hemoglobin 8.8 g/dl (12.0-16.0); iSTAT Potassium 3.9 mmol/L (3.3-5.0); iSTAT Sample Type Arterial; iSTAT Site Art Line; iSTAT Sodium 136 mmol/L (135-144); iSTAT SpO2 94
[2024-05-23] MEDS: CALCIUM CARBONATE 1,250 MG/5 ML UDC PO SCH (11:40)
[2024-05-23] MEDS: MULTIVITAMIN TAB PO SCH (11:40)
[2024-05-23] MEDS: FLUoxetine HCL 20 MG CAP PO SCH (11:40)
[2024-05-23] MEDS: HYDROCORTISONE 10 MG TAB PO SCH (11:41)
[2024-05-23] MEDS: FOLIC ACID 1 MG TAB PO SCH (11:41)
[2024-05-23 12:15] LABS: Adenovirus F 40/41 PCR Not Detected (NotDetected); Astrovirus PCR Not Detected (NotDetected); Campylobacter PCR Not Detected (NotDetected); Cryptosporidium PCR Not Detected (NotDetected); Cyclospora cayetanensis PCR Not Detected (NotDetected); Entamoeba histolytica PCR Not Detected (NotDetected); Enteroaggregative E.coli(EAEC) Not Detected (NotDetected); Enteropathogenic E.coli (EPEC) Not Detected (NotDetected); Enterotoxigenic E.coli (ETEC) Not Detected (NotDetected); Giardia lamblia PCR Not Detected (NotDetected); Norovirus GI/GII PCR Not Detected (NotDetected); Plesiomonas shigelloides PCR Not Detected (NotDetected); Rotavirus A PCR Not Detected (NotDetected); Salmonella PCR Not Detected (NotDetected); Sapovirus PCR Not Detected (NotDetected); Shiga-like Toxin E.coli (STEC) Not Detected (NotDetected); Shigella/Enteroinvasive E.coli Not Detected (NotDetected); Vibrio cholerae PCR Not Detected (NotDetected); Vibrio species PCR Not Detected (NotDetected); Yersinia enterocolitica PCR Not Detected (NotDetected)
--- NOTE | 2024-05-23 12:20 | XCELERA ---
[id number]
[2024-05-23 15:24] LABS: Basophils # (auto) 0.01 K/uL (0.00-0.20); Basophils % (auto) 0.2 %; Eosinophils # (auto) 0.01 K/uL (0.00-0.50); Eosinophils % (auto) 0.2 %; Hematocrit (blood only) 27.2 % (37.0-47.0); Immature Granulocytes # (auto) 0.04 K/uL (0.01-0.20); Immature Granulocytes % (auto) 0.6 %; Lymphocytes # (auto) 0.47 K/uL (1.20-3.40); Lymphocytes % (auto) 7.4 %; Mean Corpuscular Hemoglobin 32.4 pg (25.0-34.0); Mean Corpuscular Hgb Conc 36.8 g/dL (32.0-36.0); Mean Platelet Volume 9.5 fL (9.4-12.4); Monocytes # (auto) 0.53 K/uL (0.11-0.59); Monocytes % (auto) 8.3 %; Neutrophils # (auto) 5.31 K/uL (1.40-6.50); Neutrophils % (auto) 83.3 %; Platelet Count 285 K/uL (130-400); RDW Coefficient of Variation 13.9 % (11.5-14.5); RDW Standard Deviation 44.7 fL (36.4-46.3); Red Blood Count 3.09 M/uL (4.20-5.40); White Blood Count 6.37 K/ul (4.8-10.8)
[2024-05-23 15:35] LABS: BUN Creatinine Ratio 12.7 (10-20); Calcium 8.8 mg/dl (8.6-10.3); Potassium 3.8 mmol/L (3.5-5.1)
--- NOTE | 2024-05-23 19:01 | Hospitalist Progress Note ---
Date of Service May 23, 2024 Assessment & Plan (1) Acute renal failure: (2) Lactic acidosis: (3) Hypotension: (4) Alcohol intoxication: (5) Hyperkalemia: Plan Samia is a 63 y/o female with PMH of alcohol use disorder, anxiety/depression, and HTN admitted due to acute metabolic acidosis, acute renal failure and hypovolemic shock secondary to excessive EtOH intake and poor po intake otherwise after recent presumed viral illness. #Anion Gap metabolic Acidosis/PRO/Hyperkalemia/Hypocalcemia-ABG on arrival: PH 7.13, CO2: 31 HCO3 12, Anion gap: 17. Lactate 3.2, Creatinine: 4.81, Potassium 5.3, Alcohol level: 340. Toxicology, acetaminophen and salicylate negative. She was given copious IVF resuscitation and remained hypotensive with acidosis--> admitted to ICU and had urgent dialysis through a right femoral dialysis catheter. Initially on a bicarb gtt which was then stopped. She is on lisinopril at home and continued to take this daily while feeling ill and with poor po intake. CT A/P- No acute process on abdomen or pelvis, no kidney stones, no hydronephrosis; Chest CT: No pneumonia, no pulmonary edema or effusion. 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 Dickinson in place and making urine, taking po. Acidosis and hyperklaemia resolved Appreciate Wheel [employer] and Nephrology management -no need for further HD and HD catheter removed -follow BMP -encourage po fluids and food -remove Dickinson in AM -encouraged EtOH cessation -replacing calcium and phos po, changed low K+ diet back to regular #Hypovolemic shock - On arrival patient with hypotension MAP <60- Patient with diarrhea as per family which is now resolved and Stool PCR neg. No other source of infection found on workup and is afebrile. Now off pressors except started on po florinef and po hydrocortisone for short course for relative adrenal insufficiency as per Wheel [employer]. Random cortisol level 20 ECHO normal. -continue to hold home lisinopril -downgrade out of ICU -continue 2 days of po steroids and then stop #Alcohol use disorder- drinks 1/2-1 pint vodka daily x 19 years but more like 1 pint daily last 1-2 months since starting a new job. Last quit drinking for a few weeks in 03/2024 without any signs of withdrawal. LFTs normal, with fatty liver on CT A/P. -continue AWSS checks, prn ativan -received IV thiamine on admission--> change to po thiamine 100mg po daily -add folic acid 1 mg po daily, add MVI 1 tab po daily -she is committed to cessation but declines inpatient rehab due to not wanting to miss her new job -needs outpt resources for local EtOH counseling -case management consulted -has tried naltrexone and disulfiram in past and did not help much #Hepatitis B preliminary positive - Hep B testing ordered for urgent dialysis- could be false positive. Awaiting confirmation testing. With fatty liver seen on CT which could be from EtOH use as well. LFTs normal -f/u on confirmatory Hep B testing #Anemia, normocytic-hgb dropped to 8 from 12 but likely hemodilutional. No bleeding noted here or prior to admission. Repeat hgb up to 10 -follow CBC #HTN-BPs- now normalized after being too low. -hold lisinopril from home #Depression/Anxiety-long standing, follows with Psychiatry -resume home fluoxetine and olanzapine DVT proph-SQ heparin Dispo-downgraded from ICU to PCU this AM, now downgrade from PCU to med/surg. Likely dc to home tomorrow if renal function stable Admission and Anticipated Discharge Date Admission Date: May 22, 2024 Subjective Pt seen in the evening and feels well. Is eating and drinking. No diarrhea today but had some yesterday. Reports she had some flu like symptoms last week but no fevers/chills, no CP or SOB, no abd pain. No black tarry or bloody stools, no vomiting. Reports she just has been drinking way too much vodka. She is now committed to stopping her drinking. Tele with NSR, normal rates Physical Exam Constitutional: WD/WN, vitals as above Neck: trachea midline, no thyromegaly Respiratory: normal respiratory effort, lungs clear to auscultation Cardiovascular: RRR, no murmur, no edema Chest (Breasts): Chest: normal inspection of chest Gastrointestinal (Abdomen): normal bowel sounds, soft, nontender, no hepatosplenomegaly Musculoskeletal: Extremities: extremities normal to inspection; no cyanosis and no clubbing Skin: no rashes, warm and dry Neurologic: moves all extremities and awake; no focal motor deficits Psychiatric: A+Ox3, euthymic affect Lymphatic: no lymphedema Results & Data Results & Data Vital Signs (Past 12 Hours) Vital Signs Temp Pulse Resp BP Pulse Ox O2 Del Method O2 Flow Rate 05/23/24 16:03 37.4 C 88 17 128/77 93 Room Air 05/23/24 15:03 37.4 C 90 22 93 05/23/24 14:00 37.4 C 85 18 91 05/23/24 13:12 37.4 C 99 H 25 H 98 05/23/24 12:00 37.3 C 94 H 23 97 05/23/24 12:00 141/83 H 05/23/24 11:09 37.3 C 88 21 92 Nasal Cannula 2 05/23/24 11:00 123/76 05/23/24 10:09 37.3 C 90 17 93 05/23/24 10:00 120/77 05/23/24 09:54 37.3 C 89 22 93 05/23/24 09:33 126/85 05/23/24 09:33 126/85 05/23/24 09:30 37.1 C 99 H 21 94 05/23/24 09:00 37.1 C 99 H 16 05/23/24 09:00 101/64 05/23/24 08:12 37.0 C 102 H 17 93 05/23/24 08:00 126/67 05/23/24 07:48 36.9 C 105 H 20 94 05/23/24 07:30 Nasal Cannula Laboratory Results CBC x 2, BMP x 2, LFTs, Hep B serology, lactate, magnesium, stool PCR reviewed PG Care Time/CCT Total # of Minutes Spent Total Time Spent with Patient: Total time spent is greater than 50% in coordination of care (as documented) at patient's floor/unit and/or counseling patient: Coding Level of Care Code 43212 SUB INP/OBS CARE 3/50MIN Diagnoses Acute renal failure N17.9 Lactic acidosis E87.20 Hypotension I95.9 Alcohol intoxication F10.929 Hyperkalemia E87.5
[2024-05-23] MEDS: OLANZapine 5 MG TABLET PO SCH (21:22)
[2024-05-24 02:08] VITALS: RESP 16
[2024-05-24 08:03] LABS: Basophils # (auto) 0.02 K/uL (0.00-0.20); Basophils % (auto) 0.2 %; Eosinophils # (auto) 0.02 K/uL (0.00-0.50); Eosinophils % (auto) 0.2 %; Hematocrit (blood only) 28.6 % (37.0-47.0); Hemoglobin 10.2 g/dl (12.0-16.0); Immature Granulocytes # (auto) 0.03 K/uL (0.01-0.20); Immature Granulocytes % (auto) 0.3 %; Lymphocytes # (auto) 3.35 K/uL (1.20-3.40); Mean Corpuscular Hemoglobin 32.5 pg (25.0-34.0); Mean Corpuscular Hgb Conc 35.7 g/dL (32.0-36.0); Mean Corpuscular Volume 91.1 fL (80.0-100.0); Mean Platelet Volume 9.7 fL (9.4-12.4); Monocytes # (auto) 0.54 K/uL (0.11-0.59); Monocytes % (auto) 6.3 %; Neutrophils # (auto) 4.64 K/uL (1.40-6.50); Platelet Count 291 K/uL (130-400); RDW Coefficient of Variation 14.2 % (11.5-14.5); RDW Standard Deviation 47.6 fL (36.4-46.3); Red Blood Count 3.14 M/uL (4.20-5.40)
[2024-05-24 08:26] LABS: Albumin Globulin Ratio 1.4 (0.9-2); Albumin Level 3.3 gm/dl (3.4-5.0); BUN Creatinine Ratio 12.9 (10-20); Bilirubin,Total 0.5 mg/dl (0.2-1.0); Calcium 8.4 mg/dl (8.6-10.3); Creatinine Clr Calc Pharmacy 37.7 ml/min; Globulin 2.3 gm/dl (2.5-4.0); Magnesium 2.1 mg/dl (1.7-2.4); Potassium 3.2 mmol/L (3.5-5.1); Total Protein 5.6 gm/dl (6.0-8.3)
[2024-05-24] MEDS: THIAMINE HCL 100 MG TAB PO SCH (08:32)
--- NOTE | 2024-05-24 08:36 | Nephrology Progress Note ---
Date of Service May 24, 2024 Assessment & Plan (1) Ethyl alcohol poisoning: Plan: * Resolved following HD * Requires alcohol counseling/rehab (2) Acute renal failure: Plan: * PRO-D. Required emergency HD 05/22/24 * Cr 1.3 this am. Electrolytes are acceptable. Patient is nonoliguric * I have sent task to my operational intelligence officer to contact patient and schedule nephrology follow up in 1 week. Order placed in EMR for BMP, urinalysis one day prior to OV Admission and Anticipated Discharge Date Admission Date: May 22, 2024 Subjective Mrs. Gonzalez was evaluated in her hospital room this morning. She was A&O x3 and asking to go home. She denied angina or dyspnea Review of Systems Constitutional: no fever Eyes: no problem reported Ear, Nose, Mouth, Throat: no problem reported Respiratory: no cough and no dyspnea Cardiovascular: no chest pain Gastrointestinal: no abdominal pain, no nausea, no vomiting and no diarrhea/loose stools Physical Exam Constitutional: not in distress Eyes: PERRL, conjunctivae normal, anicteric sclerae ENMT: external ear and nose normal, oropharynx normal Neck: trachea midline, no thyromegaly Respiratory: normal respiratory effort, lungs clear to auscultation Cardiovascular: Rate/Rhythm: regular rate and regular rhythm Heart Sounds: no murmur Gastrointestinal (Abdomen): normal bowel sounds, soft, nontender, no hepatosplenomegaly Skin: + turgor decreased Neurologic: awake Speech / Cognition: normal speech Results & Data Vital Signs (Past 12 Hours) Vital Signs Temp Pulse Pulse Resp BP BP Pulse Ox 05/24/24 06:58 36.6 C 71 16 127/77 94 05/24/24 06:02 36.7 C 73 16 131/65 95 05/24/24 02:07 36.8 C 70 16 128/80 95 05/23/24 22:02 36.8 C 84 18 131/74 96 05/23/24 20:50 36.9 C 79 18 128/77 128/77 95 O2 Del Method 05/24/24 06:58 Room Air 05/24/24 06:02 Room Air 05/24/24 02:07 Room Air 05/23/24 22:02 Room Air 05/23/24 20:50 Room Air Laboratory Results Laboratory Results - last 24 hr 05/22/24 05/23/24 05/23/24 23:39 09:15 15:03 WBC 6.37 RBC 3.09 L Hgb 10.0 L POC Hgb 8.8 L Hct 27.2 L POC Hct 26 L MCV 88.0 MCH 32.4 MCHC 36.8 H RDW Std Deviation 44.7 RDW Coeff of [place] 13.9 Plt Count 285 MPV 9.5 Immature Gran % (Auto) 0.6 Neut % (Auto) 83.3 Lymph % (Auto) 7.4 [place] % (Auto) 8.3 Eos % (Auto) 0.2 Baso % (Auto) 0.2 Neut # (Auto) 5.31 Lymph # (Auto) 0.47 L [place] # (Auto) 0.53 Eos # (Auto) 0.01 Baso # (Auto) 0.01 Immature Gran # (Auto) 0.04 Specimen Type Arterial Sample Site Art Line POC pH 7.50 H POC pCO2 31 L POC pO2 77 L POC HCO3 24 POC Total CO2 25 POC Base Excess 1.0 O2 Sat Pulse Oximetry 94 ABG pH (Temp Correct) 7.490 H ABG pCO2 (Temp Corrct 32 L POC ABG pO2 at Pt Temp 79 POC ABG O2 Sat 97.0 H Chan Test NA O2 Delivery Device Room Air POC Sodium 136 Sodium 134 L POC Potassium 3.9 Potassium 3.8 Chloride 95 L Carbon Dioxide 25 Anion Gap 14 H BUN 18 Creatinine 1.42 H D Est Cr Clr Drug Dosing 35.0 eGFR 41.56 BUN/Creatinine Ratio 12.7 Glucose 223 H Calcium 8.8 D Magnesium Total Bilirubin AST ALT Alkaline Phosphatase Total Protein Albumin Globulin Albumin/Globulin Ratio Stl C. cayetanensis PCR Not Detected Stool Rotavirus A PCR Not Detected Stl Adenov F 40/41 PCR Not Detected Stool Astrovirus (PCR) Not Detected Stool Campylobacter PCR Not Detected Stool Cryptosporidium PCR Not Detected Stl E.coli Shiga Tox PCR Not Detected Stl Enterotoxigenic E PCR Not Detected Stool EPEC (PCR) Not Detected Stool EAEC (PCR) Not Detected Stl E. histolytica PCR Not Detected Stool Giardia Lamblia PCR Not Detected Stool Salmonella PCR Not Detected Stool Sapovirus (PCR) Not Detected Stl P. shigelloides PCR Not Detected Stl Shigella/EIEC PCR Not Detected St Y.enterocolitica PCR Not Detected Stool Vibrio (PCR) Not Detected Stl Vibrio cholerae PCR Not Detected Stl Norovirus GI/GII PCR Not Detected 05/24/24 07:22 WBC 8.60 RBC 3.14 L Hgb 10.2 L POC Hgb Hct 28.6 L POC Hct MCV 91.1 MCH 32.5 MCHC 35.7 RDW Std Deviation 47.6 H RDW Coeff of [place] 14.2 Plt Count 291 MPV 9.7 Immature Gran % (Auto) 0.3 Neut % (Auto) 54.0 Lymph % (Auto) 39.0 [place] % (Auto) 6.3 Eos % (Auto) 0.2 Baso % (Auto) 0.2 Neut # (Auto) 4.64 Lymph # (Auto) 3.35 [place] # (Auto) 0.54 Eos # (Auto) 0.02 Baso # (Auto) 0.02 Immature Gran # (Auto) 0.03 Specimen Type Sample Site POC pH POC pCO2 POC pO2 POC HCO3 POC Total CO2 POC Base Excess O2 Sat Pulse Oximetry ABG pH (Temp Correct) ABG pCO2 (Temp Corrct POC ABG pO2 at Pt Temp POC ABG O2 Sat Chan Test O2 Delivery Device POC Sodium Sodium 134 L POC Potassium Potassium 3.2 L Chloride 94 L Carbon Dioxide 34 H Anion Gap 6 BUN 17 Creatinine 1.32 H Est Cr Clr Drug Dosing 37.7 eGFR 45.37 BUN/Creatinine Ratio 12.9 Glucose 101 H Calcium 8.4 L Magnesium 2.1 Total Bilirubin 0.5 AST 25 ALT 17 Alkaline Phosphatase 51 Total Protein 5.6 L D Albumin 3.3 L Globulin 2.3 L Albumin/Globulin Ratio 1.4 Stl C. cayetanensis PCR Stool Rotavirus A PCR Stl Adenov F 40/41 PCR Stool Astrovirus (PCR) Stool Campylobacter PCR Stool Cryptosporidium PCR Stl E.coli Shiga Tox PCR Stl Enterotoxigenic E PCR Stool EPEC (PCR) Stool EAEC (PCR) Stl E. histolytica PCR Stool Giardia Lamblia PCR Stool Salmonella PCR Stool Sapovirus (PCR) Stl P. shigelloides PCR Stl Shigella/EIEC PCR St Y.enterocolitica PCR Stool Vibrio (PCR) Stl Vibrio cholerae PCR Stl Norovirus GI/GII PCR PG Care Time/CCT Total # of Minutes Spent Total Time Spent with Patient: Total time spent is greater than 50% in coordination of care (as documented) at patient's floor/unit and/or counseling patient: Coding Level of Care Code 74942 SUB INP/OBS CARE 50MIN Diagnoses Ethyl alcohol poisoning T51.0X1A Acute renal failure N17.9
[2024-05-24] MEDS: POTASSIUM CHLORIDE CRTAB 20 MEQ TABCR PO STA (09:23)
[2024-05-24 10:12] VITALS: BP 125/77; PULSE 78; TEMP 98.1; O2SAT 93
--- NOTE | 2024-05-24 11:30 | Discharge Summary ---
Discharge Summary Date of Service May 24, 2024 Principal Dx & Hospital Course #1 = Principal Diagnosis (1) Acute renal failure: (2) Lactic acidosis: (3) Hypotension: (4) Alcohol intoxication: (5) Hyperkalemia: Plan Samia is a 63 y/o female with PMH of alcohol use disorder, anxiety/depression, and HTN admitted due to acute metabolic acidosis, acute renal failure and hypovolemic shock secondary to excessive EtOH intake and poor po intake otherwise after recent presumed viral illness. #Anion Gap metabolic Acidosis/PRO/Hyperkalemia/Hypocalcemia-ABG on arrival: PH 7.13, CO2: 31 HCO3 12, Anion gap: 17. Lactate 3.2, Creatinine: 4.81, Potassium 5.3, Alcohol level: 340. Toxicology, acetaminophen and salicylate negative. She was given copious IVF resuscitation and remained hypotensive with acidosis--> admitted to ICU on vasopressors and had urgent dialysis through a right femoral dialysis catheter. Initially on a bicarb gtt which was then stopped. She is on lisinopril at home and continued to take this daily while feeling ill and with poor po intake. CT A/P- No acute process on abdomen or pelvis, no kidney stones, no hydronephrosis; Chest CT: No pneumonia, no pulmonary edema or effusion. 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 On 05/24, creatinine was improved to 1.3, and she had mild hypokalemia which was replaced Dickinson catheter was removed and she continues to be making urine, taking po well and no further diarrhea. Acidosis and hyperkalemia resolved Appreciate Grid Inspector and Nephrology management -no need for further HD and HD catheter removed-right groin site appears normal -follow BMP as an outpatient with nephrology in 1 week along with urinalysis -encouraged EtOH cessation -replaced calcium and phos as well as potassium po #Hypovolemic shock - On arrival patient with hypotension MAP <60- Patient with diarrhea as per family which is now resolved and Stool PCR neg. No other source of infection found on workup and is afebrile. Now off pressors and started on po florinef and po hydrocortisone for 2 days for relative adrenal insufficiency as per Grid Inspector. Random cortisol level 20 ECHO normal. -continue to hold home lisinopril after discharge. F/u with Nephro in 1 week to see if can be resumed -BPs normal on day of discharge #Alcohol use disorder- drinks 1/2-1 pint vodka daily x 19 years but more like 1 pint daily last 1-2 months since starting a new job. Last quit drinking for a few weeks in 03/2024 without any signs of withdrawal. LFTs normal, with fatty liver on CT A/P. She had no evidence of withdrawal while admitted and did not require any lorazepam prn -received IV thiamine on admission--> continue po thiamine 100mg po daily and folic acid 1 mg po daily, add MVI 1 tab po daily -she is committed to cessation but declines inpatient rehab due to not wanting to miss her new job -needs outpt resources for local EtOH counseling -case management consulted -has tried naltrexone and disulfiram in past and did not help much -f/u with PCP #Hepatitis B Surface Ag preliminary positive - Hep B testing ordered for urgent dialysis- could be false positive. Awaiting confirmation testing. With fatty liver seen on CT which could be from EtOH use as well. LFTs normal -f/u on confirmatory Hep B testing after discharge #Anemia, normocytic-hgb dropped to 8 from 12 but likely hemodilutional. No bleeding noted here or prior to admission. Repeat hgb up to 10 and stable on day of discharge, normocytic -follow CBC as outpt and if remains anemic, needs further evaluation #HTN-BPs- now normalized after being too low. -hold lisinopril from home #Depression/Anxiety-long standing, follows with Psychiatry -continue home fluoxetine and olanzapine DVT proph-SQ heparin Dispo-dc to home today Notes For Next Care Provider Needs f/u CBC, BMP as outpt Medication Changes From Visit HOLD lisinopril Added thiamine, folic acid, MVI Admission HPI Per Admitting Provider Samia is a 63 y/o female with PMH of alcohol abuse and HTN here due to acute confusion. She refers being brought here by a friend, she does not remember what happened. Family refers patient being sick for for 1 week and half. On evaluation patient was awake on oriented x3, in NAD on 2 L nasal cannula. Refers she is a heavy drinker, Last drink was yesterday 1 pain of liquor. Denied smoking. Denied any chest pain abdominal pain, vomiting, palpitations, SOB, headaches, lightheadedness or dizziness. No neuro deficit appreciated. On arrival in the ED patient found with acute anion ilia metabolic acidosis, and hypotension. Alcohol level 340, lactate 3.8. As well as with acute renal failure with creatinine 4.81, potassium 5.4. patient voided spontaneously, Dickinson catheter was placed. Arterial line was placed by Ed provider. Epinephrine and Levophed was started as well. Urology was consulted for Hemodialysis and patient will be admitted to the ICU for further monitoring. Discharge Exam Constitutional WD/WN, vitals as above Neck trachea midline, no thyromegaly Respiratory normal respiratory effort, lungs clear to auscultation Cardiovascular RRR, no murmur, no edema Chest (Breasts) Chest: normal inspection of chest Gastrointestinal (Abdomen) normal bowel sounds, soft, nontender, no hepatosplenomegaly Musculoskeletal Extremities: extremities normal to inspection; no cyanosis and no clubbing Skin no rashes, warm and dry Neurologic moves all extremities and awake; no focal motor deficits Psychiatric A+Ox3, euthymic affect Lymphatic no lymphedema Discharge Plan Discharge Items Patient Disposition: Home - Self-Care Reason For Visit: ACUTE RENAL FAILURE, HYPOVOLEMIC SHOCK, ANION GAP Discharge Diagnosis: Acute kidney injury with hyperkalemia and metabolic acidosis requiring urgent temporary hemodialysis Hypovolemic shock from dehydration Alcohol use disorder Condition on Discharge: Good Activity: Resume your previous activity Non-emergency contact: Primary Care Provider and Compliance And Control Analyst Call non-emergency contact if: you have any medication questions and your symptoms worsen Follow-up/Referrals: Neil Mcconnell MD [Physician] - (Dr. Mcconnell's office will contact you with your follow-up appointment for in approximately 1 week-please have blood work and urine work done at the lab on the day prior to your visit) Madeline Poe CRNP [Nurse Practitioner] - 06/01/24 10:00 am (This appointment is at the [facility] office Address is: [address] [place] [address] Phone number is [phone] if you need to change or cancel appointment) Diet: Regular Addtl Attending Provider Instructions: You were admitted with very low blood pressures and kidney failure requiring urgent dialysis. Fortunately, your kidney function improved. You did not have sepsis or any evidence of infection. Your low blood pressure was likely due to dehydration from excessive alcohol use and poor oral intake otherwise in the setting of taking blood pressure lowering medications. You will need to follow-up with the industrial hire sales assistant within 1 week with repeat blood and urine work prior to the appointment. Please remain off of your lisinopril at home until Dr. Mcconnell tells you it is okay to resume this. Please continue to abstain from alcohol use and seek out counseling as we discussed for alcohol use disorder. You should continue to take thiamine, folic acid, and a multivitamin daily to replenish your vitamins that can be depleted with excessive alcohol use. You were mildly anemic while you are here but this may just be dilutional from all of the IV fluids that you received. Please follow-up with your primary care provider regarding this issue. One of your blood tests was a preliminary positive for hepatitis B virus. A confirmatory test was still pending at the time of discharge and will need to be followed up on by your primary care provider. It is important for you to get established with a primary care provider-an appointment has been scheduled for you. Pending Studies at Discharge: Yes (Blood cultures-no growth to date; hepatitis B surface antigen and core anti) Stand-Alone Forms: [facility], Work/School Release, Smoking C essation Medications and DC Order Prescriptions: New folic acid 1 mg Tablet 1 mg PO QAM Qty: 30 0RF Rx Instructions: Bihu-uzp-nmlgido multivitamin with folic acid [Daily-Nicolasa (with folic acid)] 400 mcg Tablet 1 tab PO QAM Qty: 30 0RF Rx Instructions: Ywqz-bky-ikojfol thiamine HCl (vitamin B1) 100 mg Tablet 100 mg PO QAM Qty: 30 0RF Rx Instructions: Ltnu-lah-oybqecd Continued fluoxetine 40 mg capsule 40 mg PO DAILY olanzapine 5 mg tablet 5 mg PO HS Rx Instructions: Last filled 04/16/23 x30 day supply Held lisinopril 10 mg tablet 10 mg PO DAILY Hold Instructions: Resume on 06/01/24. Hold until Dr. Mcconnell says it is okay to resume Discharge Orders: Discharge Order (Routine); Ordered 05/24/24 Ordered By: Lisa Gordon Admission Data Admit Date/Time: 05/22/24 15:56 Attending Provider: Lisa Gordon Admit Provider: Sunita Nielsen Primary Care Provider: PCP,NO Other Providers: Mao Calloway; Neil Mcconnell; Jonas Case Other Interventions: Discharge Summary Assessment (RN) Last Done: 05/24/24 12:03 Hospital Stay Data Consultations 05/22/24 15:42 ED Decision to Admit Stat 05/22/24 16:13 Consult Nephrology Stat 05/22/24 16:56 Consult Grid Inspector Routine Diagnostic Imagining Performed 05/22/24 12:43 CT abd pelvis wo con Stat CT head/brain wo con Stat 05/22/24 12:46 CT chest diagnostic wo con Stat Pending Results Patient Have Any Pending Studies at Discharge: Yes (Blood cultures-no growth to date) Discharge Instructions Given to Patient (Per Discharging Provider) You were admitted with very low blood pressures and kidney failure requiring urgent dialysis. Fortunately, your kidney function improved. You did not have sepsis or any evidence of infection. Your low blood pressure was likely due to dehydration from excessive alcohol use and poor oral intake otherwise in the setting of taking blood pressure lowering medications. You will need to follow- up with the industrial hire sales assistant within 1 week with repeat blood and urine work prior to the appointment. Please remain off of your lisinopril at home until Dr. Mcconnell tells you it is okay to resume this. Please continue to abstain from alcohol use and seek out counseling as we discussed for alcohol use disorder. You should continue to take thiamine, folic acid, and a multivitamin daily to replenish your vitamins that can be depleted with excessive alcohol use. You were mildly anemic while you are here but this may just be dilutional from all of the IV fluids that you received. Please follow-up with your primary care provider regarding this issue. One of your blood tests was a preliminary positive for hepatitis B virus. A confirmatory test was still pending at the time of discharge and will need to be followed up on by your primary care provider. It is important for you to get established with a primary care provider-an appointment has been scheduled for you. Total Time Total Time Spent Total Time Spent (In Minutes): 35 min Total Time Includes: Examination of the Patient, Discharge Planning and Medication Reconciliation Coding Level of Care Code 12365 INP/OBS DISCH >30 MIN Diagnoses Acute renal failure N17.9 Lactic acidosis E87.20 Hypotension I95.9 Alcohol intoxication F10.929 Hyperkalemia E87.5
--- NOTE | 2024-05-25 19:02 | Billing Data ---
Date of Service May 22, 2024 Coding Level of Care Code 51715 INT INP/OBS CARE
== END 2024-05-24 13:18 | disposition home or self-care (01) | DRG 682 ==
LOC: ED 11:54 → SUATTDRO 15:56 → 1E 15:56 → 3N 05-23 21:59

== ENCOUNTER 2024-07-03 04:42 | Inpatient (IN) ==
--- NOTE | 2024-07-03 05:36 | Emergency Department Note ---
Impression & Plan Alcohol withdrawal syndrome, Alcohol withdrawal seizure, Acute hyponatremia ED Provider Note CHIEF COMPLAINT: Alcohol withdrawal HISTORY OF PRESENTING ILLNESS: The patient is a 63-year-old female who arrives to the emergency department via private vehicle with family for evaluation of alcohol withdrawal symptoms. Family states the patient drinks approximately 1 pint of vodka daily, usually every 2 weeks. They state over the last few days that she has been drinking a pint daily every day for the last 3 days. They state last night she began to act very strange, was unable to put her shirt on over her head, and was having difficulty talking. Family states that the patient did fall, and they witnessed what they thought was seizure-like activity approximately 30 minutes prior to arrival. They report the patient has gone through multiple episodes of alcohol withdrawal, with hospitalizations in the past. They report they are not from the area, and are from [place] however here visiting their daughter who is a student at [employer]. Family states previous episodes of withdrawal did not appear to be as severe as this episode, which is why they brought her to the emergency department. REVIEW OF SYSTEMS: See HPI for pertinent positives and pertinent negatives. ALLERGIES: See below MEDICATIONS: See below PAST MEDICAL HISTORY: See below PHYSICAL EXAM: VITALS: Vitals are noted on the nurse's note and reviewed by myself. Tachycardia present. GENERAL: 63-year-old female, in Dr. Villatoro distress, nondiaphoretic, well- developed well-nourished. SKIN: The skin was without rashes, erythema, edema, or bruising. HEAD: Normocephalic atraumatic. EARS: External auditory canals clear, tympanic membranes pearly romano without erythema or effusion bilaterally. EYES: Pupils equal round and reactive to light and accommodation. Conjunctivae without injection, sclerae without icterus. Extraocular movements intact. MOUTH: Mucous membranes dry. No tonsillar hypertrophy. Pharynx without erythema or exudate. Uvula midline. Airway patent. Tongue does not deviate. NECK: Supple without nuchal rigidity. No lymphadenopathy. Cervical spine is nontender. No JVD. HEART: Tachycardia with regular rhythm without murmurs gallops or rubs. LUNGS: Clear to auscultation bilaterally without wheezes, rales or rhonchi. No retractions or accessory muscle use. ABDOMEN: Positive bowel sounds x 4. Soft, nontender, without masses or organomegaly. Morton sign negative. No guarding or rebound tenderness. MUSCULOSKELETAL: No muscle atrophy, erythema, or edema noted. Full range of motion without joint tenderness in all extremities. No tenderness to palpation. Normal gait. Strength 5/5 throughout. NEURO: Patient was alert and oriented to person and place. DIFFERENTIAL DIAGNOSIS: Infection, hypoglycemia, electrolyte abnormalities, overdose, toxicologic, cardiac sources, intracerebral event, neurologic, trauma, as well as other pathologies. ED COURSE AND MEDICAL DECISION MAKING: HISTORY FROM INDEPENDENT HISTORIAN: Family at bedside as primary historians MEDICATIONS GIVEN: 1LNSS bolus, 2mg IV ativan, Thiamine, Folic acid. MONITOR: Continuous design assistant: Order was placed for continuous design assistant. Patient was placed on the design assistant and continuous pulse ox. Patient was noted to be in normal sinus rhythm at an initial rate of 96 bpm per my interpretation. EKG: EKG was interpreted by myself as NSR at a rate of 89bpm with no ST elevation, depression, or ectopy. Previous for comparison from 05/2024 shows no significant change. INTERPRETATION OF LABS: I interpreted the labs with full lab results as below in the lab section of this note. Pertinent lab results discussed in the MDM section below. INTERPRETATION OF IMAGING: Imaging studies were interpreted by myself and read by radiology as per the imaging section of this note. CHRONIC MEDICAL/SOCIAL CONDITIONS AFFECTING CARE: Alcohol dependence MDM SUMMARY: The patient is a 63-year-old female who arrives to the emergency department for evaluation of the above-stated complaint. Seizure protocol implemented. A saline lock was established, CBC, CMP, PT/INR, PTT, hepatic function, urinalysis, and drug profile were obtained. CBC shows leukocytosis 11.66, with a stable anemia. PT/INR, PTT within normal limits. CMP shows hyponatremia, 113, chloride 79, anion gap 13. Glucose 197, total bili 1.6. Urinalysis 2+ glucose, 2+ ketones, UDS negative. CT imaging of the head was obtained which per my interpretation shows no acute process. EKG was obtained and interpreted as above. AWSS scale performed by nursing staff, with 2 mg of IV Ativan administered. Patient was administered 1 L bolus normal saline for hyponatremia. Magnesium, phosphorus were added, and currently pending. Patient will require admission to the ICU, for alcohol withdrawal as well as hyponatremia. I spoke with case management who facilitated contact with the [facility] hospitalist group. Dr. Morris will accept the patient under his care. Please refer to their documentation for further patient workup and care. DIAGNOSIS: Alcohol withdrawal, hyponatremia The chart was completed utilizing [employer] Speech voice recognition software. Grammatical errors, random word insertions, pronoun errors, and incomplete sentences are an occasional consequence of this system due to software limitations, ambient noise, and hardware issues. Any formal questions or concerns about the content, text, or information contained within the body of this dictation should be directly addressed to the provider for clarification. Past Med/Surg History Problem List (Updated 07/03/24 @ 07:32 by DOMINIQUE Vital) Acute hyponatremia (Acute) Alcohol withdrawal seizure (Acute) Alcohol withdrawal syndrome (Acute) Medical History Ethyl alcohol poisoning Social History Smoking Status: Never smoker Hx Alcohol Use: Yes Alcohol type: hard liquor Hx Substance Use: No Preferred Language: [place] Communication Ability: Effective Communication Ability Comment: normal Chainstitch Hemmer Required: No Beliefs That Will Affect Care: Cultural Current Living Situation: Alone Current Living Situation Comment: alone with daughter Feels Safe at Home: Yes Assistive Devices: None Allergies Allergies Allergy/AdvReac Type Severity Reaction Status Date / Time No Known Allergies Allergy Unverified 05/31/24 15:33 Home Meds Home Medications Medication Instructions Recorded Confirmed fluoxetine 40 mg capsule 40 mg PO DAILY 05/22/24 05/31/24 olanzapine 5 mg tablet 5 mg PO HS 05/22/24 05/31/24 lisinopril 10 mg tablet 10 mg PO DAILY 05/24/24 05/31/24 Previous Rx's Medication Instructions Recorded folic acid 1 mg tablet 1 mg PO QAM #30 tabs 05/24/24 multivitamin with folic acid 400 1 tab PO QAM #30 tabs 05/24/24 mcg tablet (Daily-Nicolasa (with folic acid)) thiamine HCl (vitamin B1) 100 mg 100 mg PO QAM #30 tabs 05/24/24 tablet Results & Data (ED) Vital Signs Vital Signs - 24 hr 07/03/24 04:52 07/03/24 05:19 07/03/24 06:00 Temperature 36.7 C 36.7 C Temperature Source Temporal Artery Scan Pulse Rate 96 H 87 101 H Pulse Rate [Right Finger] Pulse Rhythm Regular Pulse Rhythm [Right Finger] Pulse Strength Normal Pulse Strength [Right Finger] Respiratory Rate 18 18 Respiratory Effort / Characteristics Non-Labored Spontaneous Respiratory Depth Normal Respiratory Pattern Regular Blood Pressure 135/87 143/85 H Blood Pressure [Right Arm] Blood Pressure Mean 103 109 Blood Pressure Mean [Right Arm] Blood Pressure Position Sitting Blood Pressure Position [Right Arm] Pulse Oximetry 95 97 Oxygen Delivery Method Room Air Sepsis Recent Fever Within 48 Hours No Sepsis New/Unexplained Change in Mental Status N/A Sepsis Action Taken by Nursing No Action Required 07/03/24 06:30 07/03/24 07:18 Temperature 36.4 C L Temperature Source Oral Pulse Rate 86 Pulse Rate [Right Finger] 93 H Pulse Rhythm Pulse Rhythm [Right Finger] Regular Pulse Strength Pulse Strength [Right Finger] Normal Respiratory Rate 20 22 Respiratory Effort / Characteristics Non-Labored Respiratory Depth Normal Respiratory Pattern Regular Blood Pressure 124/88 Blood Pressure [Right Arm] 141/90 H Blood Pressure Mean 98 Blood Pressure Mean [Right Arm] 107 Blood Pressure Position Blood Pressure Position [Right Arm] Lying Pulse Oximetry 96 98 Oxygen Delivery Method Room Air Sepsis Recent Fever Within 48 Hours Sepsis New/Unexplained Change in Mental Status Sepsis Action Taken by Penitentiary Medications Current Medication List: was personally reviewed by me Laboratory Data Attestation: I reviewed the patient's lab results. 07/03/24 05:10 07/03/24 05:10 Lab Results 07/03/24 07/03/24 Range/Units 05:10 06:10 WBC 11.66 H (4.8-10.8) K/ul RBC 3.36 L (4.20-5.40) M/uL Hgb 10.9 L (12.0-16.0) g/dl Hct 29.3 L (37.0-47.0) % MCV 87.2 (80.0-100.0) fL MCH 32.4 (25.0-34.0) pg MCHC 37.2 H (32.0-36.0) g/dL RDW Std Deviation 43.2 (36.4-46.3) fL RDW Coeff of Logan 13.6 (11.5-14.5) % Plt Count 450 H (130-400) K/uL MPV 9.3 L (9.4-12.4) fL Immature Gran % (Auto) 0.5 % Neut % (Auto) 80.5 % Lymph % (Auto) 10.5 % [place] % (Auto) 8.2 % Eos % (Auto) 0.1 % Baso % (Auto) 0.2 % Neut # (Auto) 9.39 H (1.40-6.50) K/uL Lymph # (Auto) 1.22 (1.20-3.40) K/uL [place] # (Auto) 0.96 H (0.11-0.59) K/uL Eos # (Auto) 0.01 (0.00-0.50) K/uL Baso # (Auto) 0.02 (0.00-0.20) K/uL Immature Gran # (Auto) 0.06 (0.01-0.20) K/uL PT 10.8 (9.0-12.0) Seconds INR 1.0 (0.9-1.1) APTT 25 (21-31) Seconds PTT Ratio 0.9 Sodium 113 L* (136-145) mmol/L Potassium 3.9 (3.5-5.1) mmol/L Chloride 79 L (98-107) mmol/L Carbon Dioxide 21 (21-32) mmol/L Anion Gap 13 H (3-11) BUN 14 (6-23) mg/dl Creatinine 0.99 (0.6-1.2) mg/dl Est Cr Clr Drug Dosing 50.2 ml/min eGFR 64.07 BUN/Creatinine Ratio 14.1 (10-20) Glucose 197 H (70-99(Fasting)) mg/dl Calcium 8.9 (8.6-10.3) mg/dl Phosphorus 2.0 L (2.5-4.9) mg/dl Magnesium 1.7 (1.7-2.4) mg/dl Total Bilirubin 1.6 H (0.2-1.0) mg/dl Direct Bilirubin 0.3 H (0-0.2) mg/dl AST 34 (13-39) U/L ALT 18 (7-52) U/L Alkaline Phosphatase 87 (34-104) U/L Total Protein 6.8 (6.0-8.3) gm/dl Albumin 4.3 (3.4-5.0) gm/dl Globulin 2.5 (2.5-4.0) gm/dl Albumin/Globulin Ratio 1.7 (0.9-2) Urine Color Yellow Urine Appearance Clear (Clear) Urine pH 6.5 (4.5-7.5) Ur Specific [place] 1.019 (1.000-1.030) Urine Protein Trace H (Negative) Urine Glucose (UA) 2+ H (Negative) Urine Ketones 2+ H (Negative) Urine Blood Negative (Negative) Urine Nitrite Negative (Negative) Urine Bilirubin Negative (Negative) Urine Urobilinogen Negative (Negative) Ur Leukocyte Esterase Negative (Negative) Urine WBC (Auto) 0-5 (0-5) /hpf Urine RBC (Auto) 0-2 (0-2) /hpf U Hyaline Cast (Auto) 0-2 (0-2) /lpf U Epithel Cells (Auto) 0-2 (0-2) /hpf Urine Bacteria (Auto) None Seen (None Seen) Urine Opiates Screen Neg (Neg) Ur Methadone, Qual Neg (Neg) Urine Fentanyl Screen Neg (Neg) Urine Barbiturates Neg (Neg) Ur Phencyclidine (PCP) Neg (Neg) U Amphetamin/Meth Scrn Neg (Neg) MDMA (Ecstasy) Screen Neg (Neg) U Benzodiazepines Scrn Neg (Neg) Ur Cocaine Metabolite Neg (Neg) U Marijuana (THC) Screen Neg (Neg) Administered Medications Sodium Chloride (Nss) 1,000 mls @ 999 mls/hr IV .Q1H1M ONE Stop: 07/03/24 07:38 Last Admin: 07/03/24 06:50 Dose: 999 mls/hr Documented By: JOHN Lorazepam (Lorazepam 2 Mg/1 Ml Vial) 2 mg IV UD PRN; Protocol PRN Reason: EtOH Withdrawal AWSS Score 8,9 Stop: 08/02/24 05:41 Last Admin: 07/03/24 06:20 Dose: 2 mg Documented By: JOHN Discontinued Medications Thiamine HCl 100 mg/ Syringe 10 mls @ 2 mls/min IV NOW STA Stop: 07/03/24 05:42 Last Admin: 07/03/24 06:53 Dose: 2 mls/min Documented By: JOHN Folic Acid 1 mg/ Syringe 10 mls @ 5 mls/min IV NOW STA Stop: 07/03/24 05:39 Last Admin: 07/03/24 06:51 Dose: 5 mls/min Documented By: JOHN Imaging Data Attestation: I personally reviewed and interpreted this imaging study as follows: Radiologist's Impression: Head CT 07/03/24 05:38 EXAM: CT head/brain wo con CLINICAL HISTORY: confusion TECHNIQUE: Multiple axial images are obtained from the skull base to the vertex without contrast. CT scan was performed according to ALARA (as low as reasonably achievable). COMPARISON: 05/22/2024 12:47:52 FILLER SHREDDER MACHINE FINDINGS: The brain shows normal morphology, attenuation, and volume for age. No evidence of space occupying lesion, hemorrhage, edema, mass effect, midline shift, extra axial collection, or hydrocephalus is noted. Ventricles, sulci, and basal cisterns are symmetric and normal in size and configuration. The romano-white matter differentiation is preserved. Visualized paranasal sinuses and mastoid air cells are well aerated. Orbital contents are within normal limits. Bony structures are intact. IMPRESSION: 1. No evidence of acute intracranial abnormality is demonstrated. 2. No significant interval changes seen since prior study. Electronically signed by Waylon Dillon 07-03-2024 06:37 AM Discharge Plan Visit Data Chief Complaint: Alcohol Withdrawal Stated Complaint: ALCOHOL WITHDRAWAL ED Provider: Sugar Mcdaniels ED Midlevel Provider: Ligia Dennis Discharge Problem: Alcohol withdrawal syndrome, Alcohol withdrawal seizure, Acute hyponatremia Forms Stand Alone Forms: My [facility], Suicide Prevention Resources Prescriptions Prescriptions: No Action fluoxetine 40 mg capsule 40 mg PO DAILY olanzapine 5 mg tablet 5 mg PO HS Rx Instructions: Last filled 04/16/23 x30 day supply lisinopril 10 mg tablet 10 mg PO DAILY Hold Instructions: Resume on 06/01/24. Hold until Dr. Mcconnell says it is okay to resume folic acid 1 mg Tablet 1 mg PO QAM Qty: 30 0RF Rx Instructions: [id number] multivitamin with folic acid [Daily-Nicolasa (with folic acid)] 400 mcg Tablet 1 tab PO QAM Qty: 30 0RF Rx Instructions: [id number] thiamine HCl (vitamin B1) 100 mg Tablet 100 mg PO QAM Qty: 30 0RF Rx Instructions: [id number] Referrals Referrals: PCP,NO [Primary Care Provider] -
[2024-07-03] MEDS ORDERED: LORazepam 1 MG TAB PO PRN ×3 (05:38)
[2024-07-03] MEDS ORDERED: Ativan PO Alcohol Withdrawal--Active Protocol PO PRN (05:38)
[2024-07-03] MEDS ORDERED: Ativan IV Alcohol Withdrawal--Active Protocol IV PRN (05:42)
[2024-07-03] MEDS ORDERED: LORazepam 2 MG/1 ML VIAL IV PRN ×2 (05:42)
[2024-07-03 06:14] LABS: Albumin Globulin Ratio 1.7 (0.9-2); Albumin Level 4.3 gm/dl (3.4-5.0); BUN Creatinine Ratio 14.1 (10-20); Bilirubin Direct 0.3 mg/dl (0-0.2); Bilirubin,Total 1.6 mg/dl (0.2-1.0); Calcium 8.9 mg/dl (8.6-10.3); Creatinine Clr Calc Pharmacy 50.2 ml/min; Globulin 2.5 gm/dl (2.5-4.0); Potassium 3.9 mmol/L (3.5-5.1); Total Protein 6.8 gm/dl (6.0-8.3)
[2024-07-03 06:18] LABS: Basophils # (auto) 0.02 K/uL (0.00-0.20); Basophils % (auto) 0.2 %; Eosinophils # (auto) 0.01 K/uL (0.00-0.50); Eosinophils % (auto) 0.1 %; Hematocrit (blood only) 29.3 % (37.0-47.0); Hemoglobin 10.9 g/dl (12.0-16.0); Immature Granulocytes # (auto) 0.06 K/uL (0.01-0.20); Immature Granulocytes % (auto) 0.5 %; Lymphocytes # (auto) 1.22 K/uL (1.20-3.40); Lymphocytes % (auto) 10.5 %; Mean Corpuscular Hemoglobin 32.4 pg (25.0-34.0); Mean Corpuscular Hgb Conc 37.2 g/dL (32.0-36.0); Mean Corpuscular Volume 87.2 fL (80.0-100.0); Mean Platelet Volume 9.3 fL (9.4-12.4); Monocytes # (auto) 0.96 K/uL (0.11-0.59); Monocytes % (auto) 8.2 %; Neutrophils # (auto) 9.39 K/uL (1.40-6.50); Neutrophils % (auto) 80.5 %; Platelet Count 450 K/uL (130-400); RDW Coefficient of Variation 13.6 % (11.5-14.5); RDW Standard Deviation 43.2 fL (36.4-46.3); Red Blood Count 3.36 M/uL (4.20-5.40); White Blood Count 11.66 K/ul (4.8-10.8)
[2024-07-03] MEDS: LORazepam 2 MG/1 ML VIAL IV PRN (06:20)
[2024-07-03 06:26] LABS: Partial Thromboplastin Ratio 0.9; Partial Thromboplastin Time 25 Seconds (21-31); Prothrombin Time 10.8 Seconds (9.0-12.0)
[2024-07-03 06:28] LABS: Appearance Urine Clear (Clear); Bacteria Urine Automated None Seen (None Seen); Bilirubin Urine Negative (Negative); Blood Urine Negative (Negative); Cast Urine Automated 0-2 /lpf (0-2); Color Urine Yellow; Epithelial Cell Urine Auto 0-2 /hpf (0-2); Glucose Urine UA 2+ (Negative); Ketones Urine 2+ (Negative); Leukocyte Esterase Urine Negative (Negative); Nitrite Urine Negative (Negative); Protein Urine Trace (Negative); RBC Urine Automated 0-2 /hpf (0-2); Specific Gravity Urine 1.019 (1.000-1.030); Urobilinogen Urine Negative (Negative); WBC Urine Automated 0-5 /hpf (0-5); pH Urine 6.5 (4.5-7.5)
--- NOTE | 2024-07-03 06:37 | CT Scan Report ---
EXAM: CT head/brain wo con CLINICAL HISTORY: confusion TECHNIQUE: Multiple axial images are obtained from the skull base to the vertex without contrast. CT scan was performed according to ALARA (as low as reasonably achievable). COMPARISON: 05/22/2024 12:47:52 HAND STRIPPER FINDINGS: The brain shows normal morphology, attenuation, and volume for age. No evidence of space occupying lesion, hemorrhage, edema, mass effect, midline shift, extra axial collection, or hydrocephalus is noted. Ventricles, sulci, and basal cisterns are symmetric and normal in size and configuration. The romano-white matter differentiation is preserved. Visualized paranasal sinuses and mastoid air cells are well aerated. Orbital contents are within normal limits. Bony structures are intact. IMPRESSION: 1. No evidence of acute intracranial abnormality is demonstrated. 2. No significant interval changes seen since prior study. Electronically signed by Waylon Dillon 07-03-2024 06:37 AM
[2024-07-03] MEDS: SODIUM CHLORIDE 0.9% 1,000 ML IV ONE (06:50)
[2024-07-03] MEDS: FOLIC ACID 1 MG in SYRINGE 9.8 ML IV STA (06:51)
[2024-07-03 06:52] LABS: Amphetamines+Metham, Urine Neg (Neg); Barbiturates, Urine Neg (Neg); Benzodiazepine, Urine Neg (Neg); Cocaine, Urine Neg (Neg); Fentanyl, Urine Neg (Neg); MDMA (Ecstacy), Urine Neg (Neg); Marijuana, Urine Neg (Neg); Methadone, Urine Neg (Neg); Opiate, Urine Neg (Neg); Phencyclidine, Urine Neg (Neg)
[2024-07-03] MEDS: THIAMINE HCL 100 MG in SYRINGE 9 ML IV STA (06:53)
[2024-07-03 07:15] LABS: Magnesium 1.7 mg/dl (1.7-2.4)
[2024-07-03] MEDS ORDERED: POTASSIUM PHOS 3 MMOL/1 ML INFUSION IV STA (07:46)
[2024-07-03] MEDS: POTASSIUM PHOSPHATE 15 MMOL in SODIUM CHLORIDE 0.9% 250 ML IV ONE (08:13)
[2024-07-03] MEDS ORDERED: ONDANSETRON INJ 2 MG/ML 2 ML VIAL IV PRN (08:28)
[2024-07-03] MEDS ORDERED: POLYETHYLENE (MIRALAX) 17 GM PACK PO PRN (08:28)
[2024-07-03 09:07] LABS: Base Excess VBG -1.3 mEq/L; HCO3 VBG 23 mmol/L; Oxygen Saturation VBG < 60.0 %; PCO2 VBG 35 mmHg (38-50); PO2 VBG 24 mmHg; pH VBG 7.42 (7.36-7.41)
[2024-07-03 09:26] LABS: Calcium 7.7 mg/dl (8.6-10.3); Creatinine Clr Calc Pharmacy 61.4 ml/min; Potassium 3.8 mmol/L (3.5-5.1)
[2024-07-03] MEDS: THIAMINE HCL 400 MG in SODIUM CHLORIDE 0.9% 50 ML IV STA (09:26)
--- NOTE | 2024-07-03 09:34 | History & Physical Report ---
Date of Service July 03, 2024 Assessment & Plan (1) Acute hyponatremia: (2) Alcohol withdrawal syndrome: (3) Metabolic encephalopathy: Plan #Metabolic encephalopathy - Likely a combination of alcohol withdrawal and hyponatremia - pH on VBG 7.42, likely in setting of tachypnea - WBC, neutrophils, monocytes, platelets elevated - Mag, phos, venous blood gas tomorrow AM #Acute hyponatremia, symptomatic - 113 on admission, improved to 119 with administration of normal saline - Consider hypertonic saline if worsening - Unclear etiology, possibly a result of potomania/malnutrition or olanzapine - Favor potomania/malnutrition given improvement with NSS - Previous labs do not demonstrate hyponatremia - NSS 125 mL/hr - BMP q4h #Alcohol withdrawal syndrome - Per protocol - 500mg thiamine TID, folic acid 1mg qAM - Zofran 4mg prn for nausea - AWSS, one administration of Ativan 2mg at 6:20a 07/03 History of Present Illness Chief Complaint: Metabolic encephalopathy Primary Care Provider: NO PCP The patient is a 63-year-old female who arrived to the emergency department via private vehicle with her family for evaluation of alcohol withdrawal symptoms. Per patient, she consumes about 1/2 a pint of vodka irregularly; family states the patient drinks approximately 1 pint of vodka daily, usually every 2 weeks. She has been drinking more recently, consuming about a pint a day for the last three days. Per patient, her suggested that she come to the hospital because she was "acting erratic." She was unable to dress herself and was having difficulty talking. Family states that the patient did fall, and they witnessed what they thought was seizure-like activity approximately 30 minutes prior to arrival. They report the patient has gone through multiple episodes of alcohol withdrawal, with hospitalizations in the past. Family states previous episodes of withdrawal did not appear to be as severe as this episode, which is why they brought her to the emergency department. Patient was seen at bedside. She appeared confused, and could not articulate what exactly brought her to the hospital beyond her 's suggestion. She stated that she drinks alcohol when she feels anxious. She takes Prozac 40mg, has a therapist and psychiatrist, and reports being concerned about her alcohol use. Allergies Allergy/AdvReac Type Severity Reaction Status Date / Time No Known Allergies Allergy Unverified 07/03/24 09:14 Home Medications Medication Instructions Recorded Confirmed Type fluoxetine 40 mg capsule 40 mg PO DAILY 05/22/24 07/03/24 History olanzapine 5 mg tablet 5 mg PO HS 05/22/24 07/03/24 History folic acid 1 mg tablet 1 mg PO QAM #30 tabs 05/24/24 07/03/24 Rx lisinopril 10 mg tablet 10 mg PO DAILY 05/24/24 07/03/24 History multivitamin with folic acid 400 1 tab PO QAM #30 tabs 05/24/24 07/03/24 Rx mcg tablet (Daily-Nicolasa (with folic acid)) thiamine HCl (vitamin B1) 100 mg 100 mg PO QAM #30 tabs 05/24/24 07/03/24 Rx tablet Past Med/Surg History Problem List (Updated 07/03/24 @ 17:14 by Nelly Santiago MD) Metabolic encephalopathy Acute hyponatremia (Acute) Alcohol withdrawal seizure (Acute) Alcohol withdrawal syndrome (Acute) Medical History Ethyl alcohol poisoning Social History Smoking Status: Never smoker Hx Alcohol Use: Yes Alcohol type: hard liquor Hx Substance Use: No Preferred Language: Greenlandic Communication Ability: Effective Communication Ability Comment: normal Knuckle Strap Sewer Required: No Beliefs That Will Affect Care: None Current Living Situation: Spouse Current Living Situation Comment: Jason Feels Safe at Home: Yes Safety Concerns: Feels Safe At This Time Assistive Devices: None Review of Systems 2 Review of Systems: Cardio: No chest pain or pressure Pulm: No shortness of breath. Neuro: No headaches or vision changes. GI: No abdominal discomfort or bloating. : No difficulties voiding. Psych: No feelings of anxiety. Physical Exam 2 Physical Exam: Const: Disoriented, malnourished, anxious appearing Cardio: Regular rate, tachycardic Resp: CTAB, tachypneic Derm: slight skin flushing GI: No abdominal tenderness or bloating; abdomen firm Neuro: Slight tremors in upper extremities bilaterally, unsteady, sways on attempt to sit Results & Data Results & Data Vital Signs (Past 12 Hours) Vital Signs Temp Pulse Pulse Resp BP BP Pulse Ox 07/03/24 07:18 36.4 C L 93 H 22 141/90 H 98 07/03/24 06:30 86 20 124/88 96 07/03/24 06:00 36.7 C 101 H 18 143/85 H 97 07/03/24 05:19 87 07/03/24 04:52 36.7 C 96 H 18 135/87 95 O2 Del Method 07/03/24 07:18 Room Air 07/03/24 06:30 07/03/24 06:00 07/03/24 05:19 07/03/24 04:52 Room Air Laboratory Results 07/03/24 05:10 07/03/24 15:[address] 07/03/24 05:38 FINDINGS: The brain shows normal morphology, attenuation, and volume for age. No evidence of space occupying lesion, hemorrhage, edema, mass effect, midline shift, extra axial collection, or hydrocephalus is noted. Ventricles, sulci, and basal cisterns are symmetric and normal in size and configuration. The romano-white matter differentiation is preserved. Visualized paranasal sinuses and mastoid air cells are well aerated. Orbital contents are within normal limits. Bony structures are intact. IMPRESSION: 1. No evidence of acute intracranial abnormality is demonstrated. 2. No significant interval changes seen since prior study. Supervising Physician Co-Signing Physician Notes I personally examined the patient and verified all brown points of history and exam, discussed case, and agree with decision making with Dr Santiago and Carlota Leahy MS4 weak but able to get too and from toilet with nursing assist. more coherent - knows she's in the hospital and brought her because of falling vitals noted nad heent nc at mmm breathing unlabored no accessory muscles good effort skin without rashes no pallor or icterus symptomatic hyponatremia -likely dilution from EtOH as well as poor PO intake reducing solute consumption -improving - continue NSS and vigilance otherwise as above Resident Activity Tracking Resident Involvement: Resident Care Provided Care Provided: Adult Hospital Medicine Resident Supervision Co-Signing Physician Notes Gen: anxious appearing patient, NAD, weak HEENT: AT NC, dry mucous membranes Resp: CTAB no wheezing no increased work of breathing CV: RRR no m/r/g clinically well perfused Abd: soft, non-distended MSK: no obvious deformities Skin: no rashes or bruising MSE: alert and oriented, anxious appearing, unclear on why she's here, able to answer most questions appropriately #Hyponatremia - likely hypovolemic hyponatremia Patient with frequent binge alcohol episodes likely potomania. Unclear if drinking every day. There may be a component of malnutrition as well. Patient also on olanzapine which does raise the question of SIADH, but she's improving with NSS, which lessens concern for SIADH. If improvement stalls or hyponatremia worsens would move SIADH higher up on the differential - could consider fluid restriction and discontinuation of olanzapine. s/p 1 L bolus, NSS @ 125 mL/hr Q4H BMP - aim delta of max 12 mEq in 24 hours if overcorrecting stop fluids vs 1/2NSS vs 1/4NSS vs D5W if severely overcorrecting or worsening clinically - consider escalation of care +/- DDAVP seizure precautions ordered #Metabolic Encephalopathy Likely multifactorial - hyponatremia, malnutrition, significant alcohol use. Improving with normalization of sodium. 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 Patient current on fluoxetine and olanzapine. Patient follows with psychiatry. Would benefit from better control of anxiety to avoid maladaptive coping mechanisms. She did not require PRN Ativan during last hospital stay. AWSS on board. Active AWSS - minimal requirements at present If needing multiple 3 mg doses would consider phenobarb load +/- Valium swig to catch up (10 mg IV) hold olanzapine scheduled melatonin #HTN Holding lisinopril for now as BP acceptable Code status: full DVT ppx: SCDs, encourage ambulation, if not OOB frequently would add Lovenox FENGI: regular, NSS IVF @ 125 mL/hr Dispo: PCU with ICU level nursing care
[2024-07-03] MEDS: SODIUM CHLORIDE 0.9% 1,000 ML IV SCH (09:59)
[2024-07-03 13:16] LABS: BUN Creatinine Ratio 11.6 (10-20); Calcium 7.8 mg/dl (8.6-10.3); Creatinine Clr Calc Pharmacy 52.3 ml/min; Potassium 3.8 mmol/L (3.5-5.1)
[2024-07-03] MEDS: FOLIC ACID 1 MG in SYRINGE 9.8 ML IV SCH (13:24)
--- NOTE | 2024-07-03 14:20 | Electrocardiogram Report ---
Test Reason : Blood Pressure : */* mmHG Vent. Rate : 89 BPM Atrial Rate : 89 BPM P-R Int : 168 ms QRS Dur : 84 ms QT Int : 398 ms P-R-T Axes : 62 28 39 degrees QTcB Int : 484 ms Normal sinus rhythm Normal ECG When compared with ECG of 22-May-2024 12:22, No significant change was found Confirmed by Brent Myers ([id number]) on 07/03/2024 2:20:03 PM Referred By: REFERRED SELF Confirmed By: Brent Myers
[2024-07-03] MEDS: THIAMINE HCL 500 MG in SODIUM CHLORIDE 0.9% 50 ML IV SCH (14:43)
[2024-07-03 16:27] LABS: Calcium 7.9 mg/dl (8.6-10.3); Creatinine Clr Calc Pharmacy 54.6 ml/min; Potassium 3.4 mmol/L (3.5-5.1)
[2024-07-03] MEDS ORDERED: MELATONIN 3 MG TAB PO PRN (18:10)
--- NOTE | 2024-07-03 18:12 | Billing Data ---
Date of Service July 03, 2024 Coding Level of Care Code 11610 INT INP/OBS CARE
[2024-07-03 19:41] LABS: Calcium 8.3 mg/dl (8.6-10.3); Creatinine Clr Calc Pharmacy 49.7 ml/min; Potassium 3.5 mmol/L (3.5-5.1)
[2024-07-03 19:48] LABS: Acetaminophen < 3 ug/ml (10-30); Salicylate < 3.0 mg/dl (3.0-30)
[2024-07-03] MEDS: MELATONIN 3 MG TAB PO SCH (20:04)
[2024-07-03 23:48] LABS: BUN Creatinine Ratio 9.5 (10-20); Calcium 7.8 mg/dl (8.6-10.3); Creatinine Clr Calc Pharmacy 52.3 ml/min; Potassium 3.4 mmol/L (3.5-5.1)
[2024-07-04] MEDS: POTASSIUM CHLORIDE CRTAB 20 MEQ TABCR PO STA (00:53)
[2024-07-04 04:04] LABS: Base Excess VBG -2.7 mEq/L; HCO3 VBG 23 mmol/L; Oxygen Saturation VBG < 60.0 %; PCO2 VBG 40 mmHg (38-50); PO2 VBG 24 mmHg; pH VBG 7.36 (7.36-7.41)
[2024-07-04 04:28] LABS: BUN Creatinine Ratio 8.7 (10-20); Calcium 8.1 mg/dl (8.6-10.3); Potassium 4.2 mmol/L (3.5-5.1)
[2024-07-04 04:29] LABS: Basophils # (auto) 0.03 K/uL (0.00-0.20); Basophils % (auto) 0.5 %; Eosinophils # (auto) 0.09 K/uL (0.00-0.50); Eosinophils % (auto) 1.4 %; Hematocrit (blood only) 27.5 % (37.0-47.0); Hemoglobin 9.8 g/dl (12.0-16.0); Immature Granulocytes # (auto) 0.02 K/uL (0.01-0.20); Immature Granulocytes % (auto) 0.3 %; Lymphocytes % (auto) 25.8 %; Mean Corpuscular Hemoglobin 32.9 pg (25.0-34.0); Mean Corpuscular Hgb Conc 35.6 g/dL (32.0-36.0); Mean Corpuscular Volume 92.3 fL (80.0-100.0); Monocytes # (auto) 0.57 K/uL (0.11-0.59); Monocytes % (auto) 8.6 %; Neutrophils # (auto) 4.19 K/uL (1.40-6.50); Neutrophils % (auto) 63.4 %; Platelet Count 332 K/uL (130-400); RDW Coefficient of Variation 14.5 % (11.5-14.5); RDW Standard Deviation 48.9 fL (36.4-46.3); Red Blood Count 2.98 M/uL (4.20-5.40)
[2024-07-04] MEDS: LACTATED RINGER'S 1,000 ML IV SCH (05:25)
[2024-07-04 05:57] VITALS: O2SAT 95
--- NOTE | 2024-07-04 06:49 | Hospitalist Progress Note ---
Date of Service July 04, 2024 Assessment & Plan (1) Acute hyponatremia: (2) Alcohol withdrawal syndrome: (3) Metabolic encephalopathy: Plan #Metabolic encephalopathy - Likely a combination of alcohol withdrawal and hyponatremia - pH on VBG 7.42, likely in setting of tachypnea - WBC, neutrophils, monocytes, platelets elevated - Mag, phos, venous blood gas tomorrow AM #Acute hyponatremia, symptomatic - 113 on admission, improved to 119 with administration of normal saline - Consider hypertonic saline if worsening - Unclear etiology, possibly a result of potomania/malnutrition or olanzapine - Favor potomania/malnutrition given improvement with NSS - Previous labs do not demonstrate hyponatremia - NSS 125 mL/hr - BMP q4h #Alcohol withdrawal syndrome - Per protocol - 500mg thiamine TID, folic acid 1mg qAM - Zofran 4mg prn for nausea - AWSS, one administration of Ativan 2mg at 6:20a 07/03 Admission and Anticipated Discharge Date Admission Date: July 03, 2024 Review of Systems Review of Systems: As per HPI. Results & Data Results & Data Vital Signs (Past 12 Hours) Vital Signs Temp Pulse Pulse Resp BP BP Pulse Ox 07/04/24 04:00 71 19 93/63 L 95 07/04/24 03:03 36.8 C 07/04/24 00:30 68 16 07/04/24 00:28 87/63 L 07/04/24 00:28 87/63 L 07/04/24 00:28 87/63 L 07/04/24 00:28 87/63 L 07/04/24 00:27 65 18 94 07/04/24 00:25 102/66 07/03/24 23:59 36.7 C 07/03/24 19:56 36.9 C 80 20 133/89 96 O2 Del Method 07/04/24 04:00 Room Air 07/04/24 03:03 07/04/24 00:30 07/04/24 00:28 07/04/24 00:28 07/04/24 00:28 07/04/24 00:28 07/04/24 00:27 07/04/24 00:25 07/03/24 23:59 07/03/24 19:56 Room Air
[2024-07-04 07:32] VITALS: TEMP 97.9
[2024-07-04 07:54] LABS: BUN Creatinine Ratio 9.8 (10-20); Calcium 8.4 mg/dl (8.6-10.3); Creatinine Clr Calc Pharmacy 60.6 ml/min; Potassium 4.1 mmol/L (3.5-5.1)
[2024-07-04 07:55] LABS: Albumin Globulin Ratio 1.7 (0.9-2); Albumin Level 3.5 gm/dl (3.4-5.0); Bilirubin,Total 0.9 mg/dl (0.2-1.0); Calcium 8.3 mg/dl (8.6-10.3); Creatinine Clr Calc Pharmacy 55.9 ml/min; Globulin 2.1 gm/dl (2.5-4.0); Magnesium 1.9 mg/dl (1.7-2.4); Phosphorus 2.8 mg/dl (2.5-4.9); Potassium 4.1 mmol/L (3.5-5.1); Total Protein 5.6 gm/dl (6.0-8.3)
[2024-07-04 08:17] VITALS: RESP 16
[2024-07-04] MEDS: FLUoxetine HCL 20 MG CAP PO SCH (08:36)
[2024-07-04] MEDS: MULTIVITAMIN TAB PO SCH (08:37)
[2024-07-04 11:54] LABS: Calcium 8.7 mg/dl (8.6-10.3); Creatinine Clr Calc Pharmacy 56.5 ml/min
[2024-07-04 12:26] VITALS: BP 138/88; PULSE 92
--- NOTE | 2024-07-04 16:42 | Discharge Summary ---
Date of Service July 04, 2024 Admission HPI Per Admitting Provider The patient is a 63-year-old female who arrived to the emergency department via private vehicle with her family for evaluation of alcohol withdrawal symptoms. Per patient, she consumes about 1/2 a pint of vodka irregularly; family states the patient drinks approximately 1 pint of vodka daily, usually every 2 weeks. She has been drinking more recently, consuming about a pint a day for the last three days. Per patient, her suggested that she come to the hospital because she was "acting erratic." She was unable to dress herself and was having difficulty talking. Family states that the patient did fall, and they witnessed what they thought was seizure-like activity approximately 30 minutes prior to arrival. They report the patient has gone through multiple episodes of alcohol withdrawal, with hospitalizations in the past. Family states previous episodes of withdrawal did not appear to be as severe as this episode, which is why they brought her to the emergency department. Patient was seen at bedside. She appeared confused, and could not articulate what exactly brought her to the hospital beyond her 's suggestion. She stated that she drinks alcohol when she feels anxious. She takes Prozac 40mg, has a therapist and psychiatrist, and reports being concerned about her alcohol use. Admission Exam Per Admitting Provider Const: Disoriented, malnourished, anxious appearing Cardio: Regular rate, tachycardic Resp: CTAB, tachypneic Derm: slight skin flushing GI: No abdominal tenderness or bloating; abdomen firm Neuro: Slight tremors in upper extremities bilaterally, unsteady, sways on attempt to sit Principal Diagnosis hyponatremia Discharge Exam Gen: NAD, WD/WN HEENT: NCAT, PERRL, MMM CV: RRR, no m/r/g, S1/S2 normal Resp: CTAB, symmetrical chest rise, breathing non-labored Abd: Soft, NT/ND, +BS MSK: Full ROM, normal str, no gross deformities Skin: Warm, dry, well-perfused, no rashes bruises or lesions Neuro: AOx3, CN II-XII intact, SILT in face and ext x4 Psych: Mood-affect congruent. Speech pace and content normal. Good insight. Discharge Data Allergies Allergy/AdvReac Type Severity Reaction Status Date / Time No Known Allergies Allergy Unverified 07/03/24 09:14 Consultations 07/03/24 07:26 ED Decision to Admit Stat Ordered Studies 07/04/24 03:50 07/04/24 11:23 07/03/24 05:38 CT head/brain wo con Stat Hospital Course (1) Acute hyponatremia: (2) Alcohol withdrawal syndrome: (3) Metabolic encephalopathy: Plan #Acute hyponatremia, symptomatic - 113 on admission. Previous labs do not demonstrate hyponatremia. Given 1L nss and 1L of LR. Improved to 133 by discharge. - Unclear etiology, possibly a result of potomania/malnutrition given improvement with NSS #Metabolic encephalopathy - Likely a combination of alcohol withdrawal and hyponatremia - Initial VBG w/ pH of 7.42 & pCO2 of 35, likely in setting of tachypnea. WBC elevated at 11.66 w/ 9.39 ANC, 0.96 mono. Platelets elevated at 450. Phos 2.0, w/ mag 1.7. LFTs were wnl. UA with 2+ gluc & ket. UDS neg. BAL < 10. - After IV hydration and correction of hyponatremia, labs normalized #Alcohol withdrawal syndrome - Brought to hospital by family d/t abnormal behaviors, lack of coordination, concern for seizure. Pt acknowledges self-medicating to manage anxiety. Regular provider back in [place]. Advised alternative coping strategies & establishing w local doc - BAL < 10. Pt managed per [facility] protocol. Given 1x 2mg Ativan 325 AM - On 500mg IV thiamine TID and 1mg folic acid qAM Total Time Total Time Spent Total Time Spent (In Minutes): See attending documentation Discharge Plan Discharge Items Patient Disposition: Home - Self-Care Reason For Visit: HYPONATREMIA Discharge Diagnosis: hyponatremia, alcohol withdrawal Activity: Per Instructions section Non-emergency contact: Primary Care Provider and Psychiatrist Call non-emergency contact if: you have any medication questions and your symptoms worsen Follow-up/Referrals: PCP,NO [Primary Care Provider] - Diet: Regular Ambulatory Orders: Basic Metabolic Panel (Routine) Timeframe: [id number] Location: Determined by Patient Ordered By: Piotr Cole Attending Provider Instructions: You were brought to the hospital due to abnormal behavior and concern for alcohol withdrawal symptoms/seizures. Your initial lab work showed extremely low serum sodium. You were admitted for management of your electrolytes and monitoring for alcohol withdrawal. You were deemed safe for discharge when your lab values normalized and your symptoms improved. Follow-up appointments: We recommend you establish with a primary care physician locally and have a close hospital follow-up appointment. You may call [phone] and ask to schedule an appointment with Dr. Eller, who worked with you during your hospitalization. Because your established psych team is remote, we also recommend establishing with a local mental health care provider. It is imperative that you have a variety of coping mechanisms for your anxiety that will prevent self-medication with alcohol, which risks another hospital visit. Thank you for allowing us to participate in your care. Pending Studies at Discharge: No Stand-Alone Forms: My [facility], Smoking Cessation Medications and DC Order Prescriptions: Continued fluoxetine 40 mg capsule 40 mg PO DAILY olanzapine 5 mg tablet 5 mg PO HS Rx Instructions: Per pharmacy written on 05/15/24 but was never picked up. Last filled 04/16/24 x30 day supply lisinopril 10 mg tablet 10 mg PO DAILY Hold Instructions: Resume on 06/01/24. Hold until Dr. Mcconnell says it is okay to resume folic acid 1 mg Tablet 1 mg PO QAM Qty: 30 0RF Rx Instructions: Unable to verify at this date/time. multivitamin with folic acid [Daily-Nicolasa (with folic acid)] 400 mcg Tablet 1 tab PO QAM Qty: 30 0RF Rx Instructions: Unable to verify at this date/time. thiamine HCl (vitamin B1) 100 mg Tablet 100 mg PO QAM Qty: 30 0RF Rx Instructions: Unable to verify at this date/time. Discharge Orders: Discharge Order (Routine); Ordered 07/04/24 Ordered By: Todd Morris Admission Data Admit Date/Time: 07/03/24 07:55 Attending Provider: Todd Morris Admit Provider: Nelly Santiago Primary Care Provider: PCP,NO Other Providers: Todd Morris Other Interventions: Discharge Summary Assessment (RN) Last Done: 07/04/24 13:45 Supervising Physician Co-Signing Physician Notes I personally examined the patient and verified all brown points of history and exam, discussed case, and agree with decision making with Dr Eller and Carlota Leahy MS4 feels better quite insistent on going home able to walk around fine able to eat fine. extensive discussion on EtOH as a maladaptive coping method for anxiety vitals noted nad heent nc at mmm breathing unlabored no accessory muscles good effort skin without rashes no pallor or icterus mental status intact good recent and remote recall symptomatic hyponatremia -likely dilution from EtOH as well as poor PO intake reducing solute consumption -corrected more quickly than desired overnight; now neurologically intact and quite anxious for hospital discharge. suspect duration of low Na was fairly short given prior labs showing normal Na. will be living in the area - will set up with local care. close f/u. ideally would stay inpatient longer but she has capacity and expresses strong desire for discharge. EtOH abuse -currently no s/s withdrawal, concerning that her anxious desire to leave may relate to not quite being ready to quit drinking but again, she has capacity to make her own decisions. did discuss alternative coping strategies (active stress management, quiet/meditative stress management strategies) in addition to her ongoing med management/counselling/psychiatry to assist in anxiety management and hopefully then help w concomitant EtOH abuse otherwise as above Resident Activity Tracking Resident Involvement: Resident Care Provided Care Provided: Adult Hospital Medicine
--- NOTE | 2024-07-04 17:59 | Billing Data ---
Date of Service July 04, 2024 Coding Level of Care Code 59301 IN/OBS DISCH 30 MIN/LESS
--- NOTE | 2024-07-05 17:12 | Communication Note ---
Date of Service: July 05, 2024 called - doing ok - struggling with anxiety but just did an online AA meeting. did take a walk today. planning on getting to the pool soon and working out how she can do so more. answered emails. feels down but notes no real needs i can meet or help with. offered appreciation for check-in call.
[2024-07-07] MEDS ORDERED: THIAMINE HCL 250 MG in SODIUM CHLORIDE 0.9% 50 ML IV SCH (09:00)
== END 2024-07-04 14:01 | disposition home or self-care (01) | DRG 896 ==
LOC: ED 04:42 → SUATTDRO 07:55 → EDINP 07:55 → 1E 08:28
DX: F41.9 Anxiety disorder, unspecified; Z79.899 Other long term (current) drug therapy; W19.XXXA Unspecified fall, initial encounter; G93.41 Metabolic encephalopathy; F10.239 Alcohol dependence with withdrawal, unspecified; I10 Essential (primary) hypertension; E87.4 Mixed disorder of acid-base balance; E87.1 Hypo-osmolality and hyponatremia

== ENCOUNTER 2024-11-04 08:00 | Inpatient (IN) ==
--- NOTE | 2024-11-04 08:29 | Emergency Department Note ---
Impression & Plan Shock circulatory, Acute renal failure (ARF), Suicidal ideation, Alcohol intoxication ED Provider Note Name: WILLIAN VALADEZ Age: 64 Sex: Female Arrives Via: Ambulance Informant: Patient (poor historian), case management, nursing, EMS ED Provider: Isaac Raman MD Chief Complaint: Suicidal ideation Impression: As per impressions above Medical Decision Makin-year-old female with a history of severe alcohol addiction arrives for evaluation of reported suicidal ideation. On arrival patient states she wishes to kill herself and has been drinking large amounts of vodka because of this. She denies other attempts at harming herself or any other ingestions. Patient however is significantly hypotensive on arrival moderately tachycardic. She otherwise appears well relatively well in no distress she is laying in bed answering most questions. She is not a great historian given her intoxication but otherwise exam is benign. EKG does not show any significant MT, qrs, or QTc prolongation. IV and labs were established and she was initiated 2 L normal saline bolus IV. Despite this blood pressure remains low. At this point opted to start some Levophed peripherally while also increasing IV fluids with third L bolus. Blood pressure continued to remain low and thus Levophed titrated up while starting 250 mL IV fluids. During this patient was receiving some IV thiamine. Recheck of blood sugar continues to be a bit on the low side and thus now the thiamine on board she was given some D50. I discussed the case with critical care medicine given the difficulties in improving the patient's blood pressure. Plan will be to add on bicarb and steroids. Multiple repeat evaluations the patient throughout his stay. She continues to maintain her airway and appear in no distress. Blood pressure however continues to main low. This is a significant deviation from previous blood pressures in the chart. Laboratory workup did end up showing a significant renal injury with renal failure. She also is noted to have a significant elevation in her osmolality however there is no significant Once factoring in the elevated BUN and alcohol level. She is of course quite intoxicated by lab but she is awake alert answering most questions while intoxicated. Throughout her course I did keep critical care team and hospitalist in the loop. Patient does not have any fever her white blood cell count is not significantly elevated and she has no clear findings of infection at this time. Will hold off on antibiotics until clear evidence and I do not feel she has severe sepsis. She does have circulatory shock but this may be more hypovolemic, alcohol related and renal failure. No clear evidence of cardiac issue but that will clearly need to be further worked up and evaluated. Triage/Nursing Notes reviewed by Me External Chart Review by me: I reviewed the patient's discharge summary from 07/04/2024 when she was previously hospitalized for alcohol intoxication. Differential:Infection, dehydration, metabolic abnormality, hypo/hyperglycemia, electrolyte disturbance, anemia, hypoxia, cardiac sources, intracerebral event, toxicologic, neurologic, as well as other pathologies. Vital Signs: reviewed and remarkable for hypotension, tachy Interventions: Normal saline bolus 2 L IV, Levophed IV, thiamine 200 IV, dextrose IV Labs:ED labs Reviewed by me and remarkable for significantly elevated osmolality, alcohol, BUN, creatinine EKG: #1 as per my interpretation. Indication weakness. Sinus tachycardia 104 bpm QTc of 481. There is no ectopy no overt ischemia. When compared EKG of July 20, 2024 inferior T waves are more apparent. #2 as per my interpretation. Indication persistent hypotension. Sinus tachycardia 103 beats minute no ectopy no ischemia. QTc of 492. No significant change from EKG earlier in the day. Cardiac/Tele Monitoring: Cardiac Monitoring: An Order was placed for continuous cardiac monitoring. The monitor shows a rate of 103 with a sinus tach rhythm. Consults:Discussed with Dr. Salazar of critical care medicine as well as Dr. Bertha Nunez of the hospital service and plan will be to admit to ICU Plan: Disposition:Hospitalization. Condition: Critical History of Present Illness: 64-year-old female arrives for evaluation of suicidal ideation. Patient notes she wants to . She tried killing herself last night by drinking large amounts of vodka. Patient states she drinks daily but this was more than typical. Patient denies any other toxic ingestions or taking any other medications. She denies any other attempt at harming herself. Patient states she just does not want to live anymore. She arrives via EMS. EMS noted patient was hypotensive. Difficulty getting IV. Patient denies any chest pain, difficulty breathing, headache or other concerning signs or symptoms. Notes a history of severe alcohol addiction with previous withdrawal seizures. Past Medical History: Alcohol addiction, GERD, hypertension, anxiety/depression Home Medications:See Below Allergies: No known drug allergy Vitals:Blood Pressure: 70/40, Pulse 96, RR 17, T 36.8C, O2 94% on RA Physical Exam: GENERAL: Patient is said/depressed and intoxicated appearing and in minimal distress. Smells of alcohol. Dry mucous membranes RESPIRATORY: No dyspnea. Clear to auscultation and equal bilaterally. CARDIOVASCULAR: Regular rate and rhythm.No murmur appreciated. GASTROINTESTINAL: Abdomen soft, non-tender, no peritonitis. EXTREMITIES: Normal motion all extremities, no cyanosis, no edema. NEUROLOGIC: Awake, intoxicated. No focal neurologic deficits appreciated SKIN: No rash, no jaundice, no diaphoresis. PSYCH: Depressed and suicidal GCS: 15 ED Course: Times/Reassessments many repeat evaluations throughout the patient's stay. Persistent hypotension but patient without any acute concern mental status changes and her respiratory status remains intact. Critical Care: I have personally spent 90 minutes of critical care time in the direct management of this patient. Acute circulatory shock secondary to alcohol intoxication, acute renal failure, other requiring resuscitation, pressors and coordination with multiple consultants.. This was a life/limb threatening event. This 90 minutes is in excess of all separately billable procedures. Isaac Raman MD Past Med/Surg History Problem List (Updated 11/04/24 @ 14:35 by Isaac Raman MD) Normocytic anemia Alcohol intoxication (Acute) Suicidal ideation (Acute) Shock circulatory (Acute) Acute renal failure (ARF) (Acute) High anion gap metabolic acidosis Anemia Medical History Ethyl alcohol poisoning Social History Smoking Status: Never smoker Hx Alcohol Use: Yes Alcohol type: hard liquor Hx Substance Use: No Preferred Language: Spanish Communication Ability: Effective Communication Ability Comment: normal Babysitter Required: No Beliefs That Will Affect Care: None Current Living Situation: Spouse Current Living Situation Comment: Jason Feels Safe at Home: No Is there a partner from a previous relationship who is making you feel unsafe now?: No Assistive Devices: None Allergies Allergies Allergy/AdvReac Type Severity Reaction Status Date / Time No Known Allergies Allergy Verified 11/04/24 10:12 Home Meds Home Medications Medication Instructions Recorded Confirmed fluoxetine 40 mg capsule 40 mg PO DAILY 05/22/24 11/04/24 olanzapine 5 mg tablet 5 mg PO HS 05/22/24 11/04/24 lisinopril 10 mg tablet 10 mg PO DAILY 05/24/24 11/04/24 Previous Rx's Medication Instructions Recorded folic acid 1 mg tablet 1 mg PO QAM #30 tabs 05/24/24 multivitamin with folic acid 400 1 tab PO QAM #30 tabs 05/24/24 mcg tablet (Daily-Nicolasa (with folic acid)) thiamine HCl (vitamin B1) 100 mg 100 mg PO QAM #30 tabs 05/24/24 tablet hydroxyzine HCl 25 mg tablet 25 mg PO Q6H PRN anxiety #30 tabs 07/17/24 pantoprazole 40 mg tablet,delayed 40 mg PO DAILY #30 tabs 07/20/24 release (Protonix) Results & Data (ED) Vital Signs Vital Signs - 24 hr 11/04/24 08:19 11/04/24 08:19 11/04/24 08:21 Temperature 36.4 C L Temperature Source Oral Pulse Rate 106 H 96 H Pulse Rate [Apical] Pulse Rate from SpO2 Sensor 96 H Respiratory Rate 17 23 Respiratory Effort / Characteristics Non-Labored Spontaneous Respiratory Depth Normal Blood Pressure 74/49 L Blood Pressure [Right Arm] Blood Pressure Mean 57 Blood Pressure Mean [Right Arm] Blood Pressure Position Semi-fowlers Blood Pressure Position [Right Arm] Pulse Oximetry 95 95 94 Oxygen Delivery Method Room Air Room Air Sepsis Recent Fever Within 48 Hours No Sepsis New/Unexplained Change in Mental Status N/A Sepsis Action Taken by Nursing Physician Notified 11/04/24 08:27 11/04/24 08:30 11/04/24 08:45 Temperature Temperature Source Pulse Rate 101 H Pulse Rate [Apical] Pulse Rate from SpO2 Sensor Respiratory Rate Respiratory Effort / Characteristics Respiratory Depth Blood Pressure 70/41 L 68/44 L Blood Pressure [Right Arm] Blood Pressure Mean 52 56 Blood Pressure Mean [Right Arm] Blood Pressure Position Blood Pressure Position [Right Arm] Pulse Oximetry Oxygen Delivery Method Sepsis Recent Fever Within 48 Hours Sepsis New/Unexplained Change in Mental Status Sepsis Action Taken by Nursing 11/04/24 08:45 11/04/24 08:51 11/04/24 09:00 Temperature Temperature Source Pulse Rate 94 H 98 H Pulse Rate [Apical] 96 H Pulse Rate from SpO2 Sensor 94 H 98 H Respiratory Rate 20 20 26 H Respiratory Effort / Characteristics Non-Labored Spontaneous Respiratory Depth Normal Blood Pressure Blood Pressure [Right Arm] 73/53 L Blood Pressure Mean Blood Pressure Mean [Right Arm] 59 Blood Pressure Position Blood Pressure Position [Right Arm] Semi-fowlers Pulse Oximetry 96 98 98 Oxygen Delivery Method Room Air Sepsis Recent Fever Within 48 Hours Sepsis New/Unexplained Change in Mental Status Sepsis Action Taken by Nursing 11/04/24 09:03 11/04/24 09:06 11/04/24 09:15 Temperature Temperature Source Pulse Rate 96 H 96 H Pulse Rate [Apical] Pulse Rate from SpO2 Sensor 96 H 96 H Respiratory Rate 8 L 16 Respiratory Effort / Characteristics Respiratory Depth Blood Pressure 73/53 L 68/48 L Blood Pressure [Right Arm] Blood Pressure Mean 59 54 Blood Pressure Mean [Right Arm] Blood Pressure Position Blood Pressure Position [Right Arm] Pulse Oximetry 97 97 Oxygen Delivery Method Sepsis Recent Fever Within 48 Hours Sepsis New/Unexplained Change in Mental Status Sepsis Action Taken by Nursing 11/04/24 09:21 11/04/24 09:30 11/04/24 09:39 Temperature Temperature Source Pulse Rate 102 H 99 H 96 H Pulse Rate [Apical] Pulse Rate from SpO2 Sensor 101 H 99 H 97 H Respiratory Rate 22 19 19 Respiratory Effort / Characteristics Respiratory Depth Blood Pressure 66/47 L Blood Pressure [Right Arm] Blood Pressure Mean 53 Blood Pressure Mean [Right Arm] Blood Pressure Position Blood Pressure Position [Right Arm] Pulse Oximetry 97 98 97 Oxygen Delivery Method Sepsis Recent Fever Within 48 Hours Sepsis New/Unexplained Change in Mental Status Sepsis Action Taken by Nursing 11/04/24 09:48 11/04/24 09:54 11/04/24 09:57 Temperature Temperature Source Pulse Rate 97 H 97 H Pulse Rate [Apical] Pulse Rate from SpO2 Sensor 97 H 97 H Respiratory Rate 21 23 Respiratory Effort / Characteristics Respiratory Depth Blood Pressure 70/40 L Blood Pressure [Right Arm] Blood Pressure Mean 47 Blood Pressure Mean [Right Arm] Blood Pressure Position Blood Pressure Position [Right Arm] Pulse Oximetry 100 96 Oxygen Delivery Method Sepsis Recent Fever Within 48 Hours Sepsis New/Unexplained Change in Mental Status Sepsis Action Taken by Nursing 11/04/24 10:00 11/04/24 10:00 11/04/24 10:00 Temperature Temperature Source Pulse Rate Pulse Rate [Apical] 96 H Pulse Rate from SpO2 Sensor Respiratory Rate 22 Respiratory Effort / Characteristics Non-Labored Spontaneous Respiratory Depth Normal Blood Pressure 73/51 L Blood Pressure [Right Arm] Blood Pressure Mean 56 Blood Pressure Mean [Right Arm] Blood Pressure Position Blood Pressure Position [Right Arm] Pulse Oximetry 94 94 Oxygen Delivery Method Room Air Room Air Sepsis Recent Fever Within 48 Hours Sepsis New/Unexplained Change in Mental Status Sepsis Action Taken by Nursing 11/04/24 10:06 11/04/24 10:12 11/04/24 10:16 Temperature Temperature Source Pulse Rate 99 H 100 H Pulse Rate [Apical] Pulse Rate from SpO2 Sensor 99 H 99 H Respiratory Rate 17 22 Respiratory Effort / Characteristics Respiratory Depth Blood Pressure 63/41 L Blood Pressure [Right Arm] Blood Pressure Mean 46 Blood Pressure Mean [Right Arm] Blood Pressure Position Blood Pressure Position [Right Arm] Pulse Oximetry 95 93 Oxygen Delivery Method Sepsis Recent Fever Within 48 Hours Sepsis New/Unexplained Change in Mental Status Sepsis Action Taken by Nursing 11/04/24 10:27 11/04/24 10:30 11/04/24 10:33 Temperature Temperature Source Pulse Rate 100 H Pulse Rate [Apical] Pulse Rate from SpO2 Sensor 100 H Respiratory Rate 25 H Respiratory Effort / Characteristics Respiratory Depth Blood Pressure 68/48 L 70/49 L Blood Pressure [Right Arm] Blood Pressure Mean 53 55 Blood Pressure Mean [Right Arm] Blood Pressure Position Blood Pressure Position [Right Arm] Pulse Oximetry 92 Oxygen Delivery Method Sepsis Recent Fever Within 48 Hours Sepsis New/Unexplained Change in Mental Status Sepsis Action Taken by Nursing 11/04/24 10:35 11/04/24 10:40 11/04/24 10:42 Temperature Temperature Source Pulse Rate 99 H Pulse Rate [Apical] Pulse Rate from SpO2 Sensor 99 H Respiratory Rate 24 Respiratory Effort / Characteristics Respiratory Depth Blood Pressure 64/47 L 67/47 L Blood Pressure [Right Arm] Blood Pressure Mean 53 56 Blood Pressure Mean [Right Arm] Blood Pressure Position Blood Pressure Position [Right Arm] Pulse Oximetry 97 Oxygen Delivery Method Sepsis Recent Fever Within 48 Hours Sepsis New/Unexplained Change in Mental Status Sepsis Action Taken by Nursing 11/04/24 10:45 11/04/24 11:03 Temperature Temperature Source Pulse Rate 102 H Pulse Rate [Apical] 103 H Pulse Rate from SpO2 Sensor Respiratory Rate 27 H 23 Respiratory Effort / Characteristics Non-Labored Spontaneous Respiratory Depth Normal Blood Pressure 65/40 L Blood Pressure [Right Arm] 64/47 L Blood Pressure Mean 48 Blood Pressure Mean [Right Arm] 52 Blood Pressure Position Blood Pressure Position [Right Arm] Semi-fowlers Pulse Oximetry 98 Oxygen Delivery Method Room Air Sepsis Recent Fever Within 48 Hours Sepsis New/Unexplained Change in Mental Status Sepsis Action Taken by Nursing Laboratory Data 11/04/24 08:30 11/04/24 08:30 Lab Results 11/04/24 11/04/24 11/04/24 Range/Units 08:30 08:56 10:36 WBC 11.50 H (4.8-10.8) K/ul RBC 3.71 L (4.20-5.40) M/uL Hgb 12.0 (12.0-16.0) g/dl Hct 34.2 L (37.0-47.0) % MCV 92.2 (80.0-100.0) fL MCH 32.3 (25.0-34.0) pg MCHC 35.1 (32.0-36.0) g/dL RDW Std Deviation 45.8 (36.4-46.3) fL RDW Coeff of [place] 13.2 (11.5-14.5) % Plt Count 459 H (130-400) K/uL MPV 9.4 (9.4-12.4) fL Immature Gran % (Auto) 0.5 % Neut % (Auto) 80.8 % Lymph % (Auto) 15.8 % [place] % (Auto) 2.5 % Eos % (Auto) 0.0 % Baso % (Auto) 0.4 % Neut # (Auto) 9.28 H (1.40-6.50) K/uL Lymph # (Auto) 1.82 (1.20-3.40) K/uL [place] # (Auto) 0.29 (0.11-0.59) K/uL Eos # (Auto) 0.00 (0.00-0.50) K/uL Baso # (Auto) 0.05 (0.00-0.20) K/uL Immature Gran # (Auto) 0.06 (0.01-0.20) K/uL PT 10.8 (9.0-12.0) Seconds INR 1.0 (0.9-1.1) VBG pH 7.17 L (7.36-7.41) VBG pCO2 36 L (38-50) mmHg VBG pO2 32 mmHg VBG HCO3 13 mmol/L VBG O2 Saturation < 60.0 % VBG Base Excess -14.5 mEq/L Sodium 132 L (136-145) mmol/L Potassium 4.4 (3.5-5.1) mmol/L Chloride 91 L (98-107) mmol/L Carbon Dioxide 14 L (21-32) mmol/L Anion Gap 27 H (3-11) BUN 69 H (6-23) mg/dl Creatinine 5.59 H* (0.6-1.2) mg/dl Est Cr Clr Drug Dosing 8.8 ml/min eGFR 7.98 BUN/Creatinine Ratio 12.3 (10-20) Glucose 68 L (70-99(Fasting)) mg/dl POC Glucose 61 L* (70-99) mg/dl Osmolality 385 H* (280-300) mOsm/kg Lactate 3.8 H* (0.4-2.0) mmol/L Calcium 8.9 (8.6-10.3) mg/dl Total Bilirubin 0.6 (0.2-1.0) mg/dl AST 58 H (13-39) U/L ALT 33 (7-52) U/L Alkaline Phosphatase 80 (34-104) U/L Total Protein 7.3 (6.0-8.3) gm/dl Albumin 4.6 (3.4-5.0) gm/dl Globulin 2.7 (2.5-4.0) gm/dl Albumin/Globulin Ratio 1.7 (0.9-2) TSH 1.851 (0.300-4.500) uIu/ml Random Cortisol 36.89 mcg/dl Nasal Screen MRSA (PCR) (Negative) Salicylates < 3.0 L (3.0-30) mg/dl Acetaminophen < 3 L (10-30) ug/ml Ethyl Alcohol mg/dL 347.8 H (<10.0) mg/dl 11/04/24 11/04/24 Range/Units 11:09 11:13 WBC (4.8-10.8) K/ul RBC (4.20-5.40) M/uL Hgb (12.0-16.0) g/dl Hct (37.0-47.0) % MCV (80.0-100.0) fL MCH (25.0-34.0) pg MCHC (32.0-36.0) g/dL RDW Std Deviation (36.4-46.3) fL RDW Coeff of [place] (11.5-14.5) % Plt Count (130-400) K/uL MPV (9.4-12.4) fL Immature Gran % (Auto) % Neut % (Auto) % Lymph % (Auto) % [place] % (Auto) % Eos % (Auto) % Baso % (Auto) % Neut # (Auto) (1.40-6.50) K/uL Lymph # (Auto) (1.20-3.40) K/uL [place] # (Auto) (0.11-0.59) K/uL Eos # (Auto) (0.00-0.50) K/uL Baso # (Auto) (0.00-0.20) K/uL Immature Gran # (Auto) (0.01-0.20) K/uL PT (9.0-12.0) Seconds INR (0.9-1.1) VBG pH (7.36-7.41) VBG pCO2 (38-50) mmHg VBG pO2 mmHg VBG HCO3 mmol/L VBG O2 Saturation % VBG Base Excess mEq/L Sodium (136-145) mmol/L Potassium (3.5-5.1) mmol/L Chloride (98-107) mmol/L Carbon Dioxide (21-32) mmol/L Anion Gap (3-11) BUN (6-23) mg/dl Creatinine (0.6-1.2) mg/dl Est Cr Clr Drug Dosing ml/min eGFR BUN/Creatinine Ratio (10-20) Glucose (70-99(Fasting)) mg/dl POC Glucose 94 (70-99) mg/dl Osmolality (280-300) mOsm/kg Lactate (0.4-2.0) mmol/L Calcium (8.6-10.3) mg/dl Total Bilirubin (0.2-1.0) mg/dl AST (13-39) U/L ALT (7-52) U/L Alkaline Phosphatase (34-104) U/L Total Protein (6.0-8.3) gm/dl Albumin (3.4-5.0) gm/dl Globulin (2.5-4.0) gm/dl Albumin/Globulin Ratio (0.9-2) TSH (0.300-4.500) uIu/ml Random Cortisol mcg/dl Nasal Screen MRSA (PCR) Negative (Negative) Salicylates (3.0-30) mg/dl Acetaminophen (10-30) ug/ml Ethyl Alcohol mg/dL (<10.0) mg/dl Administered Medications Norepinephrine Bitartrate (Levophed/D5w) 4 mg in 250 mls @ 9.66 mls/hr IV .Q24H GERTRUDIS; Protocol Stop: 12/04/24 09:29 Last Titration: 11/04/24 14:20 Dose: 0.02 mcg/kg/min, 4.8 mls/hr Documented By: MTP Co-signed By: JR Titration: 11/04/24 13:50 Dose: 0.04 mcg/kg/min, 9.7 mls/hr Documented By: MTP Co-signed By: LAF Titration: 11/04/24 13:17 Dose: 0.06 mcg/kg/min, 14.5 mls/hr Documented By: MTP Co-signed By: WRS Titration: 11/04/24 12:48 Dose: 0.12 mcg/kg/min, 29 mls/hr Documented By: MTP Co-signed By: JR Titration: 11/04/24 12:19 Dose: 0.15 mcg/kg/min, 36.2 mls/hr Documented By: MTP Co-signed By: LAF Titration: 11/04/24 12:12 Dose: 0.2 mcg/kg/min, 48.3 mls/hr Documented By: MTP Co-signed By: WRS Titration: 11/04/24 11:16 Dose: 0.27 mcg/kg/min, 65.2 mls/hr Documented By: BLD Co-signed By: MMF Titration: 11/04/24 11:11 Dose: 0.25 mcg/kg/min, 60.4 mls/hr Documented By: MMF Co-signed By: BLD Titration: 11/04/24 10:59 Dose: 0.23 mcg/kg/min, 55.5 mls/hr Documented By: MMF Co-signed By: BLD Titration: 11/04/24 10:57 Dose: 0.21 mcg/kg/min, 50.7 mls/hr Documented By: MMF Co-signed By: BLD Titration: 11/04/24 10:51 Dose: 0.19 mcg/kg/min, 45.9 mls/hr Documented By: MMF Co-signed By: MR Titration: 11/04/24 10:45 Dose: 0.17 mcg/kg/min, 41.1 mls/hr Documented By: MMF Co-signed By: MR Titration: 11/04/24 10:36 Dose: 0.15 mcg/kg/min, 36.2 mls/hr Documented By: MMF Co-signed By: MMN Titration: 11/04/24 10:28 Dose: 0.13 mcg/kg/min, 31.4 mls/hr Documented By: KMO Co-signed By: MMF Titration: 11/04/24 10:17 Dose: 0.11 mcg/kg/min, 26.6 mls/hr Documented By: KMO Co-signed By: MMF Titration: 11/04/24 10:00 Dose: 0.09 mcg/kg/min, 21.7 mls/hr Documented By: MMF Co-signed By: HARINDER Titration: 11/04/24 09:48 Dose: 0.07 mcg/kg/min, 16.9 mls/hr Documented By: MMF Co-signed By: HARINDER Admin: 11/04/24 09:32 Dose: 0.05 mcg/kg/min, 12.1 mls/hr Documented By: MMF Co-signed By: CEF Vasopressin 20 units/ Sodium (Chloride) 101 mls @ 12.12 mls/hr IV .Q8H20M GERTRUDIS Stop: 12/04/24 11:29 Last Admin: 11/04/24 12:14 Dose: 0.04 unit/min, 12.1 mls/hr Documented By: MTP Co-signed By: LAF Thiamine HCl 500 mg/ Sodium (Chloride) 55 mls @ 210 mls/hr IV Q8H GERTRUDIS Stop: 12/04/24 11:59 Last Admin: 11/04/24 12:16 Dose: 210 mls/hr Documented By: MTP Dextrose/Sodium Chloride (D5w And 1/2nss) 1,000 mls @ 125 mls/hr IV .Q8H GERTRUDIS Stop: 11/07/24 12:14 Last Admin: 11/04/24 12:16 Dose: 125 mls/hr Documented By: MTP Miscellaneous (Icu Protocol For Hyperglycemia) 1 each N/A ACHS GERTRUDIS Stop: 11/06/24 11:29 Last Admin: 11/04/24 12:14 Dose: Not Given Documented By: MTP Discontinued Medications Dextrose (Dextrose 50% 50 Ml Syringe) 50 ml IV NOW ONE Stop: 11/04/24 10:45 Last Admin: 11/04/24 10:56 Dose: 50 ml Documented By: MMF Hydrocortisone Sodium Succinate (Hydrocortisone Sod Succinate 100 Mg/2 Ml Vial) 100 mg IV NOW STA Stop: 11/04/24 10:27 Last Admin: 11/04/24 10:36 Dose: 100 mg Documented By: MMF Sodium Chloride (Nss) 1,000 mls @ 999 mls/hr IV .Q1H1M ONE Stop: 11/04/24 09:15 Last Infusion: 11/04/24 09:37 Dose: Infused Documented By: Admin: 11/04/24 08:33 Dose: 999 mls/hr Documented By: MMF Thiamine HCl 200 mg/ Sodium (Chloride) 52 mls @ 210 mls/hr IV NOW STA Stop: 11/04/24 08:50 Last Infusion: 11/04/24 09:26 Dose: Infused Documented By: Admin: 11/04/24 09:07 Dose: 210 mls/hr Documented By: MMF Sodium Chloride (Nss) 1,000 mls @ 999 mls/hr IV .Q1H1M ONE Stop: 11/04/24 09:36 Last Infusion: 11/04/24 10:55 Dose: Infused Documented By: Admin: 11/04/24 08:49 Dose: 999 mls/hr Documented By: MMF Sodium Chloride (Nss) 1,000 mls @ 999 mls/hr IV .Q1H1M ONE Stop: 11/04/24 10:20 Last Infusion: 11/04/24 10:55 Dose: Infused Documented By: Admin: 11/04/24 09:33 Dose: 999 mls/hr Documented By: MMF Sodium Chloride (Nss) 1,000 mls @ 250 mls/hr IV .Q4H STA Stop: 11/04/24 14:18 Last Admin: 11/04/24 10:29 Dose: 250 mls/hr Documented By: KMO Albumin Human (Albumin 5%) 250 mls @ 500 mls/hr IV ONE ONE Stop: 11/04/24 12:14 Last Admin: 11/04/24 12:15 Dose: 500 mls/hr Documented By: MTP Miscellaneous (Stat Iv Infusion Titration Per Protocol) 1 each N/A NOW STA Stop: 11/04/24 09:21 Last Admin: 11/04/24 09:37 Dose: Not Given Documented By: MMF Miscellaneous (Stat Iv Infusion Titration Per Protocol) 1 each N/A NOW STA Stop: 11/04/24 11:15 Last Admin: 11/04/24 12:16 Dose: 1 each Documented By: MTP Sodium Bicarbonate (Sodium Bicarb 8.4% Inj 50 Meq/50 Ml Syr) 100 meq IV NOW STA Stop: 11/04/24 10:27 Last Admin: 11/04/24 10:35 Dose: 100 meq Documented By: MMF Discharge Plan Visit Data Chief Complaint: Mental Health Evaluation ED Provider: Isaac Raman Discharge Problem: Shock circulatory, Acute renal failure (ARF), Suicidal ideation, Alcohol intoxication Patient Disposition: Admitted As Inpatient Condition: Critical Discharge Instructions Interventions: ED Discharge Assessment Last Done: 11/04/24 11:12 Discharge Problem: Acute renal failure (ARF) Qualifiers: Acute renal failure type: unspecified Qualified Code(s): N17.9 - Acute kidney failure, unspecified Alcohol intoxication Qualifiers: Complication of substance-induced condition: uncomplicated Qualified Code(s): F 10.920 - Alcohol use, unspecified with intoxication, uncomplicated
[2024-11-04] MEDS: SODIUM CHLORIDE 0.9% 1,000 ML IV ONE ×3 (08:33→09:33)
[2024-11-04 08:45] LABS: Hematocrit (blood only) 34.2 % (37.0-47.0); Hemoglobin 12.0 g/dl (12.0-16.0); Immature Granulocytes # (auto) 0.06 K/uL (0.01-0.20); Immature Granulocytes % (auto) 0.5 %; Mean Corpuscular Hemoglobin 32.3 pg (25.0-34.0); Mean Corpuscular Volume 92.2 fL (80.0-100.0); Platelet Count 459 K/uL (130-400); RDW Standard Deviation 45.8 fL (36.4-46.3); Red Blood Count 3.71 M/uL (4.20-5.40); White Blood Count 11.50 K/ul (4.8-10.8)
[2024-11-04] MEDS: THIAMINE HCL 200 MG in SODIUM CHLORIDE 0.9% 50 ML IV STA (09:07)
[2024-11-04 09:20] LABS: Base Excess VBG -14.5 mEq/L; HCO3 VBG 13 mmol/L; Oxygen Saturation VBG < 60.0 %; PCO2 VBG 36 mmHg (38-50); PO2 VBG 32 mmHg; pH VBG 7.17 (7.36-7.41)
[2024-11-04 09:23] LABS: Acetaminophen < 3 ug/ml (10-30); Salicylate < 3.0 mg/dl (3.0-30)
[2024-11-04 09:26] LABS: Alanine Aminotransferase 33.0 U/L (7-52); Albumin Globulin Ratio 1.7 (0.9-2); Alkaline Phosphatase 80.0 U/L (34-104); Anion Gap 27.0 (3-11); Bilirubin,Total 0.6 mg/dl (0.2-1.0); Blood Urea Nitrogen 69.0 mg/dl (6-23); Calcium 8.9 mg/dl (8.6-10.3); Carbon Dioxide 14.0 mmol/L (21-32); Chloride 91.0 mmol/L (98-107); Creatinine Clr Calc Pharmacy 8.8 ml/min; Globulin 2.7 gm/dl (2.5-4.0); Glucose 68.0 mg/dl (70-99(Fasting)); Potassium 4.4 mmol/L (3.5-5.1); Sodium 132.0 mmol/L (136-145); Thyroid Stimulating Hormone 1.851 uIu/ml (0.300-4.500); Total Protein 7.3 gm/dl (6.0-8.3)
[2024-11-04] MEDS: NOREPINEPHRINE/D5W 4 MG/250 ML PLCT IV SCH (09:32)
[2024-11-04] MEDS: STAT IV Infusion **Titration per Protocol STA ×2 (09:37→12:16)
[2024-11-04] MEDS: SODIUM CHLORIDE 0.9% 1,000 ML IV STA (10:29)
--- NOTE | 2024-11-04 10:32 | History & Physical Report ---
Date of Service November 04, 2024 Assessment & Plan (1) Alcohol intoxication: (2) Suicidal ideation: (3) Shock circulatory: (4) Acute renal failure (ARF): (5) High anion gap metabolic acidosis: (6) Metabolic encephalopathy: Plan 63-year-old female presented to the hospital with suicidal ideation. Was found to be hypotensive in the ED requiring vasopressors. Sent to ICU for further management Suicidal ideation - Patient to remain 1:1 in ICU setting - Psych evaluation pending Acute alcohol intoxication/History of alcohol abuse - Current alcohol level 348 - High risk of going into withdrawal - Initiate AWSS protocol with phenobarbital IV protocol, 130mg IV loading dose and 65mg prn Q6H dose for AWSS >8 - Continue IV thiamine/folate supplementation Acute renal failure - Continue to monitor BUN/creatinine levels, most current: BUN: 69 Creatinine: 5.59 - Avoid nephrotoxic medications - Strict I/Os - CMP/CBC QAM HAGMA - Etiology likely secondary to lactic acidosis plus acute renal failure. Lactic acid: 4.1 with reflux to 2.7 - Serum osmolality 385 - VBG pH 7.17 and VBG pCo2: 36, metabolic acidosis with mild respiratory compensation - Continue to monitor with Hypotension/shock - Continue Vasopressin 20 units 0.04 mg/kg/min drip - BPs stabilizing around noon 11/04 - Infectious etiology unlikely but still possible, urinalysis unremarkable other than trace blood/protein and hyaline casts - Urine cx and blood cx x2 pending History of Present Illness Chief Complaint: HAGMA, Acute alcohol intoxication, Acute renal failure Primary Care Provider: NO PCP Samia Gonzalez is a 64 y/o F with a past medical history of alcohol abuse, HTN admitted due to high anion gap metabolic acidosis, acute renal failure and severe hypotension/shock. Patient has been seen on previous admissions for with similar signs and symptoms of acute alcohol intoxication with hypotension and shock. Patient was seen in the ED and is unable to give much history due to acute intoxication. Patient reports that she drank approximately a pint of vodka leading to her acute intoxication. When patient is asked if she wanted to harm herself by drinking alcohol she denies this, but this is unclear as previous ED staff relayed that she had mentioned that she was trying to harm herself through alcohol consumption. Patient denies chest pain, palpitations, SOB, cough, wheeze, abdominal pain, nausea, and vomiting. Patient is afebrile and does not endorse any pain other than a slight headache. Patient is moving all extremities and is neurologically intact. Patient without any respiratory distress or airway compromise. Warp Preparer was consulted due to hypotension and need for pressor support. ED course: Vitals in ED showed BP: 74/49, RR: 30, HR: 106, O2 saturation: 95% on room air CBC: significant for leukocytosis (11.50) borderline Hgb: 12.0, neutrophils: 9.28, Pltl: 459 CMP: Sodium: 132, Potassium: 4.3 Anion gap: 27, BUN: 69 Creatinine: 5.59 VBG pH: 7.17, VBG pCO2: 36 EKG: sinus tachycardia with possible inferior infarct 3x NSS 1 L boluses given NSS 1L 250ml/hr continuous fluids started Vasopressin 20 units 0.04 mg/kg/min drip started Allergies Allergy/AdvReac Type Severity Reaction Status Date / Time No Known Allergies Allergy Verified 11/04/24 10:12 Home Medications Medication Instructions Recorded Confirmed Type fluoxetine 40 mg capsule 40 mg PO DAILY 05/22/24 11/04/24 History olanzapine 5 mg tablet 5 mg PO HS 05/22/24 11/04/24 History folic acid 1 mg tablet 1 mg PO QAM #30 tabs 05/24/24 11/04/24 Rx lisinopril 10 mg tablet 10 mg PO DAILY 05/24/24 11/04/24 History multivitamin with folic acid 400 1 tab PO QAM #30 tabs 05/24/24 11/04/24 Rx mcg tablet (Daily-Nicolasa (with folic acid)) thiamine HCl (vitamin B1) 100 mg 100 mg PO QAM #30 tabs 05/24/24 11/04/24 Rx tablet hydroxyzine HCl 25 mg tablet 25 mg PO Q6H PRN anxiety #30 tabs 07/17/24 11/04/24 Rx pantoprazole 40 mg tablet,delayed 40 mg PO DAILY #30 tabs 07/20/24 11/04/24 Rx release (Protonix) Past Med/Surg History Problem List (Updated 11/04/24 @ 14:35 by Isaac Raman MD) Normocytic anemia Alcohol intoxication (Acute) Suicidal ideation (Acute) Shock circulatory (Acute) Acute renal failure (ARF) (Acute) High anion gap metabolic acidosis Anemia Medical History Ethyl alcohol poisoning Social History Smoking Status: Never smoker Second Hand Exposure: No; Do You Dip or Chew Tobacco: No; Tobacco Cessation Education Requested by Patient: No Hx Alcohol Use: Yes Alcohol type: hard liquor Hx Substance Use: No Preferred Language: Romanian Communication Ability: Effective Communication Ability Comment: normal Pattern Molder Required: No Beliefs That Will Affect Care: None Current Living Situation: Alone Current Living Situation Comment: Jason Other Information That Helps Us Care for You: No Feels Safe at Home: Yes Safety Concerns: Feels Safe At This Time Assistive Devices: None Review of Systems Constitutional: no fever and no body aches Eyes: no blind spots Ear, Nose, Mouth, Throat: no ear pain Respiratory: no cough Cardiovascular: no chest pain Gastrointestinal: no abdominal pain Genitourinary: no dysuria Musculoskeletal: no back pain Integumentary: no lesions Neurologic: no gait abnormality Psychiatric: + hopelessness and + suicidal ideation Endocrine: no fatigue Hematologic / Lymphatic: no easy bleeding Allergy / Immunological: no GI upset with certain foods Physical Exam Physical Exam: General: patient resting, non-toxic in appearance, answers questions appropriately. Skin: warm, dry, intact HEENT: NC/AT, anicteric sclera, conjunctiva without injection, moist mucus membranes. Heart: +S1/S2, regular, no m/r/g Lungs: equal air entry bilaterally, no rales/rhonchi/wheezes Abd: +BS, soft, NT/ND Ext: warm, no clubbing/cyanosis or edema Neuro: nonfocal, speech intact, no facial droop, moving all extremities. Results & Data Results & Data Vital Signs (Past 12 Hours) Vital Signs Temp Pulse Pulse Resp BP BP Pulse Ox 11/04/24 10:27 68/48 L 11/04/24 10:16 63/41 L 11/04/24 10:12 100 H 22 93 11/04/24 10:06 99 H 17 95 11/04/24 10:00 73/51 L 11/04/24 10:00 94 11/04/24 09:57 97 H 23 96 11/04/24 09:54 97 H 21 100 11/04/24 09:48 70/40 L 11/04/24 09:39 96 H 19 97 11/04/24 09:30 99 H 19 66/47 L 98 11/04/24 09:21 102 H 22 97 11/04/24 09:15 68/48 L 11/04/24 09:06 96 H 16 97 11/04/24 09:03 96 H 8 L 73/53 L 97 11/04/24 09:00 96 H 26 H 73/53 L 98 11/04/24 08:51 98 H 20 98 11/04/24 08:45 94 H 20 96 11/04/24 08:45 68/44 L 11/04/24 08:30 70/41 L 11/04/24 08:27 101 H 11/04/24 08:21 96 H 23 94 11/04/24 08:19 95 11/04/24 08:19 36.4 C L 106 H 17 74/49 L 95 O2 Del Method 11/04/24 10:27 11/04/24 10:16 11/04/24 10:12 11/04/24 10:06 11/04/24 10:00 11/04/24 10:00 Room Air 11/04/24 09:57 11/04/24 09:54 11/04/24 09:48 11/04/24 09:39 11/04/24 09:30 11/04/24 09:21 11/04/24 09:15 11/04/24 09:06 11/04/24 09:03 11/04/24 09:00 Room Air 11/04/24 08:51 11/04/24 08:45 11/04/24 08:45 11/04/24 08:30 11/04/24 08:27 11/04/24 08:21 11/04/24 08:19 Room Air 11/04/24 08:19 Room Air Supervising Physician Co-Signing Physician Notes Patient seen and examined, chart reviewed, case discussed with Dr. Sahu and I agree with the assessment and plan as above. Patient admitted to the ICU for concern with acute metabolic acidosis due to PRO, severe alcoholism. No osmloar gap so this appears to be just regualr alcohol. Supportive care: IVF. Patient also hypotensive and requires vasopressors. Discussed with boat designer. Patient does not appear to be septic In regards to her alcoholism and suicidal ideation will consult psych. Will also start phenobarbital once Blood pressure improves and patient exhibits signs of withdrawal. Resident Activity Tracking Resident Involvement: Resident Care Provided Care Provided: Adult Hospital Medicine (1) Alcohol intoxication Complication of substance-induced condition: uncomplicated Qualified Code(s): F10.920 - Alcohol use, unspecified with intoxication, uncomplicated (4) Acute renal failure (ARF) Acute renal failure type: unspecified Qualified Code(s): N17.9 - Acute kidney failure, unspecified
[2024-11-04] MEDS: SODIUM BICARB 8.4% INJ 50 MEQ/50 ML SYR IV STA (10:35)
[2024-11-04] MEDS: HYDROCORTISONE SOD SUCCINATE 100 MG/2 ML VIAL IV STA (10:36)
[2024-11-04] MEDS: DEXTROSE 50% 50 ML SYRINGE IV ONE (10:56)
--- NOTE | 2024-11-04 11:31 | Critical Care Consultation ---
Date of Consultation November 04, 2024 Assessment & Plan (1) High anion gap metabolic acidosis: (2) Acute renal failure (ARF): (3) Shock circulatory: (4) Suicidal ideation: (5) Alcohol intoxication: (6) Normocytic anemia: Plan Reason Critically Ill: 63-year-old female presented to the hospital with suicidal ideation. Was found to be hypotensive in the ED requiring vasopressors. Sent to ICU for further management Past medical history: Alcohol abuse, anxiety/depression, GERD, hypertension Neuro - [facility] ICU: Negative --Suicidal ideation Keep the patient one-to-one Psych evaluation -- History of alcohol abuse Current alcohol level 348 High risk of going into withdrawal Cardiac - -- Shock Etiology is not clear There is a component of dehydration for sure Infection cannot be ruled out yet TSH within normal limit Random cortisol 36.89 EKG 11/04/2024, 11:04 AM: Sinus tachycardia, T wave inversions appreciated on lead III, flattening on lead II, no ST changes Respiratory - -- No acute issues Saturating well on room air GI - -- Mild elevation of AST Could be alcohol toxicity Continue to trend RENAL/LYTES - --Acute renal failure Monitor BUN/creatinine Avoid nephrotoxic medications Strict ins and outs -- HAGMA Delta-delta: 1.5 Likely sec to lactic acidosis plus acute renal failure Serum osmolality 385, calculated osmolality 385 VBG 7.17 Monitor Given that there is no osmolar gap, possibility of other alcohol being ingested is low Talk screen negative for salicylates Tylenol Alcohol level 348 ENDO - --Episodes of hypoglycemia Could be starvation ketosis --ICU hypoglycemia protocol HEME - -- Normocytic anemia Monitor H&H ID - -- No clear source of infection Chest x-ray clean Follow-up UA and blood culture Empiric antibiotics for the time being --Prophylaxis VTE: Heparin GI: None Lines: Peripheral Diet: N.p.o. Plan: Patient got 3 L of IV fluids, she was on Levophed. Given that she was hypoglycemic, she also got dextrose I gave the patient 2 A of bicarb. 100 mg of hydrocortisone was given to the patient Will consider putting a central line and given that I am going to add vasopressin to her regiment. Repeat BMP as well as lactate Follow-up UA and urine culture Give high-dose thiamine along with D5 and the fluids Put the patient one-to-one Psych eval I have personally spent 64 minutes of critical care time in the direct management of this patient. This is a life/limb threatening event. This includes time spent evaluating patient, direct bedside care, chart review, placing orders, interpretation of diagnostic studies, discussion with consultants, patient, and family members, as well as other required patient management activities. This time is exclusive of all separately billable procedures, and teaching time and separate from and in addition to any other critical care service time. History of Present Illness History of Present Illness 63-year-old female presented to the hospital with suicidal ideation. Was found to be hypotensive in the ED requiring vasopressors. Sent to ICU for further management Past medical history: Alcohol abuse, anxiety/depression, GERD Case was discussed on multiple occasions with Dr. Raman in the ED At the time of examination in the ICU. Patient was on 0.27 of Levophed. I added vasopressin to their regimen Systolic blood pressure was in the 70s. I also ordered 25% albumin to be given stat. She was still mentating well. Awake alert oriented x 3 Denied any chest pain, no shortness of breath, no blurry vision, mild headache. Denied any dysuria or diarrhea prior to coming to the hospital I did ask question multiple times whether she had overdosed on any of her pills especially lisinopril. She denied As per her last drink of alcohol was yesterday morning which does not make sense especially given the alcohol level was high when she came in. Denies drinking rubbing alcohol. She does have a history of drinking rubbing alcohol in the past. Social history: Lifetime non-smoker, drinks half a pint of vodka on a daily basis Allergies Allergy/AdvReac Type Severity Reaction Status Date / Time No Known Allergies Allergy Verified 11/04/24 10:12 Home Medications Medication Instructions Recorded Confirmed Type fluoxetine 40 mg capsule 40 mg PO DAILY 05/22/24 11/04/24 History olanzapine 5 mg tablet 5 mg PO HS 05/22/24 11/04/24 History folic acid 1 mg tablet 1 mg PO QAM #30 tabs 05/24/24 11/04/24 Rx lisinopril 10 mg tablet 10 mg PO DAILY 05/24/24 11/04/24 History multivitamin with folic acid 400 1 tab PO QAM #30 tabs 05/24/24 11/04/24 Rx mcg tablet (Daily-Nicolasa (with folic acid)) thiamine HCl (vitamin B1) 100 mg 100 mg PO QAM #30 tabs 05/24/24 11/04/24 Rx tablet hydroxyzine HCl 25 mg tablet 25 mg PO Q6H PRN anxiety #30 tabs 07/17/24 11/04/24 Rx pantoprazole 40 mg tablet,delayed 40 mg PO DAILY #30 tabs 07/20/24 11/04/24 Rx release (Protonix) Patient History Medical History Ethyl alcohol poisoning Social History Smoking Status: Never smoker Hx Alcohol Use: Yes Alcohol type: hard liquor Hx Substance Use: No Preferred Language: Taiwanese Communication Ability: Effective Communication Ability Comment: normal Retail Account Executive Required: No Beliefs That Will Affect Care: None Current Living Situation: Spouse Current Living Situation Comment: Jason Feels Safe at Home: No Is there a partner from a previous relationship who is making you feel unsafe now?: No Assistive Devices: None Review of Systems 2 Review of Systems: All systems reviewed & are unremarkable except as noted in HPI & below Physical Exam 2 Physical Exam: Constitutional: No acute distress HEENT: EOMI, PERRLA Respiratory system: Good air entry bilaterally, no wheeze, no rhonchi, no crackles CVS: S1-S2 positive, no murmurs or gallops Abdomen: Soft, nontender, nondistended, positive bowel sounds x4 Extremities: + 1 pulses bilaterally radialis/ dorsalis pedis, no cyanosis, no edema Neuro: Awake alert oriented x3 Psych: Normal mood and affect G/U: No Dickinson Skin: no rashes, warm and dry Lymphatic: no cervical or axillary lymphadenopathy Results & Data Results & Data Vital Signs (Past 12 Hours) Vital Signs Temp Pulse Pulse Resp BP BP Pulse Ox 11/04/24 11:03 103 H 23 64/47 L 98 11/04/24 10:45 102 H 27 H 65/40 L 11/04/24 10:42 99 H 24 97 11/04/24 10:40 67/47 L 11/04/24 10:35 64/47 L 11/04/24 10:33 100 H 25 H 92 11/04/24 10:30 70/49 L 11/04/24 10:27 68/48 L 11/04/24 10:16 63/41 L 11/04/24 10:12 100 H 22 93 11/04/24 10:06 99 H 17 95 11/04/24 10:00 73/51 L 11/04/24 10:00 96 H 22 94 11/04/24 10:00 94 11/04/24 09:57 97 H 23 96 11/04/24 09:54 97 H 21 100 11/04/24 09:48 70/40 L 11/04/24 09:39 96 H 19 97 11/04/24 09:30 99 H 19 66/47 L 98 11/04/24 09:21 102 H 22 97 11/04/24 09:15 68/48 L 11/04/24 09:06 96 H 16 97 11/04/24 09:03 96 H 8 L 73/53 L 97 11/04/24 09:00 96 H 26 H 73/53 L 98 11/04/24 08:51 98 H 20 98 11/04/24 08:45 94 H 20 96 11/04/24 08:45 68/44 L 11/04/24 08:30 70/41 L 11/04/24 08:27 101 H 11/04/24 08:21 96 H 23 94 11/04/24 08:19 95 11/04/24 08:19 36.4 C L 106 H 17 74/49 L 95 O2 Del Method 11/04/24 11:03 Room Air 11/04/24 10:45 11/04/24 10:42 11/04/24 10:40 11/04/24 10:35 11/04/24 10:33 11/04/24 10:30 11/04/24 10:27 11/04/24 10:16 11/04/24 10:12 11/04/24 10:06 11/04/24 10:00 11/04/24 10:00 Room Air 11/04/24 10:00 Room Air 11/04/24 09:57 11/04/24 09:54 11/04/24 09:48 11/04/24 09:39 11/04/24 09:30 11/04/24 09:21 11/04/24 09:15 11/04/24 09:06 11/04/24 09:03 11/04/24 09:00 Room Air 11/04/24 08:51 11/04/24 08:45 11/04/24 08:45 11/04/24 08:30 11/04/24 08:27 11/04/24 08:21 11/04/24 08:19 Room Air 11/04/24 08:19 Room Air Laboratory Results 11/04/24 08:30 11/04/24 08:30 Coding Level of Care Code 15585 CRITICAL CARE 1ST 30-74M Diagnoses High anion gap metabolic acidosis E87.29 Acute renal failure (ARF) N17.9 Shock circulatory R57.9 Suicidal ideation R45.851 Alcohol intoxication F10.929 Normocytic anemia D64.9
[2024-11-04] MEDS: VASOPRESSIN 20 UNITS in SODIUM CHLORIDE 0.9% 100 ML IV SCH (12:14)
[2024-11-04] MEDS: ALBUMIN 5% 250 ML IV ONE (12:15)
[2024-11-04] MEDS: THIAMINE HCL 500 MG in SODIUM CHLORIDE 0.9% 50 ML IV SCH (12:16)
[2024-11-04] MEDS: D5W AND 1/2NSS 1,000 ML IV SCH (12:16)
[2024-11-04 13:52] LABS: INR 1.0 (0.9-1.1); Prothrombin Time 10.8 Seconds (9.0-12.0)
[2024-11-04 14:50] LABS: Alanine Aminotransferase 30.0 U/L (7-52); Albumin Globulin Ratio 1.9 (0.9-2); Alkaline Phosphatase 64.0 U/L (34-104); Anion Gap 22.0 (3-11); Bilirubin,Total 0.5 mg/dl (0.2-1.0); Blood Urea Nitrogen 63.0 mg/dl (6-23); Calcium 7.3 mg/dl (8.6-10.3); Carbon Dioxide 13.0 mmol/L (21-32); Chloride 100.0 mmol/L (98-107); Creatinine Clr Calc Pharmacy 12.2 ml/min; Globulin 2.2 gm/dl (2.5-4.0); Glucose 167.0 mg/dl (70-99(Fasting)); Potassium 4.3 mmol/L (3.5-5.1); Sodium 135.0 mmol/L (136-145); Total Protein 6.3 gm/dl (6.0-8.3)
[2024-11-04] MEDS ORDERED: ONDANSETRON INJ 2 MG/ML 2 ML VIAL IV PRN (15:54)
[2024-11-04 16:00] LABS: Appearance Urine Clear (Clear); Bacteria Urine Automated None Seen (None Seen); Epithelial Cell Urine Auto 0-2 /hpf (0-2); Glucose Urine UA Trace (Negative); RBC Urine Automated 0-2 /hpf (0-2); WBC Urine Automated 0-5 /hpf (0-5)
[2024-11-04 16:25] LABS: Amphetamines+Metham, Urine Neg (Neg); MDMA (Ecstacy), Urine Neg (Neg); Marijuana, Urine Neg (Neg)
[2024-11-04] MEDS: HEPARIN SOD 5,000 UNIT/0.5 ML VIAL SQ SCH (21:12)
[2024-11-05 04:51] LABS: Hematocrit (blood only) 25.6 % (37.0-47.0); Hemoglobin 9.3 g/dl (12.0-16.0); Immature Granulocytes # (auto) 0.04 K/uL (0.01-0.20); Immature Granulocytes % (auto) 0.4 %; Mean Corpuscular Hemoglobin 32.5 pg (25.0-34.0); Mean Corpuscular Volume 89.5 fL (80.0-100.0); Platelet Count 321 K/uL (130-400); RDW Standard Deviation 42.7 fL (36.4-46.3); Red Blood Count 2.86 M/uL (4.20-5.40); White Blood Count 11.26 K/ul (4.8-10.8)
[2024-11-05 05:08] LABS: Anion Gap 11.0 (3-11); Blood Urea Nitrogen 44.0 mg/dl (6-23); Calcium 7.4 mg/dl (8.6-10.3); Carbon Dioxide 22.0 mmol/L (21-32); Chloride 102.0 mmol/L (98-107); Creatinine Clr Calc Pharmacy 23.1 ml/min; Glucose 93.0 mg/dl (70-99(Fasting)); Magnesium 1.7 mg/dl (1.7-2.4); Potassium 3.5 mmol/L (3.5-5.1); Sodium 135.0 mmol/L (136-145)
--- NOTE | 2024-11-05 08:30 | Hospitalist Progress Note ---
Date of Service November 05, 2024 Assessment & Plan (1) Depression with suicidal ideation: (2) Alcohol use disorder: (3) High anion gap metabolic acidosis: (4) Anemia: Plan 63-year-old female presented to the hospital with suicidal ideation. Was found to be hypotensive in the ED requiring vasopressors. In the ICU for further management. Transferred to [facility] surg floor with tele as patient is afebrile, hemodynamically stable with labs rapidly normalizing. Suicidal ideation - Patient to remain 1:1 in ICU setting - Psych evaluation pending - 10 years of on and off symptoms of depression. Establish psychiatrist outpatient. - No current signs of suicidal thoughts - Psych evaluation completed - recommend 302 due to poor safety net when back home and danger of relapse Acute alcohol intoxication/History of alcohol abuse - Alcohol level 348 in the ED - Initiated AWSS protocol with phenobarbital IV protocol, 130mg IV loading dose and 65mg prn Q6H dose for AWSS >8 on admission - EKG 11/04 showed sinus tachycardia with possible inferior infarct - Currently stable with ASAD of 0 - Continue IV thiamine/folate supplementation - Patient awake, alert, and oriented Acute renal failure - Continue to monitor BUN/creatinine levels, BUN: 69->44 Creatinine: 5.59 - >2.12, BUN/Cr: 20.8 - AST: 7.4 - Avoid nephrotoxic medications - Strict I/Os, on IV D5W and 1/2Nss, change to 80mL RL - CMP/CBC QAM HAGMA - Etiology likely secondary to lactic acidosis plus acute renal failure. Lactic acid: 4.1 with reflux to 2.7 - Serum osmolality 385 on admission, resolved anion gap of 11 - Na: 135, Ca 7.4 - VBG pH 7.17 and VBG pCo2: 36, metabolic acidosis with mild respiratory compensation on admission Hypotension/shock - d/c Vasopressin 20 units 0.04 mg/kg/min drip - Vitals stable this morning - Infectious etiology unlikely but still possible, urinalysis unremarkable other than trace blood/protein and hyaline casts - CBC: WBC 11.26, Neut. 7.3 - Order urine and blood cultures if indicated Anemia - RBC 2.86, Hgb 9.3, Hct 25.6%, MCHC 36.3 - Trend CBC Dispo: ICU VTE prophylaxis: Heparin Diet: Regular Code: Full Admission and Anticipated Discharge Date Admission Date: November 04, 2024 Supervising Physician Co-Signing Physician Notes I personally examined the patient and verified all brown points of history and exam, discussed case, and agree with decision making with Dr Sahu Feeling better and wants to go home. Psychiatry input greatly appreciated. Vitals noted, in general she is awake and alert no physical distress. Breathing unlabored no accessory muscle use good effort. Skin without rashes pallor or icterus. Neuro without focal deficits. Depression, suicidality, alcohol abuse and intoxication, isopropanol ingestion with acidosisclinically improving. Appears medically stable for inpatient psychiatry. Appreciate psychiatry assistance. Transfer to medical awaiting inpatient psych bed. Subjective Pt is a 64 y/o F with a past medical history of alcohol abuse, HTN, and anemia admitted due to high anion gap metabolic acidosis, acute renal failure and severe hypotension/shock on 11/05. Patient has been seen on previous admissions for with similar signs and symptoms of acute alcohol intoxication with hypotension and shock. Notes that she has done online counseling for depressive symptoms which she's had for ~10 years. She follows a psychiatrist who has prescribed naltrexone in the past but she did not find it helpful. Has not tried any antidepressants. Last psych eval. was 4 years ago. Pt normally drinks 1 pint of vodka every other day and takes a Tylenol every night to help her sleep. This morning, pt reports feeling embarrassed about the situation and does not remember having suicidal thoughts. Little appetite today. Patient denies seizures, headache, hallucinations, psychomotor slowing or agitation, sweating, chest pain, palpitations, SOB, cough, wheeze, abdominal pain, N/V, problems with urinating or stooling. Patient is moving all extremities and is neurologically intact. Physical Exam Physical Exam: General: Calm, in NAD, yawning, SpO2 98% on 2L nasal canula HEENT: Pupils dilated but reactive to light, EOM intact, moist mucous membrane CV: Normal r/r, S1, S2, no r/m/g, no LE edema Lungs: normal rr, cta in upper and mid lung combs, possibly rales/rhonchi in the lower lobes b/l Abd. Soft, nondistended, normal bs, nontender to palpation, no hepatosplenomegaly Neuro: No tremors, 3+ hyperreflexia of LE. Psych: no thoughts of hurting self or other, no hallucinations, no psychomotor slowing or agitation, PHQ-9 score of 7-mild depression Results & Data Results & Data Vital Signs (Past 12 Hours) Vital Signs Temp Pulse Pulse Resp BP BP Pulse Ox 11/05/24 08:00 126/73 11/05/24 08:00 98 11/05/24 06:51 98 H 16 98 11/05/24 06:30 93 H 18 97 11/05/24 06:18 92 H 20 98 11/05/24 06:00 91 H 27 H 150/70 H 98 11/05/24 05:51 90 20 98 11/05/24 05:03 92 H 20 98 11/05/24 05:00 121/74 11/05/24 05:00 88 18 121/74 97 11/05/24 04:57 91 H 19 98 11/05/24 04:54 94 H 18 98 11/05/24 04:30 101 H 19 97 11/05/24 04:27 100 H 17 97 11/05/24 04:01 122/69 11/05/24 04:00 36.6 C 103 H 19 122/69 96 11/05/24 03:57 105 H 19 90 11/05/24 03:48 108 H 12 90 11/05/24 03:36 107 H 14 97 11/05/24 03:21 95 H 18 98 11/05/24 03:00 125/85 11/05/24 03:00 93 H 18 99 11/05/24 03:00 96 H 18 125/85 98 11/05/24 02:48 94 H 18 98 11/05/24 02:15 95 H 19 97 11/05/24 02:00 96 H 20 97 11/05/24 02:00 99/64 L 11/05/24 02:00 92 H 18 99/64 L 97 11/05/24 01:45 96 H 17 99 11/05/24 01:30 98 H 31 H 98 11/05/24 01:15 92 H 23 99 11/05/24 01:03 95 H 19 97 11/05/24 01:02 123/74 11/05/24 01:00 36.8 C 95 H 19 123/74 96 11/05/24 00:33 90 19 98 11/05/24 00:30 91 H 19 97 11/05/24 00:03 94 H 18 98 11/05/24 00:00 113/72 11/05/24 00:00 99 H 24 113/72 100 11/04/24 23:45 92 H 18 99 11/04/24 23:36 94 H 20 97 11/04/24 23:17 97 H 11/04/24 23:00 118/72 11/04/24 23:00 101 H 17 98 11/04/24 23:00 98 H 24 118/72 99 11/04/24 22:39 98 H 18 99 11/04/24 22:18 97 H 21 100 11/04/24 22:00 118/66 11/04/24 22:00 101 H 19 118/68 98 11/04/24 21:54 103 H 20 98 11/04/24 21:51 103 H 21 97 11/04/24 21:30 114 H 16 98 11/04/24 21:00 11/04/24 21:00 107 H 23 108/64 97 O2 Del Method O2 Flow Rate FiO2 11/05/24 08:00 11/05/24 08:00 11/05/24 06:51 11/05/24 06:30 11/05/24 06:18 11/05/24 06:00 Nasal Cannula 1 11/05/24 05:51 11/05/24 05:03 11/05/24 05:00 11/05/24 05:00 Nasal Cannula 1 11/05/24 04:57 11/05/24 04:54 11/05/24 04:30 11/05/24 04:27 11/05/24 04:01 11/05/24 04:00 Nasal Cannula 1 11/05/24 03:57 11/05/24 03:48 11/05/24 03:36 11/05/24 03:21 11/05/24 03:00 11/05/24 03:00 11/05/24 03:00 Nasal Cannula 1 11/05/24 02:48 11/05/24 02:15 11/05/24 02:00 11/05/24 02:00 11/05/24 02:00 Nasal Cannula 1 11/05/24 01:45 11/05/24 01:30 11/05/24 01:15 11/05/24 01:03 11/05/24 01:02 11/05/24 01:00 Nasal Cannula 1 11/05/24 00:33 11/05/24 00:30 11/05/24 00:03 11/05/24 00:00 11/05/24 00:00 Nasal Cannula 2 11/04/24 23:45 11/04/24 23:36 11/04/24 23:17 11/04/24 23:00 11/04/24 23:00 11/04/24 23:00 Nasal Cannula 2 11/04/24 22:39 11/04/24 22:18 11/04/24 22:00 11/04/24 22:00 Nasal Cannula 2 11/04/24 21:54 11/04/24 21:51 11/04/24 21:30 11/04/24 21:00 Nasal Cannula 2 11/04/24 21:00 Nasal Cannula 2 Resident Activity Tracking Resident Involvement: Resident Care Provided Care Provided: Adult [facility] Medicine
--- NOTE | 2024-11-05 09:07 | Billing Data ---
Date of Service November 04, 2024 Coding Level of Care Code 78772 CRITICAL CARE
[2024-11-05] MEDS: CALCIUM GLUCONATE 1,000 MG/60 ML BAG IV STA (10:10)
[2024-11-05] MEDS: MAGNESIUM SULFATE / D5W 1 GM/100 ML BAG IV SCH (10:10)
[2024-11-05] MEDS: FOLIC ACID 1 MG TAB PO SCH (10:11)
[2024-11-05] MEDS: POTASSIUM CHLORIDE CRTAB 20 MEQ TABCR PO STA (10:35)
[2024-11-05] MEDS: LACTATED RINGER'S 1,000 ML IV SCH (10:35)
--- NOTE | 2024-11-05 11:13 | Critical Care Progress Note ---
Date of Service November 05, 2024 Assessment & Plan (1) High anion gap metabolic acidosis: (2) Acute renal failure (ARF): (3) Shock circulatory: (4) Suicidal ideation: (5) Alcohol intoxication: (6) Normocytic anemia: Plan Reason Critically Ill: 63-year-old female presented to the hospital with suicidal ideation. Was found to be hypotensive in the ED requiring vasopressors. Sent to ICU for further management Past medical history: Alcohol abuse, anxiety/depression, GERD, hypertension Neuro - Patient no longer suicidal. Restart fluoxetine. Await psych recommendations. Received a dose of phenobarb yesterday. No signs of alcohol withdrawal currently. Consider naltrexone therapy as an outpatient. Thiamine 100 mg daily. Cardiac - Shock resolved. Likely due to hypovolemia and acidosis from alcohol. Respiratory - No issues. Lung exam clear. GI - -- Mild elevation of AST Can be followed up as an outpatient. Recommend outpatient EGD and colonoscopy given anemia and alcohol use. Start pantoprazole while. RENAL/LYTES - --Acute renal failure Resolving with IV fluids. Can be monitored as an outpatient as well with repeat labs in 2 to 3 days. Replace magnesium and potassium. ENDO - No issues today. HEME - -- Normocytic anemia Monitor H&H ID - No concerns. Antibiotics discontinued. --Prophylaxis VTE: Heparin GI: P.o. pantoprazole. Patient chronically on pantoprazole. Lines: Peripheral Diet: Advance as tolerated. Patient can be downgraded from ICU. Discussed with hospitalist service via encrypted text. ICU services to sign off. Thank you for the consult. Admission and Anticipated Discharge Date Admission Date: November 04, 2024 Subjective Patient denies any suicidal ideation at present. She does endorse drinking a pint of vodka every other day. She denies any shakiness, headache, chest pain or shortness of breath. She states that she would like to go home. She works at [employer] and notes that she has a work scheduled for tomorrow. She notes significant stressors at home and feels lonely. Her daughters go to [facility] [employer] and one of her daughters has high functioning autism. She is not requiring vasopressors. She is taking p.o. She was able to sit on a bedside commode today. Review of Systems Review of Systems: All systems reviewed & are unremarkable except as noted in HPI & below Physical Exam Physical Exam: Constitutional: No acute distress HEENT: EOMI, PERRLA Respiratory system: Good air entry bilaterally, no wheeze, no rhonchi, no crackles CVS: S1-S2 positive, no murmurs or gallops Abdomen: Soft, nontender, nondistended, positive bowel sounds x4 Extremities: + 1 pulses bilaterally radialis/ dorsalis pedis, no cyanosis, no edema Neuro: Awake alert oriented x3, minimal tremulousness. Psych: Normal mood and affect G/U: No Dickinson Skin: no rashes, warm and dry Lymphatic: no cervical or axillary lymphadenopathy Results & Data Results & Data Vital Signs (Past 12 Hours) Vital Signs Temp Pulse Pulse Resp BP BP Pulse Ox 11/05/24 08:00 126/73 11/05/24 08:00 98 11/05/24 08:00 11/05/24 08:00 93 H 11/05/24 06:51 98 H 16 98 11/05/24 06:30 93 H 18 97 11/05/24 06:18 92 H 20 98 11/05/24 06:00 91 H 27 H 150/70 H 98 11/05/24 05:51 90 20 98 11/05/24 05:03 92 H 20 98 11/05/24 05:00 121/74 11/05/24 05:00 88 18 121/74 97 11/05/24 04:57 91 H 19 98 11/05/24 04:54 94 H 18 98 11/05/24 04:30 101 H 19 97 11/05/24 04:27 100 H 17 97 11/05/24 04:01 122/69 11/05/24 04:00 36.6 C 103 H 19 122/69 96 11/05/24 03:57 105 H 19 90 11/05/24 03:48 108 H 12 90 11/05/24 03:36 107 H 14 97 11/05/24 03:21 95 H 18 98 11/05/24 03:00 125/85 11/05/24 03:00 93 H 18 99 11/05/24 03:00 96 H 18 125/85 98 11/05/24 02:48 94 H 18 98 11/05/24 02:15 95 H 19 97 11/05/24 02:00 96 H 20 97 11/05/24 02:00 99/64 L 11/05/24 02:00 92 H 18 99/64 L 97 11/05/24 01:45 96 H 17 99 11/05/24 01:30 98 H 31 H 98 11/05/24 01:15 92 H 23 99 11/05/24 01:03 95 H 19 97 11/05/24 01:02 123/74 11/05/24 01:00 36.8 C 95 H 19 123/74 96 11/05/24 00:33 90 19 98 11/05/24 00:30 91 H 19 97 11/05/24 00:03 94 H 18 98 11/05/24 00:00 113/72 11/05/24 00:00 99 H 24 113/72 100 11/04/24 23:45 92 H 18 99 11/04/24 23:36 94 H 20 97 11/04/24 23:17 97 H O2 Del Method O2 Flow Rate 11/05/24 08:00 11/05/24 08:00 11/05/24 08:00 Room Air 11/05/24 08:00 11/05/24 06:51 11/05/24 06:30 11/05/24 06:18 11/05/24 06:00 Nasal Cannula 1 11/05/24 05:51 11/05/24 05:03 11/05/24 05:00 11/05/24 05:00 Nasal Cannula 1 11/05/24 04:57 11/05/24 04:54 11/05/24 04:30 11/05/24 04:27 11/05/24 04:01 11/05/24 04:00 Nasal Cannula 1 11/05/24 03:57 11/05/24 03:48 11/05/24 03:36 11/05/24 03:21 11/05/24 03:00 11/05/24 03:00 11/05/24 03:00 Nasal Cannula 1 11/05/24 02:48 11/05/24 02:15 11/05/24 02:00 11/05/24 02:00 11/05/24 02:00 Nasal Cannula 1 11/05/24 01:45 11/05/24 01:30 11/05/24 01:15 11/05/24 01:03 11/05/24 01:02 11/05/24 01:00 Nasal Cannula 1 11/05/24 00:33 11/05/24 00:30 11/05/24 00:03 11/05/24 00:00 11/05/24 00:00 Nasal Cannula 2 11/04/24 23:45 11/04/24 23:36 11/04/24 23:17 Coding Level of Care Code 47720 SUB INP/OBS CARE 2/35MIN Diagnoses High anion gap metabolic acidosis E87.29 Acute renal failure (ARF) N17.9 Acute renal failure type: unspecified Shock circulatory R57.9 Suicidal ideation R45.851 Alcohol intoxication F10.920 Complication of substance-induced condition: uncomplicated Normocytic anemia D64.9 (2) Acute renal failure (ARF) Acute renal failure type: unspecified Qualified Code(s): N17.9 - Acute kidney failure, unspecified (5) Alcohol intoxication Complication of substance-induced condition: uncomplicated Qualified Code(s): F10.920 - Alcohol use, unspecified with intoxication, uncomplicated
--- NOTE | 2024-11-05 12:06 | Psychiatric Consultation ---
Date of Consultation November 05, 2024 Impression / Recommendations Impression 64 y/o F h/o depression, anxiety, alcohol dependence presents to the hospital with suicidal ideation in the context of alcohol intoxication (BAL 350, drinking vodka, isopropanol). Was found to be hypotensive in the ED requiring vasopressors. Sent to ICU for further management. Psychiatry consulted for evaluation and safety assessment. Patient presents with suicidal ideation and escalating alcohol use to cope with worsening depression. She ingested isopropyl alcohol after she ran out of vodka. Concern for current major depressive episode and appears her current treatment regimen has been ineffective. She presents a history of repeat hospitalizations with similar presentation (past isopropyl alcohol abuse, suicidal ideations, shock with renal failure). Currently she lives alone, is isolated, with no r eported supports locally and does not want to involve family in her care. She presents limited insight and judgement into her condition and is a poor historian. There is concern for rebound suicidality and on-going alcohol abuse including isopropanol to compensate for severe depression. Currently the patient does not present a safe discharge plan. We recommend inpatient psychiatry admission after medical stabilization. The patient should remain on safety precautions with 1-on-1 pending medical clearance. The patient is not psychiatrically cleared to leave the hospital without additional safety or aftercare planning; theyshould not be allowed to leave [facility] without notification to our service as a 302 warrant may be appropriate. Overall, I spent a total of 80 minutes with this case including review of chart records, nursing report, review of lab work, direct evaluation of the patient at bedside, counseling the patient, discussion of the patient with the hospitalist provider, discussion with the psychiatric liaison during clinical rounds, and documentation in the electronic health record. (1) Alcohol use disorder: (2) Depression with suicidal ideation: (3) Shock circulatory: (4) Acute renal failure (ARF): Acute renal failure type: unspecified Qualified Code(s): N17.9 - Acute kidney failure, unspecified (5) Isopropanol causing toxic effect: Plan 11/05/24: Resume home Fluoxetine 40mg daily, Olanzapine 5mg HS Hydroxyzine 50mg Q6H PRN for anxiety, insomnia Continue bedside sitter Alcohol withdrawal protocol Psychiatry consults will follow Psych History Identifying Data 64 y/o F h/o depression, anxiety, alcohol dependence presents to the hospital with suicidal ideation in the context of alcohol intoxication (BAL 350, drinking vodka, isopropanol). Was found to be hypotensive in the ED requiring vasopressors. Sent to ICU for further management. Psychiatry consulted for evaluation and safety assessment. Chief Complaint "Drinking 4 days in a row" History of Present Illness Pt reports drinking 4 days in a row. Called 911 herself because of vomiting and incoherent speech. Drivers for alcohol use is to cope with anxiety. Drinks 1 pint of vodka daily on average and recent isopropyl alcohol ingestion because "there was no alcohol available." Denies co-ingestion of other substances. Longest period of sobriety was 9 mo during . Past AA and inpatient rehab and reports somewhat effective. Trauma of past AA sponsor committing suicide. Reports lifelong depression and first received treatment after of her twins in her 40s. Depression and anxiety has worsened over the past months and escalating alcohol use. C/o of sleep maintenance difficulties, appetite changes, low mood, apathy, anhedonia. Has a telepsychiatrist from [place] and denies recent changes to medications. Feels current psychiatric regimen is ineffective. Denies trials of other antidepressants and has been on fluoxetine for some years. Denies current SI. Does not want family involved because feels they will weight tester her. Goal directed towards leaving despite active medical concerns and alcohol withdrawal risk. Sx: Lives alone. Spouse and 2 daughters living in [place]. Moved to [place] for her daughter who a [employer] student and is special needs. Daughter is back in [place] for the summer and patient is isolated here with no reported supports. Works at [employer]. Denies having access to firearms. Has apartment in [place]. Chart review shows repeat hospital visits for alcohol intoxication and withdrawal, last on 07/20/24 (isopropyl), 07/17/24 (vodka), 07/03/24 (vodka). Presented 05/22/24 with similar presentation and concern for shock and renal failure. 11/04/24 15:00 - Psychiatric Liason Note by Jaguar Tran RN Patient seen urgently for psychiatric consult for suicidal ideation, patient alert and oriented x 3 - but not completely to situation and will not be medically sober until 0100 which added to difficulty of assessment - tearful intermittently, denies SI/HI, denies hallucinations/delusions, patient denies any recollection of this morning - per chart patient called EMS because she was not feeling well after "drinking too much" and told them she was self harming with alcohol - she also told ER TITA Reina she was using alcohol to "self-harm" - in reaction to this patient states "oh I don't remember saying any of that", patient denies any formal psychiatric history but has been to rehab multiple times with last being 10 years ago - she states she had a 6month period of sobriety after that but then relapsed, she drinks vodka 1 pint "every few days" - she states her father was an alcoholic but could not explain what motivates her to drink - while crying she states "I'm just embarrassed. I don't know why I keep doing this to myself", patient adamantly denies any of the events today were the result of a suicide attempt, when reviewing medical chart patient has had multiple admission with significantly compromised medical states due to her drinking and has refused inpatient or outpatient support in the past, patient denies drug use, she denies access to guns, she currently lives in [place] alone after moving here a year ago to be close to her special needs daughter who attends [employer] - daughter is currently back at home in [place] for the summer, patient currently works at [employer] and denies any outpatient support, she currently is agreeable to staying in the hospital until medically clear and seen by psychiatrist tomorrow, Allergies Allergy/AdvReac Type Severity Reaction Status Date / Time No Known Allergies Allergy Verified 11/04/24 10:12 Home Medications Medication Instructions Recorded Confirmed Type fluoxetine 40 mg capsule 40 mg PO DAILY 05/22/24 11/04/24 History olanzapine 5 mg tablet 5 mg PO HS 05/22/24 11/04/24 History folic acid 1 mg tablet 1 mg PO QAM #30 tabs 05/24/24 11/04/24 Rx lisinopril 10 mg tablet 10 mg PO DAILY 05/24/24 11/04/24 History multivitamin with folic acid 400 1 tab PO QAM #30 tabs 05/24/24 11/04/24 Rx mcg tablet (Daily-Nicolasa (with folic acid)) thiamine HCl (vitamin B1) 100 mg 100 mg PO QAM #30 tabs 05/24/24 11/04/24 Rx tablet hydroxyzine HCl 25 mg tablet 25 mg PO Q6H PRN anxiety #30 tabs 04/08/25 07/27/25 Rx pantoprazole 40 mg tablet,delayed 40 mg PO DAILY #30 tabs 07/20/24 11/04/24 Rx release (Protonix) Patient History Medical History Ethyl alcohol poisoning Social History Smoking Status: Never smoker Second Hand Exposure: No; Do You Dip or Chew Tobacco: No; Tobacco Cessation Education Requested by Patient: No Hx Alcohol Use: Yes Alcohol type: hard liquor Hx Substance Use: No Preferred Language: Faroese Communication Ability: Effective Communication Ability Comment: normal Beauty Counselor Required: No Beliefs That Will Affect Care: None Current Living Situation: Alone Current Living Situation Comment: [place] Other Information That Helps Us Care for You: No Feels Safe at Home: Yes Safety Concerns: Feels Safe At This Time Assistive Devices: None Physical Exam Mental Examination: Appearance: Disheveled Eye Contact: Fleeting Contact Motor Behavior: Slowed Speech: Normal Mood: Sad Affect: Congruent and Constricted Thought Process: Intact and Linear Thought Content: Racing Hallucinations: None Insight: Poor Judgement: Poor Vital Signs (Past 24 Hours): Last Vital Signs Temp 36.6 C 11/05/24 04:00 Pulse 93 H 11/05/24 08:00 Resp 16 11/05/24 06:51 BP 126/73 11/05/24 08:00 Pulse Ox 98 11/05/24 08:00 O2 Del Method Room Air 11/05/24 08:00 O2 Flow Rate 1 11/05/24 06:00 FiO2 2 11/04/24 21:00 Results & Data (PSY) Medications Administered Folic Acid (Folic Acid 1 Mg Tab) 1 mg PO QAM GERTRUDIS Stop: 12/05/24 08:59 Last Admin: 11/05/24 10:11 Dose: 1 mg Documented By: MTP Heparin Sodium (Porcine) (Heparin Sod 5,000 Unit/0.5 Ml Vial) 5,000 units SQ Q12 GERTRUDIS Stop: 12/04/24 20:59 Last Admin: 11/04/24 21:12 Dose: 5,000 units Documented By: [id number] Magnesium Sulfate/Dextrose (Magnesium Sulfate / D5w) 1 gm in 100 mls @ 50 mls/hr IV Q2H GERTRUDIS Stop: 11/05/24 13:44 Last Admin: 11/05/24 10:10 Dose: 50 mls/hr Documented By: MTP Lactated Ringer's (Lr) 1,000 mls @ 80 mls/hr IV .[id number] [facility] Stop: 11/08/24 10:29 Last Admin: 11/05/24 10:35 Dose: 80 mls/hr Documented By: MTP Miscellaneous (Icu Protocol For Hyperglycemia) 1 each N/A ACHS [facility] Stop: 11/06/24 11:29 Last Admin: 11/05/24 10:12 Dose: Not Given Documented By: Admin: 11/04/24 21:35 Dose: 1 each Documented By: [id number] Admin: 11/04/24 17:48 Dose: Not Given Documented By: Admin: 11/04/24 12:14 Dose: Not Given Documented By: [facility] [place] [address] IN/OBS CONSULT LVL 5,80M Patient Type New Medical Decision Making High Complexity Diagnoses Alcohol use disorder F10.90 Depression with suicidal ideation F32.A; R45.851 Shock circulatory R57.9 Acute renal failure (ARF) N17.9 Acute renal failure type: unspecified Isopropanol causing toxic effect T51.2X1A
--- NOTE | 2024-11-05 16:06 | Billing Data ---
Date of Service November 05, 2024 Coding Level of Care Code 53872 SUB INP/OBS CARE MIN
[2024-11-05] MEDS ORDERED: Ativan IV Alcohol Withdrawal--Active Protocol IV PRN (19:03)
[2024-11-06] MEDS ORDERED: MELATONIN 3 MG TAB PO PRN (00:40)
[2024-11-06 04:30] VITALS: TEMP 97.9
--- NOTE | 2024-11-06 05:26 | Electrocardiogram Report ---
Test Reason : Blood Pressure : */* mmHG Vent. Rate : 104 BPM Atrial Rate : 104 BPM P-R Int : 168 ms QRS Dur : 84 ms QT Int : 366 ms P-R-T Axes : -29 -5 -12 degrees QTcB Int : 481 ms Sinus tachycardia Low voltage QRS Inferior-posterior infarct , age undetermined Prolonged QT Abnormal ECG When compared with ECG of 20-Jul-2024 10:33, Questionable change in QRS axis Inverted T waves have replaced nonspecific T wave abnormality in Inferior leads T wave amplitude has increased in Lateral leads Inferior-posterior infarct is now Present Confirmed by Hieu Quick ([id number]) on 11/06/2024 5:26:32 AM Referred By: Confirmed By: Hieu Quick
--- NOTE | 2024-11-06 05:27 | Electrocardiogram Report ---
Test Reason : Blood Pressure : */* mmHG Vent. Rate : 103 BPM Atrial Rate : 103 BPM P-R Int : 172 ms QRS Dur : 86 ms QT Int : 376 ms P-R-T Axes : -29 -5 -12 degrees QTcB Int : 492 ms Sinus tachycardia Possible Inferior infarct (cited on or before 04-Nov-2024) Prolonged QT Abnormal ECG When compared with ECG of 04-Nov-2024 08:14, No significant change was found Confirmed by Hieu Quick ([id number] on 11/06/2024 5:27:06 AM Referred By: REFERRED SELF Confirmed By: Hieu Quick
[2024-11-06 07:35] LABS: Hematocrit (blood only) 27.7 % (37.0-47.0); Hemoglobin 9.8 g/dl (12.0-16.0); Immature Granulocytes # (auto) 0.02 K/uL (0.01-0.20); Immature Granulocytes % (auto) 0.3 %; Mean Corpuscular Hemoglobin 32.3 pg (25.0-34.0); Mean Corpuscular Volume 91.4 fL (80.0-100.0); Platelet Count 280 K/uL (130-400); RDW Standard Deviation 43.8 fL (36.4-46.3); Red Blood Count 3.03 M/uL (4.20-5.40); White Blood Count 6.46 K/ul (4.8-10.8)
[2024-11-06] MEDS: MULTIVITAMIN TAB PO SCH (08:33)
[2024-11-06] MEDS: THIAMINE HCL 100 MG TAB PO SCH (08:33)
[2024-11-06 09:42] LABS: Alanine Aminotransferase 18.0 U/L (7-52); Albumin Globulin Ratio 1.6 (0.9-2); Alkaline Phosphatase 59.0 U/L (34-104); Anion Gap 4.0 (3-11); Bilirubin,Total 0.9 mg/dl (0.2-1.0); Blood Urea Nitrogen 20.0 mg/dl (6-23); Calcium 8.5 mg/dl (8.6-10.3); Carbon Dioxide 27.0 mmol/L (21-32); Chloride 104.0 mmol/L (98-107); Creatinine Clr Calc Pharmacy 52.8 ml/min; Globulin 2.1 gm/dl (2.5-4.0); Glucose 99.0 mg/dl (70-99(Fasting)); Potassium 4.4 mmol/L (3.5-5.1); Sodium 135.0 mmol/L (136-145); Total Protein 5.5 gm/dl (6.0-8.3)
--- NOTE | 2024-11-06 10:08 | Hospitalist Progress Note ---
Date of Service November 06, 2024 Assessment & Plan (1) Depression with suicidal ideation: (2) Alcohol use disorder: (3) High anion gap metabolic acidosis: (4) Anemia: Plan 63-year-old female presented to the hospital with suicidal ideation. Was found to be hypotensive in the ED requiring vasopressors. In the ICU for further management. Transferred to med surg floor with tele as patient is afebrile, hemodynamically stable with labs rapidly normalizing. Suicidal ideation - Awaiting Psych clearance for discharge - 10 years of on and off symptoms of depression. Establish psychiatrist outpatient. - No current signs of suicidal thoughts, no imminent risk of self harm - Restarted on fluoxetine 40mg po qd and Olanzapine 5mg PO HS - Followup outpatient weekly - Consul on better coping mechanisms and finding a social support group Acute alcohol intoxication/History of alcohol abuse - Alcohol level 348 in the ED - Initiated AWSS protocol with phenobarbital IV protocol, 130mg IV loading dose and 65mg prn Q6H dose for AWSS >8 on admission - EKG 11/04 showed sinus tachycardia with possible inferior infarct - Currently stable with ASAD of 0 - Continue IV thiamine/folate supplementation - Patient awake, alert, and oriented Acute renal failure - resolved - BUN/creatinine levels resolved, BUN: 69->20 Creatinine: 5.59 -> 0.93, BUN/Cr: 20.8 -> 21.5 - Avoid nephrotoxic medications - Strict I/Os, on 80mL/hr RL - CMP/CBC QAM HAGMA - resolved - Etiology likely secondary to ingestion of isopropyl alcohol causing acute renal failure. Lactic acid: 4.1 with reflux to 2.7 - Serum osmolality 385 on admission, resolved anion gap of 4 - Na: 135, Ca 7.4 -> 8.5 - VBG pH 7.17 and VBG pCo2: 36, metabolic acidosis with mild respiratory compensation on admission Hypotension/shock - resolved - d/c Vasopressin 20 units 0.04 mg/kg/min drip - Vitals stable this morning - Infectious etiology unlikely but still possible, urinalysis unremarkable other than trace blood/protein and hyaline casts - CBC normalized: WBC 6.46, Neut. 3.56 - Urine and blood cultures not indicated Anemia - resolved - improving, now RBC 3.03, Hgb 9.8, Hct 27.7% Dispo: Med surg VTE prophylaxis: Heparin Diet: Regular Code: Full Admission and Anticipated Discharge Date Admission Date: November 04, 2024 Subjective Pt is a 64 y/o F with a past medical history of alcohol abuse, HTN, and anemia admitted due to high anion gap metabolic acidosis, acute renal failure and severe hypotension/shock on 11/05. Patient has been seen on previous admissions for with similar signs and symptoms of acute alcohol intoxication with hypotension and shock. This morning, pt reports feeling fine and just wanted to go home. Still has little appetite today but is tolerating fluoxetine and olanzepine fine. Patient denies seizures, headache, hallucinations, psychomotor slowing or agitation, sweating, chest pain, palpitations, SOB, cough, abdominal pain, N/V, problems with urinating or stooling. Patient is moving all extremiti es and is neurologically intact. Physical Exam Physical Exam: General: Calm, in NAD, SpO2 97% on RA HEENT: Pupils dilated but reactive to light, moist mucous membrane CV: Normal r/r, S1, S2, no r/m/g, no LE edema Lungs: normal rr, cta in upper and mid lung combs, rales/rhonchi in the lower lobes b/l Abd. Soft, nondistended, normal bs, nontender to palpation Psych: No tremors, no thoughts of hurting self or other, no hallucinations, no psychomotor slowing or agitation Results & Data Results & Data Vital Signs (Past 12 Hours) Vital Signs Temp Pulse Pulse Pulse Resp BP Pulse Ox 11/06/24 07:40 36.6 C 79 20 136/83 97 11/06/24 04:30 36.6 C 82 16 141/70 H 95 11/06/24 00:57 81 11/06/24 00:15 36.7 C 81 18 144/86 H 94 11/05/24 21:00 36.5 C 82 23 138/82 96 O2 Del Method 11/06/24 07:40 Room Air 11/06/24 04:30 Room Air 11/06/24 00:57 11/06/24 00:15 Room Air 11/05/24 21:00 Room Air
--- NOTE | 2024-11-06 10:48 | Psychiatric Progress Note ---
Date of Service November 06, 2024 Impression / Recommendations Impression 64 y/o F h/o depression, anxiety, alcohol dependence presents to the hospital with suicidal ideation in the context of alcohol intoxication (BAL 350, drinking vodka, isopropanol). Was found to be hypotensive in the ED requiring vasopressors. Sent to ICU for further management. Psychiatry consulted for evaluation and safety assessment. Patient presents with suicidal ideation and escalating alcohol use to cope with worsening depression. She ingested isopropyl alcohol after she ran out of vodka. Concern for current major depressive episode and appears her current treatment regimen has been ineffective. She presents a history of repeat hospitalizations with similar presentation (past isopropyl alcohol abuse, suicidal ideations, shock with renal failure). A: Renal function improved; pt is not in active withdrawal. Patient was offered inpatient psychiatry admission and refused. She denies SI and is future oriented. Does not appear to be an imminent risk of harm to herself or others and does not meet involuntary criteria at this time. She was counseled about the risks of alcohol abuse and dependence and toxic effects of ingesting isopropyl alcohol. She completed a DIONNE to send records to her outpatient psychiatrist. Provided general recommendations for optimizing her outpatient care. Overall, I spent a total of 45 minutes with this case including review of chart records, nursing report, review of lab work, direct evaluation of the patient at bedside, counseling the patient, discussion of the patient with the hospitalist provider, discussion with the psychiatric liaison during clinical rounds, and documentation in the electronic health record. (1) Alcohol use disorder: (2) Major depressive episode: (3) Shock circulatory: (4) Acute renal failure (ARF): (5) Isopropanol causing toxic effect: Plan 11/06/24: D/c bedside sitter Does not meet involuntary criteria for further mental health hospitalization Continue home medications 11/05/24: Resume home Fluoxetine 40mg daily, Olanzapine 5mg HS Hydroxyzine 50mg Q6H PRN for anxiety, insomnia Continue bedside sitter Alcohol withdrawal protocol Psychiatry consults will follow Interval History Chief Complaint Depression, anxiety Subjective Subjective Pt reports feeling better today. Denies alcohol withdrawal shakes, sweating, NIEVES, AVH. Vitals stable. Denies SI. Does not want inpatient psychiatry admission. Goal directed towards taking care of her pet, pay bills, return to work. Concerned she will be fired. Goes to online AA meetings regularly. Has outpatient telepsychiatrist from [place]. Signs DIONNE for hospital records be sent to outpatient psychiatrist. Voices understanding of our concerns and recommendations. Prefers outpatient treatment. Physical Exam Mental Examination Appearance: Disheveled Eye Contact: Maintains Eye Contact Motor Behavior: Unremarkable Speech: Normal Mood: Depressed Affect: Congruent and Constricted Thought Process: Intact and Linear Thought Content: Racing Hallucinations: None Insight: Poor Judgement: Poor Vital Signs (Past 24 Hours) Last Vital Signs Temp 36.6 C 11/06/24 07:40 Pulse 79 11/06/24 07:40 Resp 20 11/06/24 07:40 BP 136/83 11/06/24 07:40 Pulse Ox 97 11/06/24 07:40 O2 Del Method Room Air 11/06/24 07:40 O2 Flow Rate 1 11/05/24 06:00 FiO2 2 11/04/24 21:00 Results & Data ([facility]) Laboratory Results Laboratory Results - last 24 hr 11/05/24 11/05/24 11/06/24 10:57 16:07 07:20 WBC 6.46 RBC 3.03 L Hgb 9.8 L Hct 27.7 L MCV 91.4 MCH 32.3 MCHC 35.4 RDW Std Deviation 43.8 RDW Coeff of Logan 13.2 Plt Count 280 MPV 9.4 Immature Gran % (Auto) 0.3 Neut % (Auto) 55.2 Lymph % (Auto) 36.5 Luna % (Auto) 6.3 Eos % (Auto) 1.2 Baso % (Auto) 0.5 Neut # (Auto) 3.56 Lymph # (Auto) 2.36 Luna # (Auto) 0.41 Eos # (Auto) 0.08 Baso # (Auto) 0.03 Immature Gran # (Auto) 0.02 Sodium 135 L Potassium 4.4 D Chloride 104 Carbon Dioxide 27 Anion Gap 4 BUN 20 D Creatinine 0.93 D Est Cr Clr Drug Dosing 52.8 eGFR 68.63 BUN/Creatinine Ratio 21.5 H Glucose 99 POC Glucose 117 H 109 H Calcium 8.5 L Total Bilirubin 0.9 AST 27 ALT 18 Alkaline Phosphatase 59 Total Protein 5.5 L Albumin 3.4 Globulin 2.1 L Albumin/Globulin Ratio 1.6 Current Inpatient Medications Current Inpatient Medications: Current Inpatient Medications Fluoxetine HCl (Fluoxetine Hcl 20 Mg Cap) 40 mg PO DAILY GERTRUDIS Stop: 12/06/24 10:29 Last Admin: 11/06/24 08:34 Dose: 40 mg Folic Acid (Folic Acid 1 Mg Tab) 1 mg PO QAM [facility] Stop: 12/05/24 08:59 Last Admin: 11/06/24 08:32 Dose: 1 mg Heparin Sodium (Porcine) (Heparin Sod 5,000 Unit/0.5 Ml Vial) 5,000 units SQ Q12 [facility] Stop: 12/04/24 20:59 Last Admin: 11/06/24 08:33 Dose: Not Given Lactated Ringer's (Lr) 1,000 mls @ 80 mls/hr IV .[id number] [facility] Stop: 11/08/24 10:29 Last Admin: 11/06/24 00:31 Dose: 80 mls/hr Lorazepam (Lorazepam 2 Mg/1 Ml Vial) 1 mg IV UD PRN; Protocol PRN Reason: EtOH Withdrawal AWSS Score 6,7 Stop: 12/05/24 19:02 Last Admin: 11/05/24 19:35 Dose: 1 mg Lorazepam (Lorazepam 2 Mg/1 Ml Vial) 2 mg IV UD PRN; Protocol PRN Reason: EtOH Withdrawal AWSS Score 8,9 Stop: 12/05/24 19:02 Lorazepam (Lorazepam 2 Mg/1 Ml Vial) 3 mg IV ONCE PRN; Protocol PRN Reason: EtOH Withdrawal AWSS Score 10+ Melatonin (Melatonin 3 Mg Tab) 6 mg PO HS PRN PRN Reason: Sleep Stop: 12/06/24 00:39 Multivitamins (Multivitamin Tab) 1 tab PO QAM [facility] Stop: 12/06/24 08:59 Last Admin: 11/06/24 08:33 Dose: 1 tab Ondansetron HCl (Ondansetron Inj 2 Mg/Ml 2 Ml Vial) 4 mg IV Q4H PRN PRN Reason: Nausea Stop: 12/04/24 15:53 Pantoprazole Sodium (Pantoprazole 40 Mg Tab) 40 mg PO DAILY [facility] Stop: 12/06/24 10:29 Last Admin: 11/06/24 08:34 Dose: 40 mg Thiamine HCl (Thiamine Hcl 100 Mg Tab) 100 mg PO DAILY [facility] Stop: 12/06/24 08:59 Last Admin: 11/06/24 08:33 Dose: 100 mg (4) Acute renal failure (ARF) Acute renal failure type: unspecified Qualified Code(s): N17.9 - Acute kidney failure, unspecified
[2024-11-06 11:04] VITALS: BP 150/84; RESP 22; O2SAT 96
--- NOTE | 2024-11-06 12:01 | Discharge Summary ---
Date of Service November 06, 2024 Admission HPI Per Admitting Provider Samia Gonzalez is a 64 y/o F with a past medical history of alcohol abuse, HTN admitted due to high anion gap metabolic acidosis, acute renal failure and severe hypotension/shock. Patient has been seen on previous admissions for with similar signs and symptoms of acute alcohol intoxication with hypotension and shock. Patient was seen in the ED and is unable to give much history due to acute intoxication. Patient reports that she drank approximately a pint of vodka leading to her acute intoxication. When patient is asked if she wanted to harm herself by drinking alcohol she denies this, but this is unclear as previous ED staff relayed that she had mentioned that she was trying to harm herself through alcohol consumption. Patient denies chest pain, palpitations, SOB, cough, wheeze, abdominal pain, nausea, and vomiting. Patient is afebrile and does not endorse any pain other than a slight headache. Patient is moving all extremities and is neurologically intact. Patient without any respiratory distress or airway compromise. Concrete Analyst was consulted due to hypotension and need for pressor support. ED course: Vitals in ED showed BP: 74/49, RR: 30, HR: 106, O2 saturation: 95% on room air CBC: significant for leukocytosis (11.50) borderline Hgb: 12.0, neutrophils: 9.28, Pltl: 459 CMP: Sodium: 132, Potassium: 4.3 Anion gap: 27, BUN: 69 Creatinine: 5.59 VBG pH: 7.17, VBG pCO2: 36 EKG: sinus tachycardia with possible inferior infarct 3x NSS 1 L boluses given NSS 1L 250ml/hr continuous fluids started Vasopressin 20 units 0.04 mg/kg/min drip started Admission Exam Per Admitting Provider General: patient resting, non-toxic in appearance, answers questions appropriately. Skin: warm, dry, intact HEENT: NC/AT, anicteric sclera, conjunctiva without injection, moist mucus membranes. Heart: +S1/S2, regular, no m/r/g Lungs: equal air entry bilaterally, no rales/rhonchi/wheezes Abd: +BS, soft, NT/ND Ext: warm, no clubbing/cyanosis or edema Neuro: nonfocal, speech intact, no facial droop, moving all extremities. Principal Diagnosis Acute alcohol intoxication/hypovolemic shock/acute renal failure Discharge Exam General: patient resting comfortably, NAD, non-toxic in appearance, answers questions appropriately. Skin: warm, dry, intact HEENT: NC/AT, anicteric sclera, conjunctiva without injection, moist mucus membranes. Heart: +S1/S2, regular, no m/r/g Lungs: equal air entry bilaterally, no rales/rhonchi/wheezes Abd: +BS, soft, NT/ND Ext: warm, no clubbing/cyanosis or edema Neuro: nonfocal, speech intact, no facial droop, moving all extremities. Discharge Data Allergies Allergy/AdvReac Type Severity Reaction Status Date / Time No Known Allergies Allergy Verified 11/04/24 10:12 Consultations 11/04/24 09:40 ED Decision to Admit Stat 11/04/24 10:00 Consult Concrete Analyst Routine 11/04/24 14:04 Consult Psychiatry Routine Ordered Studies 11/04/24 11:20 US point of care ultrasound Urgent Hospital Course (1) Depression with suicidal ideation: (2) Alcohol use disorder: (3) High anion gap metabolic acidosis: (4) Anemia: Plan 63-year-old female presented to the hospital with suicidal ideation. Was found to be hypotensive in the ED requiring vasopressors. In the ICU for further management. Transferred to [facility] heart surg floor with tele as patient is afebrile, hemodynamically stable with labs rapidly normalizing. Suicidal ideation - Patient to remain 1:1 in ICU setting - Psych evaluation pending - 10 years of on and off symptoms of depression. Establish psychiatrist outpatient. - No current signs of suicidal thoughts - Psych evaluation completed, 302 discussed but patient without SI/HI since admission and feels stable to return home Acute alcohol intoxication/History of alcohol abuse - Alcohol level 348 in the ED - Initiated AWSS protocol with phenobarbital IV protocol, 130mg IV loading dose and 65mg prn Q6H dose for AWSS >8 on admission - EKG 11/04 showed sinus tachycardia with possible inferior infarct - Currently stable with ASAD of 0 - Continue IV thiamine/folate supplementation - Patient awake, alert, and oriented, resolved Acute renal failure - Continue to monitor BUN/creatinine levels, BUN: 69->44 Creatinine: 5.59 - >2.12, BUN/Cr: 20.8 - AST: 7.4 - Avoid nephrotoxic medications - Strict I/Os, on IV D5W and 1/2NSS, change to 80mL RL - Cr rapidly normalizing, etiology likely due to isopropyl alcohol consumption HAGMA - Etiology likely secondary to lactic acidosis plus acute renal failure. Lactic acid: 4.1 with reflux to 2.7 - Serum osmolality 385 on admission, resolved anion gap of 11 - Na: 135, Ca 7.4 - VBG pH 7.17 and VBG pCo2: 36, metabolic acidosis with mild respiratory compensation on admission Hypotension/shock - d/c Vasopressin 20 units 0.04 mg/kg/min drip - Vitals stable this morning - Infectious etiology unlikely but still possible, urinalysis unremarkable other than trace blood/protein and hyaline casts - CBC: WBC 11.26, Neut. 7.3 - Order urine and blood cultures if indicated Anemia - RBC 2.86, Hgb 9.3, Hct 25.6%, MCHC 36.3 - Trend CBC Total Time Total Time Spent Total Time Spent (In Minutes): <30 Discharge Plan Discharge Items Patient Disposition: Home - Self-Care Reason For Visit: SHOCK, ALCOHOLIC KETOACIDOSIS Discharge Diagnosis: Hypovolemic shock, alcoholic ketoacidosis Condition on Discharge: Serious Activity: Per Instructions section Non-emergency contact: Primary Care Provider Call non-emergency contact if: your symptoms worsen and your pain is not controlled Follow-up/Referrals: PCP,NO [Primary Care Provider] - Diet: Regular Addtl Attending Provider Instructions: You were admitted to the hospital for acute alcohol intoxication, acute renal failure, anemia, metabolic acidosis with respiratory compensation, and hypovolemic shock. This was caused by ingesting large amount of alcohol and the acute renal failure and metabolic dysfunction was likely a combination effect from consuming isopropyl alcohol in addition to vodka. While in the hospital you were started on a norepinephrine IV drip to help raise your blood pressure as it was initially extremely low. While in the ICU your blood pressure quickly improved and your elevated labs normalized as you were given fluids. After this you were transferred to the medical floors and you continued to improve. While admitted you were evaluated by psychiatry and it was deemed that you did not have any intent to harm yourself or others and moving forward it will be very important to medically manage and physically manage your depression symptoms in order to not feel that you need to continue drinking. At this time we recommend that you completely quit drinking and we can give you more information about medical or other means of management to help you with this process. I really do think that when meeting with your PCP on Tuesday you will be able to create a plan to prevent a relapse and subsequent hospital admission due to acute intoxication. Please realize that you will have to put in quite a bit of work in order to get your depression and alcohol consumption under control, but if successful you will feel so much healthier and each day will feel better. Please use means of exercise, or expanding your social [place] and constant communication with family members to help enhance your mood. In addition a new type of exercise, sport, or hobby is always recommended and I think that a means of exercise that also allows for social contact and friendly competition will be beneficial for your mood. A frequent psych provider or family provider can also help you manage your medications however I warn you that the medication management portion will only partially mediate your feelings and symptoms. You will need try an find something that you enjoy to do and make it a habit, and frequent discussions with your loved ones and friends will help keep you motivated to stay healthy A discharge summary will be sent to your primary care physician to ensure continuity of care. Please bring this discharge summary with you to your next office appointment so that your provider can review it at that time. Follow-up appointments: Make a follow-up appointment with your PCP within the next week. It is very important that you follow up with them shortly after discharge from the hospital. You have an appointment with Dr. Eller set up on 11/09/24 at 2:20PM. Please plan to arrive by 2:05PM Medications: Your medication list has been reviewed and reconciled upon discharge to ensure accuracy and continuity of care. An updated list of all your medications is included with your hospital discharge paperwork. Please review this list closely, and make note of any changes. We increased a medication that you normally take called Hydroxyzine from 25mg to 50mg. You may safely take this medication for acute anxiety as needed every 6 hours. Do not exceed this dosage. Take your medications as instructed; do not skip a dose of your medicines. Make sure all of your doctors know every medicine you are taking (including iawn-dtt-skzjuik medicines, vitamins, and supplements). Call your primary care provider before taking any new medicines (including fypm-dks-papcncz medicines, vitamins, and supplements), because some of these may interact with your current medications, or may make your symptoms worse. Tell your primary care provider if you cannot afford your medications. CONTACT YOUR PRIMARY CARE PROVIDER if you experience any of the following: Difficulty following your treatment plan, or difficulty taking medications CALL 911 OR GO TO THE EMERGENCY DEPARTMENT if you experience any of the following: Sudden, severe abdominal pain or nausea/vomiting Severe chest pain, or chest pain that radiates (moves) to your jaw or arm Sudden, severe shortness of breath or difficulty breathing Thank you for allowing us to participate in your care. Pending Studies at Discharge: No Stand-Alone Forms: My [facility], Smoking Cessation Medications and DC Order Prescriptions: New hydroxyzine HCl 50 mg tablet 50 mg PO Q6H PRN (Reason: nausea and vomiting) Qty: 30 0RF Rx Instructions: Please take Hydroxyzine 50 mg every 6 hours as needed for increased anxiety. Continued fluoxetine 40 mg capsule 40 mg PO DAILY olanzapine 5 mg tablet 5 mg PO HS lisinopril 10 mg tablet 10 mg PO DAILY Hold Instructions: Resume on 06/01/24. Hold until Dr. Mcconnell says it is okay to resume folic acid 1 mg Tablet 1 mg PO QAM Qty: 30 0RF multivitamin with folic acid [Daily-Nicolasa (with folic acid)] 400 mcg Tablet 1 tab PO QAM Qty: 30 0RF Patient Comments: Unable to verify OTC meds at this date/time. thiamine HCl (vitamin B1) 100 mg Tablet 100 mg PO QAM Qty: 30 0RF Rx Instructions: Unable to verify OTC meds at this date/time. pantoprazole [Protonix] 40 mg tablet,delayed release (DR/EC) 40 mg PO DAILY Qty: 30 0RF Discontinued hydroxyzine HCl 25 mg tablet 25 mg PO Q6H PRN (Reason: anxiety) Qty: 30 0RF Discharge Orders: Discharge Order (Routine); Ordered 11/06/24 Ordered By: Benji Sahu Admission Data Admit Date/Time: 11/04/24 11:28 Attending Provider: Todd Morris Admit Provider: Manuel Mart Primary Care Provider: PCP,NO Other Providers: Anup Mckeon; Osmin Salazar; Ligia Brown; Og You ; Codie Subramanian; Noelle Newby; Antonio Godoy; Josh Eaton; Fatoumata Burks Other Interventions: Discharge Summary Assessment (RN) Last Done: 11/06/24 12:48 Supervising Physician Co-Signing Physician Notes I personally examined the patient and verified all brown points of history and exam, discussed case, and agree with decision making with Dr Sahu physically feels well. not suicidal. wants to go home. pt seen at the same time as psychiatry and d/w psych in depth as well - assistance greatly appreciated. vitals noted nad heent nc at mmm breathing unlabored no accessory muscles good effort skin no rashes no pallor or icterus neuro no focal deficits normal gait. Depression, suicidality, alcohol abuse and intoxication, isopropanol ingestion with acidosisclinically improved. no longer suicidal. ongoing depression and lack of social support but does not appear to have criteria for involuntary commitment - psych team discussed safety measures, i personally also discussed that EtOH rarely kills acutely but isopropyl can. set up for close (and hopefully if she follows up ongoing) PCP f/u. psych working on assisting for local psych resources. encouraged psychosocial measures as brown to her well being. cautiously safe for home. Resident Activity Tracking Resident Involvement: Resident Care Provided Care Provided: Adult Hospital Medicine
[2024-11-06 12:49] VITALS: PULSE 82
--- NOTE | 2024-11-06 13:16 | Billing Data ---
Date of Service November 06, 2024 Coding Level of Care Code 99545 IN/OBS DISCH 30 MIN/LESS
== END 2024-11-06 13:15 | disposition home or self-care (01) | DRG 896 ==
LOC: ED 08:00 → 1E 11:12 → SUATTDRO 11:28 → 1E 11:28 → 2W 11-06 00:03

== ENCOUNTER 2024-11-13 09:47 | Inpatient (IN) ==
[2024-11-13] MEDS: SODIUM CHLORIDE 0.9% 1,000 ML IV ONE (10:10)
--- NOTE | 2024-11-13 10:20 | Emergency Department Note ---
Impression & Plan Alcohol withdrawal delirium, acute, hyperactive, Alcohol intoxication, Alcohol use disorder, Major depressive episode, Hypomagnesemia, Hypophosphatemia ED Provider Note NAME: WILLIAN VALADEZ AGE: 64 SEX: F : 1960 ARRIVES VIA: Ambulance INFORMANT: Patient, EMS ED PROVIDER(S): Gabo Jaime DO CHIEF COMPLAINT: Weakness HPI: This is a 64-year-old female with the PMHx of depression, alcohol use disorder with recent admission presenting to [facility] for further evaluation of feeling of uneasiness at home. Patient also reports generalized weakness. Patient is accompanied by EMS who provide additional history. . Patient states that she does not feel good. Patient reports that she feels uneasy. Patient states that she is unsure what is wrong. She reports mild nausea but no abdominal pain or vomiting. Patient states that she was recently discharged from the hospital. She states that she drink 1 entire bottle of vodka on Tuesday. Patient states that she has not had any alcohol since. Patient denies prior history of alcohol withdrawal. They deny fever or chills. No cough or congestion. Denies chest pain or palpitations. No shortness of breath. They deny abdominal pain, nausea and vomiting. No urinary complaints. No recent changes in bowel movements. Patient denies recent changes in medications or OTC supplements. Patient offers no other complaints, today. ADDITIONAL HISTORY OBTAINED: Per HPI Chronic Medical/Social Conditions Affecting Care: Per HPI PAST MEDICAL HISTORY: See Below PAST SURGICAL HISTORY: See Below FAMILY HISTORY: See Below SOCIAL HISTORY: See Below HOME MEDICATIONS: See Below ALLERGIES: See Below VITALS: See Below PHYSICAL EXAMINATION: GENERAL: Sitting up in bed, alert, well appearing, well nourished, Tremulous EYE EXAM: normal conjunctiva. [PERRL and EOM's grossly intact.] OROPHARYNX: no exudate, no erythema, lips, buccal mucosa, and tongue normal and mucous membranes are dry, tongue fasciculations NECK: supple, no nuchal rigidity, no adenopathy, non-tender LUNGS: Clear to auscultation. Normal chest wall mechanics HEART: no murmurs, tachycardic rate, regular rhythm ABDOMEN: abdomen soft, non-tender, no masses, no rebound or guarding. BACK: Back is symmetrical on inspection and there is no deformity, no midline tenderness, no CVA tenderness. SKIN: no rashes and no bruising UPPER EXTREMITIES: upper extremities are grossly normal. LOWER EXTREMITIES: No pitting edema. NEURO EXAM: Normal sensorium, GCS 15, normal speech, no gross weakness of arms, no gross weakness of legs. patient has significant tremors of the extremities. she is anxious. MEDICAL DECISION MAKING: Differential diagnoses includes but not limited to acute alcohol withdrawal, electrolyte derangements, dehydration, pneumonia, UTI In summary, this is a 64 year old female who presented with weakness. Differential as above. Nursing notes and pertinent past medical records reviewed. Vital signs reviewed and the patient is Tachycardic but otherwise afebrile hemodynamically stable. History and presentation revealed recent admission for depression and alcohol use disorder. Did have alcoholic ketoacidosis. Patient was recently discharged and started drinking again on Tuesday. Patient reports she has not drink since Tuesday but appears to be in alcohol withdrawal on physical examination. We will begin lab workup as well as phenobarbital load. Diagnostics interpreted by me include EKG and cardiac monitoring as listed below: -Cardiac Monitoring: An order was placed for continuous cardiac monitoring. The monitor shows a rate of 90-120s with regular rhythm. -ECG: EKG independently interpreted by me reveals sinus tachycardia at a rate of [address] segment changes to suggest STEMI. Intervals are within normal limits otherwise. Patient completed laboratory studies and imaging. On reevaluation, the patient is still mildly tachycardic and tremulous. She is reporting no improvement. Will give an additional dose of IV push phenobarbital. Laboratory analysis shows mild leukopenia and anemia is stable as compared to prior. Does have electrolyte derangements including hyponatremia, hypophosphatemia and hypomagnesemia. IV replenishment ordered. Patient does have mild elevation in AST. Patient does have an anion gap present with low carbon dioxide at 14. For a hypoventilation at rest. Ethanol is positive despite saying that she has not drank since Tuesday. Lipase is within normal limits. Troponin unremarkable. CXR independently interpreted by me reveals no evidence of focal consolidation to suggest pna. No large pneumothorax or pleural effusion. Ultimately, the decision was made to admit the patient for acute alcohol withdrawal with significant electrolyte derangements. It was recommended to admit this patient at 1127. I discussed the case with the hospitalist service via telephone/Tiger[employer] and they are agreeable to admit the patient to their services at [address] Blair. Based on the above, including the patient's age, coexisting illnesses, labs, imaging, and exam findings the decision to treat as an inpatient. I discussed the patient with the hospitalist team who recommended admission to their services. They received the medications, treatments, interventions indicated above and their condition remained guarded. I discussed my findings with the patient and their family and they understand and agree with the treatment plan. All patient / family questions were answered to their satisfaction. Consults/Care Managements Discussions: Per MDM ER treatment provided: See above Procedures:none Critical Care: None The chart was completed utilizing [employer] Speech voice recognition software. Grammatical errors, random word insertions, pronoun errors, and incomplete sentences are an occasional consequence of this system due to software limitations, ambient noise, and hardware issues. Any formal questions or concerns about the content, text, or information contained within the body of this dictation should be directly addressed to the physician for clarification. Past Med/Surg History Problem List (Updated 11/13/24 @ 11:38 by Gabo Jaime DO) Hypophosphatemia (Acute) Hypomagnesemia (Acute) Alcohol withdrawal delirium, acute, hyperactive (Acute) Major depressive episode (Acute) Isopropanol causing toxic effect Alcohol use disorder (Acute) Normocytic anemia Alcohol intoxication (Acute) Suicidal ideation (Acute) Shock circulatory (Acute) Acute renal failure (ARF) (Acute) High anion gap metabolic acidosis Anemia Medical History Depression with suicidal ideation Metabolic encephalopathy Acute hyponatremia Alcohol withdrawal seizure Alcohol withdrawal syndrome Ethyl alcohol poisoning Social History Smoking Status: Never smoker Second Hand Exposure: No; Do You Dip or Chew Tobacco: No; Hx Alcohol Use: Yes Alcohol type: hard liquor Hx Substance Use: No Preferred Language: Moldovan Communication Ability: Effective Communication Ability Comment: normal Direct Support Staff Member Required: No Beliefs That Will Affect Care: Spiritual Current Living Situation: Alone Current Living Situation Comment: Jason Feels Safe at Home: Yes Assistive Devices: None Allergies Allergies Allergy/AdvReac Type Severity Reaction Status Date / Time No Known Allergies Allergy Verified 11/04/24 10:12 Home Meds Home Medications Medication Instructions Recorded Confirmed fluoxetine 40 mg capsule 40 mg PO DAILY 05/22/24 11/13/24 olanzapine 5 mg tablet 5 mg PO HS 05/22/24 11/13/24 lisinopril 10 mg tablet 10 mg PO DAILY 05/24/24 11/13/24 Previous Rx's Medication Instructions Recorded folic acid 1 mg tablet 1 mg PO QAM #30 tabs 05/24/24 multivitamin with folic acid 400 1 tab PO QAM #30 tabs 05/24/24 mcg tablet (Daily-Nicolasa (with folic acid)) thiamine HCl (vitamin B1) 100 mg 100 mg PO QAM #30 tabs 05/24/24 tablet pantoprazole 40 mg tablet,delayed 40 mg PO DAILY #30 tabs 07/20/24 release (Protonix) hydroxyzine HCl 50 mg tablet 50 mg PO Q6H PRN nausea and 11/06/24 vomiting #30 tabs Results & Data (ED) Vital Signs Vital Signs - 24 hr 11/13/24 09:50 11/13/24 09:59 11/13/24 09:59 Temperature 37.1 C Temperature Source Oral Pulse Rate 115 H 117 H Pulse Rate [Apical] 118 H Pulse Rhythm Regular Pulse Strength Normal Pulse Strength [Apical] Normal Respiratory Rate 24 18 Respiratory Effort / Characteristics Non-Labored Spontaneous Non-Labored Spontaneous Respiratory Depth Normal Normal Respiratory Pattern Regular Blood Pressure 144/93 H Blood Pressure [Right Arm] 144/93 H Blood Pressure Mean 110 Blood Pressure Mean [Right Arm] 110 Pulse Oximetry 97 96 Oxygen Delivery Method Room Air Room Air Sepsis Recent Fever Within 48 Hours No Sepsis New/Unexplained Change in Mental Status No Sepsis Action Taken by Nursing No Action Required 11/13/24 10:16 11/13/24 10:35 11/13/24 11:08 Temperature Temperature Source Pulse Rate 111 H 108 H Pulse Rate [Apical] 111 H Pulse Rhythm Pulse Strength Pulse Strength [Apical] Normal Respiratory Rate 26 H 24 25 H Respiratory Effort / Characteristics Non-Labored Spontaneous Respiratory Depth Normal Respiratory Pattern Regular Blood Pressure 155/93 H 150/92 H Blood Pressure [Right Arm] 153/88 H Blood Pressure Mean Blood Pressure Mean [Right Arm] 109 Pulse Oximetry 98 Oxygen Delivery Method Room Air Sepsis Recent Fever Within 48 Hours Sepsis New/Unexplained Change in Mental Status Sepsis Action Taken by Nursing Laboratory Data 11/13/24 10:01 11/13/24 10:01 Lab Results 11/13/24 11/13/24 Range/Units 10:01 10:30 WBC 4.59 L (4.8-10.8) K/ul RBC 3.69 L (4.20-5.40) M/uL Hgb 11.8 L (12.0-16.0) g/dl Hct 32.6 L (37.0-47.0) % MCV 88.3 (80.0-100.0) fL MCH 32.0 (25.0-34.0) pg MCHC 36.2 H (32.0-36.0) g/dL RDW Std Deviation 43.7 (36.4-46.3) fL RDW Coeff of Logan 13.6 (11.5-14.5) % Plt Count 351 (130-400) K/uL MPV 9.0 L (9.4-12.4) fL Immature Gran % (Auto) 1.3 % Neut % (Auto) 46.8 % Lymph % (Auto) 33.6 % Emery % (Auto) 17.2 % Eos % (Auto) 0.2 % Baso % (Auto) 0.9 % Neut # (Auto) 2.15 (1.40-6.50) K/uL Lymph # (Auto) 1.54 (1.20-3.40) K/uL Emery # (Auto) 0.79 H (0.11-0.59) K/uL Eos # (Auto) 0.01 (0.00-0.50) K/uL Baso # (Auto) 0.04 (0.00-0.20) K/uL Immature Gran # (Auto) 0.06 (0.01-0.20) K/uL VBG pH 7.48 H (7.36-7.41) VBG pCO2 18 L (38-50) mmHg VBG pO2 43 mmHg VBG HCO3 13 mmol/L VBG O2 Saturation 78.3 % VBG Base Excess -7.5 mEq/L Sodium 132 L (136-145) mmol/L Potassium 3.7 (3.5-5.1) mmol/L Chloride 89 L (98-107) mmol/L Carbon Dioxide 14 L (21-32) mmol/L Anion Gap 29 H (3-11) BUN 17 (6-23) mg/dl Creatinine 0.96 (0.6-1.2) mg/dl Est Cr Clr Drug Dosing 51.1 ml/min eGFR 66.07 BUN/Creatinine Ratio 17.7 (10-20) Glucose 140 H (70-99(Fasting)) mg/dl Osmolality 310 H (280-300) mOsm/kg Calcium 9.2 (8.6-10.3) mg/dl Phosphorus 1.8 L (2.5-4.9) mg/dl Magnesium 1.6 L (1.7-2.4) mg/dl Total Bilirubin 0.5 (0.2-1.0) mg/dl AST 77 H (13-39) U/L ALT 45 (7-52) U/L Alkaline Phosphatase 84 (34-104) U/L Troponin I High Sens 7.8 (0-14) pg/ml Total Protein 7.6 (6.0-8.3) gm/dl Albumin 4.6 (3.4-5.0) gm/dl Globulin 3.0 (2.5-4.0) gm/dl Albumin/Globulin Ratio 1.5 (0.9-2) Lipase 28 (11-82) U/L Ethyl Alcohol mg/dL 121.6 H (<10.0) mg/dl Administered Medications Magnesium Sulfate/Dextrose (Magnesium Sulfate / D5w) 1 gm in 100 mls @ 100 mls/hr IV Q1H GERTRUDIS Stop: 11/13/24 12:58 Last Admin: 11/13/24 11:08 Dose: 100 mls/hr Documented By: JONATHAN Parenteral Electrolytes (Plasma-Lyte A Ph 7.4) 1,000 mls @ 125 mls/hr IV .Q8H GERTRUDIS Stop: 11/16/24 10:59 Last Admin: 11/13/24 11:14 Dose: 125 mls/hr Documented By: JONATHAN Discontinued Medications Thiamine HCl 500 mg/ Sodium (Chloride) 55 mls @ 210 mls/hr IV NOW STA Stop: 11/13/24 10:21 Last Admin: 11/13/24 10:33 Dose: 210 mls/hr Documented By: JONATHAN Sodium Chloride (Nss) 1,000 mls @ 999 mls/hr IV .Q1H1M ONE Stop: 11/13/24 11:06 Last Infusion: 11/13/24 11:16 Dose: Infused Documented By: Admin: 11/13/24 10:10 Dose: 999 mls/hr Documented By: JONATHAN Phenobarbital Sodium (Phenobarbital Sodium 130 Mg/Ml Vial) 195 mg IV NOW STA Stop: 11/13/24 10:12 Last Admin: 11/13/24 10:16 Dose: 195 mg Documented By: JONATHAN Phenobarbital Sodium (Phenobarbital Sodium 65 Mg/Ml Vial) 65 mg IV NOW STA Stop: 11/13/24 10:59 Last Admin: 11/13/24 11:08 Dose: 65 mg Documented By: JONATHAN Imaging Data Radiologist's Impression: Chest X-Ray 11/13/24 10:06 XR chest 1V portable CLINICAL HISTORY: tachycardic, SOB COMPARISON STUDY: 07/20/2024 FINDINGS: The heart is normal in size. There is no failure. There is no focal pulmonary consolidation. Overlying cardiac leads are evident. Linear opacities in the right perihilar region are likely atelectatic. IMPRESSION: 1. Minor right midlung zone atelectatic change. No evidence of failure. No evidence of lobar consolidation. ACT 112: Negative or not required by law. Electronically signed by: Rolo Wu M.D. 11/13/2024 10:39 AM Discharge Plan Visit Data Chief Complaint: Illness Stated Complaint: alcohol withdrawal ED Provider: Gabo Jaime Discharge Problem: Alcohol withdrawal delirium, acute, hyperactive, Alcohol intoxication, Alcohol use disorder, Major depressive episode, Hypomagnesemia, Hypophosphatemia Patient Disposition: Admitted As Inpatient Condition: Serious Forms Stand Alone Forms: My [facility] Prescriptions Prescriptions: No Action hydroxyzine HCl 50 mg tablet 50 mg PO Q6H PRN (Reason: nausea and vomiting) Qty: 30 0RF Rx Instructions: Please take Hydroxyzine 50 mg every 6 hours as needed for increased anxiety. fluoxetine 40 mg capsule 40 mg PO DAILY olanzapine 5 mg tablet 5 mg PO HS lisinopril 10 mg tablet 10 mg PO DAILY Hold Instructions: Resume on 06/01/24. Hold until Dr. Mcconnell says it is okay to resume folic acid 1 mg Tablet 1 mg PO QAM Qty: 30 0RF multivitamin with folic acid [Daily-Nicolasa (with folic acid)] 400 mcg Tablet 1 tab PO QAM Qty: 30 0RF Patient Comments: 11/13- otc unable to verify thiamine HCl (vitamin B1) 100 mg Tablet 100 mg PO QAM Qty: 30 0RF Patient Comments: 11/13- otc unable to verify pantoprazole [Protonix] 40 mg tablet,delayed release (DR/EC) 40 mg PO DAILY Qty: 30 0RF Referrals Referrals: PCP,NO [Primary Care Provider] -
[2024-11-13 10:25] LABS: Hematocrit (blood only) 32.6 % (37.0-47.0); Hemoglobin 11.8 g/dl (12.0-16.0); Immature Granulocytes # (auto) 0.06 K/uL (0.01-0.20); Immature Granulocytes % (auto) 1.3 %; Mean Corpuscular Hemoglobin 32.0 pg (25.0-34.0); Mean Corpuscular Volume 88.3 fL (80.0-100.0); Platelet Count 351 K/uL (130-400); RDW Standard Deviation 43.7 fL (36.4-46.3); Red Blood Count 3.69 M/uL (4.20-5.40); White Blood Count 4.59 K/ul (4.8-10.8)
[2024-11-13] MEDS: THIAMINE HCL 500 MG in SODIUM CHLORIDE 0.9% 50 ML IV STA (10:33)
--- NOTE | 2024-11-13 10:40 | XRay Report ---
XR chest 1V portable CLINICAL HISTORY: tachycardic, SOB COMPARISON STUDY: 07/20/2024 FINDINGS: The heart is normal in size. There is no failure. There is no focal pulmonary consolidation . Overlying cardiac leads are evident. Linear opacities in the right perihilar region are likely atel ectatic. IMPRESSION: 1. Minor right midlung zone atelectatic change. No evidence of failure. No evidence of lobar consolid ation. ACT 112: Negative or not required by law. Electronically signed by: Rolo Wu M.D. 11/13/2024 10:39 AM
[2024-11-13 10:41] LABS: Base Excess VBG -7.5 mEq/L; HCO3 VBG 13 mmol/L; Oxygen Saturation VBG 78.3 %; PCO2 VBG 18 mmHg (38-50); PO2 VBG 43 mmHg; pH VBG 7.48 (7.36-7.41)
[2024-11-13 10:43] LABS: Alanine Aminotransferase 45.0 U/L (7-52); Albumin Globulin Ratio 1.5 (0.9-2); Alkaline Phosphatase 84.0 U/L (34-104); Anion Gap 29.0 (3-11); Bilirubin,Total 0.5 mg/dl (0.2-1.0); Blood Urea Nitrogen 17.0 mg/dl (6-23); Calcium 9.2 mg/dl (8.6-10.3); Carbon Dioxide 14.0 mmol/L (21-32); Chloride 89.0 mmol/L (98-107); Creatinine Clr Calc Pharmacy 51.1 ml/min; Globulin 3.0 gm/dl (2.5-4.0); Glucose 140.0 mg/dl (70-99(Fasting)); Lipase 28.0 U/L (11-82); Magnesium 1.6 mg/dl (1.7-2.4); Potassium 3.7 mmol/L (3.5-5.1); Sodium 132.0 mmol/L (136-145); Total Protein 7.6 gm/dl (6.0-8.3)
[2024-11-13] MEDS ORDERED: SODIUM PHOSPHATE 3 MMOL/1 ML 5 ML VIAL IV ONE (10:59)
[2024-11-13] MEDS: MAGNESIUM SULFATE / D5W 1 GM/100 ML BAG IV SCH (11:08)
[2024-11-13] MEDS: PLASMA-LYTE A 1,000 ML IV SCH (11:14)
[2024-11-13] MEDS: SODIUM PHOSPHATE 15 MMOL in SODIUM CHLORIDE 0.9% 250 ML IV ONE (11:40)
[2024-11-13] MEDS: LACTATED RINGER'S 1,000 ML IV ONE (12:21)
--- NOTE | 2024-11-13 12:29 | History & Physical Report ---
Date of Service November 13, 2024 Assessment & Plan (1) Alcohol withdrawal delirium, acute, hyperactive: (2) Alcohol use disorder, severe, dependence: (3) Acute lactic acidosis: (4) Hypophosphatemia: (5) Hypomagnesemia: Plan in summary this is a 64-year-old female who presents with acute alcohol withdraw without clear complications at this time. #Alcohol withdrawal with severe dependence // Hypophosphatemia and Hypomagnesemia Patient presented with generalized fatigue, malaise, tremulousness of the upper and lower extremities; last alcoholic drink was in the evening on 11/11; PAWSS score 7; no evidence of alcoholic appetite at this time based on laboratory assessment and clinical findings Activity as patient tolerates during acute withdrawal phase Start thiamine 100 mg IV every 8 hours for 3 days, then transition to 100 mg p.o. daily Start folate 1 mg p.o. daily Start LR at 100 mL/h until oral hydration needs are met consistently, especially in setting of lactic acidosis Continue phenobarbital protocol If the patient develops hyperactive autonomic symptoms, consider clonidine 0.1 mg p.o. with maximum daily dose of 1.2 mg If they develop persistent agitation with or without aggressive behavior, could consider haloperidol 2.5 to 5 mg IV every 4 hours, though note that this can reduce the patient's seizure threshold Follow daily CMP, magnesium, phosphorus, CBC without differential #Acute lactic acidosis Elevated lactic acid of 7.4 with an elevated anion gap; likely consequential of intravascular depletion in the setting of their alcohol withdrawal with a large volume of insensible losses; continue with volume resuscitation as ordered above; suspect that this is not consequence of an underlying infectious process given the lack of a leukocytosis and absence of constitutional symptoms con sistent with infection #Normocytic anemia Presenting with hemoglobin of 11.6 which is slightly above the patient's established baseline of 9.5-10.5; MCV 88.3, MCHC 36.2, RDW 13.6; asymptomatic at this time, most likely combination of macrocytic and microcytic anemia considering the patient's underlying medical conditions which have a strong affiliation with iron deficiency as well as folate and cyanocobalamin deficiency -monitor as above #Major depressive disorder Chronic condition; previous hospitalization the patient was established on flu oxetine but never began this medication; start treatment during this hospitalization with previously prescribed fluoxetine Admission and Anticipated Discharge Date Admission Date: 11/13/2024 History of Present Illness Chief Complaint: Generalized weakness in the setting of alcohol withdrawal Primary Care Provider: NO PCP Ms. Gonzalez is a 64-year-old female whose active medical conditions include alcohol use disorder with severe dependence, major depressive disorder, multifactorial normocytic anemia among other chronic medical conditions who presented to [facility] on 11/13 due to generalized illness in the setting of suspected alcohol withdrawal. The patient describes a last consumed alcohol on 11/11 in the late evening, specifically had not consumed approximately 1 full pint of vodka. She notes that her symptoms that she presents with today have progressively worsened over the past 36 hours. She describes feeling "awful", and when further asked about what specifically makes her feel this way she cites a sense of self worthlessness and disappointment due to her recurrent use of alcohol after her recent hospitalization in 10/2024. Allergies Allergy/AdvReac Type Severity Reaction Status Date / Time No Known Allergies Allergy Verified 11/04/24 10:12 Home Medications Medication Instructions Recorded Confirmed Type fluoxetine 40 mg capsule 40 mg PO DAILY 05/22/24 11/13/24 History olanzapine 5 mg tablet 5 mg PO HS 05/22/24 11/13/24 History folic acid 1 mg tablet 1 mg PO QAM #30 tabs 05/24/24 11/13/24 Rx lisinopril 10 mg tablet 10 mg PO DAILY 05/24/24 11/13/24 History multivitamin with folic acid 400 1 tab PO QAM #30 tabs 05/24/24 11/13/24 Rx mcg tablet (Daily-Nicolasa (with folic acid)) thiamine HCl (vitamin B1) 100 mg 100 mg PO QAM #30 tabs 05/24/24 11/13/24 Rx tablet pantoprazole 40 mg tablet,delayed 40 mg PO DAILY #30 tabs 07/20/24 11/13/24 Rx release (Protonix) hydroxyzine HCl 50 mg tablet 50 mg PO Q6H PRN nausea and 11/06/24 11/13/24 Rx vomiting #30 tabs Past Med/Surg History Problem List Acute lactic acidosis Alcohol use disorder, severe, dependence Hypophosphatemia (Acute) Hypomagnesemia (Acute) Alcohol withdrawal delirium, acute, hyperactive (Acute) Major depressive episode (Acute) Normocytic anemia (Chronic) Medical History Acute renal failure due to toxin Depression with suicidal ideation Metabolic encephalopathy Acute hyponatremia Alcohol withdrawal seizure Ethyl alcohol poisoning Social History Smoking Status: Never smoker Second Hand Exposure: No; Do You Dip or Chew Tobacco: No; Hx Alcohol Use: Yes Alcohol type: hard liquor Hx Substance Use: No Preferred Language: Estonian Communication Ability: Effective Communication Ability Comment: normal 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: No Beliefs That Will Affect Care: Spiritual Current Living Situation: Alone Current Living Situation Comment: Jason Feels Safe at Home: Yes Assistive Devices: None Review of Systems Review of Systems: Constitutional: endorses generalized fatigue; denies fevers, chills, malaise Cardiovascular: denies angina, palpitations, syncope, peripheral edema, orthopnea Pulmonary: endorses shortness of breath; denies cough, worsened dyspnea on exertion, pleuritic chest pain Gastrointestinal: denies nausea, emesis, dysphagia, dyspepsia, abdominal distension, constipation, diarrhea Genitourinary: denies dysuria, hematuria, urinary incontinence Neurologic: endorses tremulousness of the upper and lower extremities worsened with activity; denies focal weakness, paresthesias or numbness, vision changes or diplopia, ataxia Musculoskeletal: denies arthralgias, progressive weakness, recent falls Integumentary: denies new or developing rashes or lesions Physical Exam Physical Exam: General: Adult female in no acute distress Vital Signs: Reviewed HEENT: Normocephalic, atraumatic; pupils equally reactive to light, extraocular motions intact; moist mucous membranes Neck: No palpable lymphadenopathy Pulmonary: symmetric chest wall excursion; CTAB Cardiovascular: slightly tachycardic rate with regular rhythm without murmurs rubs or gallops; S1 and S2 normal; bilateral radial and posterior tibial pulses 2+; no notable lower extremity edema Gastrointestinal: soft, nondistended; no palpable masses nor organomegaly Neurologic: CN II-XII intact; no discernible focal weakness nor paresthesias Results & Data Results & Data Vital Signs (Past 12 Hours) Vital Signs Temp Pulse Pulse Resp BP BP Pulse Ox 11/13/24 11:08 108 H 25 H 150/92 H 11/13/24 10:35 111 H 24 153/88 H 98 11/13/24 10:16 111 H 26 H 155/93 H 11/13/24 09:59 117 H 11/13/24 09:59 118 H 18 144/93 H 96 11/13/24 09:50 37.1 C 115 H 24 144/93 H 97 O2 Del Method 11/13/24 11:08 11/13/24 10:35 Room Air 11/13/24 10:16 11/13/24 09:59 11/13/24 09:59 Room Air 11/13/24 09:50 Room Air Code Status & VTE Plan VTE Prophylaxis Plan VTE Prophylaxis will be ordered: Yes PG Care Time/CCT Total # of Minutes Spent Total Time Spent with Patient: Total time spent is greater than 50% in coordination of care (as documented) at patient's floor/unit and/or counseling patient: [place] [address] INT INP/OBS CARE 3/75MIN Patient Type New History Comprehensive Exam Comprehensive Medical Decision Making High Complexity Diagnoses Alcohol withdrawal delirium, acute, hyperactive F10.931 Alcohol use disorder, severe, dependence F10.20 Acute lactic acidosis E87.21 Hypophosphatemia E83.39 Hypomagnesemia E83.42
[2024-11-13] MEDS: LACTATED RINGER'S 1,000 ML IV SCH (13:41)
[2024-11-13] MEDS: THIAMINE HCL 100 MG in SYRINGE 9 ML IV SCH (13:41)
[2024-11-13] MEDS: MELATONIN 3 MG TAB PO PRN (14:06)
[2024-11-13] MEDS: ENOXAPARIN INJ 40 MG/0.4 ML SYR SQ SCH (14:24)
[2024-11-13] MEDS: METOCLOPRAMIDE HCL INJ 5 MG/ML 2 ML VIAL IV PRN (16:53)
--- NOTE | 2024-11-13 17:40 | Electrocardiogram Report ---
Test Reason : Blood Pressure : */* mmHG Vent. Rate : 119 BPM Atrial Rate : 119 BPM P-R Int : 148 ms QRS Dur : 72 ms QT Int : 334 ms P-R-T Axes : 66 39 38 degrees QTcB Int : 469 ms Sinus tachycardia Otherwise normal ECG When compared with ECG of 04-Nov-2024 11:04, Borderline criteria for Inferior infarct are no longer Present Nonspecific T wave abnormality has replaced inverted T waves in Inferior leads Confirmed by Matteo Gee ([id number]) on 11/13/2024 5:39:51 PM Referred By: REFERRED SELF Confirmed By: Matteo Gee
[2024-11-14 05:06] LABS: Hematocrit (blood only) 25.5 % (37.0-47.0); Hemoglobin 9.0 g/dl (12.0-16.0); Mean Corpuscular Hemoglobin 31.8 pg (25.0-34.0); Mean Corpuscular Volume 90.1 fL (80.0-100.0); Platelet Count 218 K/uL (130-400); RDW Standard Deviation 45.2 fL (36.4-46.3); Red Blood Count 2.83 M/uL (4.20-5.40); White Blood Count 4.98 K/ul (4.8-10.8)
[2024-11-14 05:49] LABS: Alanine Aminotransferase 28.0 U/L (7-52); Albumin Globulin Ratio 1.7 (0.9-2); Alkaline Phosphatase 58.0 U/L (34-104); Anion Gap 8.0 (3-11); Bilirubin,Total 0.8 mg/dl (0.2-1.0); Blood Urea Nitrogen 9.0 mg/dl (6-23); Calcium 7.9 mg/dl (8.6-10.3); Carbon Dioxide 26.0 mmol/L (21-32); Chloride 100.0 mmol/L (98-107); Creatinine Clr Calc Pharmacy 69.1 ml/min; Globulin 1.9 gm/dl (2.5-4.0); Glucose 78.0 mg/dl (70-99(Fasting)); Magnesium 2.0 mg/dl (1.7-2.4); Potassium 3.4 mmol/L (3.5-5.1); Sodium 134.0 mmol/L (136-145); Total Protein 5.2 gm/dl (6.0-8.3)
[2024-11-14 07:45] VITALS: BP 146/85; RESP 18; TEMP 97.3; O2SAT 97
[2024-11-14] MEDS: POTASSIUM CHLORIDE CRTAB 20 MEQ TABCR PO STA (08:55)
[2024-11-14] MEDS: POLYETHYLENE (MIRALAX) 17 GM PACK PO SCH (08:55)
[2024-11-14] MEDS: FOLIC ACID 1 MG TAB PO SCH (08:57)
[2024-11-14] MEDS ORDERED: FOLIC ACID 1 MG TAB PO SCH (09:00)
--- NOTE | 2024-11-14 12:37 | Discharge Summary ---
Discharge Summary Date of Service November 14, 2024 Principal Dx & Hospital Course #1 = Principal Diagnosis (1) Alcohol withdrawal delirium, acute, hyperactive: The patient is medically stable this morning, November 14 and is adamant about going home. She will be discharged on a tapering dose of chlordiazepoxide. Further alcohol intake is not recommended (2) Alcohol use disorder, severe, dependence: Alcohol intake sensation has been highly recommended (3) Acute lactic acidosis: Present on admission. Now resolved (4) Hypophosphatemia: Corrected with parenteral replacement therapy (5) Hypomagnesemia: Corrected and resolved Plan Home today, November 14, on a Librium tapering dose. Alcohol intake cessation is highly recommended going forward. Follow-up with primary care provider soon as possible. Admission HPI Per Admitting Provider Ms. Gonzalez is a 64-year-old female whose active medical conditions include alcohol use disorder with severe dependence, major depressive disorder, multifactorial normocytic anemia among other chronic medical conditions who presented to [facility] on 11/13 due to generalized illness in the setting of suspected alcohol withdrawal. The patient describes a last consumed alcohol on 11/11 in the late evening, specifically had not consumed approximately 1 full pint of vodka. She notes that her symptoms that she presents with today have progressively worsened over the past 36 hours. She describes feeling "awful", and when further asked about what specifically makes her feel this way she cites a sense of self worthlessness and disappointment due to her recurrent use of alcohol after her recent hospitalization in 10/2024. Discharge Exam General-alert and oriented x3, no fever, no chills HEENT-head atraumatic and normocephalic, pupils equal and reactive to light, extraocular muscles intact Neck-no lymphadenopathy or thyromegaly, trachea midline Chest-clear to auscultation. No rales, wheezing or rhonchi Cardiac-regular rate and rhythm, normal S1 and S2 Abdomen-normal bowel sounds, no hepatosplenomegaly Extremities-no cyanosis, clubbing, or edema Neuro-cranial nerves II through XII intact, motor and sensory function within normal limits, strength symmetrical, no focal deficits Psych-normal affect, normal mood Discharge Plan Discharge Items Patient Disposition: Home - Self-Care Reason For Visit: ALCOHOL WITHDRAWAL Discharge Diagnosis: Alcohol withdrawal, hypomagnesemia, hypophosphatemia Condition on Discharge: Good Activity: Resume your previous activity Non-emergency contact: Primary Care Provider Call non-emergency contact if: your symptoms worsen Follow-up/Referrals: PCP,NO [Primary Care Provider] - Diet: Regular Addtl Attending Provider Instructions: Take chlordiazepoxide and a tapering dose fashion as directed. A prescription has been sent to your [facility] pharmacy on [facility]. Follow-up with primary care provider soon as possible. Cessation of alcohol intake is highly recommended Pending Studies at Discharge: No Stand-Alone Forms: My [facility], Smoking Cessation Medications and DC Order Prescriptions: New chlordiazepoxide HCl 10 mg Capsule See Rx Instructions .ROUTE .COMPLEX Qty: 12 0RF Rx Instructions: 10 mg orally 3 times a day for 2 days, then twice a day for 2 days, then once a day for 2 days, then stop Continued hydroxyzine HCl 50 mg tablet 50 mg PO Q6H PRN (Reason: nausea and vomiting) Qty: 30 0RF Rx Instructions: Please take Hydroxyzine 50 mg every 6 hours as needed for increased anxiety. fluoxetine 40 mg capsule 40 mg PO DAILY olanzapine 5 mg tablet 5 mg PO HS lisinopril 10 mg tablet 10 mg PO DAILY Hold Instructions: Resume on 06/01/24. Hold until Dr. Mcconnell says it is okay to resume folic acid 1 mg Tablet 1 mg PO QAM Qty: 30 0RF multivitamin with folic acid [Daily-Nicolasa (with folic acid)] 400 mcg Tablet 1 tab PO QAM Qty: 30 0RF Patient Comments: 11/13- otc unable to verify thiamine HCl (vitamin B1) 100 mg Tablet 100 mg PO QAM Qty: 30 0RF Patient Comments: 11/13- otc unable to verify pantoprazole [Protonix] 40 mg tablet,delayed release (DR/EC) 40 mg PO DAILY Qty: 30 0RF Discharge Orders: Discharge Order (Routine); Ordered 11/14/24 Ordered By: Anup Mckeon Admission Data Admit Date/Time: 11/13/24 11:37 Attending Provider: Anup Mckeon Admit Provider: Wilbert Blair Primary Care Provider: PCP,NO Other Providers: Wilbert Blair Hospital Stay Data Consultations 11/13/24 11:34 ED Decision to Admit Stat Pending Results Patient Have Any Pending Studies at Discharge: No Discharge Instructions Given to Patient (Per Discharging Provider) Take chlordiazepoxide and a tapering dose fashion as directed. A prescription has been sent to your [facility] pharmacy on [facility]. Follow-up with primary care provider soon as possible. Cessation of alcohol intake is highly recommended Total Time Total Time Spent Total Time Spent (In Minutes): 50-minute Coding Level of Care Code 58844 INP/OBS DISCH >30 MIN Diagnoses Alcohol withdrawal delirium, acute, hyperactive F10.931 Alcohol use disorder, severe, dependence F10.20 Acute lactic acidosis E87.21 Hypophosphatemia E83.39 Hypomagnesemia E83.42
[2024-11-14 12:49] VITALS: PULSE 88
--- NOTE | 2024-11-16 08:21 | Electrocardiogram Report ---
Test Reason : Blood Pressure : */* mmHG Vent. Rate : 108 BPM Atrial Rate : 108 BPM P-R Int : 154 ms QRS Dur : 68 ms QT Int : 384 ms P-R-T Axes : 83 43 52 degrees QTcB Int : 514 ms Sinus tachycardia Low voltage QRS Borderline ECG When compared with ECG of 13-Nov-2024 09:51, No significant change was found Confirmed by Matteo Gee ([id number]) on 11/16/2024 8:20:58 AM Referred By: REFERRED SELF Confirmed By: Matteo Gee
== END 2024-11-14 13:25 | disposition home or self-care (01) | DRG 897 ==
LOC: ED 09:47 → SUATTDRO 11:37 → EDINP 11:37 → 2E 13:31

== ENCOUNTER 2024-11-24 12:51 | Observation (INO) ==
[2024-11-24] MEDS: SODIUM CHLORIDE 0.9% 1,000 ML IV ONE (13:25)
[2024-11-24] MEDS: ONDANSETRON INJ 2 MG/ML 2 ML VIAL IV STA (13:30)
[2024-11-24 13:32] LABS: Hematocrit (blood only) 29.3 % (37.0-47.0); Hemoglobin 10.6 g/dl (12.0-16.0); Immature Granulocytes # (auto) 0.04 K/uL (0.01-0.20); Immature Granulocytes % (auto) 0.6 %; Mean Corpuscular Hemoglobin 32.5 pg (25.0-34.0); Mean Corpuscular Volume 89.9 fL (80.0-100.0); Platelet Count 286 K/uL (130-400); RDW Standard Deviation 50.4 fL (36.4-46.3); Red Blood Count 3.26 M/uL (4.20-5.40); White Blood Count 6.84 K/ul (4.8-10.8)
[2024-11-24 13:47] LABS: Alanine Aminotransferase 86.0 U/L (7-52); Albumin Globulin Ratio 1.5 (0.9-2); Alkaline Phosphatase 127.0 U/L (34-104); Anion Gap 25.0 (3-11); Bilirubin,Total 0.9 mg/dl (0.2-1.0); Blood Urea Nitrogen 13.0 mg/dl (6-23); Calcium 8.7 mg/dl (8.6-10.3); Carbon Dioxide 18.0 mmol/L (21-32); Chloride 91.0 mmol/L (98-107); Creatinine Clr Calc Pharmacy 48.1 ml/min; Globulin 2.5 gm/dl (2.5-4.0); Glucose 160.0 mg/dl (70-99(Fasting)); Magnesium 1.1 mg/dl (1.7-2.4); Potassium 4.0 mmol/L (3.5-5.1); Sodium 134.0 mmol/L (136-145); Total Protein 6.3 gm/dl (6.0-8.3)
--- NOTE | 2024-11-24 14:00 | Electrocardiogram Report ---
Test Reason : Blood Pressure : */* mmHG Vent. Rate : 104 BPM Atrial Rate : 104 BPM P-R Int : 150 ms QRS Dur : 70 ms QT Int : 414 ms P-R-T Axes : 85 50 49 degrees QTcB Int : 544 ms Sinus tachycardia Prolonged QT Abnormal ECG When compared with ECG of 13-Nov-2024 13:47, No significant change was found Confirmed by Jaguar Burroughs ([id number]) on 11/24/2024 1:59:56 PM Referred By: Confirmed By: Jaguar Burroughs
[2024-11-24 14:04] LABS: INR 1.1 (0.9-1.1); Partial Thromboplastin Time 25 Seconds (21-31); Prothrombin Time 11.4 Seconds (9.0-12.0)
[2024-11-24] MEDS: MAGNESIUM SULFATE / D5W 1 GM/100 ML BAG IV SCH (14:12)
[2024-11-24 14:25] LABS: Base Excess VBG 3.5 mEq/L; HCO3 VBG 25 mmol/L; Oxygen Saturation VBG 88.6 %; PCO2 VBG 25 mmHg (38-50); PO2 VBG 53 mmHg; pH VBG 7.60 (7.36-7.41)
[2024-11-24] MEDS: THIAMINE HCL 200 MG in SODIUM CHLORIDE 0.9% 50 ML IV SCH (14:36)
[2024-11-24] MEDS: FOLIC ACID 1 MG TAB PO SCH (14:36)
[2024-11-24] MEDS ORDERED: STAT IV/IM STA (15:06)
[2024-11-24] MEDS: SODIUM CHLORIDE 0.9% 500 ML IV ONE (15:09)
--- NOTE | 2024-11-24 15:11 | XRay Report ---
Clinical History: Chest pain Technique: A frontal view of the chest was obtained Comparison is made to the prior examination dated 11/13/2024 Findings: There are no definite pulmonary infiltrates. The heart size is within normal limits. No pleural effusion or pneumothorax is seen. There is suspected mild left lung base atelectasis No fracture is noted. No foreign body is seen Impression: Mild left lung base opacity, likely due to atelectasis Electronically signed by Girish Ramires 11-24-2024 3:11 PM
[2024-11-24] MEDS: LORazepam 1 MG/1 ML SYR ED Inj Use IV STA (15:12)
--- NOTE | 2024-11-24 15:24 | Emergency Department Note ---
Impression & Plan Hypomagnesemia, Alcohol withdrawal delirium, acute, hyperactive, Alcohol use disorder, severe, dependence, Acute lactic acidosis ED Provider Note CHIEF COMPLAINT: Alcohol withdrawal HISTORY OF PRESENTING ILLNESS: Patient is a 64-year-old female presents to the emergency department today for complaints of alcohol withdrawal. She was admitted on 11/13/2024 and discharged on 11/14/2024 for alcohol withdrawal as well. She states that yesterday she drank 2 pints of vodka and started having withdrawal symptoms this morning. She denies mixing any other substances including benzodiazepines with the alcohol. She does report some nausea but denies pain. Does report increased anxiety in addition feeling generally unwell. She denies any suicidal or homicidal ideations. Has been in alcohol withdrawal in the past but unknown if seizures were present during those occurrences. She denies chest pain, sob, breathing difficulties, abdominal pain, headache, fevers/chills, blood in stool or urine, any recent illness, or any recent travel. REVIEW OF SYSTEMS: See HPI for pertinent positives and pertinent negatives. ALLERGIES: See below MEDICATIONS: See below PAST MEDICAL HISTORY: See below PHYSICAL EXAM: General: Awake, alert and oriented. No acute distress. Well developed, hydrated and nourished. Appears stated age. Skin: Skin in warm, dry and intact without rashes or lesions. Appropriate color for ethnicity. Nailbeds pink with no cyanosis or clubbing. Head: The head is normocephalic and atraumatic without tenderness, visible or palpable masses, depressions, or scarring. Hair is of normal texture and evenly distributed. Eyes: Conjunctivae are clear without exudates or hemorrhage. Sclera is non- icteric. EOM are intact, PERRLA. No signs of nystagmus. Eyelids are normal in appearance without swelling or lesions. Nose: Nasal mucosa is pink and moist. The nasal septum is midline. Nares are patent bilaterally. Throat: Oral mucosa is pink and moist with good dentition. Tongue normal in appearance without lesions and with good symmetrical movement. No buccal nodules or lesions are noted. The pharynx is normal in appearance without tonsillar swelling or exudates. Neck: The neck is supple without adenopathy. Trachea is midline. Carotid pulse 2+ bilaterally without bruit. No JVD. Cardiac: The external chest is normal in appearance without lifts, heaves, or thrills. Heart rate and rhythm are normal. No murmurs, gallops, or rubs are auscultated. Respiratory: The chest wall is symmetric and without deformity. No signs of trauma. Chest wall is non-tender. No signs of respiratory distress. Lung sounds are clear in all lobes bilaterally without rales, ronchi, or wheezes. Abdominal: Abdomen is soft, symmetric, and non-tender without distention. There are no visible lesions or scars. The aorta is midline without bruit or visible pulsation. Umbilicus is midline without herniation. Bowel sounds are present and normoactive in all four quadrants. No masses, hepatomegaly, or splenomegaly are noted. Spine: Neck and back are without deformity, external skin changes, or signs of trauma. Curvature of the cervical, thoracic, and lumbar spine are within normal limits. Bony features of the shoulders and hips are of equal height bilaterally. Posture is upright, gait is smooth, steady, and within normal limits. Neurological: The patient is awake, alert and oriented to person, place, and time with normal speech. Motor function is normal with muscle strength 5/5 bilaterally to upper and lower extremities. Sensation is intact bilaterally. Reflexes 2+ bilaterally. Cranial nerves are intact. Cerebellar function is intact. Memory is normal and thought process is intact. Unable to assess gait stability at this time. Psychiatric: Appropriate mood and affect. Good judgement and insight. No visual or auditory hallucinations. No suicidal or homicidal ideation. DIFFERENTIAL DIAGNOSIS: Sepsis, stroke, intracranial hemorrhage, medication abuse, anxiety, PTSD, bipolar disorder, among others. ED COURSE AND MEDICAL DECISION MAKING: HISTORY FROM INDEPENDENT HISTORIAN: History was provided by the patient. MONITOR: Continuous business analyst intern: Order was placed for continuous business analyst intern. Patient was placed on the business analyst intern and continuous pulse ox. Patient was noted to be in normal sinus rhythm at an initial rate of 98 bpm per my interpretation. EKG: EKG was interpreted by myself as normal sinus rhythm with a prolonged QT 414 and QTc of 544. Rate of 104 bpm. INTERPRETATION OF LABS: I interpreted the labs with full lab results as below in the lab section of this note. Laboratory results pertinent to the emergent complaint are discussed in the MDM section below. The patient was advised to follow up with their PCP and/or specialist(s) for further outpatient monitoring and management of any abnormal results. INTERPRETATION OF IMAGING: Imaging studies were interpreted by myself and read by radiology as per the imaging section of this note. The patient was advised to follow up with their PCP and/or specialist(s) for further outpatient management of any non-emergent abnormal findings. CHRONIC MEDICAL/SOCIAL CONDITIONS AFFECTING CARE: No social concerns were identified as barriers to patients care. EXTERNAL RECORDS REVIEWED: Patient's recent emergency department visit of 11/13/2024 and admission and discharge from 11/14/2024. ESCALATION OF CARE CONSIDERED: I considered admission on this patient due to alcohol withdrawal and hypomagnesemia. CONSULTATIONS: I consulted with ED pharmacist for use of phenobarbital due to prolonged QT and elevated liver enzymes. I also consulted with Dr. Bliar for admission to the hospital. We discussed the patient's presentation and workup. SUMMARY: I examined the patient for complaints of alcohol withdrawal. A physical exam and history were performed. Nursing notes, EMR, and medication list were personally reviewed. CBC showed no leukocytosis, thrombocytopenia. Hemoglobin was 10.6 but appears to be baseline and improvement from patient's previous labs. PT/INR and APTT were normal. VBG to check pH is 7.6 and PCO2 of 25. CMP shows sodium of 134, chloride of 91 which the patient was given 1500 mL of sodium chloride. Carbon dioxide of 18, anion gap of 25, pH of 7.6, within normal bicarb. Glucose 160. Lactate 5.4 in which the patient had replacement fluids of 1500 mL in the emergency department. Magnesium of 1.1 and patient was started on 2 g of magnesium. AST 196, ALT 86, alkaline phosphatase 127. Troponin of 18.6. Medical alcohol was less than 10. Patient was unable to provide a urine sample in the emergency department today. Urine sample is pending upon admission. I am not concerned for sepsis as this likely is fluid volume depletion. Patient does deny any chest pain or shortness of breath so this is unlikely ACS. Repeat troponin and lactate were pending upon admission. Chest x-ray showed mild left lung base opacity likely due to atelectasis. In the emergency department today the patient was given thiamine 200 mg, folic acid 1 mg 2 g of magnesium, 1500 mL of sodium chloride, 1 mg of Ativan. I did speak with the ED pharmacist Tiera about the use of phenobarbital with elevated liver enzymes and prolonged QTc. I also consulted with hospitalist Dr. Blair about the use of phenobarbital. He feels the patient would benefit from use of the phenobarbital and the benefits outweigh the risks. Dr. Blair did accept the patient for admission to the hospital. The patient was updated on her plan of care. She did express interest in rehab after hospital admission. Case management offered but declined. DIAGNOSIS: Hypomagnesemia, alcohol withdrawal, elevated lactic, elevated troponin TREATMENT PLAN/DISCHARGE INSTRUCTIONS: Admit to hospitalist services. Past Med/Surg History Problem List (Updated 11/24/24 @ 15:45 by Wilbert Blair, ) Type [address] elevation Metabolic alkalosis Acute respiratory alkalosis Transaminasemia Adjustment disorder with depressed mood (Acute) Acute lactic acidosis (Acute) Alcohol use disorder, severe, dependence Hypomagnesemia (Acute) Major depressive episode (Acute) Normocytic anemia (Chronic) Medical History Acute renal failure due to toxin Depression with suicidal ideation Metabolic encephalopathy Acute hyponatremia Alcohol withdrawal seizure Ethyl alcohol poisoning Social History Smoking Status: Never smoker Second Hand Exposure: No; Do You Dip or Chew Tobacco: No; Hx Alcohol Use: Yes Alcohol type: hard liquor Hx Substance Use: No Preferred Language: [place] Communication Ability: Effective Communication Ability Comment: normal Share Dairy Farmer Required: No Beliefs That Will Affect Care: None Current Living Situation: Alone Current Living Situation Comment: Jason Feels Safe at Home: Yes Assistive Devices: None Allergies Allergies Allergy/AdvReac Type Severity Reaction Status Date / Time No Known Allergies Allergy Verified 11/04/24 10:12 Home Meds Home Medications Medication Instructions Recorded Confirmed fluoxetine 40 mg capsule 40 mg PO DAILY 05/22/24 11/24/24 olanzapine 5 mg tablet 5 mg PO HS 05/22/24 11/24/24 lisinopril 10 mg tablet 10 mg PO DAILY 05/24/24 11/24/24 Previous Rx's Medication Instructions Recorded folic acid 1 mg tablet 1 mg PO QAM #30 tabs 05/24/24 multivitamin with folic acid 400 1 tab PO QAM #30 tabs 05/24/24 mcg tablet (Daily-Nicolasa (with folic acid)) thiamine HCl (vitamin B1) 100 mg 100 mg PO QAM #30 tabs 05/24/24 tablet pantoprazole 40 mg tablet,delayed 40 mg PO DAILY #30 tabs 04/11/25 release (Protonix) hydroxyzine HCl 50 mg tablet 50 mg PO Q6H PRN nausea and 11/06/24 vomiting #30 tabs Results & Data (ED) Vital Signs Vital Signs - 24 hr 11/24/24 13:20 Pulse Rate 105 H Laboratory Data 11/24/24 13:15 11/25/24 05:37 Lab Results 11/24/24 11/24/24 Range/Units 13:15 14:15 WBC 6.84 (4.8-10.8) K/ul RBC 3.26 L (4.20-5.40) M/uL Hgb 10.6 L (12.0-16.0) g/dl Hct 29.3 L (37.0-47.0) % MCV 89.9 (80.0-100.0) fL MCH 32.5 (25.0-34.0) pg MCHC 36.2 H (32.0-36.0) g/dL RDW Std Deviation 50.4 H (36.4-46.3) fL RDW Coeff of Logan 15.7 H (11.5-14.5) % Plt Count 286 (130-400) K/uL MPV 9.3 L (9.4-12.4) fL Immature Gran % (Auto) 0.6 % Neut % (Auto) 81.6 % Lymph % (Auto) 8.8 % Ness % (Auto) 8.0 % Eos % (Auto) 0.0 % Baso % (Auto) 1.0 % Neut # (Auto) 5.58 (1.40-6.50) K/uL Lymph # (Auto) 0.60 L (1.20-3.40) K/uL Ness # (Auto) 0.55 (0.11-0.59) K/uL Eos # (Auto) 0.00 (0.00-0.50) K/uL Baso # (Auto) 0.07 (0.00-0.20) K/uL Immature Gran # (Auto) 0.04 (0.01-0.20) K/uL PT 11.4 (9.0-12.0) Seconds INR 1.1 (0.9-1.1) APTT 25 (21-31) Seconds PTT Ratio 0.9 VBG pH 7.60 H (7.36-7.41) VBG pCO2 25 L (38-50) mmHg VBG pO2 53 mmHg VBG HCO3 25 mmol/L VBG O2 Saturation 88.6 % VBG Base Excess 3.5 mEq/L Sodium 134 L (136-145) mmol/L Potassium 4.0 (3.5-5.1) mmol/L Chloride 91 L (98-107) mmol/L Carbon Dioxide 18 L (21-32) mmol/L Anion Gap 25 H (3-11) BUN 13 (6-23) mg/dl Creatinine 1.02 (0.6-1.2) mg/dl Est Cr Clr Drug Dosing 48.1 ml/min eGFR 61.43 BUN/Creatinine Ratio 12.7 (10-20) Glucose 160 H (70-99(Fasting)) mg/dl Lactate 5.4 H* (0.4-2.0) mmol/L Calcium 8.7 (8.6-10.3) mg/dl Magnesium 1.1 L (1.7-2.4) mg/dl Total Bilirubin 0.9 (0.2-1.0) mg/dl AST 196 H (13-39) U/L ALT 86 H (7-52) U/L Alkaline Phosphatase 127 H (34-104) U/L Ammonia 34.0 (18-72) umol/L Troponin I High Sens 18.6 H (0-14) pg/ml Total Protein 6.3 (6.0-8.3) gm/dl Albumin 3.8 (3.4-5.0) gm/dl Globulin 2.5 (2.5-4.0) gm/dl Albumin/Globulin Ratio 1.5 (0.9-2) Procalcitonin 0.14 (0-0.5) ng/ml Ethyl Alcohol mg/dL < 10.0 (<10.0) mg/dl Administered Medications Fluoxetine HCl (Fluoxetine Hcl 20 Mg Cap) 40 mg PO DAILY GERTRUDIS Stop: 12/25/24 08:59 Last Admin: 11/25/24 08:44 Dose: 40 mg Documented By: COMFORT Folic Acid (Folic Acid 1 Mg Tab) 1 mg PO QA GERTRUDIS Stop: 12/25/24 08:59 Last Admin: 11/25/24 08:44 Dose: 1 mg Documented By: COMFORT Lisinopril (Lisinopril 10 Mg Tab) 10 mg PO DAILY GERTRUDIS Stop: 12/25/24 08:59 Last Admin: 11/25/24 08:45 Dose: 10 mg Documented By: COMFORT Pantoprazole Sodium (Pantoprazole 40 Mg Tab) 40 mg PO DAILY GERTRUDIS Stop: 12/25/24 08:59 Last Admin: 11/25/24 08:45 Dose: 40 mg Documented By: COMFORT Potassium Chloride (Potassium Chloride Crtab 20 Meq Tabcr) 40 meq PO BID GERTRUDIS Stop: 11/26/24 09:01 Last Admin: 11/25/24 08:44 Dose: 40 meq Documented By: COMFORT Thiamine HCl (Thiamine Hcl 100 Mg Tab) 100 mg PO QAM GERTRUDIS Stop: 12/25/24 08:59 Last Admin: 11/25/24 08:45 Dose: 100 mg Documented By: COMFORT Discontinued Medications Folic Acid (Folic Acid 1 Mg Tab) 1 mg PO QAM GERTRUDIS Stop: 12/24/24 13:14 Last Admin: 11/24/24 14:36 Dose: 1 mg Documented By: DANY Hydroxyzine HCl (Hydroxyzine Hcl 25 Mg Tab) 25 mg PO NOW STA Stop: 11/24/24 18:02 Last Admin: 11/24/24 18:13 Dose: 25 mg Documented By: COMFORT Thiamine HCl 200 mg/ Sodium (Chloride) 52 mls @ 210 mls/hr IV QAM [facility] Stop: 12/24/24 13:14 Last Infusion: 11/24/24 15:08 Dose: Infused Documented By: Admin: 11/24/24 14:36 Dose: 210 mls/hr Documented By: DANY Sodium Chloride (Nss) 1,000 mls @ 999 mls/hr IV .Q1H1M ONE Stop: 11/24/24 14:11 Last Infusion: 11/24/24 15:08 Dose: Infused Documented By: Admin: 11/24/24 13:25 Dose: 999 mls/hr Documented By: CHING Magnesium Sulfate/Dextrose (Magnesium Sulfate / D5w) 1 gm in 100 mls @ 100 mls/hr IV Q1H GERTRUDIS Stop: 11/24/24 15:52 Last Infusion: 11/24/24 16:24 Dose: Infused Documented By: Admin: 11/24/24 15:12 Dose: 100 mls/hr Documented By: Infusion: 11/24/24 15:08 Dose: Infused Documented By: Admin: 11/24/24 14:12 Dose: 100 mls/hr Documented By: DANY Sodium Chloride (Nss) 500 mls @ 999 mls/hr IV .Q31M ONE Stop: 11/24/24 15:09 Last Infusion: 11/24/24 15:51 Dose: Infused Documented By: Admin: 11/24/24 15:09 Dose: 999 mls/hr Documented By: CHING Sodium Bicarbonate 150 meq/ (Dextrose) 1,150 mls @ 100 mls/hr IV .[id number] GERTRUDIS Stop: 11/25/24 01:14 Last Infusion: 11/25/24 04:30 Dose: Infused Documented By: Admin: 11/24/24 16:19 Dose: 100 mls/hr Documented By: KENIA Lactated Ringer's (Lr) 1,000 mls @ 100 mls/hr IV .Q10H GERTRUDIS Stop: 11/26/24 17:03 Last Infusion: 11/25/24 08:33 Dose: Infused Documented By: Admin: 11/25/24 04:30 Dose: 100 mls/hr Documented By: Admin: 11/24/24 17:42 Dose: Not Given Documented By: COMFORT Lorazepam (Lorazepam 1 Mg/1 Ml Syr Ed Inj Use) 1 mg IV ONE STA Stop: 11/24/24 14:46 Last Admin: 11/24/24 15:12 Dose: 1 mg Documented By: CHING Lorazepam (Lorazepam 2 Mg/1 Ml Vial) 1 mg IV NOW STA Stop: 11/25/24 12:45 Last Admin: 11/25/24 12:59 Dose: 1 mg Documented By: COMFORT Olanzapine (Olanzapine 5 Mg Tablet) 5 mg PO HS GERTRUDIS Stop: 12/24/24 20:59 Last Admin: 11/24/24 20:22 Dose: 5 mg Documented By: LEANDER Ondansetron HCl (Ondansetron Inj 2 Mg/Ml 2 Ml Vial) 4 mg IV NOW STA Stop: 11/24/24 13:17 Last Admin: 11/24/24 13:30 Dose: Not Given Documented By: CHING Phenobarbital Sodium (Phenobarbital Sodium 65 Mg/Ml Vial) 130 mg IV NOW STA Stop: 11/24/24 14:06 Last Admin: 11/24/24 14:48 Dose: Not Given Documented By: BS Imaging Data Radiologist's Impression: Chest X-Ray 11/24/24 13:29 Clinical History: Chest pain Technique: A frontal view of the chest was obtained Comparison is made to the prior examination dated 11/13/2024 Findings: There are no definite pulmonary infiltrates. The heart size is within normal limits. No pleural effusion or pneumothorax is seen. There is suspected mild left lung base atelectasis No fracture is noted. No foreign body is seen Impression: Mild left lung base opacity, likely due to atelectasis Electronically signed by Girish Ramires 11-24-2024 3:11 PM Discharge Plan Visit Data Chief Complaint: Alcohol Withdrawal Stated Complaint: ILLNESS ED Provider: Williams Dockery ED Midlevel Provider: Marialuisa Owens Discharge Problem: Hypomagnesemia, Alcohol withdrawal delirium, acute, hyperactive, Alcohol use disorder, severe, dependence, Acute lactic acidosis Patient Disposition: Admitted As Inpatient Condition: Good Discharge Instructions Interventions: ED Discharge Assessment Last Done: 11/24/24 16:28
--- NOTE | 2024-11-24 16:03 | History & Physical Report ---
Date of Service November 24, 2024 Assessment & Plan (1) Alcohol use disorder, severe, dependence: (2) Type [address] elevation: (3) Metabolic alkalosis: (4) Acute respiratory alkalosis: (5) Acute lactic acidosis: (6) Adjustment disorder with depressed mood: (7) Hypomagnesemia: (8) Transaminasemia: Plan In summary this is a 64-year-old female being admitted for alcohol withdraw complicated by multiple acid-base derangements, type II myocardial infarction without ST elevation, electrolyte abnormalities, and evidence of mild liver injury. Alcohol withdrawal//alcohol use disorder, severe dependence//Transaminasemia presenting PAWSS score of 5; last known drink on the evening of 11/22; no measurable alcohol level at the time of admission; some notable transaminasemia with elevated AST, ALT, ALP without an associated abnormality of the patient's coagulability nor their bilirubin, suggestive of parenchymal damage Administered phenobarbital bolus, followed by as needed dosing per protocol After administration of sodium bicarbonate infusion as detailed below, continue with LR 100 mL/h Administer folic acid 1 mg p.o. daily Administer thiamine 100 mg p.o. daily Pending abdominal ultrasound to further characterize hepatic parenchyma Type II myocardial infarction without ST elevation Initial troponin measure of 18.6 without associated ischemic changes on EKG nor complaint of chest pain or another anginal equivalent at presentation; suspect this is most likely consequential of demand ischemia in the setting of tachycardia and intravascular depletion; continue to follow and obtain as needed EKG based on recurrence of chest pain or anginal equivalent - continue troponin trend every 3 hours to peak measure Multifactorial acid-base derangement including acute respiratory alkalosis, metabolic alkalosis, lactic acidosis VBG at presentation in the emergency department remarkable for pH of 7.60, pCO2 25, bicarbonate of 25; CMP reveals carbon dioxide of 18 and anion gap of 25 with a delta of 14, suggestive of an underlying metabolic alkalosis with diminished chloride of 91; lactate is elevated at 5.4 without any clear evidence of infectious source; in summary the patient has a likely primary metabolic alkalosis given the emesis preceding her presentation followed by respiratory alkalosis as a consequence of compensation and underlying lactic acidosis secondary to intravascular depletion Initial volume resuscitation was started in the emergency department with a 1 L bolus of lactated ringer; followed by 1 L sodium bicarbonate in D5 to assist with bicarbonate replacement, to be followed by lactated ringer at 100 mL/h for 48 hours until the patient is regularly tolerating oral intake Reassess lactate after 3 hours of IV resuscitation Adjustment disorder with depressed mood given the patient's daughter moving back in with her, precipitating her binge episode of drinking suspect this is consistent with adjustment disorder associated with depressed mood; the patient is interested in speaking with a psychiatric professional regarding her mood disorders in addition to her continued struggles with alcohol misuse Continue outpatient psychiatric medications during hospitalization; psychiatry consulted Hypomagnesemia at presentation diminished 1.1; replacement was administered in the emergency department; reassess in the morning on 11/25 Normocytic multifactorial anemia Chronic; without significant deviance from previous baseline measures DVT prophylaxis: Start enoxaparin 40 mg SQ daily Admission and Anticipated Discharge Date Admission Date: 11/24/2024 Anticipated date of discharge: 11/27/24 History of Present Illness Chief Complaint: Progressive depression; generalized malaise Primary Care Provider: DUSTY PCP Ms. Gonzalez is a 64-year-old female whose active medical conditions include alcohol use disorder with severe dependence, major depressive disorder, multifactorial normocytic anemia among other chronic medical conditions who presented to [facility] on 11/24 due to generalized malaise and reported worsening depression. The patient describes that they are daughter is returning to live with the patient for the upcoming semester at [employer]. The patient's daughter struggles with autism spectrum disorder, and the patient describes having "increased stress and sadness" regarding concerns of her daughter's future which led to a binge drinking episode on the evening of 11/22 for total 2/5 of vodka. The patient subsequently experienced multiple episodes of emesis that was nonbloody, nonbilious with last episode of emesis occurring on the morning of presentation. The patient denies visual or auditory hallucinations, suicidal or homicidal ideation, chest pain, palpitations, nausea, abdominal pain, abdominal distention, altered bowel movements, hematochezia, hematemesis, melanotic stool, shortness of breath, pleuritic chest pain, orthopnea or platypnea. Allergies Allergy/AdvReac Type Severity Reaction Status Date / Time No Known Allergies Allergy Verified 11/04/24 10:12 Home Medications Medication Instructions Recorded Confirmed Type fluoxetine 40 mg capsule 40 mg PO DAILY 05/22/24 11/24/24 History olanzapine 5 mg tablet 5 mg PO HS 05/22/24 11/24/24 History folic acid 1 mg tablet 1 mg PO QAM #30 tabs 05/24/24 11/24/24 Rx lisinopril 10 mg tablet 10 mg PO DAILY 05/24/24 11/24/24 History multivitamin with folic acid 400 1 tab PO QAM #30 tabs 05/24/24 11/24/24 Rx mcg tablet (Daily-Nicolasa (with folic acid)) thiamine HCl (vitamin B1) 100 mg 100 mg PO QAM #30 tabs 05/24/24 11/24/24 Rx tablet pantoprazole 40 mg tablet,delayed 40 mg PO DAILY #30 tabs 07/20/24 11/24/24 Rx release (Protonix) hydroxyzine HCl 50 mg tablet 50 mg PO Q6H PRN nausea and 11/06/24 11/24/24 Rx vomiting #30 tabs Past Med/Surg History Problem List (Updated 11/24/24 @ 15:45 by Wilbert Blair DO) Type [address] elevation Metabolic alkalosis Acute respiratory alkalosis Transaminasemia Adjustment disorder with depressed mood (Acute) Acute lactic acidosis (Acute) Alcohol use disorder, severe, dependence Hypomagnesemia (Acute) Major depressive episode (Acute) Normocytic anemia (Chronic) Medical History Acute renal failure due to toxin Depression with suicidal ideation Metabolic encephalopathy Acute hyponatremia Alcohol withdrawal seizure Ethyl alcohol poisoning Social History Smoking Status: Never smoker Second Hand Exposure: No; Do You Dip or Chew Tobacco: No; Hx Alcohol Use: Yes Alcohol type: hard liquor Hx Substance Use: No Preferred Language: Georgian Communication Ability: Effective Communication Ability Comment: 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 Physical Exam Physical Exam: General: Adult female in no acute distress Vital Signs: reviewed, persistently tachycardic without associated symptomatology HEENT: atraumatic, normocephalic; pupils equally round reactive to light; extraocular muscles intact; mucous membranes tacky Neck: flattened jugular veins; no elicited hepatojugular reflux Pulmonary: symmetric and unrestricted chest wall excursion; lungs clear to auscultation bilaterally Cardiovascular: intermittently tachycardic rate with regular rhythm without murmurs, rubs, or gallops; S1 and S2 normal; radial and bilateral dorsalis pedis pulse 2+ without notable lower extremity edema; capillary refills approximately 3 to 4 seconds in all nailbeds Gastrointestinal: soft, nondistended; no elicited fluid with; nontender to superficial and palpation throughout all 4 quadrants with normal bowel sounds throughout; nontender but firm inferior hepatic border present at the inferior thoracic border Neurologic: CN II through XII intact; no discernible focal weakness nor paresthesias; patient does have high-frequency low amplitude tremulousness of the bilateral upper extremities at rest, not notably worsened with intentional movement; no bradykinesia; no asterixis; no evidence of ataxia of the upper or lower extremities Psychiatric: Alert and oriented to self, place, time; intermittently confused regarding the exact date but cannot recall the day of the week; poor insight to her current medical conditions based on teach back; not exhibiting goal oriented thought process at this time Skin: scattered telangiectasias of the patient's torso and upper extremities Results & Data Results & Data Vital Signs (Past 12 Hours) Vital Signs Temp Pulse Pulse Resp BP BP Pulse Ox 11/24/24 15:12 90 26 H 134/83 95 11/24/24 13:20 105 H 11/24/24 12:59 36 C L 128 H 18 151/81 H 96 O2 Del Method 11/24/24 15:12 Room Air 11/24/24 13:20 11/24/24 12:59 Room Air Code Status & VTE Plan Code Status Full Code VTE Prophylaxis Plan VTE Prophylaxis will be ordered: Yes PG Care Time/CCT Total # of Minutes Spent Total Time Spent with Patient: Total time spent is greater than 50% in coordination of care (as documented) at patient's floor/unit and/or counseling patient: Coding Level of Care Code 69374 INT INP/OBS CARE 3/75MIN Diagnoses Alcohol use disorder, severe, dependence F10.20 Type [address] elevation I21.A1 Metabolic alkalosis E87.3 Acute respiratory alkalosis E87.3 Acute lactic acidosis E87.21 Adjustment disorder with depressed mood F43.21 Hypomagnesemia E83.42 Transaminasemia R74.01
[2024-11-24] MEDS: SODIUM BICARBONATE 8.4% 150 MEQ in DEXTROSE 5% 1,000 ML IV SCH (16:19)
[2024-11-24] MEDS: LACTATED RINGER'S 1,000 ML IV SCH (17:42)
[2024-11-24 20:44] LABS: Appearance Urine Clear (Clear); Bacteria Urine Automated None Seen (None Seen); Cast Urine Automated 0-2 /lpf (0-2); Epithelial Cell Urine Auto 0-2 /hpf (0-2); Glucose Urine UA Negative (Negative); RBC Urine Automated 0-2 /hpf (0-2); WBC Urine Automated 0-5 /hpf (0-5)
[2024-11-24 21:21] LABS: Amphetamines+Metham, Urine Neg (Neg); MDMA (Ecstacy), Urine Neg (Neg); Marijuana, Urine Neg (Neg)
--- NOTE | 2024-11-25 00:22 | Ultrasound Report ---
Exam(s): US ABDOMEN LIMITED EXAM: US Abdomen Limited, Right Upper Quadrant CLINICAL HISTORY: Reason for exam: Transaminasemia iso AUD. TECHNIQUE: Real-time ultrasound of the right upper quadrant with image documentation. COMPARISON: No relevant prior studies available. FINDINGS: Liver: Liver measures 16.1 cm. Increased echogenicity suggesting steatosis. No intrahepatic bile duct dilation. Gallbladder: Unremarkable. No cholelithiasis or gallbladder wall thickening. Common bile duct: No biliary dilatation. CBD 4 mm. Pancreas: Pancreas suboptimally characterize. Right kidney: Right kidney measures 8.2 cm. No hydronephrosis. Inferior vena cava: IVC is patent. IMPRESSION: No acute findings in the right upper quadrant. Electronically signed by: Elin Adorno M.D. 11/25/24 00:21 AM
[2024-11-25 06:34] LABS: Alanine Aminotransferase 64.0 U/L (7-52); Albumin Globulin Ratio 1.6 (0.9-2); Alkaline Phosphatase 95.0 U/L (34-104); Anion Gap 7.0 (3-11); Bilirubin,Total 0.7 mg/dl (0.2-1.0); Blood Urea Nitrogen 6.0 mg/dl (6-23); Calcium 7.9 mg/dl (8.6-10.3); Carbon Dioxide 34.0 mmol/L (21-32); Chloride 98.0 mmol/L (98-107); Creatinine Clr Calc Pharmacy 60.6 ml/min; Globulin 1.9 gm/dl (2.5-4.0); Glucose 96.0 mg/dl (70-99(Fasting)); Potassium 3.0 mmol/L (3.5-5.1); Sodium 139.0 mmol/L (136-145); Total Protein 5.0 gm/dl (6.0-8.3)
--- NOTE | 2024-11-25 07:17 | Hospitalist Progress Note ---
Date of Service November 25, 2024 Assessment & Plan (1) Alcohol use disorder, severe, dependence: (2) Type [address] elevation: (3) Metabolic alkalosis: (4) Acute respiratory alkalosis: (5) Acute lactic acidosis: (6) Adjustment disorder with depressed mood: (7) Hypomagnesemia: (8) Transaminasemia: Plan In summary this is a 64-year-old female being admitted for alcohol withdraw complicated by multiple acid-base derangements, type II myocardial infarction without ST elevation, electrolyte abnormalities, and evidence of mild liver injury. Alcohol withdrawal//alcohol use disorder, severe dependence//Transaminasemia Presenting PAWSS score of 5; last known drink on the evening of 11/22; no measurable alcohol level at the time of admission; some notable transaminasemia with elevated AST, ALT, ALP without an associated abnormality of the patient's coagulability nor their bilirubin, suggestive of parenchymal damage Administered phenobarbital bolus, followed by as needed dosing per protocol Administer folic acid 1 mg p.o. daily Administer thiamine 100 mg p.o. daily Abdominal US from 11/24 revealed hepatic steatosis Type II myocardial infarction without ST elevation Resolved Multifactorial acid-base derangement including acute respiratory alkalosis, metabolic alkalosis, lactic acidosis Resolved with IVF resuscitation Adjustment disorder with depressed mood given the patient's daughter moving back in with her, precipitating her binge episode of drinking suspect this is consistent with adjustment disorder associated with depressed mood; the patient is interested in speaking with a psychiatric professional regarding her mood disorders in addition to her continued struggles with alcohol misuse Continue outpatient psychiatric medications during hospitalization; psychiatry consulted Hypomagnesemia at presentation diminished 1.1; replacement was administered in the emergency department; reassess in the morning on 11/25 Normocytic multifactorial anemia Chronic; without significant deviance from previous baseline measures DVT prophylaxis: Continue enoxaparin 40 mg SQ daily Admission and Anticipated Discharge Date Admission Date: November 24, 2024 Anticipated date of discharge: 11/26/24 Subjective Ms. Gonzalez is a 64-year-old female whose active medical conditions include alcohol use disorder with severe dependence, major depressive disorder, multifactorial normocytic anemia among other chronic medical conditions who presented to [facility] on 11/24 due to generalized malaise and reported worsening depression. The patient describes that they are daughter is returning to live with the patient for the upcoming semester at [employer]. The patient's daughter struggles with autism spectrum disorder, and the patient describes having "increased stress and sadness" regarding concerns of her daughter's future which led to a binge drinking episode on the evening of 11/22 for total 2/5 of vodka. The patient subsequently experienced multiple episodes of emesis that was nonbloody, nonbilious with last episode of emesis occurring on the morning of presentation. The patient denies visual or auditory hallucinations, suicidal or homicidal ideation, chest pain, palpitations, nausea, abdominal pain, abdominal distention, altered bowel movements, hematochezia, hematemesis, melanotic stool, shortness of breath, pleuritic chest pain, orthopnea or platypnea. Review of Systems Review of Systems: Remaining review of constitutional, pulmonary, cardiovascular, gastrointestinal, genitourinary, musculoskeletal, neurologic, and integumentary systems was unremarkable except for pertinent positive and negative findings noted in the HPI above. Physical Exam Physical Exam: General: Adult female in no acute distress Vital Signs: reviewed, persistently tachycardic without associated symptomatology HEENT: atraumatic, normocephalic; pupils equally round reactive to light; extraocular muscles intact; mucous membranes tacky Pulmonary: symmetric and unrestricted chest wall excursion; lungs clear to auscultation bilaterally Cardiovascular: regular rate with regular rhythm without murmurs, rubs, or gallops; S1 and S2 normal; radial and bilateral dorsalis pedis pulse 2+ without notable lower extremity edema; capillary refills approximately 3 to 4 seconds in all nailbeds Gastrointestinal: soft, nondistended; no elicited fluid with; nontender to superficial and palpation throughout all 4 quadrants with normal bowel sounds throughout; nontender but firm inferior hepatic border present at the inferior thoracic border Neurologic: CN II through XII intact; no discernible focal weakness nor paresthesias; resolved high-frequency low amplitude tremulousness of the bilateral upper extremities at rest; no bradykinesia; no asterixis; no evidence of ataxia of the upper or lower extremities Psychiatric: Alert and oriented to self, place, time; poor insight to her current medical conditions based on teach back; not exhibiting goal oriented thought process at this time Skin: scattered telangiectasias of the patient's torso and upper extremities Results & Data Results & Data Vital Signs (Past 12 Hours) Vital Signs Temp Pulse Pulse Resp BP Pulse Ox O2 Del Method 11/25/24 03:54 36.7 C 79 16 156/85 H 98 Room Air 11/25/24 02:18 76 11/24/24 23:06 37.3 C 82 16 142/82 H 94 Room Air 11/24/24 20:19 Room Air 11/24/24 20:11 36.9 C 86 16 155/89 H 95 Room Air Coding Level of Care Code 91217 SUB INP/OBS CARE 2/35MIN Diagnoses Alcohol use disorder, severe, dependence F10.20 Type [address] elevation I21.A1 Metabolic alkalosis E87.3 Acute respiratory alkalosis E87.3 Acute lactic acidosis E87.21 Adjustment disorder with depressed mood F43.21 Hypomagnesemia E83.42 Transaminasemia R74.01
[2024-11-25] MEDS: FOLIC ACID 1 MG TAB PO SCH (08:44)
[2024-11-25] MEDS: POTASSIUM CHLORIDE CRTAB 20 MEQ TABCR PO SCH (08:44)
[2024-11-25] MEDS: THIAMINE HCL 100 MG TAB PO SCH (08:45)
[2024-11-25 11:18] LABS: Magnesium 1.9 mg/dl (1.7-2.4)
--- NOTE | 2024-11-25 12:22 | Communication Note ---
Date of Service: November 25, 2024 Discussed plan of care with patient at bedside; she is eager for discharge home today. We discussed the risks of premature discharge in the setting of her multiple medical conditions and continued management of alcohol withdrawal. She is contemplating discharge against medical recommendations.
--- NOTE | 2024-11-25 15:29 | Emergency Department Note ---
ED Visit Note I was consulted by the Advanced Practice Provider, Marialuisa Merino. I performed a substantive portion of the visit. This includes aspects of: History: 64yoF with alcohol use disorder presenting for acute withdrawal. MDM: Patient is well-known to the emergency department. Well-known alcohol use disorder. I have seen this patient recently. Patient is hypertensive and tachycardic. Tremulous on exam anxious. Patient's history and presentation today are consistent with acute alcohol withdrawal. Patient was loaded with phenobarbital. CXR independently interpreted by me reveals no evidence of focal consolidation to suggest pna. No large pneumothorax or pleural effusion. LFTs are elevated. Patient does have an elevated lactate. Patient noted to have hypomagnesemia. Patient will require admission for acute alcohol withdrawal. Gabo Jaime DO Emergency Medicine .
--- NOTE | 2024-11-25 15:39 | Psychiatric Consultation ---
Date of Consultation November 25, 2024 Impression / Recommendations Impression Diagnostically consistent with alcohol use disorder as well as unspecified depression likely a combination of substance-induced as well as MDD. Acute risk of self-harm is low given denial of SI, no longer with intoxication, future- focused, strong deterrent to suicide, no access to lethal means. Chronic risk of self-harm and harm to others is slightly increased due to substance use with substance use treatment being the most significant modifiable risk factor to reduce acute and chronic risk. She is not interested in inpatient psychiatric treatment nor residential substance use treatment at this time but is willing to consider outpatient services to help with substance use/depression and medication assisted treatment. Liver enzymes are quite high but given ongoing risks of continued alcohol use risk/benefit profile favors consideration for naltrexone with close outpatient follow-up. Overall, I spent a total of 60 minutes with this case including review of chart records, review of labwork, review of EKG QTc, direct evaluation of the patient at bedside, counseling the patient, motivational interviewing, discussion of the patient with the Nurse and with the hospitalist provider, discussion with the psychiatric liason during clinical rounds and documentation in the electronic health record. (1) Alcohol use disorder, severe, dependence: (2) Substance induced mood disorder: (3) Depression: Plan -Provided resources on local mental health/dual diagnosis services -Patient is not an imminent danger to self or others and does not meet criteria for involuntary psychiatric commitment -Continue AWSS as well as thiamine and folic acid -Would hold olanzapine until QTc becomes <500ms, then can restart at prior to admission dose of 10mg HS -Can continue fluoxetine 40mg daily for now, once QTc becomes <500ms can increase to 60mg daily -Consider starting naltrexone 50mg daily for alcohol use disorder -Encourage referral for outpatient PCP -Encourage AA involvement, reviewed 01/11 availability of online meetings For behavioral emergency would use ativan 2mg IM or IV, avoid antipsychotic medication given prolonged QTc Psych History Identifying Data Ms. Gonzalez is a 64-year-old woman whose active medical conditions include alcohol use disorder with severe dependence, major depressive disorder, multifactorial normocytic anemia among other chronic medical conditions who presented to [facility] on 11/24 due to generalized malaise and reported worsening depression and was admitted for complicated alcohol withdrawal. Psychiatry consulted for depression with alcohol use. Chief Complaint "I need to be there for my daughter". History of Present Illness Samia was admitted for alcohol use and worsening emesis. Today she reports ongoin g depression and desire to stop drinking alcohol. States she has been drinking 1 pint of vodka per day. Reports this is less than she was drinking prior to her hospitalization in October for alcohol use. Reports she has been successful in reducing her use a little bit because "I have to". Reports her depressive symptoms as "just sadness". Denies any suicidal ideation. Reports future focus of getting a new job and hopefulness in regards to needing to be there for her family and especially her daughter who has autism. Reports family as deterrent to suicide. Also feels that some of her drinking is driven by worrying about her daughter. States that she likes the taste of alcohol and this has been the biggest challenge and stopping drinking. Despite this rates her confidence in being able to stop drinking as 10 out of 10. Cites reason for this being "this is the worst withdrawal I've ever had". Identifies some barriers and reviewed potential ways to help with this such as attending an AA meeting or drinking tea or Coca[employer] instead. She has not attended AA in about 5 years but was given information by psych liaison about 01/11 online meetings and willing to consider this. She declines residential substance use treatment as she needs to be present to help her daughter who will be returning in a few days for [facility] classes. She is willing to consider an intensive outpatient program or local dual diagnosis therapy and she was provided with this as well as resources for residential treatment should she change her mind. She is not sure the Prozac is helping but acknowledges that it is hard to determine its effect given her ongoing alcohol use. She is interested in naltrexone last use this 6 years ago. Has a psychiatrist she sees via virtual appointments in [place]. Further history per psych liason note on 11/24/2024: "Pt stated that she is depressed, cries often and did not articulate causative factors. She denied SI/AH/VH. She appeared slightly tremulous, appeared to have difficulty getting comfortable (as evidenced by frequently squirming in her bed), and stated that she was feeling awful. Pt is on AWSS protocol. Patient states that the longest she has been sober was 9 months when she was with her twin girls who are now college age, has been to two rehabs, is tired of her drinking landing her in the hospital, that she has gone to AA for a number of years, however, her sponsor committed suicide which patient then stopped going to meetings and started drinking. Patient stated that she is willing to go to rehab, however, sincerity of statement is in question as she then stated she is unable to be away from home. Her daughter is coming from [place] to live with her, she has autism which patient believes she needs to be at home to take care of daughter. RN spoke with her about AA zoom meetings, provided her with the web address [employer] and showed her that meetings occur 01/11 showing her that there were over 8 meetings that were starting the next hour. She stated she has done zoom AA meetings. Will continue to monitor." Allergies Allergy/AdvReac Type Severity Reaction Status Date / Time No Known Allergies Allergy Verified 11/04/24 10:12 Home Medications Medication Instructions Recorded Confirmed Type fluoxetine 40 mg capsule 40 mg PO DAILY 05/22/24 11/24/24 History olanzapine 5 mg tablet 5 mg PO HS 05/22/24 11/24/24 History folic acid 1 mg tablet 1 mg PO QAM #30 tabs 05/24/24 11/24/24 Rx lisinopril 10 mg tablet 10 mg PO DAILY 05/24/24 11/24/24 History multivitamin with folic acid 400 1 tab PO QAM #30 tabs 05/24/24 11/24/24 Rx mcg tablet (Daily-Nicolasa (with folic acid)) thiamine HCl (vitamin B1) 100 mg 100 mg PO QAM #30 tabs 05/24/24 11/24/24 Rx tablet pantoprazole 40 mg tablet,delayed 40 mg PO DAILY #30 tabs 07/20/24 11/24/24 Rx release (Protonix) hydroxyzine HCl 50 mg tablet 50 mg PO Q6H PRN nausea and 11/06/24 11/24/24 Rx vomiting #30 tabs Patient History Medical History Acute renal failure due to toxin Depression with suicidal ideation Metabolic encephalopathy Acute hyponatremia Alcohol withdrawal seizure Ethyl alcohol poisoning Social History Smoking Status: Never smoker Second Hand Exposure: No; Do You Dip or Chew Tobacco: No; Hx Alcohol Use: Yes Alcohol type: hard liquor Hx Substance Use: No Preferred Language: Nigerian Communication Ability: Effective Communication Ability Comment: normal Cat Wagon Operator Required: No Beliefs That Will Affect Care: None Current Living Situation: Alone Current Living Situation Comment: [place] Feels Safe at Home: Yes Assistive Devices: None Physical Exam Psychiatric: Orientation: alert and oriented x 3 Apperance: appropriately dressed and appropriately groomed Eye Contact: good eye contact Motor Behavior: no abnormal motor movements Speech: normal rate/rhythm/volume of speech Affect: + tearful affect Mood: + depressed mood Thought Process: linear/logical thought process Thought Content: reality based without delusions Suicidal Thoughts: denies suicidal thoughts Homicidal Thoughts: denies homicidal thoughts Hallucinations: no auditory hallucinations and no visual hallucinations Cognition: recent memory grossly intact, remote memory grossly intact, attention grossly intact and language grossly intact Estimated Intelligence: consistent with education level Insight: + fair insight Judgment: + limited judgement Vital Signs (Past 24 Hours): Last Vital Signs Temp 36.6 C 11/25/24 09:34 Pulse 86 11/25/24 14:06 Resp 18 11/25/24 13:01 BP 151/88 H 11/25/24 13:01 Pulse Ox 98 11/25/24 13:01 O2 Del Method Room Air 11/25/24 13:01 O2 Flow Rate 0 11/24/24 16:26 Results & Data (PSY) Medications Administered Fluoxetine HCl (Fluoxetine Hcl 20 Mg Cap) 40 mg PO DAILY [facility] Stop: 12/25/24 08:59 Last Admin: 11/25/24 08:44 Dose: 40 mg Documented By: COMFORT Folic Acid (Folic Acid 1 Mg Tab) 1 mg PO QAM [facility] Stop: 12/25/24 08:59 Last Admin: 11/25/24 08:44 Dose: 1 mg Documented By: COMFORT Lisinopril (Lisinopril 10 Mg Tab) 10 mg PO DAILY [facility] Stop: 12/25/24 08:59 Last Admin: 11/25/24 08:45 Dose: 10 mg Documented By: COMFORT Pantoprazole Sodium (Pantoprazole 40 Mg Tab) 40 mg PO DAILY [facility] Stop: 12/25/24 08:59 Last Admin: 11/25/24 08:45 Dose: 40 mg Documented By: COMFORT Potassium Chloride (Potassium Chloride Crtab 20 Meq Tabcr) 40 meq PO BID [facility] Stop: 11/26/24 09:01 Last Admin: 11/25/24 08:44 Dose: 40 meq Documented By: COMFORT Thiamine HCl (Thiamine Hcl 100 Mg Tab) 100 mg PO QAM [facility] Stop: 12/25/24 08:59 Last Admin: 11/25/24 08:45 Dose: 100 mg Documented By: COMFORT Coding Level of Care Code 97888 IN/OBS CONSULT LVL 4,60M Diagnoses Alcohol use disorder, severe, dependence F10.20 Substance induced mood disorder F19.94 Depression F32.A
[2024-11-25] MEDS: OLANZapine 10 MG TAB PO SCH (20:44)
[2024-11-26 04:26] VITALS: TEMP 97.9
[2024-11-26 04:59] LABS: Alanine Aminotransferase 62.0 U/L (7-52); Albumin Globulin Ratio 1.6 (0.9-2); Alkaline Phosphatase 89.0 U/L (34-104); Anion Gap 8.0 (3-11); Bilirubin,Total 0.6 mg/dl (0.2-1.0); Blood Urea Nitrogen 3.0 mg/dl (6-23); Calcium 8.4 mg/dl (8.6-10.3); Carbon Dioxide 26.0 mmol/L (21-32); Chloride 104.0 mmol/L (98-107); Creatinine Clr Calc Pharmacy 59.9 ml/min; Globulin 1.9 gm/dl (2.5-4.0); Glucose 88.0 mg/dl (70-99(Fasting)); Potassium 3.1 mmol/L (3.5-5.1); Sodium 138.0 mmol/L (136-145); Total Protein 4.9 gm/dl (6.0-8.3)
--- NOTE | 2024-11-26 07:25 | Hospitalist Progress Note ---
Date of Service November 26, 2024 Assessment & Plan (1) Alcohol use disorder, severe, dependence: (2) Type [address] elevation: (3) Metabolic alkalosis: (4) Acute respiratory alkalosis: (5) Acute lactic acidosis: (6) Adjustment disorder with depressed mood: (7) Hypomagnesemia: (8) Transaminasemia: Plan In summary this is a 64-year-old female being admitted for alcohol withdraw complicated by multiple acid-base derangements, type II myocardial infarction without ST elevation, electrolyte abnormalities, and evidence of mild liver injury. Alcohol withdrawal//alcohol use disorder, severe dependence//Transaminasemia Presenting PAWSS score of 5; last known drink on the evening of 11/22; no measurable alcohol level at the time of admission; some notable transaminasemia with elevated AST, ALT, ALP without an associated abnormality of the patient's coagulability nor their bilirubin, suggestive of parenchymal damage Administered phenobarbital bolus, followed by as needed dosing per protocol Administer folic acid 1 mg p.o. daily Administer thiamine 100 mg p.o. daily Abdominal US from 11/24 revealed hepatic steatosis Type II myocardial infarction without ST elevation Resolved Multifactorial acid-base derangement including acute respiratory alkalosis, metabolic alkalosis, lactic acidosis Resolved with IVF resuscitation Adjustment disorder with depressed mood given the patient's daughter moving back in with her, precipitating her binge episode of drinking suspect this is consistent with adjustment disorder associated with depressed mood; the patient is interested in speaking with a psychiatric professional regarding her mood disorders in addition to her continued struggles with alcohol misuse Continue outpatient psychiatric medications during hospitalization; psychiatry consulted Hypomagnesemia at presentation diminished 1.1; replacement was administered in the emergency department; reassess in the morning on 11/25 Normocytic multifactorial anemia Chronic; without significant deviance from previous baseline measures DVT prophylaxis: Continue enoxaparin 40 mg SQ daily Admission and Anticipated Discharge Date Admission Date: November 24, 2024 Subjective Ms. Gonzalez is a 64-year-old female whose active medical conditions include alcohol use disorder with severe dependence, major depressive disorder, multifactorial normocytic anemia among other chronic medical conditions who presented to [facility] on 11/24 due to generalized malaise and reported worsening depression. The patient describes that they are daughter is returning to live with the patient for the upcoming semester at [employer] [facility]. The patient's daughter struggles with autism spectrum disorder, and the patient describes having "increased stress and sadness" regarding concerns of her daughter's future which led to a binge drinking episode on the evening of 11/22 for total 2/5 of vodka. The patient subsequently experienced multiple episodes of emesis that was nonbloody, nonbilious with last episode of emesis occurring on the morning of presentation. The patient denies visual or auditory hallucinations, suicidal or homicidal ideation, chest pain, palpitations, nausea, abdominal pain, abdominal distention, altered bowel movements, hematochezia, hematemesis, melanotic stool, shortness of breath, pleuritic chest pain, orthopnea or platypnea. Review of Systems Review of Systems: Remaining review of constitutional, pulmonary, cardiovascular, gastrointestinal, genitourinary, musculoskeletal, neurologic, and integumentary systems was unremarkable except for pertinent positive and negative findings noted in the HPI above. Physical Exam Physical Exam: General: Adult female in no acute distress Vital Signs: reviewed, persistently tachycardic without associated symptomatology HEENT: atraumatic, normocephalic; pupils equally round reactive to light; extraocular muscles intact; mucous membranes tacky Pulmonary: symmetric and unrestricted chest wall excursion; lungs clear to auscultation bilaterally Cardiovascular: regular rate with regular rhythm without murmurs, rubs, or gallops; S1 and S2 normal; radial and bilateral dorsalis pedis pulse 2+ without notable lower extremity edema; capillary refills approximately 3 to 4 seconds in all nailbeds Gastrointestinal: soft, nondistended; no elicited fluid with; nontender to superficial and palpation throughout all 4 quadrants with normal bowel sounds throughout; nontender but firm inferior hepatic border present at the inferior thoracic border Neurologic: CN II through XII intact; no discernible focal weakness nor paresthesias; resolved high-frequency low amplitude tremulousness of the bilateral upper extremities at rest; no bradykinesia; no asterixis; no evidence of ataxia of the upper or lower extremities Psychiatric: Alert and oriented to self, place, time; poor insight to her current medical conditions based on teach back; not exhibiting goal oriented thought process at this time Skin: scattered telangiectasias of the patient's torso and upper extremities Results & Data Results & Data Vital Signs (Past 12 Hours) Vital Signs Temp Pulse Pulse Resp BP Pulse Ox O2 Del Method 11/26/24 03:14 36.6 C 65 18 137/79 96 Room Air 11/25/24 23:07 36.7 C 70 18 136/82 94 Room Air 11/25/24 21:43 73 11/25/24 19:28 36.6 C 85 18 143/84 H 98 Room Air PG Care Time/CCT Total # of Minutes Spent Total Time Spent with Patient: Total time spent is greater than 50% in coordination of care (as documented) at patient's floor/unit and/or counseling patient: Coding Level of Care Code 94983 SUB INP/OBS CARE 2/35MIN Diagnoses Alcohol use disorder, severe, dependence F10.20 Type [address] elevation I21.A1 Metabolic alkalosis E87.3 Acute respiratory alkalosis E87.3 Acute lactic acidosis E87.21 Adjustment disorder with depressed mood F43.21 Hypomagnesemia E83.42 Transaminasemia R74.01
[2024-11-26 08:21] VITALS: RESP 16; O2SAT 95
[2024-11-26 09:07] VITALS: BP 163/97; PULSE 73
--- NOTE | 2024-11-26 12:31 | Discharge Summary ---
Discharge Summary Date of Service November 26, 2024 Principal Dx & Hospital Course #1 = Principal Diagnosis (1) Alcohol use disorder, severe, dependence: (2) Type [address] elevation: (3) Metabolic alkalosis: (4) Acute respiratory alkalosis: (5) Acute lactic acidosis: (6) Adjustment disorder with depressed mood: (7) Hypomagnesemia: (8) Transaminasemia: Plan In summary this is a 64-year-old female being admitted for alcohol withdraw complicated by multiple acid-base derangements, type II myocardial infarction without ST elevation, electrolyte abnormalities, and evidence of mild liver injury. Alcohol withdrawal//alcohol use disorder, severe dependence//Transaminasemia Presenting PAWSS score of 5; last known drink on the evening of 11/22; no measurable alcohol level at the time of admission; some notable transaminasemia with elevated AST, ALT, ALP without an associated abnormality of the patient's coagulability nor their bilirubin, suggestive of parenchymal damage Administered phenobarbital bolus, followed by as needed dosing per protocol Continue folic acid 1 mg p.o. daily Continue thiamine 100 mg p.o. daily Abdominal US from 11/24 revealed hepatic steatosis Type II myocardial infarction without ST elevation Resolved Multifactorial acid-base derangement including acute respiratory alkalosis, metabolic alkalosis, lactic acidosis Resolved with IVF resuscitation Adjustment disorder with depressed mood given the patient's daughter moving back in with her, precipitating her binge episode of drinking suspect this is consistent with adjustment disorder associated with depressed mood; the patient is interested in speaking with a psychiatric professional regarding her mood disorders in addition to her continued struggles with alcohol misuse Continue outpatient psychiatric medications during hospitalization; psychiatry consulted Normocytic multifactorial anemia Chronic; without significant deviance from previous baseline measures Notes For Next Care Provider Medication Changes From Visit Increase fluoxetine 60 mg p.o. daily Admission HPI Per Admitting Provider Ms. Gonzalez is a 64-year-old female whose active medical conditions include alcohol use disorder with severe dependence, major depressive disorder, multifactorial normocytic anemia among other chronic medical conditions who presented to [facility] on 11/24 due to generalized malaise and reported worsening depression. The patient describes that they are daughter is returning to live with the patient for the upcoming semester at [employer]. The patient's daughter struggles with autism spectrum disorder, and the patient describes having "increased stress and sadness" regarding concerns o f her daughter's future which led to a binge drinking episode on the evening of 11/22 for total 2/5 of vodka. The patient subsequently experienced multiple episodes of emesis that was nonbloody, nonbilious with last episode of emesis occurring on the morning of presentation. The patient denies visual or auditory hallucinations, suicidal or homicidal ideation, chest pain, palpitations, nausea, abdominal pain, abdominal distention, altered bowel movements, hematochezia, hematemesis, melanotic stool, shortness of breath, pleuritic chest pain, orthopnea or platypnea. Discharge Exam General: Adult female in no acute distress Vital Signs: reviewed, persistently tachycardic without associated symptomatology HEENT: atraumatic, normocephalic; pupils equally round reactive to light; extraocular muscles intact; mucous membranes tacky Pulmonary: symmetric and unrestricted chest wall excursion; lungs clear to auscultation bilaterally Cardiovascular: regular rate with regular rhythm without murmurs, rubs, or gallops; S1 and S2 normal; radial and bilateral dorsalis pedis pulse 2+ without notable lower extremity edema; capillary refills approximately 3 to 4 seconds in all nailbeds Gastrointestinal: soft, nondistended; no elicited fluid with; nontender to superficial and palpation throughout all 4 quadrants with normal bowel sounds throughout; nontender but firm inferior hepatic border present at the inferior thoracic border Neurologic: CN II through XII intact; no discernible focal weakness nor paresthesias; resolved high-frequency low amplitude tremulousness of the bilateral upper extremities at rest; no bradykinesia; no asterixis; no evidence of ataxia of the upper or lower extremities Psychiatric: Alert and oriented to self, place, time; poor insight to her current medical conditions based on teach back; not exhibiting goal oriented thought process at this time Skin: scattered telangiectasias of the patient's torso and upper extremities Discharge Plan Discharge Items Patient Disposition: Home - Self-Care Reason For Visit: ALCOHOL WITHDRAWAL Discharge Diagnosis: Alcohol withdrawal in setting of alcohol use disorder Condition on Discharge: Good Activity: As commented below Non-emergency contact: Primary Care Provider Call non-emergency contact if: you have any medication questions Follow-up/Referrals: [facility] [Provider Group] PCP,NO [Primary Care Provider] - Diet: Regular Fluids: 1800ml (7 cups) Addtl Attending Provider Instructions: Please contact the referred Family Practice office above to schedule an appointment. Pending Studies at Discharge: No Stand-Alone Forms: [facility] Medications and DC Order Prescriptions: New olanzapine 10 mg Tablet 10 mg PO HS 30 Days Qty: 30 0RF Continued thiamine HCl (vitamin B1) 100 mg Tablet 100 mg PO QAM 30 Days Qty: 30 0RF folic acid 1 mg Tablet 1 mg PO QAM 30 Days Qty: 30 0RF lisinopril 10 mg tablet 10 mg PO DAILY Hold Instructions: Resume on 06/01/24. Hold until Dr. Mcconnell says it is okay to resume pantoprazole [Protonix] 40 mg tablet,delayed release (DR/EC) 40 mg PO DAILY Qty: 30 0RF Changed fluoxetine 40 mg capsule 60 mg PO DAILY 30 Days Qty: 45 0RF Discontinued hydroxyzine HCl 50 mg tablet 50 mg PO Q6H PRN (Reason: nausea and vomiting) Qty: 30 0RF Rx Instructions: Please take Hydroxyzine 50 mg every 6 hours as needed for increased anxiety. olanzapine 5 mg tablet 5 mg PO HS multivitamin with folic acid [Daily-Nicolasa (with folic acid)] 400 mcg Tablet 1 tab PO QAM Qty: 30 0RF Patient Comments: 11/13- otc unable to verify Discharge Orders: Discharge Order (Routine); Ordered 11/26/24 Ordered By: Wilbert Beatty/Other Patient Handouts: Addiction Disease, Alcoholism Myths and Facts, Alcoholism Resources, Alcohol Addiction, Addiction Recovery Counseling, ED Alcohol Withdrawal, ED Alcohol Intoxication Admission Data Admit Date/Time: 11/24/24 15:05 Attending Provider: Wilbert Blair Admit Provider: Wilbert Blair Primary Care Provider: PCP,NO Other Providers: Ligia Brown; Og You; Codie Subramanian; Noelle Newby; Antonio Godoy; Josh Eaton; Fatoumata Burks; Re Sim Other Interventions: Discharge Summary Assessment (RN) Last Done: 11/26/24 09:06 Hospital Stay Data Consultations 11/24/24 17:30 Consult Psychiatry Routine Diagnostic Imagining Performed 11/24/24 17:04 US abdomen limited Routine Pending Results Patient Have Any Pending Studies at Discharge: No Discharge Instructions Given to Patient (Per Discharging Provider) Please contact the referred Family Practice office above to schedule an appointment. Total Time Total Time Spent Total Time Spent (In Minutes): 45 Coding Level of Care Code INP/OBS EV SAME DAY LV 2,70MIN Diagnoses Alcohol use disorder, severe, dependence F10.20 Type [address] elevation I21.A1 Metabolic alkalosis E87.3 Acute respiratory alkalosis E87.3 Acute lactic acidosis E87.21 Adjustment disorder with depressed mood F43.21 Hypomagnesemia E83.42 Transaminasemia R74.01
[2024-11-29 14:12] LABS: 7-Aminoclonaz, Confirm NEGATIVE ng/mL (<25); Amobarbital, Urine Conf NEGATIVE ng/mL (<100); Hydro-Alp Ur, GC/MS NEGATIVE ng/mL (<25); Hydroxyethylflurazepam, Conf NEGATIVE ng/mL (<50); Hydroxymidazolam Ur, GC/MS NEGATIVE ng/mL (<50); Lorazepam, Ur GC/MS NEGATIVE ng/mL (<50); Nordiazepam, Confirm NEGATIVE ng/mL (<50); Oxazepam Ur, GC/MS NEGATIVE ng/mL (<50); Pentobarbital, Urine Conf NEGATIVE ng/mL (<100); Secobarbital, Urine Conf NEGATIVE ng/mL (<100); Temazepam, Confirm NEGATIVE ng/mL (<50)
--- NOTE | 2024-11-30 13:27 | Electrocardiogram Report ---
Test Reason : Blood Pressure : */* mmHG Vent. Rate : 73 BPM Atrial Rate : 73 BPM P-R Int : 172 ms QRS Dur : 80 ms QT Int : 418 ms P-R-T Axes : 48 33 27 degrees QTcB Int : 460 ms Normal sinus rhythm Normal ECG When compared with ECG of 24-Nov-2024 13:21, T wave amplitude has decreased in Lateral leads QT has shortened Confirmed by Jaguar Burroughs ([id number]) on 11/30/2024 1:27:22 PM Referred By: REFERRED SELF Confirmed By: Jaguar Burroughs
== END 2024-11-26 09:59 | disposition home or self-care (01) ==
LOC: ED 12:51 → 4W 15:05 → INTOOBSV 15:05 → 4W 16:30
DX: F10.231 Alcohol dependence with withdrawal delirium; Z86.718 Personal history of other venous thrombosis and embolism; R79.89 Other specified abnormal findings of blood chemistry; E83.42 Hypomagnesemia; Z79.899 Other long term (current) drug therapy; F43.23 Adjustment disorder with mixed anxiety and depressed mood; R74.01 Elevation of levels of liver transaminase levels; D64.9 Anemia, unspecified; I21.A1 Myocardial infarction type 2; E87.21 Acute metabolic acidosis; F43.21 Adjustment disorder with depressed mood; E87.3 Alkalosis